=== PATIENT | male | born 1940 | race Caucasian/White ===

== ENCOUNTER → 2023-11-30 10:12 | Outpatient (REF) | payer OTHER, SELFPAY | LOC: RAD 10:12 | PROVIDERS: ATTENDING PHYSICIAN Surgery Vascular Surgery; FAMILY PHYSICIAN Family Medicine | DX: I71.40 Abdominal aortic aneurysm, without rupture, unspecified (principal) | CPT/HCPCS: 76770 ==

== ENCOUNTER 2024-01-25 23:34 | Inpatient (IN) | payer OTHER, SELFPAY ==
[2024-01-25 17:46] VITALS: BP 194/99
[2024-01-25 18:08] LABS: % Basophils 0.2 % (0-2); % Eosinophils 0.3 % (0-6); % Immature Granulocytes 0.3 % (0-0.5); % Lymphocytes 17.7 % (20.5-51.1); % Monocytes 1.8 % (1.7-9.3); % Neutrophils 79.7 % (42.2-75.2); Absolute Lymphocytes 1.8 10^3/uL (1.2-3.4); Absolute Monocytes 0.2 10^3/uL (0.1-0.6); Absolute Neutrophils 7.9 10^3/uL (1.4-6.5); Hematocrit 38.5 % (39.0-52.0); Hemoglobin 12.6 g/dL (13.0-18.0); Mean Corp Hgb Conc. 32.7 g/dL (33.0-37.0); Mean Corpuscular Hgb 28.9 pg (27.0-31.0); Mean Corpuscular Volume 88.3 fL (80.0-94.0); Mean Platelet Volume 9.8 fL (7.4-10.4); Nucleated Red Blood Cells % 0 % (-); Platelet Count 186 10^3/uL (130-400); Red Blood Cell Count 4.36 10^6/uL (4.70-6.10); Red Cell Dist. Width 12.2 % (11.5-14.5); White Blood Cell Count 9.9 10^3/uL (4.8-10.8)
[2024-01-25 18:27] LABS: Albumin 4.3 g/dl (3.5-5.0); Blood Urea Nitrogen 17 mg/dl (9-20); Chloride 95 mmol/L (98-107); Glucose 131 mg/dl (70-99); Total Bilirubin 1.1 mg/dl (0.2-1.3); Total Protein 6.7 g/dl (6.3-8.2); eGFR > 60.00
[2024-01-25 18:36] LABS: ALT (SGPT) 21 U/L (0-50); AST (SGOT) 30 U/L (17-59); Alkaline Phosphatase 57 U/L (38-126); Calcium 9.4 mg/dl (8.4-10.2); Carbon Dioxide 30 mmol/L (22-30); Lipase 50 U/L (23-300); Potassium 4.9 mmol/L (3.5-5.1); Sodium 131 mmol/L (135-145)
[2024-01-25 19:31] VITALS: BMI 17.8
[2024-01-25] MEDS: ZOFRAN 4 MG IV (20:03)
[2024-01-25] MEDS: MORPHINE SULFATE 2 MG IV ×2 (20:05→20:24)
[2024-01-25] MEDS: NSS 1000 IV (20:08)
--- NOTE | 2024-01-25 20:12 | ED.GENMED ---
History of Present Illness
General
Chief Complaint: Abdominal Pain
Source: patient
Exam Limitations: none
Time Seen by Provider: 01/25/24 19:28
History of Present Illness
History of Present Illness:
This is a 83 year old male that comes in with cp abd pain. States that he feels like he is impacted. States that he had a little BM yesterday but none since. State that he is not even passing gas. States that he did take MOM around 3:30-4pm but this
has not helped. States that he feels nauseated and has abd pain. Denies any fever, chills, chest pain, SOB, vomiting, diarrhea, headache, dizziness, urinary burning.
Past History
Past History
ED Past Medical History: Arrthythmia (Atrial fibrillation), Cancer (Skin), COPD (Wears Home Oxygen at 3 liters), GERD, HTN, Hypercholesterolemia and Other (AAA that they are watching, diverticulitis, chronic back pain, Bowel obstruction,
Bronchiolitis obliterans Organizing Pneumonia, Urinary retention, Macular degeneration); Negative NIDDM
ED Past Surgical History: Bowel resection (Colon resection)
Social History
Tobacco: Former smoker
Alcohol: None
Personal:
Living: with family
Employment: Retired
Review of Systems
Review of Systems
All Other Systems: ROS reviewed and negative except as documented in HPI and ROS
Constitutional: Reports no symptoms; Denies fever or chills
EENT: Reports no symptoms
Respiratory: Reports no symptoms; Denies cough or trouble breathing
Cardiac: Reports no symptoms; Denies chest pain
ABD/GI: Reports abdominal pain and nausea; Denies vomiting or diarrhea
: Reports no symptoms; Denies dysuria, frequency or urgency
Musculoskeletal: Reports no symptoms
Skin: Reports no symptoms
Neurological: Reports no symptoms; Denies dizzy or headache
Psychiatric: Reports no symptoms
Phy Exam
General Physical Exam
General Presentation: no apparent distress
General age: appears stated age
General Skin: warm and dry
General Habitus: elderly
General Mental: alert
General Hydration: dry mucous membranes
ENT Exam
ENT Exam: TM's normal, pharynx normal and neck supple
Eye Exam
Eye Exam: EOMI
Cardiovascular Exam
Cardiovascular Exam: regular rate/rhythm, no edema and normal peripheral pulses
Pulmonary Exam
Pulmonary Exam: no respiratory distress, chest non tender, no rhonchi, no wheezing, no cough and other (Fine crackles at bases)
Gastrointestinal Exam
Gastrointestinal Exam: soft, no organomegaly, no pulsatile mass, tender (Tenderness with palpation left abd. ) and other (Bowel sounds very hypoactive, Slight bulge on left sided, Hernias palpable)
Musculoskeletal Exam
Musculoskeletal Exam: full ROM and no edema
Skin Exam
Skin Exam: normal color, warm/dry, no rash and no petechia
Psychiatric Exam
Psychiatric Exam: normal mood/affect
Course
Orders/Labs/Results
Orders:
Orders
01/25/24 18:03
Complete Blood Count/With Diff Urgent
Comprehensive Metabolic Panel Urgent
Lipase Urgent
01/25/24 19:51
Morphine Sulfate 2 mg .ROUTE .STK-MED ONE
Ondansetron Injectable [Zofran] 4 mg .ROUTE .STK-MED ONE
01/25/24 20:03
Ondansetron Injectable [Zofran] 4 mg IV NOW STA
01/25/24 20:05
Morphine Sulfate 2 mg IV NOW STA
01/25/24 20:07
0.9% Sodium Chloride 1000 ml [Nss] 1,000 ml IV BOLUS
01/25/24 20:11
Lactate Level [Lactic Acid] Urgent
Comment: .
Iohexol [Omnipaque] See Protocol PO NOW STA
01/25/24 20:12
CT Abd/pel W Iv And Oral Contr Urgent
Comment: History of bowel obstruction
Reason For Exam: Left sided abd pain
01/25/24 20:18
Morphine Sulfate 2 mg .ROUTE .STK-MED ONE
01/25/24 20:24
Morphine Sulfate 2 mg IV NOW STA
01/25/24 21:45
HYDROmorphone [Dilaudid] 1 mg .ROUTE .STK-MED ONE
01/25/24 21:47
HYDROmorphone [Dilaudid] 1 mg IV NOW STA
Abnormal Lab Results
01/25/24
18:03
RBC 4.36 L 10^6/uL
(4.70-6.10)
Hgb 12.6 L g/dL
(13.0-18.0)
Hct 38.5 L %
(39.0-52.0)
MCHC 32.7 L g/dL
(33.0-37.0)
Absolute Neuts (auto) 7.9 H 10^3/uL
(1.4-6.5)
Neutrophils % 79.7 H %
(42.2-75.2)
Lymphocytes % 17.7 L %
(20.5-51.1)
Sodium 131 L mmol/L
(135-145)
Chloride 95 L mmol/L
(98-107)
Glucose 131 H mg/dl
(70-99)
01/25/24 18:03
01/25/24 18:03
H/H slightly low. Sodium slightly low. Chloride low. Glucose nonfasting. Lipase normal at 50.
Vital Signs
Initial and Last Documented VS:
Initial Vital Signs
Temp Pulse Resp BP Pulse Ox
97.3 F 75 20 194/99 94
01/25/24 17:46 01/25/24 17:46 01/25/24 17:46 01/25/24 17:46 01/25/24 17:46
Last Documented Vital Signs
Temp Pulse Resp BP Pulse Ox
97.3 F 89 20 180/80 98
01/25/24 17:46 01/25/24 21:27 01/25/24 21:27 01/25/24 21:27 01/25/24 21:27
MDM/Problems Addressed
Differential Diagnosis Includes:
Bowel obstruction. Constipation
MDM/Problems Addressed:
This is a 83 year old male that comes in with c/o abd pain. States that he has not moved his bowels or had any gas today. States that he went very little yesterday.
Will get labs, CT scan, IV fluids and pain medication.
Back into see patient. Explained that he has a small bowel obstruction. This may be due to a hernia. Will admit to hospitalist. Hospitaist notified.
Chronic conditions affecting care: Previous abdomnial surgery
Acute Exacerbation and/or Progression of Chronic Illness: Previous abdomnial surgery
*Radiology
Radiology exam reviewed: radiology read reviewed (CT- High grade small bowel obstruction. May be secondary to an internal hernia, Closed loop not entirely excluded. )
*Pulse Oximetry
Patient hypoxic: no
*EKG
Interpreted by ED Provider?: NA
Rate: EKG- N/A
*Build Engineer Interpretation
Rate: normal
Heart Rate: 77
Rhythm: sinus and PVC's
*Critical Care Note
Total Time (30-74mins, 75-104mins- exclusive of procedures): Not Applicable
ED Attending Note
-
Portions of this chart may have been created with voice recognition software.� Occasional wrong word or��sound alike� substitutions may have occurred due to the inherent limitations of voice recognition software.
Discharge Plan
Departure
Patient Disposition: Admit
Date of Disposition: 01/25/24
Time of Disposition: 23:14
Admit to: Med/Surg
Presentation/result/management discussed w/ accepting MD/DO: Hospitalist
Patient with high blood pressure during this ER visit?: Yes
Condition: Good
Covid-19: Not Applicable
Discharge Problem:
SBO (small bowel obstruction)
Prescriptions:
No Action
tamsulosin 0.4 MG capsule
0.4 mg PO HS
finasteride 5 MG tablet
5 mg PO HS
omeprazole 40 MG capsule,delayed release(DR/EC)
40 mg PO DAILY
PreserVision AREDS-2 1 EACH capsule
1 ea PO BID
Eliquis 5 MG tablet
5 mg PO BID Qty: 0 0RF
Patient Comments:
10/17/22- PATIENT USES [facility]
Eye [place] Advantage 550-250-2.5-0.5 xy-nioa-dg-mg Capsule
1 cap PO DAILY
albuterol sulfate 90 mcg/actuation Hfa Aerosol Inhaler
2 puff INHALATION R QIDPRN PRN (Reason: sob, wheezing)
albuterol sulfate 2.5 mg /3 mL (0.083 %) Solution For Nebulization
2.5 mg INHALATION R Q4HPRN PRN (Reason: sob)
Rx Instructions:
unsure of mcg
Trelegy Ellipta 200-62.5-25 mcg Blister With Device
1 inh INHALATION R DAILY
sennosides [senna] 8.6 mg Tablet
8.6 mg PO [id number] PRN (Reason: if no bm on 2nd day)
polyethylene glycol 3350 [Miralax] 17 gram Powder In Packet
17 g PO DAILY
rosuvastatin 40 mg tablet
40 mg PO QPM
guaifenesin [Mucinex] 600 mg tablet extended release 12hr
600 mg PO Q12H PRN (Reason: cough)
enalapril maleate 10 mg Tablet
10 mg PO DAILY Qty: 30 0RF
acetaminophen 325 mg Tablet
650 mg PO Q4HPRN PRN (Reason: abdominal pain) Qty: 10 0RF
amiodarone [Pacerone] 200 mg Tablet
400 mg PO BID Qty: 20 0RF
cephalexin 500 mg Capsule
500 mg PO QID Qty: 12 0RF
ferrous sulfate [FeroSul] 325 mg (65 mg iron) Tablet
325 mg PO Q48H Qty: 20 0RF
carvedilol 6.25 mg Tablet
6.25 mg PO BID Qty: 60 0RF
amiodarone 200 mg tablet
200 mg PO DAILY Qty: 30 0RF
Rx Instructions:
Start on 02/18
Referrals:
UNKNOWN - PT DOES,NOT KNOW [Unknown Provider] -
Interventions
Interventions:
*Risk Screen - Suicide Last Done: 01/25/24 17:46
*General Assessment Last Done: 01/25/24 17:46
*Neglect/Abuse Screening Last Done: 01/25/24 17:46
ED- Fall Risk Assessment Last Done: 01/25/24 19:36
RT-Ryobpk-Lfyspvmvqo Assessment Last Done: 01/25/24 19:36
Discharge Date and Time
Print Language: MARSHALLESE
[2024-01-25 20:14] VITALS: BP 180/80
[2024-01-25] MEDS: OMNIPAQUE 50 ML PO (20:23)
[2024-01-25 20:31] LABS: Lactic Acid 1.3 mmol/L (0.7-2.0)
[2024-01-25 21:27] VITALS: BP 180/80
[2024-01-25] MEDS: DILAUDID 1 MG IV (21:47)
--- NOTE | 2024-01-25 23:15 | HPS.HSE ---
Family Physician
-
Family Physician: Neal Harmon
Chief Complaint
-
abdominal pain
History of Present Illness
83 year old male with PMH for A-fib, skin cancer, COPD, chronic hypoxic respiratory failure, GERD, hypertension, hyperlipidemia AAA, diverticulitis, small bowel obstruction urinary retention presented with abdominal pain since yesterday . He had a
very small BM yesterday . He has been taking milk of mag, Senokot with no relief in his symptoms .abdomen is tender and distended .denied nausea or vomiting .patient denied headache, dizziness, syncopal episode .patient denies fever, chills, chest
pain, short of breath. patient denies dysuria hematuria.
CT with high-grade small bowel obstruction likely from hernia. Patient received Dilaudid, morphine, normal saline, Zofran ER. Admitted for further management
Medical History
Past Medical History
Past Medical History: Reports Other
Additional Past Medical History:
AAA
COPD
Hypertension
Coronary artery disease
Hyperlipidemia
Pulmonary hypertension
Iron deficiency anemia
Paroxysmal atrial fibs
BPH
GERD
Past Surgical History: Reports Other
Additional Past Surgical History:
Colectomy
Left eye surgery
Bilateral cataract surgery
Social History
Tobacco: Former Smoker
Alcohol: None
Drug: None
Personal:
Living: With Family
Family History
Family History: Not pertinent
Allergies / Home Medications
Allergies reflects when Allergies were last updated in [facility].
Home Medications with original date entered in [facility]
Allergy/Medication List:
Allergies
Allergy/AdvReac Type Severity Reaction Status Date / Time
No Known Allergies Allergy Verified 01/25/24 17:53
Home Medications
finasteride 5 mg tablet 5 mg PO HS prostate 03/15/16
tamsulosin 0.4 mg capsule 0.4 mg PO HS Urinary issue 03/15/16
apixaban 5 mg tablet (Eliquis) 5 mg PO BID Blood clot prevention/tx ##0 12/14/21
omeprazole 40 mg capsule,delayed release 40 mg PO DAILY Gastrointestinal issue 12/14/21
vit C 250 mg-vit E 90 mg-zinc 40 mg-copper 1 eo-[id number]-gsjkgc capsule (PreserVision AREDS-2) 1 ea PO BID Supplement 12/14/21
albuterol sulfate 90 mcg/actuation aerosol inhaler 2 puff inhalation R QIDPRN PRN sob, wheezing 09/12/22
omega3 550 mg-dkh-pqo-D3 250 unit-lutein 2.5 mg-zeaxant 0.5 mg capsule (Eye [place] Advantage) 1 cap PO DAILY vitamin 09/12/22
albuterol sulfate 2.5 mg/3 mL (0.083 %) solution for nebulization 2.5 mg inhalation R Q4HPRN PRN sob 10/17/22
fluticasone fur. 200 mcg-umeclid 62.5 mcg-vilant 25 mcg inhalat.powder (Trelegy Ellipta) 1 inh inhalation R DAILY sob 10/17/22
polyethylene glycol 3350 17 gram oral powder packet (Miralax) 17 g PO DAILY Constipation 10/17/22
rosuvastatin 40 mg tablet 40 mg PO QPM High cholesterol 10/17/22
sennosides 8.6 mg tablet (senna) 8.6 mg PO [id number] PRN if no bm on 2nd day 10/17/22
guaifenesin 600 mg tablet, extended release 12 hr (Mucinex) 600 mg PO Q12H PRN cough 12/11/22
enalapril maleate 10 mg tablet 10 mg PO DAILY #30 tabs 12/17/22
acetaminophen 325 mg tablet 650 mg (2 x 325 mg) PO Q4HPRN PRN abdominal pain #10 tabs 02/13/23
amiodarone 200 mg tablet 200 mg PO DAILY Start on 02/18/23 #30 tabs 02/13/23
amiodarone 200 mg tablet (Pacerone) 400 mg (2 x 200 mg) PO BID last dose on 02/17 #20 tabs 02/13/23
carvedilol 6.25 mg tablet 6.25 mg PO BID #60 tabs 02/13/23
cephalexin 500 mg capsule 500 mg PO QID #12 caps 02/13/23
ferrous sulfate 325 mg (65 mg iron) tablet (FeroSul) 325 mg PO Q48H #20 tabs 02/13/23
Review of Systems
-
Constitutional: Reports No Symptoms
EENT: Reports No Symptoms
Respiratory: Reports No Symptoms
Cardiac: Reports No Symptoms
Abdomen/GI: Reports Abdominal Pain
: Reports No Symptoms
Musculoskeletal: Reports No Symptoms
Skin: Reports No Symptoms
Neurological: Reports No Symptoms
Endocrine: Reports No Symptoms
Hematologic/Lymphatic: Reports No Symptoms
Psych: Reports No Symptoms
Physical Exam
Vital Signs
Vital Signs
Temp Pulse Resp BP Pulse Ox
97.3 F 89 20 180/80 98
01/25/24 17:46 01/25/24 21:27 01/25/24 21:27 01/25/24 21:27 01/25/24 21:27
Physical Exam
General: Well Developed, Well Nourished and No Apparent Distress
HEENT: NormoCephalic, Moist mucous membranes and Atraumatic
Respiratory: Clear
Cardiac: S1/S2 and Regular Rhythm; No Murmur or Rub
GI: Soft, Normal Bowel Sounds, Tender and Distended; No Organomegaly
Rectal: Deferred by Provider
Musculoskeletal: No Clubbing, No Cyanosis and No Edema
Skin: No Rash
Neuro: AO x 3 and Nonfocal/grossly intact
Psych: Calm
Laboratory Results
-
01/25/24 18:03
01/25/24 18:03
Laboratory Results
Lactic Acid 1.3 mmol/L (0.7-2.0) 01/25/24 20:11
Total Bilirubin 1.1 mg/dl (0.2-1.3) 01/25/24 18:03
AST 30 U/L (17-59) 01/25/24 18:03
ALT 21 U/L (0-50) 01/25/24 18:03
Alkaline Phosphatase 57 U/L (38-126) 01/25/24 18:03
Lipase 50 U/L (23-300) 01/25/24 18:03
Data Reviewed
-
CT Scan: Report Reviewed by me
Lab Data: Labs Reviewed by me
Impression/Plan
-
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
-maintain NPO
-surgery consulted
-CT abdomen pelvis with High-grade small bowel obstruction. Transition point appears to be located in the central abdomen where there is some twisting of the abdominal mesentery potentially secondary to an internal hernia. Closed loop obstruction is
difficult to completely exclude.
#acute on chronic hyponatremia likely dehydration
-na 131
-Normal saline continued
-Monitor BMP in a.m.
#chronic hypoxic respiratory insufficiency on 2-3 L at baseline
# History of COPD not in acute exacerbation-
-continue supplemental oxygen to keep sat greater than 89-year-old
-Wean as tolerated
# Primary HTN
-BP soft in ER
-Hold antihypertensive
# Paroxysmal atrial fibs
-Obtain EKG
-hold Eliquis
#Benign prostatic hypertrophy
#AAA
Outpatient monitoring
#DVT prophylaxis
-SCD
# CODE STATUS
-Full code
[2024-01-25 23:21] VITALS: BP 93/73
--- NOTE | 2024-01-25 23:30 | W.PN.UPDATE ---
Update Note
Progress Note Update
This is an addendum to the H&P written by Jenna Palomo on 01/25/2024. 83-year-old male past medical history of recurrent small bowel obstruction, aspiration pneumonia, iatrogenic fluid overload, hypertension, paroxysmal atrial fibrillation/SVT on
Eliquis, blood loss anemia, hyponatremia, COPD, chronic hypoxic respiratory failure on 3L, home oxygen, BPH, abdominal aortic aneurysm, pulmonary nodules, presenting with abdominal pain and nausea.
CT abdomen pelvis shows high-grade small bowel obstruction, transition point in the central abdomen where there is some twisting of the abdominal mesentery potentially secondary to internal hernia. Closed-loop obstruction difficult to completely
exclude.
N.p.o, IV fluids, pain control, hold Eliquis, general surgery consulted.
[2024-01-25 23:45] LABS: Urine Albumin Trace (Neg - Trace); Urine Bilirubin Negative (Negative); Urine Character Slightly Cloudy (Clear); Urine Color Straw; Urine Glucose Negative (Negative); Urine Ketone Trace (Negative); Urine Leukocyte Negative (Negative); Urine Nitrite Negative (Negative); Urine Occult Blood 1+ (Negative); Urine Urobilinogen Negative (Neg - 1+)
--- NOTE | 2024-01-25 23:45 | PHANOTE ---
med rec viktoria(01/25/24)-patient did not know his meds and left his list at home. Told to call to look for list in [facility]. Called at 23:25 and 23:45, no answer. List compiled using [facility] and [facility]. [facility], so not all
prescriptions showed up on [facility]. Patient confirmed Elimike and Dianagy himself.
[2024-01-25 23:53] LABS: Urine Squamous Cell 0-2 /LPF (Few)
[2024-01-25 23:56] LABS: Urine Amorphous Seen; Urine Bacteria Few (Negative); Urine White Cell 0-2 /HPF (0-5)
[2024-01-26] VITALS (7 sets, daily range): BP systolic 109–147; BP diastolic 62–86; BMI 18.3
[2024-01-26] MEDS: TYLENOL 650 MG PO (01:42)
[2024-01-26] MEDS: NSS 1000 IV ×2 (01:42→17:17)
[2024-01-26] MEDS: FLUSH (NSS) 1 FLUSH IV (01:42)
--- NOTE | 2024-01-26 01:56 | PTCARENOTE ---
Pt. admitted from E.D., AAO x 3, vs stable, NSR on monitor, IVF's started per MAR, call trujillo within reach.
[2024-01-26] MEDS: ZOFRAN 4 MG IV (04:25)
[2024-01-26] MEDS: DILAUDID 1 MG IV ×3 (08:02→21:36)
--- NOTE | 2024-01-26 08:53 | CON.CAR ---
Addendum entered and electronically signed by Arturo Gutierrez MD 01/26/24 12:38:
I saw and examined the patient.
The TOBACCO SCRAP SIFTER's note was reviewed and I agree with the note.
Comment:
1. Will provide IV BB while NPO in attempt to minimize amount of AFib.
2. If holding Eliquis for more than 2-3 days then IV heparin is reasonable. Lovenox would not be a reasonable bridge as Lovenox 1/2 life is very similar 1/2 life of his Eliquis.
3. His lack of ACS, HF, active arrhythmia and adequate functional status makes his risk of major cardiac complications from exploratory lap acceptable. Low to intermediate risk and ischemic evaluation is not needed should he needed surgical
intervention.
We will sign off but be available as needed.
Original Note:
Consultation
Consultation Request
Date/Time Consultation Requested: 01/26/24729
Date/Time Consultation Performed: 01/26/24 0850
Requesting Provider: Dr. Evans
Performing Provider: Suzy MEJIA for Dr. Gutierrez
Reason for Consultation: anticoagulation for AFIB in setting of surgery
Medical History
-
Chief Complaint: abdominal pain
History of Present Illness:
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
and is seen to have an SBO. Surgery is consulted and we are asked to comment on bridging with heparin for surgery in this patient on Eliquis. He is in NSR on telemetry. EKG is ordered by me and pending. He is in no distress at the time of my
assessment and denies any CP, SOB, or palpitations.
Past Medical History
Past Medical History: Arrhythmias, CAD, COPD, HTN and Other (as above)
Social History
Tobacco: Former Smoker
Family History
Family History: Reviewed & Not Pertinent
Allergies / Home Medications
Allergy/AdvReac Type Severity Reaction Status Date / Time
No Known Allergies Allergy Verified 01/25/24 17:53
�Medication �Instructions �Recorded �Confirmed �Type
finasteride 5 mg tablet 5 mg PO HS prostate 03/15/16 02/04/23 History
tamsulosin 0.4 mg capsule 0.4 mg PO HS Urinary issue 03/15/16 02/04/23 History
apixaban 5 mg tablet (Eliquis) 5 mg PO BID Blood clot 12/14/21 01/25/24 Rx
prevention/tx ##0
vit C 250 mg-vit E 90 mg-zinc 40 1 ea PO BID Supplement 12/14/21 02/04/23 History
mg-copper 1 ni-bmjjat-vlaean
capsule (PreserVision AREDS-2)
albuterol sulfate 2.5 mg/3 mL 2.5 mg inhalation R Q6HPRN PRN sob 10/17/22 02/04/23 History
(0.083 %) solution for nebulization
fluticasone fur. 200 mcg-umeclid 1 inh inhalation R DAILY sob 10/17/22 01/25/24 History
62.5 mcg-vilant 25 mcg
inhalat.powder (Trelegy Ellipta)
rosuvastatin 40 mg tablet 40 mg PO QPM High cholesterol 10/17/22 02/04/23 History
guaifenesin 600 mg tablet, 600 mg PO Q12H PRN cough 12/11/22 02/04/23 History
extended release 12 hr (Mucinex)
enalapril maleate 5 mg tablet 5 mg PO BID Blood Pressure 01/25/24 History
erythromycin 5 mg/gram (0.5 %) eye 1 applic RIGHT EYE TID Eye 01/25/24 History
ointment Condition
ezetimibe 10 mg tablet 10 mg PO DAILY High Cholesterol 01/25/24 01/25/24 History
carvedilol 6.25 mg tablet 6.25 mg PO BID Blood Pressure 01/26/24 History
Review of Systems
-
History Source: Patient
All other systems: Negative unless noted
Abdomen/GI: Abdominal Pain and Nausea
Physical Exam
Vital Signs
Temp Pulse Resp BP Pulse Ox
98.1 F 77 16 114/63 99
01/26/24 07:36 01/26/24 07:36 01/26/24 07:36 01/26/24 07:36 01/26/24 07:36
Physical Exam
General: Well Developed, Well Nourished and No Apparent Distress
HEENT: Normocephalic and Anicteric
Respiratory: Clear and Other (on O2 by NC)
Cardiac: Regular Rhythm and Murmur (II/ systolic murmur)
Musculoskeletal: No Edema
Skin: Warm and Dry
Neuro: AO x 3
Psych: Calm
Impression / Plan
-
SBO:
-NPO, on IVF, surgery is consulted
-pain is controlled
-Eliquis is held for potential surgery- see below
-he is low to moderate risk for procedure from cardiac perspective. He denies any CP or SOB. He is in SR on telemetry. EKG stable overall.
PAF:
-stable in SR, follow telemetry. Last admit, had AFIB with RVR in setting of SBO.
-on Coreg as OP- can use IV BB (metoprolol 5 mg IV q 6 H) in interim while NPO- this medicine requires intensive monitoring. Transition back to PO when able.
-on Eliquis for OAC- this is held for potential surgery. His [id number] score is 4 for age, HTN, and vascular disease. We do not typically bridge Eliquis for planned procedures. Would plan to resume Eliquis as soon as safe from procedure
standpoint. However, if he will be off Eliquis a prolonged amount of time (48-72 hrs), can use heparin drip.
HTN:
-stable
-also hx orthostatic hypotension
-follow
Non-obstructive CAD:
-stable no CP
AAA
Dyslipidemia
COPD on O2
Data Reviewed
-
EKG: Tracing Personally Visualized and interpreted (SR LAFB- no acute change from previous SR EKG's)
CT Scan: Report Reviewed by me (High-grade small bowel obstruction. Transition point appears to be located in the central abdomen where there is some twisting of the abdominal mesentery potentially secondary to an internal hernia. Closed loop
obstruction is difficult to completely exclude. )
Medical Tests (Nuc Med, Echo etc): Report Reviewed by me (Echo 01/05/23: EF 60-65%. Mild aortic stenosis; peak/mean gradients of 28/14 mmHg, calculated JOSHUA is 1.4 cm2. Trace aortic regurgitation. Mild to moderate tricuspid regurgitation. Estimated
pulmonary artery pressure of 45-50 mmHg.)
Labs: Labs Reviewed by me
[2024-01-26 10:56] LABS: Hemoglobin 12.3 g/dL (13.0-18.0); Mean Corp Hgb Conc. 33.2 g/dL (33.0-37.0); Mean Corpuscular Hgb 29.1 pg (27.0-31.0); Mean Corpuscular Volume 87.7 fL (80.0-94.0); Mean Platelet Volume 9.7 fL (7.4-10.4); Platelet Count 192 10^3/uL (130-400); Red Blood Cell Count 4.22 10^6/uL (4.70-6.10); Red Cell Dist. Width 12.8 % (11.5-14.5); White Blood Cell Count 15.3 10^3/uL (4.8-10.8)
--- NOTE | 2024-01-26 11:18 | CON.GS ---
Consultation
-
Date/Time Consultation Requested: January 26, 2024
Date/Time Consultation Performed: January 26, 2024
Performing Provider: Dr. Cantu
Reason for Consultation: Posssible Bowel Obstruction
Medical History
Past Medical History
Past Medical History: Reviewed & Noncontributory, Arrhythmias and HTN
Past Surgical History: Bowel Resection and Other
Social History
Employment: Retired
Family History
Family History: Reviewed & Noncontributory
Allergies / Home Medications
Allergy/AdvReac Type Severity Reaction Status Date / Time
No Known Allergies Allergy Verified 01/25/24 17:53
�Medication �Instructions �Recorded �Confirmed �Type
finasteride 5 mg tablet 5 mg PO HS prostate 03/15/16 02/04/23 History
tamsulosin 0.4 mg capsule 0.4 mg PO HS Urinary issue 03/15/16 02/04/23 History
apixaban 5 mg tablet (Eliquis) 5 mg PO BID Blood clot 12/14/21 01/25/24 Rx
prevention/tx ##0
vit C 250 mg-vit E 90 mg-zinc 40 1 ea PO BID Supplement 12/14/21 02/04/23 History
mg-copper 1 ac-zetmay-zpacuy
capsule (PreserVision AREDS-2)
albuterol sulfate 2.5 mg/3 mL 2.5 mg inhalation R Q6HPRN PRN sob 10/17/22 02/04/23 History
(0.083 %) solution for nebulization
fluticasone fur. 200 mcg-umeclid 1 inh inhalation R DAILY sob 10/17/22 01/25/24 History
62.5 mcg-vilant 25 mcg
inhalat.powder (Trelegy Ellipta)
rosuvastatin 40 mg tablet 40 mg PO QPM High cholesterol 10/17/22 02/04/23 History
guaifenesin 600 mg tablet, 600 mg PO Q12H PRN cough 12/11/22 02/04/23 History
extended release 12 hr (Mucinex)
enalapril maleate 5 mg tablet 5 mg PO BID Blood Pressure 01/25/24 History
erythromycin 5 mg/gram (0.5 %) eye 1 applic RIGHT EYE TID Eye 01/25/24 History
ointment Condition
ezetimibe 10 mg tablet 10 mg PO DAILY High Cholesterol 01/25/24 01/25/24 History
carvedilol 6.25 mg tablet 6.25 mg PO BID Blood Pressure 01/26/24 History
Review of Systems
-
History Source: Patient
Constitutional: No Symptoms
EENT: No Symptoms
Respiratory: No Symptoms
Cardiac: No Symptoms
Abdomen/GI: Abdominal Pain, Nausea, Vomiting, Constipated and Pain
: No Symptoms
Musculoskeletal: No Symptoms
Skin: No Symptoms
Neurological: Weakness
Endocrine: No Symptoms
Hematologic/Lymphatic: No Symptoms
A 10 point review of systems was completed, and was negative except as per HPI.
Physical Exam
Vital Signs
Temp Pulse Resp BP Pulse Ox
98 F 71 16 109/62 98
01/26/24 11:10 01/26/24 11:10 01/26/24 11:10 01/26/24 11:10 01/26/24 11:10
01/25/24 01/26/24 01/27/24
06:59 06:59 06:59
Actual Weight 61.292 kg
Body Mass Index (BMI) 18.3
Lab Results
01/26/24 10:19
WBC 15.3 10^3/uL (4.8-10.8) H 01/26/24 10:19
Hgb 12.3 g/dL (13.0-18.0) L 01/26/24 10:19
Hct 37.0 % (39.0-52.0) L 01/26/24 10:19
Plt Count 192 10^3/uL (130-400) 01/26/24 10:19
Abs Immat Gran (auto) 0.0 10^3/uL (0-0.05) 01/25/24 18:03
Neutrophils % 79.7 % (42.2-75.2) H 01/25/24 18:03
Physical Exam
General: No Apparent Distress and Comfortable
Cardiac: Regular Rhythm
GI: Soft, Non Tender, Non Distended and Incisions
Rectal: Other
Neuro: Awake, Alert, Oriented and AO x 3
Psych: Calm
--- NOTE | 2024-01-26 11:40 | W.PN.HOSP.TC ---
Addendum entered and electronically signed by Kade Evans MD 01/26/24 13:12:
For while patient is NPO, cardiology started Metoprolol IV�...once patient is taking PO, resume usual beta alyssa. Per cardiology, he is okay for abdominal surgery if needed from cardiac perspective. If patient will be off Eliquis more than 2 to 3
days, then it is okay if we start intervenous heparin in the place of Eliquis.
Original Note:
Today's Communication/Plan
-
Continue NPO
Surgery to evaluate, appreciate surgery
Appreciate cardiology input
Assessment / Plan
Assessment / Plan
Physical Exam
General: Not in acute distress
HEENT: Normocephalic
Respiratory: Clear to Auscultation Bilaterally
Cardiac: S1/S2 and Regular Rhythm
GI: Soft, Normal Bowel Sounds, Tender and Distended
Musculoskeletal: No Cyanosis and No Edema
Skin: Warm. Dry.
Neuro: AAO x 3 and Nonfocal/grossly intact
Psych: Calm

Assessment/Plan
83-year-old male past medical history of recurrent small bowel obstruction, aspiration pneumonia, iatrogenic fluid overload, hypertension, paroxysmal atrial fibrillation/SVT on Eliquis, blood loss anemia, hyponatremia, COPD, chronic hypoxic
respiratory failure on 3L, home oxygen, BPH, abdominal aortic aneurysm, pulmonary nodules, presenting with abdominal pain and nausea.
CT abdomen pelvis showed high-grade small bowel obstruction, transition point in the central abdomen where there is some twisting of the abdominal mesentery potentially secondary to internal hernia. Closed-loop obstruction difficult to completely
exclude.
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
-maintain NPO
-surgery consulted
-may need NG tube if vomiting
-Okay to hold Eliquis for the time being, as per cardiology
-CT abdomen pelvis with High-grade small bowel obstruction. Transition point appears to be located in the central abdomen where there is some twisting of the abdominal mesentery potentially secondary to an internal hernia. Closed loop obstruction is
difficult to completely exclude.
#acute on chronic hyponatremia likely dehydration
#History of Hyponatremia
-na 131
-Normal saline continued
-Monitor BMP
#chronic hypoxic respiratory insufficiency on 2-3 L at baseline
#History of COPD not in acute exacerbation-
-continue supplemental oxygen to keep sat greater than 89-year-old
-Wean as tolerated
# Primary HTN
-BP soft in ER
-Hold antihypertensive
# Paroxysmal atrial fibs
-Obtain EKG
-hold Eliquis
#Benign prostatic hypertrophy
#AAA
Outpatient monitoring
History of aspiration pneumonia
History of iatrogenic fluid overload
History of blood loss anemia
BPH
Pulmonary nodules
#DVT prophylaxis
-SCD
# CODE STATUS
-Full code
Anticipated Discharge: > 48 hours
Subjective/Interval History
-
Date of Service: January 26, 2024
Patient was seen and examined. He reports feeling a bit better than when he came in. No significant abdominal pain.
Objective Data
-
Labs:
Laboratory Results
01/26/24
10:19
WBC 15.3 H
Hgb 12.3 L
Hct 37.0 L
Plt Count 192
Sodium Pending
Potassium Pending
Chloride Pending
Carbon Dioxide Pending
BUN Pending
Creatinine Pending
Glucose Pending
Calcium Pending
Vital Signs:
Vital Signs
Temp Pulse Resp BP Pulse Ox
98 F 71 16 109/62 98
01/26/24 11:10 01/26/24 11:10 01/26/24 11:10 01/26/24 11:10 01/26/24 11:10
I&O
01/25/24 01/26/24 01/27/24
06:59 06:59 06:59
Intake Total 1300 / 1300
Output Total 450 / 450
Balance 850 / 850
[2024-01-26] MEDS: LOPRESSOR 5 MG IV ×2 (12:03→17:17)
[2024-01-26 12:05] LABS: Blood Urea Nitrogen 22 mg/dl (9-20); Calcium 8.6 mg/dl (8.4-10.2); Carbon Dioxide 32 mmol/L (22-30); Chloride 93 mmol/L (98-107); Estimated Creatinine Clearance 52 ml/min; Glucose 109 mg/dl (70-99); Potassium 4.5 mmol/L (3.5-5.1); Sodium 133 mmol/L (135-145); eGFR > 60.00
--- NOTE | 2024-01-26 14:10 | CM ---
Addendum entered by Ashley Tanner RN 01/26/24 14:12:
CM Consult for Advanced Directive received. Blank Advanced Directive forms provided to the patient.
Original Note:
Reviewed the chart notes and spoke with the patient at the bedside. The patient resides with his spouse and son in a one story home with one step to enter. The patient reports home O2 through [employer]. The patient has a [facility] nurse. The patient
has not been to SNF in the past. The patient confirmed his pharmacy of choice is the [facility]. CM continues to be available to patient/family and is monitoring medical plan for needs at discharge.
Plan: Discharge to home when medically stable.
--- NOTE | 2024-01-26 18:36 | CON.GS ---
Consultation
-
Date/Time Consultation Performed: 10:30AM 01/26/2024
Performing Provider: Pepe
Reason for Consultation: SBO
Medical History
-
Chief Complaint: Abdominal pain
History of Present Illness:
Mr. Snyder is an 83-year-old male well-known to our surgical service. He has undergone diagnostic laparoscopy converted to laparotomy with extensive lysis of adhesions on 12/13/2022 for persistent small bowel obstruction. This operative procedure did
identify dense interloop and mesenteric adhesions with volvulus but no internal hernia. No bowel resection required. 2 months later he presented with a another bowel obstruction requiring laparotomy and lysis of band adhesions on 02/06/2023.
Operative findings identified 2 areas of fresh band adhesion with a transition point adhesiolysis released the bowel obstruction.
He has recovered well from the above procedure. He developed the acute onset of abdominal pain yesterday similar to previous episodes of bowel obstruction with nausea and intermittent vomiting. This prompted emergency department evaluation and
admission overnight
This a.m. his pain is improved but not resolved. It is adequately managed with Dilaudid which almost completely gets rid of it. He had 1 episode of emesis this a.m. a couple hours ago and it has not returned. No flatus or bowel movement
Past Medical History
Past Medical History: Other (CAD, P A-fib, mild , PVCs, hypertension, prediabetic, orthostatic hypotension, ascending aorta dilation, infrarenal AAA, history of SBO's, COPD on 2 L oxygen)
Past Surgical History: Other (Laparotomies with lysis of adhesion x 2s, Margo procedure and subsequent reversal in the 1980s.)
Social History
Tobacco: Former Smoker
Alcohol: Occasional
Living: With Family
Employment: Retired
Family History
Family History: Reviewed & Noncontributory
Allergies / Home Medications
Allergy/AdvReac Type Severity Reaction Status Date / Time
No Known Allergies Allergy Verified 01/25/24 17:53
�Medication �Instructions �Recorded �Confirmed �Type
finasteride 5 mg tablet 5 mg PO HS prostate 03/15/16 02/04/23 History
tamsulosin 0.4 mg capsule 0.4 mg PO HS Urinary issue 03/15/16 02/04/23 History
apixaban 5 mg tablet (Eliquis) 5 mg PO BID Blood clot 12/14/21 01/25/24 Rx
prevention/tx ##0
vit C 250 mg-vit E 90 mg-zinc 40 1 ea PO BID Supplement 12/14/21 02/04/23 History
mg-copper 1 [id number]-mpbnil
capsule (PreserVision AREDS-2)
albuterol sulfate 2.5 mg/3 mL 2.5 mg inhalation R Q6HPRN PRN sob 10/17/22 02/04/23 History
(0.083 %) solution for nebulization
fluticasone fur. 200 mcg-umeclid 1 inh inhalation R DAILY sob 10/17/22 01/25/24 History
62.5 mcg-vilant 25 mcg
inhalat.powder (Trelegy Ellipta)
rosuvastatin 40 mg tablet 40 mg PO QPM High cholesterol 10/17/22 02/04/23 History
guaifenesin 600 mg tablet, 600 mg PO Q12H PRN cough 12/11/22 02/04/23 History
extended release 12 hr (Mucinex)
enalapril maleate 5 mg tablet 5 mg PO BID Blood Pressure 01/25/24 History
erythromycin 5 mg/gram (0.5 %) eye 1 applic RIGHT EYE TID Eye 01/25/24 History
ointment Condition
ezetimibe 10 mg tablet 10 mg PO DAILY High Cholesterol 01/25/24 01/25/24 History
carvedilol 6.25 mg tablet 6.25 mg PO BID Blood Pressure 01/26/24 History
Review of Systems
-
History Source: Patient
All other systems: Negative unless noted
A 10 point review of systems was completed, and was negative except as per HPI.
Physical Exam
Vital Signs
Temp Pulse Resp BP Pulse Ox
97.8 F 72 16 147/71 99
01/26/24 15:46 01/26/24 15:46 01/26/24 15:46 01/26/24 15:46 01/26/24 15:46
01/25/24 01/26/24 01/27/24
06:59 06:59 06:59
Actual Weight 61.292 kg
Body Mass Index (BMI) 18.3
Lab Results
01/26/24 10:19
01/26/24 10:19
WBC 15.3 10^3/uL (4.8-10.8) H 01/26/24 10:19
Hgb 12.3 g/dL (13.0-18.0) L 01/26/24 10:19
Hct 37.0 % (39.0-52.0) L 01/26/24 10:19
Plt Count 192 10^3/uL (130-400) 01/26/24 10:19
Abs Immat Gran (auto) 0.0 10^3/uL (0-0.05) 01/25/24 18:03
Neutrophils % 79.7 % (42.2-75.2) H 01/25/24 18:03
Physical Exam
General: Well Developed, Well Nourished, No Apparent Distress and Other (Elderly male, resting comfortably in hospital bed)
HEENT: Normocephalic, Anicteric and Moist Mucous Membranes
Respiratory: Non Labored Respirations
Cardiac: Regular Rhythm
GI: Soft, Tender (Mild tenderness on palpation but no rebound rigidity or guarding. No localizing tenderness) and Distended (Tympanitic)
Skin: Warm
Neuro: AO x 3
Psych: Calm
Data Reviewed
-
CT Scan: Image Personally Visualized and interpreted, Report Reviewed by me, Discussed with Patient and Discussed with Family
Labs: Labs Reviewed by me and Discussed with Patient
Assessment / Plan
-
Assessment: 83-year-old male presenting with recurrent small bowel obstruction.
Last laparotomy for lysis of adhesions approximately 1 year ago. He had been doing well since. Reviewing CT imaging there does appear to be a swirl of the mesentery and a transition point but there is no significant mesenteric edema, bowel wall
thickening or free fluid. White blood cell count this a.m. is elevated but there is no acidosis and his BUN and creatinine are stable. No signs of peritonitis on examination and he is comfortable throughout current evaluation this a.m. His
and son are at bedside.
Discussions with patient and family members treatment options which would include surgical intervention today versus attempted nonoperative management. Given his level of comfort and clinical stability patient prefers attempted nonoperative
management which is reasonable as long as we closely observe him for any clinical decline. In addition this will give additional time for his Eliquis washout which is currently at about 24 hours. Hold on NG tube placement as he states he is not
nauseated.
Plan: N.p.o., IV fluid hydration and close monitoring with supportive care
Follow-up abdominal x-rays tomorrow a.m.
Hold therapeutic anticoagulation as may require surgical intervention
Reassess tomorrow a.m. for possible surgery if no clinical or radiographic improvement and persistent high-grade obstruction suspected.
[2024-01-27] VITALS (7 sets, daily range): BP systolic 102–141; BP diastolic 62–75
[2024-01-27] MEDS: LOPRESSOR 5 MG IV ×5 (00:24→23:08)
[2024-01-27] MEDS: TYLENOL 650 MG PO (00:29)
--- NOTE | 2024-01-27 05:30 | PTCARENOTE ---
Pt. noted he could not void and felt pressure in his abdomen, notified JACKIE Rooney, ordered bladder scan and straight cath, scanned 850 ml, straight cathed for 900 ml clear yellow urine.
[2024-01-27 06:13] LABS: Hematocrit 37.3 % (39.0-52.0); Hemoglobin 11.9 g/dL (13.0-18.0); Mean Corp Hgb Conc. 31.9 g/dL (33.0-37.0); Mean Corpuscular Hgb 28.4 pg (27.0-31.0); Platelet Count 178 10^3/uL (130-400); Red Blood Cell Count 4.19 10^6/uL (4.70-6.10); White Blood Cell Count 10.6 10^3/uL (4.8-10.8)
[2024-01-27 06:33] LABS: Blood Urea Nitrogen 25 mg/dl (9-20); Calcium 8.7 mg/dl (8.4-10.2); Carbon Dioxide 31 mmol/L (22-30); Chloride 96 mmol/L (98-107); Estimated Creatinine Clearance 52 ml/min; Glucose 112 mg/dl (70-99); Potassium 4.8 mmol/L (3.5-5.1); Sodium 135 mmol/L (135-145); eGFR > 60.00
[2024-01-27] MEDS: DILAUDID 1 MG IV ×2 (08:39→15:50)
[2024-01-27] MEDS: SPIRIVA RESPIMAT 2.5 MCG 2 PUFF INH (11:00)
[2024-01-27] MEDS: SYMBICORT 160/4.5 MCG INHALER 2 PUFF INH ×2 (11:00→20:48)
--- NOTE | 2024-01-27 11:37 | W.PN.GS2 ---
Addendum entered and electronically signed by Daniel Cantu MD 01/27/24 11:58:
Patient seen and examined with nurse practitioner.
He has noticed improvement in presenting symptoms but still not resolved.
Belching at times, no flatus. No nausea. No vomiting. Abdominal discomfort but no pain.
Pain this a.m. was related to urinary retention and relieved after straight catheterization.
AFVSS
No acute distress, conversing comfortably during our evaluation, resting in his hospital bed
ABD: Mildly distended but not tense. Tympany on percussion. No percussion tenderness. Slight tenderness on palpation left lower quadrant and right lower quadrant but no rebound, no rigidity, no guarding
Abdominal x-ray today reviewed. There is likely a persistent but mildly improved gastric distention. Some scattered air in the colon and residual stool. Previous oral contrast not well-visualized. No progressive or worsening of small bowel
dilation.
Assessment/plan: 83-year-old male with recurrent small bowel obstruction; who has undergone 2 previous laparotomies within the last year and a half for small bowel obstructions.
Advised patient that there is likely a persistent at least partial residual obstruction but he has been able to tolerate management without NG tube without return of pain or nausea/vomiting.
Given his extensive past surgical history, medical history of COPD with supplemental oxygen requirement he would certainly be of higher risk for surgical intervention.
We discussed the options of either surgical intervention or further radiographic imaging in 24 hours to assess for degree of persistence of obstruction with a contrast imaging study.
No clinical signs of immediate bowel compromise or threat to necessitate surgery today patient's preference is to continue with nonoperative management and follow-up radiographic imaging reassess tomorrow. He understands that there is still
reasonable chance he may need surgery. Any of his questions were fully addressed.
Continue to hold therapeutic anticoagulation.
Small bowel follow-through study will be scheduled for tomorrow
Original Note:
Today's Communication / Plan
-
SBFT in AM
Assessment / Plan
-
Assessment: 83-year-old male presenting with recurrent small bowel obstruction.
Last laparotomy for lysis of adhesions approximately 1 year ago. He had been doing well since. Reviewing CT imaging there does appear to be a swirl of the mesentery and a transition point but there is no significant mesenteric edema, bowel wall
thickening or free fluid.
F/U XR this am with mild distention of the stomach and small bowel. Fecal residue throughout the colon.
AFVSS
No further leukocytosis
Clinically slightly improved as nausea as resolved. Await passage of flatus.
--Continue NPO/IVF
--Ok for PO Flomax given urinary retention, would continue cardiac meds IV
--Plan small bowel follow through study in the am
--PRN analgesics/antiemetics
--Medical management as per primary service
Will continue to follow nonoperatively for now with bowel rest/supportive measures
Subjective Data
-
Date of Service: January 27, 2024
Patient seen and examined at bedside with Dr. Cantu. Notes he is slightly better but not by much. Nausea has resolved but still not passing flatus. Some belching. Discomfort present but better than presentation. Urinary retention early today
requiring straight cath for relief
Objective Data
-
Intake and Output
01/26/24 01/27/24 01/28/24
06:59 06:59 06:59
Intake Total 1300 / 1300 1340 / 1340
Output Total 450 / 450 1255 / 1255
Balance 850 / 850 85 / 85
Intake:
IV fluids (Total) 1300 / 1300 1340 / 1340
nss 1000 / 1000
Output:
Urine, Voided 450 / 450 355 / 355
Straight cath output 900 / 900
Vital Signs
Temp Pulse Resp BP Pulse Ox
98.1 F 77 16 125/72 96
01/27/24 11:11 01/27/24 11:11 01/27/24 11:11 01/27/24 11:11 01/27/24 11:11
Lab Results
01/27/24 05:39
01/27/24 05:39
Calcium 8.7 mg/dl (8.4-10.2) 01/27/24 05:39
Total Bilirubin 1.1 mg/dl (0.2-1.3) 01/25/24 18:03
AST 30 U/L (17-59) 01/25/24 18:03
ALT 21 U/L (0-50) 01/25/24 18:03
Alkaline Phosphatase 57 U/L (38-126) 01/25/24 18:03
Total Protein 6.7 g/dl (6.3-8.2) 01/25/24 18:03
Albumin 4.3 g/dl (3.5-5.0) 01/25/24 18:03
Physical Exam
-
NAD
ABD soft, distended, mild generalized tenderness
[2024-01-27] MEDS: NSS 1000 IV (12:21)
--- NOTE | 2024-01-27 14:08 | W.PN.HOSP.TC ---
Addendum entered and electronically signed by Kade Evans MD 01/27/24 17:55:
Per patient's nurse, patient had a 4 minute episode of sustaining vtach, 140s-160s, earlier this afternoon, which resolved. Notified cardiology who said they can see patient tomorrow if needed. BMP and Magnesium ordered and noted to be okay.
Continue monitoring on telemetry.
Original Note:
Today's Communication/Plan
-
Still obstructed, small bowel follow through tomorrow
Assessment / Plan
Assessment / Plan
Physical Exam
General: Not in acute distress
HEENT: Normocephalic
Respiratory: Clear to Auscultation Bilaterally
Cardiac: S1/S2 and Regular Rhythm
GI: Soft, Normal Bowel Sounds, Tender and Distended
Musculoskeletal: No Cyanosis and No Edema
Skin: Warm. Dry.
Neuro: AAO x 3 and Nonfocal/grossly intact
Psych: Calm

Assessment/Plan
83-year-old male past medical history of recurrent small bowel obstruction, aspiration pneumonia, iatrogenic fluid overload, hypertension, paroxysmal atrial fibrillation/SVT on Eliquis, blood loss anemia, hyponatremia, COPD, chronic hypoxic
respiratory failure on 3L, home oxygen, BPH, abdominal aortic aneurysm, pulmonary nodules, presenting with abdominal pain and nausea.
CT abdomen pelvis showed high-grade small bowel obstruction, transition point in the central abdomen where there is some twisting of the abdominal mesentery potentially secondary to internal hernia. Closed-loop obstruction difficult to completely
exclude.
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
-Maintain NPO
-Continue IV fluids
-surgery consulted
-may need NG tube if vomiting
-Okay to hold Eliquis for the time being, as per cardiology, but if 1 or 2 more days have passed, consider starting Heparin Drip to take the place of Eliquis while patient is in the hospital -- see cardio note from January 28, 2024 (and more recent
cardiology notes if present)
-Small bowel follow-through study will be scheduled for tomorrow
#acute on chronic hyponatremia likely dehydration
#History of Hyponatremia
-na 131
-Normal saline continued
-Monitor BMP
#chronic hypoxic respiratory insufficiency on 2-3 L at baseline
#History of COPD not in acute exacerbation-
-continue supplemental oxygen to keep sat greater than 89-year-old
-Wean as tolerated
# Primary HTN
-BP soft in ER
-Hold antihypertensive
# Paroxysmal atrial fibs
-hold Eliquis for now
-Scheduled metoprolol IV ordered by cardiology while patient is NPO
#Benign prostatic hypertrophy
-Okay for PO Flomax given urinary retention
#AAA
Outpatient monitoring
History of aspiration pneumonia
History of iatrogenic fluid overload
History of blood loss anemia
BPH
Pulmonary nodules
#DVT prophylaxis
-SCD
# CODE STATUS
-Full code
Anticipated Discharge: > 48 hours
Subjective/Interval History
-
Date of Service: January 27, 2024
Patient was seen and examined. He reported his symptoms have improved, he has not passed any gas or stools.
Objective Data
-
Labs:
Laboratory Results
01/27/24
05:39
WBC 10.6
Hgb 11.9 L
Hct 37.3 L
Plt Count 178
Sodium 135
Potassium 4.8
Chloride 96 L
Carbon Dioxide 31 H
BUN 25 H
Creatinine 0.9
Glucose 112 H
Calcium 8.7
Vital Signs:
Vital Signs
Temp Pulse Resp BP Pulse Ox
98.1 F 77 16 125/72 96
01/27/24 11:11 01/27/24 11:11 01/27/24 11:11 01/27/24 12:11 01/27/24 11:11
I&O
01/26/24 01/27/24 01/28/24
06:59 06:59 06:59
Intake Total 1300 / 1300 1340 / 1340
Output Total 450 / 450 1255 / 1255
Balance 850 / 850 85 / 85
[2024-01-27] MEDS: ERYTHROMYCIN 0.5% OPHTHALMIC OINTMENT 1 APPLIC RIGHT EYE ×2 (15:40→21:01)
[2024-01-27 16:30] LABS: Blood Urea Nitrogen 25 mg/dl (9-20); Calcium 8.6 mg/dl (8.4-10.2); Carbon Dioxide 28 mmol/L (22-30); Chloride 99 mmol/L (98-107); Estimated Creatinine Clearance 59 ml/min; Glucose 108 mg/dl (70-99); Magnesium 2.3 mg/dl (1.6-2.3); Potassium 4.9 mmol/L (3.5-5.1); Sodium 135 mmol/L (135-145); eGFR > 60.00
[2024-01-27] MEDS: FLOMAX 0.4 MG PO (17:08)
[2024-01-28 03:30] VITALS: BP 151/81
[2024-01-28] MEDS: NSS 1000 IV (05:34)
[2024-01-28] MEDS: LOPRESSOR 5 MG IV ×3 (05:35→21:18)
[2024-01-28] MEDS: DILAUDID 1 MG IV ×2 (05:40→10:58)
[2024-01-28 06:00] VITALS: BMI 18.5
[2024-01-28 07:19] LABS: Hematocrit 34.5 % (39.0-52.0); Hemoglobin 11.1 g/dL (13.0-18.0); Mean Corp Hgb Conc. 32.2 g/dL (33.0-37.0); Mean Corpuscular Hgb 28.6 pg (27.0-31.0); Mean Corpuscular Volume 88.9 fL (80.0-94.0); Mean Platelet Volume 9.7 fL (7.4-10.4); Platelet Count 164 10^3/uL (130-400); Red Blood Cell Count 3.88 10^6/uL (4.70-6.10)
[2024-01-28 07:28] VITALS: BP 126/67
--- NOTE | 2024-01-28 07:36 | W.PN.HOSP.TC ---
Today's Communication/Plan
-
cont IVF supplementation
NGT decompression as per Surgery
Davis acute urinary retention
scheduled IV BB as per Cardio
pain control
antiemetic
Assessment / Plan
Assessment / Plan
Physical Exam
General: Not in acute distress
HEENT: Normocephalic
Respiratory: Clear to Auscultation Bilaterally stable respiratory status on 4L
Cardiac: S1/S2 and Regular Rhythm
GI: Soft, Normal Bowel Sounds, Tender and Distended
Musculoskeletal: No Cyanosis and No Edema
Skin: Warm. Dry.
Neuro: AAO x 3
Psych: Calm

Assessment/Plan
83-year-old male past medical history of recurrent small bowel obstruction, aspiration pneumonia, iatrogenic fluid overload, hypertension, paroxysmal atrial fibrillation/SVT on Eliquis, blood loss anemia, hyponatremia, COPD, chronic hypoxic
respiratory failure on 3L, home oxygen, BPH, abdominal aortic aneurysm, pulmonary nodules, presenting with abdominal pain and nausea.
CT abdomen pelvis showed high-grade small bowel obstruction, transition point in the central abdomen where there is some twisting of the abdominal mesentery potentially secondary to internal hernia. Closed-loop obstruction difficult to completely
exclude.
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
-Maintain NPO
-Continue IV fluids
-surgery consult appreciated
-SBFT 01/27 appreciated complete SBO, NGT decompression started 01/27 as per surgery
#acute on chronic hyponatremia likely dehydration
#History of Hyponatremia
-Resolved on IVF while NPO
#chronic hypoxic respiratory insufficiency on 2-3 L at baseline
#History of COPD not in acute exacerbation-
-continue supplemental oxygen to keep sat greater than 89-year-old
-Wean as tolerated
# Primary HTN
-BP low normotensive while NPO
-cont hold home enalapril Coreg
# Paroxysmal atrial fibs
-hold Eliquis for now, consider hep gtt if hold is prolonged
-Scheduled metoprolol IV ordered by cardiology while patient is NPO
#reported Vtach 01/27/24
cardio eval appreciated AT at 170 bpm 01/26, 16 sec AT 01/27, recc cont IV BB, resume home Coreg when cleared for oral intake, since signed off
#Benign prostatic hypertrophy
#Acute retention
Davis started 01/27
Hold Flomax/Finasteride/oral medications for now given complete SBO noted on recent imaging
#AAA
Outpatient monitoring
History of aspiration pneumonia
History of iatrogenic fluid overload
History of blood loss anemia
BPH
Pulmonary nodules
#DVT prophylaxis
-SCD
# CODE STATUS
-Full code
I spent a total of 55 minutes with the patient or on the floor. More than 50% of this time involved counseling and coordination of care.
Anticipated Discharge: > 48 hours
Subjective/Interval History
-
Date of Service: January 28, 2024
Seen and examined at bedside in no acute distress resting comfortably in bed. Reports intermittent nausea vomiting. Denies abd pain at rest. Noted poor urine output likely retention.
Objective Data
-
Labs:
Laboratory Results
01/28/24
06:39
WBC 10.0
Hgb 11.1 L
Hct 34.5 L
Plt Count 164
Sodium Pending
Potassium Pending
Chloride Pending
Carbon Dioxide Pending
BUN Pending
Creatinine Pending
Glucose Pending
Calcium Pending
Vital Signs:
Vital Signs
Temp Pulse Resp BP Pulse Ox
98.5 F 70 19 126/67 90
01/28/24 07:28 01/28/24 07:28 01/28/24 07:28 01/28/24 07:28 01/28/24 07:28
I&O
01/27/24 01/28/24 01/29/24
06:59 06:59 06:59
Intake Total 1340 / 1340
Output Total 1255 / 1255 500 / 500
Balance 85 / 85 -500 / -500
[2024-01-28 07:40] LABS: Blood Urea Nitrogen 26 mg/dl (9-20); Calcium 8.4 mg/dl (8.4-10.2); Carbon Dioxide 31 mmol/L (22-30); Chloride 99 mmol/L (98-107); Estimated Creatinine Clearance 52 ml/min; Glucose 107 mg/dl (70-99); Magnesium 2.3 mg/dl (1.6-2.3); Potassium 4.7 mmol/L (3.5-5.1); Sodium 136 mmol/L (135-145); eGFR > 60.00
[2024-01-28] MEDS: ERYTHROMYCIN 0.5% OPHTHALMIC OINTMENT 1 APPLIC RIGHT EYE ×2 (07:54→15:32)
--- NOTE | 2024-01-28 09:19 | W.PN.GS2 ---
Today's Communication / Plan
-
SBFT study
Assessment / Plan
-
Assessment: 83-year-old male presenting with recurrent small bowel obstruction.
Last laparotomy for lysis of adhesions approximately 1 year ago. He had been doing well since. Reviewing CT imaging there does appear to be a swirl of the mesentery and a transition point but there is no significant mesenteric edema, bowel wall
thickening or free fluid.
F/U XR on 01/26 with mild distention of the stomach and small bowel. Fecal residue throughout the colon.
AFVSS
No further leukocytosis
Clinically slightly improved with some passage of flatus, abdomen remains distended
--Continue NPO/IVF
--Ok for PO Flomax given urinary retention yesterday, would continue cardiac meds IV
--Plan small bowel follow through study today
--PRN analgesics/antiemetics
--Medical management as per primary service
Further surgical recommendations pending imaging today. Please continue to hold oral anticoagulation
Subjective Data
-
Date of Service: January 28, 2024
Patient seen and examined at bedside with Dr Whitehead. Notes he has passed a little flatus. Some belching with hiccups. Denies n/v. Pain stable without worsening.
Objective Data
-
Intake and Output
01/27/24 01/28/24 01/29/24
06:59 06:59 06:59
Intake Total 1340 / 1340
Output Total 1255 / 1255 500 / 500
Balance 85 / 85 -500 / -500
Intake:
IV fluids (Total) 1340 / 1340
Output:
Urine, Voided 355 / 355 500 / 500
Straight cath output 900 / 900
Other:
How many times incontinent 1
MODERATE amount urine
How many times incontinent 1
SATURATED amount urine
Vital Signs
Temp Pulse Resp BP Pulse Ox
98.5 F 70 19 126/67 90
01/28/24 07:28 01/28/24 07:28 01/28/24 07:28 01/28/24 07:28 01/28/24 07:28
Lab Results
01/28/24 06:39
01/28/24 06:39
Calcium 8.4 mg/dl (8.4-10.2) 01/28/24 06:39
Magnesium 2.3 mg/dl (1.6-2.3) 01/28/24 06:39
Total Bilirubin 1.1 mg/dl (0.2-1.3) 01/25/24 18:03
AST 30 U/L (17-59) 01/25/24 18:03
ALT 21 U/L (0-50) 01/25/24 18:03
Alkaline Phosphatase 57 U/L (38-126) 01/25/24 18:03
Total Protein 6.7 g/dl (6.3-8.2) 01/25/24 18:03
Albumin 4.3 g/dl (3.5-5.0) 01/25/24 18:03
Physical Exam
-
NAD
ABD soft, distended, mild to moderate generalized tenderness
--- NOTE | 2024-01-28 11:24 | W.PN.UPDATE ---
Update Note
Progress Note Update
-
He had 3 min of AT at 170 bpm on 01/27/2024
He had 16 sec of the AT today.
Continue IV bb while NPO.
Resume usual meds when not NPO: Coreg and Eliquis
Please call with questions.
25 min spent on this pt care including reviewing chart, telemetry, speaking with nursing staff.
--- NOTE | 2024-01-28 14:55 | CM ---
Chart reviewed and supportive employment case manager will follow with patient progress and assist with discharge planning.
Plan; Home when stable.
[2024-01-28] MEDS: SPIRIVA RESPIMAT 2.5 MCG INH (15:17)
[2024-01-28] MEDS: SYMBICORT 160/4.5 MCG INHALER INH (15:17)
[2024-01-28 15:37] VITALS: BP 122/77
--- NOTE | 2024-01-28 16:53 | PTCARENOTE ---
Dr. Gutierrez made aware of pt's run of SVT after returning to his room from [facility]. Pt received his Lopressor 5mg IV as ordered.
[2024-01-28] MEDS: FLOMAX PO (17:14)
[2024-01-28] MEDS: ZOFRAN 4 MG IV (17:34)
[2024-01-28] MEDS: SYMBICORT 160/4.5 MCG INHALER 2 PUFF INH (19:53)
[2024-01-28 20:04] VITALS: BP 107/65
[2024-01-28] MEDS: ERYTHROMYCIN 0.5% OPHTHALMIC OINTMENT RIGHT EYE (21:18)
[2024-01-28 21:21] VITALS: BP 112/69
[2024-01-28 23:24] LABS: Blood Urea Nitrogen 45 mg/dl (9-20); Calcium 9.1 mg/dl (8.4-10.2); Carbon Dioxide 36 mmol/L (22-30); Chloride 97 mmol/L (98-107); Estimated Creatinine Clearance 34 ml/min; Glucose 129 mg/dl (70-99); Potassium 4.7 mmol/L (3.5-5.1); Sodium 138 mmol/L (135-145); eGFR 49.25
[2024-01-28 23:32] VITALS: BP 110/72
[2024-01-28 23:33] LABS: NT-proBNP 3110 pg/ml
[2024-01-29] VITALS (18 sets, daily range): BP systolic 84–146; BP diastolic 58–85; BMI 18.5
[2024-01-29] MEDS: LOPRESSOR 5 MG IV ×4 (04:50→22:08)
[2024-01-29] MEDS: NSS 1000 IV ×2 (05:15→13:39)
[2024-01-29] MEDS: SPIRIVA RESPIMAT 2.5 MCG 2 PUFF INH (07:23)
[2024-01-29] MEDS: SYMBICORT 160/4.5 MCG INHALER 2 PUFF INH ×2 (07:23→19:40)
--- NOTE | 2024-01-29 07:35 | W.PN.HOSP.TC ---
Today's Communication/Plan
-
NPO NGT TPN as per surgery
cardizem gtt heparin gtt, IV lopressor prn
Transfer to IVU closer monitoring titration cardizem gtt as tolerated
wean O2 supplementation as tolerated
Assessment / Plan
Assessment / Plan
Physical Exam
General: Not in acute distress
HEENT: Normocephalic
Respiratory: Clear to Auscultation Bilaterally stable respiratory status on 4L
Cardiac: S1/S2 and Regular Rhythm
GI: Soft, Normal Bowel Sounds, Tender and Distended
Musculoskeletal: No Cyanosis and No Edema
Skin: Warm. Dry.
Neuro: AAO x 3
Psych: Calm

Assessment/Plan
83-year-old male past medical history of recurrent small bowel obstruction, aspiration pneumonia, iatrogenic fluid overload, hypertension, paroxysmal atrial fibrillation/SVT on Eliquis, blood loss anemia, hyponatremia, COPD, chronic hypoxic
respiratory failure on 3L, home oxygen, BPH, abdominal aortic aneurysm, pulmonary nodules, presenting with abdominal pain and nausea.
CT abdomen pelvis showed high-grade small bowel obstruction, transition point in the central abdomen where there is some twisting of the abdominal mesentery potentially secondary to internal hernia. Closed-loop obstruction difficult to completely
exclude.
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
-Maintain NPO
-Continue IV fluids
-SBFT 01/27 appreciated complete SBO, NGT decompression started 01/27 as per surgery
-surgery eval appreciated PICC TPN started tentative plan for surgical intervention 01/31
#acute on chronic hyponatremia likely dehydration
#History of Hyponatremia
-Resolved on IVF while NPO
#chronic hypoxic respiratory insufficiency on 2-3 L at baseline
#History of COPD not in acute exacerbation-
-continue supplemental oxygen to keep sat >=92%
-Wean as tolerated
# Primary HTN
-monitor and titrate antihypertensive regimen as necessary
# Paroxysmal atrial fibs
#Developed Afib RVR 01/28
-Eliquis on hold for potential surgical intervention, hep gtt started 01/28
-Scheduled metoprolol IV switched to cardizem gtt as per Cardio
-transferred to IVU 01/28
#reported Vtach 01/27/24
cardio eval appreciated AT at 170 bpm 01/26, 16 sec AT 01/27, recc cont IV BB, resume home Coreg when cleared for oral intake
#Benign prostatic hypertrophy
#Acute retention
Davis started 01/27
Hold Flomax/Finasteride/oral medications for now given complete SBO noted on recent imaging
#AAA
Outpatient monitoring
History of aspiration pneumonia
History of iatrogenic fluid overload
History of blood loss anemia
BPH
Pulmonary nodules
#DVT prophylaxis
-SCD
# CODE STATUS
-Full code
Discussed with patient at bedside and patient's family ( Estrella and son Bryson) over phone
I spent a total of 55 minutes with the patient or on the floor. More than 50% of this time involved counseling and coordination of care.
Anticipated Discharge: > 48 hours
Subjective/Interval History
-
Date of Service: January 29, 2024
no acute distress resting comfortably in bed. reports improvement in symptoms since NGT placement decompression. Day's event notable for afib rvr started on cardizem gtt hep gtt and transfer to IVU for closer monitoring titration of cardizem.
Objective Data
-
Labs:
Laboratory Results
01/28/24 01/29/24
23:00 06:00
WBC Pending
Hgb Pending
Hct Pending
Plt Count Pending
Sodium 138 Pending
Potassium 4.7 Pending
Chloride 97 L Pending
Carbon Dioxide 36 H Pending
BUN 45 H Pending
Creatinine 1.4 H Pending
Glucose 129 H Pending
Calcium 9.1 Pending
Vital Signs:
Vital Signs
Temp Pulse Resp BP Pulse Ox
97.7 F 59 20 140/81 91
01/29/24 03:35 01/29/24 07:28 01/29/24 07:28 01/29/24 04:50 01/29/24 07:28
I&O
01/28/24 01/29/24 01/30/24
06:59 06:59 06:59
Intake Total 2750 / 2750
Output Total 500 / 500 2675 / 2675
Balance -500 / -500 75 / 75
[2024-01-29 08:00] LABS: Hematocrit 37.6 % (39.0-52.0); Hemoglobin 12.3 g/dL (13.0-18.0); Mean Corp Hgb Conc. 32.7 g/dL (33.0-37.0); Mean Corpuscular Hgb 29.6 pg (27.0-31.0); Mean Corpuscular Volume 90.4 fL (80.0-94.0); Platelet Count 180 10^3/uL (130-400); Red Blood Cell Count 4.16 10^6/uL (4.70-6.10); Red Cell Dist. Width 12.9 % (11.5-14.5); White Blood Cell Count 10.3 10^3/uL (4.8-10.8)
[2024-01-29 08:28] LABS: Blood Urea Nitrogen 56 mg/dl (9-20); Chloride 96 mmol/L (98-107); Estimated Creatinine Clearance 31 ml/min; Glucose 165 mg/dl (70-99); Magnesium 2.9 mg/dl (1.6-2.3); Phosphorus 4.6 mg/dl (2.5-4.5); Potassium 4.9 mmol/L (3.5-5.1); Sodium 143 mmol/L (135-145); eGFR 45.34
[2024-01-29 08:38] LABS: Carbon Dioxide 36 mmol/L (22-30)
[2024-01-29] MEDS: ERYTHROMYCIN 0.5% OPHTHALMIC OINTMENT 1 APPLIC RIGHT EYE (09:02)
--- NOTE | 2024-01-29 11:19 | W.PN.GS2 ---
Today's Communication / Plan
-
--Continue NPO/IVF/NGT decompression
--PICC/TPN
--Continue to hold anticoagulation
--Surgical intervention on 01/31 if nor improvement
Assessment / Plan
-
Assessment: 83-year-old male presenting with recurrent small bowel obstruction.
Last laparotomy for lysis of adhesions approximately 1 year ago. He had been doing well since. Reviewing CT imaging there does appear to be a swirl of the mesentery and a transition point but there is no significant mesenteric edema, bowel wall
thickening or free fluid.
F/U XR on 01/26 with mild distention of the stomach and small bowel. Fecal residue throughout the colon.
UGI on 01/27 with persistently dilated loops of SB, no passage of contrast into colon, clinically worsening of symptoms requiring NGT placement
AFVSS
No further leukocytosis
Clinically slightly improved with some passage of flatus, abdomen remains distended
Lengthy discussion had with the patient as well as his family over the phone. Likely that he will need a repeat operation for this particular episode of obstruction. Some clinical improvement with NGT decompression. Given his increased risk for
operative complications (advanced age, malnourished state, multiple operations) with the potential for medical improvement with NGT decompression as well as operative improvements with decompressed bowel, recommending trial of NGT decompression over
the next 48 hours. Plan to start TPN in the interim. If no improvement by Sunday (01/31) we will plan on operative intervention at that time. Alternative course would be to proceed with operative intervention today. Degree of small bowel dilation
may complicate his surgery. Patient agrees and is willing to wait and continue to try medical management.
--Continue NPO/IVF/NGT decompression
--PICC/TPN
--PRN analgesics/antiemetics
--Continue to hold anticoagulation
--Medical management as per primary service
Subjective Data
-
Date of Service: January 29, 2024
Abdominal pain and nausea improved following NGT placement. Reports passing minimal flatus. No BM. No fevers. Denies any prior episodes of abdominal pain or discomfort over the past year. Symptoms began last Sunday. No clear dietary
indiscretion.
Objective Data
-
Intake and Output
01/28/24 01/29/24 01/30/24
06:59 06:59 06:59
Intake Total 2750 / 2750
Output Total 500 / 500 2675 / 2675
Balance -500 / -500 75 / 75
Intake:
IV fluids (Total) 900 / 900
Amount instilled into GI Tube ( 1849
Total)
[place] Sump 1849
Output:
Emesis 75 / 75
Gastrointestinal tube output ( 1899 / 1899
Total)
[place] Sump 1899 / 1899
Urine, Davis 500 / 500
Urine, Voided 500 / 500 200 / 200
Other:
How many times incontinent 1
MODERATE amount urine
How many times incontinent 1
SATURATED amount urine
Vital Signs
Temp Pulse Resp BP Pulse Ox
98.3 F 83 20 146/83 91
01/29/24 07:35 01/29/24 07:35 01/29/24 07:35 01/29/24 07:35 01/29/24 08:20
Lab Results
01/29/24 07:38
01/29/24 07:38
Calcium 9.0 mg/dl (8.4-10.2) 01/29/24 07:38
Phosphorus 4.6 mg/dl (2.5-4.5) H 01/29/24 07:38
Magnesium 2.9 mg/dl (1.6-2.3) H 01/29/24 07:38
Total Bilirubin 1.1 mg/dl (0.2-1.3) 01/25/24 18:03
AST 30 U/L (17-59) 01/25/24 18:03
ALT 21 U/L (0-50) 01/25/24 18:03
Alkaline Phosphatase 57 U/L (38-126) 01/25/24 18:03
Total Protein 6.7 g/dl (6.3-8.2) 01/25/24 18:03
Albumin 4.3 g/dl (3.5-5.0) 01/25/24 18:03
Physical Exam
-
Gen: NAD, deconditioned
HEENT: dark bilious output
Abd: soft, mild tenderness, moderate distension, tympanitic, non-peritoneal, prior incision well healed
--- NOTE | 2024-01-29 12:22 | PTCARENOTE ---
Addendum entered by Vannesa March RN 01/29/24 13:51:
Teresa notified that pt is in Afib with RVR after EKG done. Cardizem 5mg IV gtt started.
Original Note:
Pt with more frequent runs of Atrial tachycardia or SVT. Pt able to bear down to break runs. Dr. Rojas made aware. Teresa Parr FISHER LINE up to see pt. New meds ordered.
--- NOTE | 2024-01-29 12:25 | W.PN.UPDATE ---
Addendum entered and electronically signed by Deepak Saucedo MD 01/29/24 14:43:
Agree with below.
Addendum entered and electronically signed by JACKIE Senior 01/29/24 13:21:
He is currently in atrial fibrillation with rapid ventricular response. Stop intravenous Lopressor and start diltiazem drip at 5 mg/hour.
Original Note:
Update Note
Progress Note Update
Called to see patient for elevated heart rates. He is having runs of atrial tachycardia. He is currently asymptomatic despite rates being up to 200 bpm.
Mr. Snyder was not fully examined as he is currently getting a sterile procedure (PICC line). Increase Lopressor from every 6 hours to every 4 hours.
[2024-01-29] MEDS: CARDIZEM 125 IV (13:39)
--- NOTE | 2024-01-29 14:34 | W.PN.CD ---
Addendum entered and electronically signed by Deepak Saucedo MD 01/29/24 19:34:
Patient evaluated in collaboration with [employer]; agree with below.
-Patient with recurrent paroxysmal A-fib with RVR.
-Start Cardizem drip as below.
-Start heparin drip as below.
-laboratory monitor; will follow.
Original Note:
Today's Communication / Plan
-
Start diltiazem drip
Start heparin drip
Impression / Plan
-
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
oxygen and prior small bowel obstructions presented with abdominal pain and found to have SBO.
SBO
-Decompression with NG tube
-Surgery following
-NPO, on IVF
-If no improvement by 01/31 operative intervention is planned
Atrial tachycardia
Paroxysmal atrial fibrillation
-Now with RVR, this occurred last admission also in the setting of SBO
-His carvedilol is on hold and metoprolol 5 mg IV every 6 hours was being utilized however he now has RVR, start diltiazem drip
-[id number] score is 4 for age, HTN, and vascular disease, his apixaban is on hold
-Surgery cleared for heparin drip
HTN, with chronic orthostatic hypotension, stable
Non-obstructive CAD, stable without chest pain
AAA
Dyslipidemia
COPD on O2
Subjective:
Intermittent palpitations. Denies chest pain, shortness of breath, and dizziness.
Physical Exam
Vital Signs/Labs
Vital Signs
Temp Pulse Resp BP Pulse Ox
97.9 F 200 18 144/77 90
01/29/24 11:27 01/29/24 12:48 01/29/24 11:27 01/29/24 11:27 01/29/24 11:27
01/28/24 01/29/24 01/30/24
06:59 06:59 06:59
Actual Weight 61.717 kg
01/29/24 07:38
01/29/24 11:16
Magnesium Cancelled 01/29/24 11:16
Triglycerides Cancelled 01/29/24 11:16
01/28/24
23:00
Etm-P-Atycdjjcbrf Pept 3110
Physical Exam
Constitutional: No acute distress and Comfortable
EENT: Anicteric, Moist mucous membranes and Other (NGT)
Cardiovascular: Rhythm/rate is irregular and S1S2 is normal
Respiratory: Respiratory effort normal and Rhonchi Absent
GI: Soft, Distention absent, Flat, Non tender and Normal bowel sounds
Neuro/Psych: AO x 3
Other: Skin (warm and dry)
Data Reviewed
-
Date of Service: January 29, 2024
[2024-01-29] MEDS: NSS 250 IV (14:56)
[2024-01-29 15:36] LABS: APTT 42.9 Sec (23.4-35.0)
[2024-01-29] MEDS: HEPARIN 25000 UNITS/250 ML IV (15:36)
[2024-01-29] MEDS: ERYTHROMYCIN 0.5% OPHTHALMIC OINTMENT RIGHT EYE ×2 (15:40→21:37)
--- NOTE | 2024-01-29 15:40 | CM ---
Chart reviewed sample case porter will follow for discharge planning needs.
Plan; To follow with patient progress for discharge planning needs
--- NOTE | 2024-01-29 15:57 | PTCARENOTE ---
Report given to Evelia in IVU. Pt to be transferred to room 2241.
--- NOTE | 2024-01-29 15:59 | CHAP ---
Mr. Snyder received Sacrament of the Sick from his priests from [facility] as requested
--- NOTE | 2024-01-29 17:04 | PTCARENOTE ---
Received patient that was transferred from 4W to 2240. Pivoted from the stretcher to the bed. Patient on 5L NC midflow with pulse ox of 91%. Remains in AF with rates 120-140's with activity, BP 117/73. NGT placement confirmed and flushed, placed to
low intermittent wall suction, small amount of brown drainage. Patient does have bowel sounds but not passing flatus. Davis draining denis urine, SCD's bilaterally. IV heparin infusing at 750 units/hr with cardizem at 5mg/hr and IVF at 60ml/hr via R
DL PICC. Patient to start TPN at 2100. Call trujillo in reach.
--- NOTE | 2024-01-29 18:08 | PTCARENOTE ---
Remains in AF, rate in the 140's at rest. TT to Dr. Cuenca re: TATYANA flores to see if he would like drip titrated, prn metoprolol not due until 1900. Patient appears comfortable, visiting with his daughter.
--- NOTE | 2024-01-29 19:25 | PTCARENOTE ---
Pt. seen at beginning of shift. Pt. AOx3, no complaints of pain. RN verified correct rate of fluids, cardizem and heparin gtts. Continuing to monitor the pt.
[2024-01-29] MEDS: Parenteral Nutrition, Central 1860 IV (21:01)
[2024-01-29 21:33] LABS: APTT 105.5 Sec (23.4-35.0)
[2024-01-30] VITALS (31 sets, daily range): BP systolic 107–191; BP diastolic 74–122; BMI 17.6
[2024-01-30 00:21] LABS: Glucose - Point of Care 246 mg/dl (70-99)
[2024-01-30] MEDS: NSS 1000 IV (04:44)
[2024-01-30] MEDS: LOPRESSOR 5 MG IV (04:44)
[2024-01-30 04:57] LABS: Hematocrit 33.5 % (39.0-52.0); Hemoglobin 10.8 g/dL (13.0-18.0); Mean Corp Hgb Conc. 32.2 g/dL (33.0-37.0); Mean Corpuscular Hgb 29.5 pg (27.0-31.0); Mean Corpuscular Volume 91.5 fL (80.0-94.0); Mean Platelet Volume 10.1 fL (7.4-10.4); Platelet Count 183 10^3/uL (130-400); Red Blood Cell Count 3.66 10^6/uL (4.70-6.10); White Blood Cell Count 8.4 10^3/uL (4.8-10.8)
[2024-01-30 05:03] LABS: APTT 48.2 Sec (23.4-35.0)
[2024-01-30 05:08] LABS: Blood Urea Nitrogen 49 mg/dl (9-20); Calcium 8.2 mg/dl (8.4-10.2); Chloride 101 mmol/L (98-107); Estimated Creatinine Clearance 43 ml/min; Glucose 199 mg/dl (70-99); Magnesium 2.7 mg/dl (1.6-2.3); Phosphorus 2.1 mg/dl (2.5-4.5); Potassium 3.7 mmol/L (3.5-5.1); Sodium 144 mmol/L (135-145); eGFR > 60.00
[2024-01-30 05:27] LABS: Carbon Dioxide 37 mmol/L (22-30)
[2024-01-30] MEDS: SYMBICORT 160/4.5 MCG INHALER 2 PUFF INH ×2 (07:16→18:06)
[2024-01-30] MEDS: SPIRIVA RESPIMAT 2.5 MCG 2 PUFF INH (07:16)
--- NOTE | 2024-01-30 07:18 | W.PN.HOSP.TC ---
Today's Communication/Plan
-
NPO NGT TPN as per surgery
amio gtt as per cardio
cont hep gtt
blood pressure control, prn hydralazine
wean O2 supplementation as tolerated
Assessment / Plan
Assessment / Plan
Physical Exam
General: Not in acute distress
HEENT: Normocephalic
Respiratory: Clear to Auscultation Bilaterally stable respiratory status on 5L
Cardiac: S1/S2 and Regular Rhythm
GI: Soft, Normal Bowel Sounds, Tender and Distended
Musculoskeletal: No Cyanosis and No Edema
Skin: Warm. Dry.
Neuro: AAO x 3
Psych: Calm

Assessment/Plan
83-year-old male past medical history of recurrent small bowel obstruction, aspiration pneumonia, iatrogenic fluid overload, hypertension, paroxysmal atrial fibrillation/SVT on Eliquis, blood loss anemia, hyponatremia, COPD, chronic hypoxic
respiratory failure on 3L, home oxygen, BPH, abdominal aortic aneurysm, pulmonary nodules, presenting with abdominal pain and nausea.
CT abdomen pelvis showed high-grade small bowel obstruction, transition point in the central abdomen where there is some twisting of the abdominal mesentery potentially secondary to internal hernia. Closed-loop obstruction difficult to completely
exclude.
# Recurrent high grade small bowel obstruction likely from hernia
-Maintain NPO
-Continue IV fluids
-SBFT 01/27 appreciated complete SBO, NGT decompression started 01/27 as per surgery
-surgery eval appreciated PICC TPN started tentative plan for surgical intervention 01/31
#acute on chronic hyponatremia likely dehydration
#History of Hyponatremia
-Resolved on IVF while NPO
#chronic hypoxic respiratory insufficiency on 2-3 L at baseline
#History of COPD not in acute exacerbation-
-continue supplemental oxygen to keep sat >=92%
-Wean as tolerated
# Primary HTN
-monitor and titrate antihypertensive regimen as necessary
-Hydralazine prn
#Paroxysmal atrial fib
#Developed Afib RVR 01/28
-transferred to IVU 01/28
-Eliquis on hold for potential surgical intervention, hep gtt started 01/28
-Scheduled metoprolol IV switched to cardizem gtt as per Cardio later switched to Amio gtt 01/29
#reported Vtach 01/27/24
cardio eval appreciated AT at 170 bpm 01/26, 16 sec AT 01/27, recc cont IV BB, resume home Coreg when cleared for oral intake
#Benign prostatic hypertrophy
#Acute retention
Davis started 01/27
Hold Flomax/Finasteride/oral medications for now given complete SBO noted on recent imaging
MARNIE likely d/t retention and possibly prerenal d/t poor oral intake
-resolved with Davis and start TPN
#AAA
Outpatient monitoring
History of aspiration pneumonia
History of iatrogenic fluid overload
History of blood loss anemia
BPH
Pulmonary nodules
#DVT prophylaxis
-SCD
# CODE STATUS
-Full code
I spent a total of 55 minutes with the patient or on the floor. More than 50% of this time involved counseling and coordination of care.
Anticipated Discharge: > 48 hours
Subjective/Interval History
-
Date of Service: January 30, 2024
No acute distress resting comfortably in bed. Reports overall feeling well. Passing very little gas. Pain controlled at this time. Denies sob on oxygen supplementation 5L.
Objective Data
-
Labs:
Laboratory Results
01/29/24 01/30/24 01/30/24
21:06 04:37 11:17
WBC 8.4
Hgb 10.8 L
Hct 33.5 L
Plt Count 183
APTT 105.5 H 48.2 H Pending
Sodium 144
Potassium 3.7
Chloride 101
Carbon Dioxide 37 H
BUN 49 H
Creatinine 1.1
Glucose 199 H
Calcium 8.2 L
Vital Signs:
Vital Signs
Temp Pulse Resp BP Pulse Ox
97.3 F 155 20 107/79 92
01/29/24 19:23 01/30/24 04:45 01/29/24 19:40 01/30/24 04:44 01/29/24 21:43
I&O
01/29/24 01/30/24 01/31/24
06:59 06:59 06:59
Intake Total 2750 / 2750 2056
Output Total 2675 / 2675 1500 / 1500
Balance 75 / 75 557 / 557
[2024-01-30 07:53] LABS: Glucose - Point of Care 231 mg/dl (70-99)
--- NOTE | 2024-01-30 09:00 | PN.CDI ---
CDI
- -
CDI:
Physician Documentation Request
Admit Date: 01/25/24 23:34
Dear Doctor Tanner,
Patient admitted with small bowel obstruction.
Please review the following and provide your response in the progress notes.
Clinical Indicators:
Height: 6' 0'
Weight: 129 lb 6 oz
BMI: 17.6
Please provide an associated diagnosis related to the abnormal BMI, such as:
Underweight
Cachectic
Anorexia
BMI is not significant
Other
BMI < or = to 19
Underweight
Weight Loss
Cachectic
Anorexia
Use of terms such as suspected, likely, concern for, or probable (associated with a specific diagnosis that is being evaluated, monitored, or treated as if it exists) are acceptable and can be coded in the inpatient setting, when documented at the
time of discharge.
Thank you,
Manuela ZAMORA,RN,CCDS
CDI Specialist
Available via tiger text
Please use your independent medical judgment in providing your response.
--- NOTE | 2024-01-30 09:07 | PN.CDI ---
CDI
- -
CDI:
Physician Documentation Request
Admit Date: 01/25/24 23:34
Dear Doctor Tanner,
Patient admitted with small bowel obstruction.
01/28 PN,' past medical history of ....chronic hypoxic respiratory failure on 3L, home oxygen.....chronic hypoxic respiratory insufficiency on 2-3 L at baseline.'
Please clarify in your note the diagnosis associated with baseline home oxygen use:
Chronic hypoxic respiratory failure
Hypoxia only
Other
Use of terms such as suspected, likely, concern for, or probable (associated with a specific diagnosis that is being evaluated, monitored, or treated as if it exists) are acceptable and can be coded in the inpatient setting, when documented at the
time of discharge.
Thank you,
Manuela ZAMORA,RN,CCDS
CDI Specialist
Available via tiger text
Please use your independent medical judgment in providing your response.
[2024-01-30] MEDS: ERYTHROMYCIN 0.5% OPHTHALMIC OINTMENT RIGHT EYE ×3 (09:37→22:43)
--- NOTE | 2024-01-30 09:41 | W.PN.CD ---
Today's Communication / Plan
-
Stop IV dilt drip, IV prn metoprolol
Start IV Amio
Continue IV heparin, follow platelets
Impression / Plan
-
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
oxygen and prior small bowel obstructions presented with abdominal pain and found to have SBO.
SBO, still with NG tube, now on TPN, may be headed to surgery in few days
Paroxysmal atrial fibrillation
-Developed yesterday. Rate still fast on 5 of IV dilt but higher dilt led to lower BP
-Will STOP IV dilt, IV prn metoprolol and will start IV Amio (has PICC already)
-On IV heparin (as outpt on Eliquis)
Atrial tachycardia, paroxysmal, see earlier this admit
HTN, with chronic orthostatic hypotension, stable
Non-obstructive CAD, stable without chest pain
AAA
Dyslipidemia
COPD on O2
Subjective:
Intermittent palpitations. Denies chest pain, shortness of breath, and dizziness.
Physical Exam
Vital Signs/Labs
Vital Signs
Temp Pulse Resp BP Pulse Ox
98 F 121 20 133/75 93
01/30/24 07:47 01/30/24 08:00 01/30/24 07:47 01/30/24 07:49 01/30/24 07:49
01/29/24 01/30/24 01/31/24
06:59 06:59 06:59
Actual Weight 58.7 kg
01/30/24 04:37
01/30/24 04:37
APTT 48.2 Sec (23.4-35.0) H 01/30/24 04:37
Magnesium 2.7 mg/dl (1.6-2.3) H 01/30/24 04:37
Triglycerides Cancelled 01/29/24 11:16
01/28/24
23:00
Oss-O-Hdmrwzduwqp Pept 3110
Physical Exam
Constitutional: No acute distress
EENT: Anicteric
Cardiovascular: Rhythm/rate is irregular
Respiratory: Respiratory effort normal and Lungs clear to auscul.
GI: Soft and Distention absent
Data Reviewed
-
Date of Service: January 30, 2024
--- NOTE | 2024-01-30 10:15 | PTCARENOTE ---
Received patient this AM resting in bed. Assisted to stand at the bedside for daily weight. Remains in AF with rate in the 120's at rest. Seen by cardiology, cardiazem stopped and will start amiodarone bolus in 2 hours as ordered followed by yawo
drip. Remains NPO with NGT to low intermittent wall suction. Call trujillo within reach.
[2024-01-30] MEDS: CALCIUM GLUCONATE 100 IV (10:57)
[2024-01-30 11:45] LABS: APTT 42.4 Sec (23.4-35.0)
[2024-01-30] MEDS: POTASSIUM PHOSPHATE 259.0909 MEQ IV (12:39)
[2024-01-30] MEDS: CORDARONE 103 MG IV (12:50)
--- NOTE | 2024-01-30 12:59 | W.PN.GS2 ---
Today's Communication / Plan
-
--Continue NPO/IVF/NGT decompression
--PICC/TPN
Assessment / Plan
-
Assessment: 83-year-old male presenting with recurrent small bowel obstruction.
Last laparotomy for lysis of adhesions approximately 1 year ago. He had been doing well since. Reviewing CT imaging there does appear to be a swirl of the mesentery and a transition point but there is no significant mesenteric edema, bowel wall
thickening or free fluid.
F/U XR on 01/26 with mild distention of the stomach and small bowel. Fecal residue throughout the colon.
UGI on 01/27 with persistently dilated loops of SB, no passage of contrast into colon, clinically worsening of symptoms requiring NGT placement
Afib with RVR, Cardiology on board, currently on Hep gtt
No further leukocytosis
Clinically slightly improved with some passage of flatus, abdomen remains distended
Lengthy discussion had with the patient as well as his family. Likely that he will need a repeat operation for this particular episode of obstruction. Some clinical improvement with NGT decompression. Given his increased risk for operative
complications (advanced age, malnourished state, multiple operations) with the potential for medical improvement with NGT decompression as well as operative improvements with decompressed bowel, recommending trial of NGT decompression. Plan to
start TPN in the interim. If no improvement by Sunday (01/31) we will plan on operative intervention at that time. Patient agrees and is willing to wait and continue to try medical management.
--Continue NPO/IVF/NGT decompression
--PICC/TPN
--PRN analgesics/antiemetics
--Hep gtt will need to be held for Sunday if heading to OR
--Afib per Cardiology
--Medical management as per primary service
Subjective Data
-
Date of Service: January 30, 2024
No major complaints. Denies any worsening abdominal pain. Passing minimal flatus. No BM. No fevers.
Objective Data
-
Intake and Output
01/29/24 01/30/24 01/31/24
06:59 06:59 06:59
Intake Total 2750 / 2750 2056
Output Total 2675 / 2675 1500 / 1500
Balance 75 / 75 557 / 557
Intake:
IV fluids (Total) 900 / 900 1215 / 1215
Cardizem 85 / 85
Heparin 110 / 110
Nss 1,000 ml @ 60 mls/hr IV . 300 / 300
[id number] Rx#:[id number]
nss 720 / 720
TPN/PPN 702 / 702
Amount instilled into GI Tube ( 1850 / 1850 140 / 140
Total)
[place] Sump 1850 / 1850 140 / 140
Output:
Emesis 75 / 75
Gastrointestinal tube output ( 1900 / 1900 900 / 900
Total)
[place] Sump 1900 / 1900 900 / 900
Urine, Davis 500 / 500 150 / 150
Urine, Voided 200 / 200 450 / 450
Vital Signs
Temp Pulse Resp BP Pulse Ox
97.7 F 135 20 141/91 94
01/30/24 10:55 01/30/24 11:30 01/30/24 10:55 01/30/24 10:56 01/30/24 10:55
Lab Results
01/30/24 04:37
01/30/24 04:37
Calcium 8.2 mg/dl (8.4-10.2) L 01/30/24 04:37
Phosphorus 2.1 mg/dl (2.5-4.5) L 01/30/24 04:37
Magnesium 2.7 mg/dl (1.6-2.3) H 01/30/24 04:37
Total Bilirubin Cancelled 01/29/24 11:16
AST Cancelled 01/29/24 11:16
ALT Cancelled 01/29/24 11:16
Alkaline Phosphatase Cancelled 01/29/24 11:16
Total Protein Cancelled 01/29/24 11:16
Albumin Cancelled 01/29/24 11:16
Physical Exam
-
Gen: NAD
HEENT: NGT with dark bilious output
Abd: soft, NT, moderate distension, non-peritoneal, prior incisions well healed
[2024-01-30] MEDS: CORDARONE 518 MG IV (13:29)
[2024-01-30 13:40] LABS: Glucose - Point of Care 256 mg/dl (70-99)
--- NOTE | 2024-01-30 15:02 | PTCARENOTE ---
Placed two peripheral sites LFA for ordered Ca gluconate and K+ phosphate which are incompatible with heparin. Patient received IV amio bolus as ordered and IV amio infusing at 1mg/min via R DL PICC. Monitoring BP which has been running high.
Patient did convert to SR with PVC's. Hospitalist and cardiology made aware. Last BP 191/88, hydralazine ordered prn by Dr. Cuenca.
[2024-01-30] MEDS: APRESOLINE 5 MG IV ×2 (15:29→22:44)
[2024-01-30 18:03] LABS: Glucose - Point of Care 245 mg/dl (70-99)
[2024-01-30] MEDS: HEPARIN 25000 UNITS/250 ML IV (18:21)
[2024-01-30] MEDS: ERYTHROMYCIN 0.5% OPHTHALMIC OINTMENT 1 APPLIC RIGHT EYE (18:27)
[2024-01-30 18:37] LABS: APTT 95.2 Sec (23.4-35.0)
[2024-01-30] MEDS: Parenteral Nutrition, Central 1860 IV (21:23)
[2024-01-30 22:56] LABS: Glucose - Point of Care 219 mg/dl (70-99)
[2024-01-31] VITALS (16 sets, daily range): BP systolic 144–190; BP diastolic 78–137; PULSE 85–91; O2SAT 94
--- NOTE | 2024-01-31 00:49 | PTCARENOTE ---
Pt rec'd at change of shift with family at bedside. Lungs coarse and diminished throughout. Mid flow continued at 5 lit with sat's 96%. Pt using Yankauer to suction out thick yellow secretions from his throat. NGT irrigated twice q 4hrs, minimal
output noted in ngt container. intermittent suction continues. hyper active bs noted throughout. pt denies abd discomfort or nausea. Sinus with freq pvc's noted on telemetry. IV Amio gtt decreased as per protocol to 0.5 mg. Iv Tpn also infusing via
AMBER picc. Heparin therapeutic at 1150 units/hr. Hydralazine given at HS for elevated b/p 180/90.
[2024-01-31 02:23] LABS: APTT 89.2 Sec (23.4-35.0)
[2024-01-31 02:48] LABS: Blood Urea Nitrogen 38 mg/dl (9-20); Calcium 8.9 mg/dl (8.4-10.2); Carbon Dioxide 34 mmol/L (22-30); Chloride 104 mmol/L (98-107); Estimated Creatinine Clearance 56 ml/min; Glucose 188 mg/dl (70-99); Magnesium 2.3 mg/dl (1.6-2.3); Phosphorus 2.9 mg/dl (2.5-4.5); Potassium 3.7 mmol/L (3.5-5.1); Sodium 142 mmol/L (135-145); eGFR > 60.00
--- NOTE | 2024-01-31 03:53 | PTCARENOTE ---
Scant output noted from NGT. Flushed x 2. Positive ngt placement . abd soft good bowel sounds x 4. Pt denies nausea. Pt remains sinus with pvc's
--- NOTE | 2024-01-31 06:50 | W.PN.HOSP.TC ---
Today's Communication/Plan
-
NPO NGT TPN as per surgery
amio gtt as per cardio
blood pressure control, prn hydralazine
wean O2 supplementation as tolerated
hep gtt eventual hold for surgical intervention tomorrow, timing as per surgery
Assessment / Plan
Assessment / Plan
Physical Exam
General: Not in acute distress
HEENT: Normocephalic
Respiratory: Clear to Auscultation Bilaterally stable respiratory status on 5L
Cardiac: S1/S2 and Regular Rhythm
GI: Soft, Normal Bowel Sounds, Tender and Distended
Musculoskeletal: No Cyanosis and No Edema
Skin: Warm. Dry.
Neuro: AAO x 3
Psych: Calm

Assessment/Plan
83-year-old male past medical history of recurrent small bowel obstruction, aspiration pneumonia, iatrogenic fluid overload, hypertension, paroxysmal atrial fibrillation/SVT on Eliquis, blood loss anemia, hyponatremia, COPD, chronic hypoxic
respiratory failure on 3L, home oxygen, BPH, abdominal aortic aneurysm, pulmonary nodules, presenting with abdominal pain and nausea.
CT abdomen pelvis showed high-grade small bowel obstruction, transition point in the central abdomen where there is some twisting of the abdominal mesentery potentially secondary to internal hernia. Closed-loop obstruction difficult to completely
exclude.
# Recurrent high grade small bowel obstruction likely from hernia
-Maintain NPO
-Continue IV fluids
-SBFT 01/27 appreciated complete SBO, NGT decompression started 01/27 as per surgery
-surgery eval appreciated PICC TPN started tentative plan for surgical intervention 01/31
#Hyperglycemia 2/2 TPN
-low dose sliding scale Q6H
-check A1c in AM
#acute on chronic hyponatremia likely dehydration
#History of Hyponatremia
-Resolved on IVF while NPO
#chronic hypoxic respiratory insufficiency on 2-3 L at baseline
#History of COPD not in acute exacerbation-
#Acute on chronic resp failure at one point 8L since weaned down to 5L
#Atelectasis
incentive spirometry use encouraged
-continue supplemental oxygen to keep sat >=92%
-Wean as tolerated
# Primary HTN
-monitor and titrate antihypertensive regimen as necessary
-Hydralazine prn
#Paroxysmal atrial fib
#Developed Afib RVR 01/28
-transferred to IVU 01/28
-Eliquis on hold for potential surgical intervention, hep gtt started 01/28 to be held for surgical intervention Fri 01/31
-Scheduled metoprolol IV switched to cardizem gtt as per Cardio later switched to Amio gtt 01/29
#reported Vtach 01/27/24
cardio eval appreciated AT at 170 bpm 01/26, 16 sec AT 01/27, recc cont IV BB, resume home Coreg when cleared for oral intake
#Benign prostatic hypertrophy
#Acute retention
Davis started 01/27
Hold Flomax/Finasteride/oral medications for now given complete SBO noted on recent imaging
MARNIE likely d/t retention and possibly prerenal d/t poor oral intake
-resolved with Davis and start TPN
#AAA
Outpatient monitoring
History of aspiration pneumonia
History of iatrogenic fluid overload
History of blood loss anemia
BPH
Pulmonary nodules
#DVT prophylaxis
-SCD
# CODE STATUS
-Full code
I spent a total of 55 minutes with the patient or on the floor. More than 50% of this time involved counseling and coordination of care.
Anticipated Discharge: > 48 hours
Subjective/Interval History
-
Date of Service: January 31, 2024
Seen and examined at bedside in no acute distress resting comfortably in bed. no significant flatus noted.
Objective Data
-
Labs:
Laboratory Results
01/31/24
01:59
APTT 89.2 H
Sodium 142
Potassium 3.7
Chloride 104
Carbon Dioxide 34 H
BUN 38 H
Creatinine 0.8
Glucose 188 H
Calcium 8.9
Vital Signs:
Vital Signs
Temp Pulse Resp BP Pulse Ox
98.2 F 77 16 166/95 95
01/31/24 02:00 01/31/24 04:45 01/31/24 02:00 01/31/24 02:00 01/30/24 22:30
I&O
01/29/24 01/30/24 01/31/24
06:59 06:59 06:59
Intake Total 2750 / 2750 2057 / 2057 3385 / 3385
Output Total 2675 / 2675 1500 / 1500 1375 / 1375
Balance 75 / 75 557 / 557 2009
[2024-01-31 07:05] LABS: Glucose - Point of Care 218 mg/dl (70-99)
[2024-01-31] MEDS: SPIRIVA RESPIMAT 2.5 MCG 2 PUFF INH (07:21)
[2024-01-31] MEDS: SYMBICORT 160/4.5 MCG INHALER 2 PUFF INH ×2 (07:21→20:12)
[2024-01-31] MEDS: ERYTHROMYCIN 0.5% OPHTHALMIC OINTMENT 1 APPLIC RIGHT EYE ×2 (09:12→17:03)
--- NOTE | 2024-01-31 09:20 | W.PN.CD ---
Today's Communication / Plan
-
Check follow-up hemoglobin this morning.
-Now in sinus rhythm continue with IV amiodarone while patient n.p.o.
-Blood pressures have increased will continue to monitor.
-
Impression / Plan
-
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
oxygen and prior small bowel obstructions presented with abdominal pain and found to have SBO.
SBO, still with NG tube, now on TPN, . Unclear if surgery will be required
-Still with output from an G-tube it is dark and patient is on heparin. Check hemoglobin.
.
Paroxysmal atrial fibrillation
-01/29/2024. Initially on Cardizem 5 mg daily but inadequate rate control and patient developed low blood pressure on higher dosing. Cardizem discontinued and patient placed on IV amiodarone.
-Continue IV amiodarone while n.p.o.
-On IV heparin (as outpt on Eliquis)
Atrial tachycardia, paroxysmal, see earlier this admit
HTN, with chronic orthostatic hypotension, stable
Non-obstructive CAD, stable without chest pain
AAA
Dyslipidemia
COPD on O2
Subjective:
Intermittent palpitations. Denies chest pain, shortness of breath, and dizziness.
Physical Exam
Vital Signs/Labs
Vital Signs
Temp Pulse Resp BP Pulse Ox
98.3 F 73 18 183/84 93
01/31/24 07:02 01/31/24 07:45 01/31/24 07:24 01/31/24 07:01 01/31/24 07:24
01/30/24 01/31/24 02/01/24
06:59 06:59 06:59
Actual Weight 58.7 kg
01/30/24 04:37
01/31/24 01:59
APTT 89.2 Sec (23.4-35.0) H 01/31/24 01:59
Magnesium 2.3 mg/dl (1.6-2.3) 01/31/24 01:59
Triglycerides Cancelled 01/29/24 11:16
01/28/24
23:00
Lgr-E-Ahztrimcczi Pept 3110
Physical Exam
Constitutional: No acute distress
Cardiovascular: Rhythm & rate is regular
GI: Soft
Neuro/Psych: Alert
Other: Other (NG tube with dark material)
Data Reviewed
-
Date of Service: January 31, 2024
Medical Decision Making: Reviewed Test Results and Review of Case with other Provider (Reviewed treatment with nursing)
Medical Tests (PFT, Pathology etc): Report Reviewed by me
Labs: Labs Reviewed by me
Old Records: Requested
--- NOTE | 2024-01-31 11:01 | W.PN.GS2 ---
Today's Communication / Plan
-
`
Assessment / Plan
-
Assessment: 83-year-old male presenting with recurrent small bowel obstruction.
Last laparotomy for lysis of adhesions approximately 1 year ago. He had been doing well since. Reviewing CT imaging there does appear to be a swirl of the mesentery and a transition point but there is no significant mesenteric edema, bowel wall
thickening or free fluid.
F/U XR on 01/26 with mild distention of the stomach and small bowel. Fecal residue throughout the colon.
UGI on 01/27 with persistently dilated loops of SB, no passage of contrast into colon, clinically worsening of symptoms requiring NGT placement
Afib with RVR, Cardiology on board, currently on Hep gtt
--Follow up AXray to eval bowel gas pattern and prior oral contrast - although clinically suspect continued SBO that will require surgery tomorrow
--Continue NPO/IVF/NGT decompression
--PICC/TPN
--PRN analgesics/antiemetics
--Hep gtt will need to be held for Sunday
--Afib per Cardiology
--Medical management as per primary service
Subjective Data
-
Date of Service: January 31, 2024
pt seen and examined
in good spirits but frustrated with situation
very little occasional flatus
no BMs
NGT bothersome but tolerating
Objective Data
-
Intake and Output
01/30/24 01/31/24 02/01/24
06:59 06:59 06:59
Intake Total 2056 3385 / 3385
Output Total 1500 / 1500 1375 / 1375
Balance 557 / 557 2009
Intake:
IV fluids (Total) 1215 / 1215 883 / 883
Cardizem 85 / 85 20 / 20
Heparin 110 / 110 258 / 258
Nss 1,000 ml @ 60 mls/hr IV . 300 / 300
[id number] Rx#:[id number]
amio 365 / 365
nss 720 / 720 240 / 240
IV piggybacks 460 / 460
TPN/PPN 702 / 702 1871 / 187
Amount instilled into GI Tube ( 140 / 140 170 / 170
Total)
[place] Sump 140 / 140 170 / 170
Output:
Gastrointestinal tube output ( 900 / 900 250 / 250
Total)
[place] Sump 900 / 900 250 / 250
Urine, Davis 150 / 150 1125 / 1125
Urine, Voided 450 / 450
Vital Signs
Temp Pulse Resp BP Pulse Ox
98.3 F 73 18 183/84 93
01/31/24 07:02 01/31/24 07:45 01/31/24 07:24 01/31/24 07:01 01/31/24 07:24
Lab Results
01/31/24 01:59
Calcium 8.9 mg/dl (8.4-10.2) 01/31/24 01:59
Phosphorus 2.9 mg/dl (2.5-4.5) 01/31/24 01:59
Magnesium 2.3 mg/dl (1.6-2.3) 01/31/24 01:59
Total Bilirubin Cancelled 01/29/24 11:16
AST Cancelled 01/29/24 11:16
ALT Cancelled 01/29/24 11:16
Alkaline Phosphatase Cancelled 01/29/24 11:16
Total Protein Cancelled 01/29/24 11:16
Albumin Cancelled 01/29/24 11:16
Physical Exam
-
NAD AAOx3
ABD: softly distended and tympanitic
nontender
NGT with dark gastric contents
[2024-01-31 11:04] LABS: % Basophils 0.4 % (0-2); % Eosinophils 0.2 % (0-6); % Immature Granulocytes 0.7 % (0-0.5); % Lymphocytes 15.6 % (20.5-51.1); % Monocytes 6.8 % (1.7-9.3); % Neutrophils 76.3 % (42.2-75.2); Absolute Immature Granulocytes 0.1 10^3/uL (0-0.05); Absolute Lymphocytes 1.5 10^3/uL (1.2-3.4); Absolute Monocytes 0.7 10^3/uL (0.1-0.6); Absolute Neutrophils 7.5 10^3/uL (1.4-6.5); Hematocrit 33.5 % (39.0-52.0); Hemoglobin 10.9 g/dL (13.0-18.0); Mean Corp Hgb Conc. 32.5 g/dL (33.0-37.0); Mean Corpuscular Hgb 30.3 pg (27.0-31.0); Mean Corpuscular Volume 93.1 fL (80.0-94.0); Mean Platelet Volume 10.4 fL (7.4-10.4); Nucleated Red Blood Cells % 0 % (-); Platelet Count 194 10^3/uL (130-400); Red Cell Dist. Width 13.5 % (11.5-14.5); White Blood Cell Count 9.9 10^3/uL (4.8-10.8)
[2024-01-31] MEDS: NSS (PRESERVATIVE FREE) 10 ML IV (11:39)
[2024-01-31] MEDS: PROTONIX IV 40 MG IV (11:39)
[2024-01-31] MEDS: APRESOLINE 5 MG IV ×2 (11:40→17:08)
[2024-01-31 13:11] LABS: Glucose - Point of Care 220 mg/dl (70-99)
--- NOTE | 2024-01-31 13:14 | CM ---
Chart reviewed. Patient is independent of ADLS, lives with his and son in a 1 STH, 1 NEYMAR, Home O2 with [employer], 0 DME. Patient is a [employer] member and does receive follow up phone calls. Patient is waiting for surgery scheduled 01/31. Patient
has used [facility] and would like to use them upon discharge. Referral sent. Plan is for the patient to return home with [facility]. CM to follow
[2024-01-31] MEDS: HEPARIN 25000 UNITS/250 ML IV (14:26)
[2024-01-31] MEDS: NOVOLOG FLEXPEN-LOW RESISTANCE 2 UNITS SC ×2 (14:26→23:17)
--- NOTE | 2024-01-31 15:02 | PN.CDI ---
CDI
- -
CDI:
Physician Documentation Request
Admit Date: 01/25/24 23:34
Dear Doctor Tanner,
Please review the following and provide your response in the progress notes.
Clinical Indicators:
Pt admitted with small bowel obstruction.
The diagnosis of atelectasis was included in the signed chest xray report on 01/27 and 01/28
01/28 CXR: There is parenchymal opacity within both lower lungs, slightly greater on the left compared to the right. Main differential considerations of pneumonia and/or atelectasis.
01/27 Incentive spirometry ordered q 1hr while awake
Please indicate in your progress notes if you are in agreement that the above diagnosis is valid for this patient:
Atelectasis is a valid diagnosis (Please include it in your progress notes)
Atelectasis is not a valid diagnosis for this patient
Other
Use of terms such as suspected, likely, concern for, or probable are acceptable for a diagnosis that is being evaluated, monitored or treated as if it exists and can be coded in the inpatient setting, when documented at the time of discharge.
Thank you,
Nancy Javed RN, BSN
CDI Specialist
Available via [employer]
Please use your independent medical judgment in providing your response.
[2024-01-31 17:30] LABS: Glucose - Point of Care 151 mg/dl (70-99)
[2024-01-31] MEDS: NOVOLOG FLEXPEN-LOW RESISTANCE 1 UNITS SC (18:41)
--- NOTE | 2024-01-31 19:31 | PTCARENOTE ---
Pt OOB in a chair today. Pt c/o mild abdomenal discomfort, NGT with brown drainage, 375mls today. Pt had abdomen xray. Telemtry shows sinus rhythm with occasional PVC's, pt given iv hydralazine twice for SBP's >170. Amiodarone infusion continues via
PICC line per at 0.5mg. Plan to hold heparin infusion at 04:00 for bowel surgery on 02/01/24 per .
[2024-01-31] MEDS: Parenteral Nutrition, Central 1860 IV (20:36)
[2024-01-31] MEDS: ERYTHROMYCIN 0.5% OPHTHALMIC OINTMENT RIGHT EYE (20:53)
[2024-01-31 23:18] LABS: Glucose - Point of Care 203 mg/dl (70-99)
--- NOTE | 2024-01-31 23:38 | PTCARENOTE ---
Pt. rec'd at beginning of shift AAOx3, VSS, NSR with PVC's on the monitor. Right nare [place] sump draining brown fluid, placement positive, easily flushed with 30 ml tap H20. Abd. round and distended with positive bowel sounds, pt. denies any pain
or nausea. Davis draining yellow urine. TPN, amiodarone and heparin all infusing as ordered. Pt. for surgery 01/31; will d/c heparin at 0400 as ordered. Pt. currently sleeping.
[2024-02-01] VITALS (23 sets, daily range): BP systolic 87–155; BP diastolic 51–93; BMI 18.1; BMI 19.5
[2024-02-01 05:05] LABS: Hematocrit 33.5 % (39.0-52.0); Hemoglobin 10.8 g/dL (13.0-18.0); Mean Corp Hgb Conc. 32.2 g/dL (33.0-37.0); Mean Corpuscular Hgb 29.1 pg (27.0-31.0); Mean Corpuscular Volume 90.3 fL (80.0-94.0); Platelet Count 197 10^3/uL (130-400); Red Blood Cell Count 3.71 10^6/uL (4.70-6.10); Red Cell Dist. Width 13.4 % (11.5-14.5); White Blood Cell Count 10.6 10^3/uL (4.8-10.8)
[2024-02-01 05:15] LABS: Glucose - Point of Care 177 mg/dl (70-99)
[2024-02-01 05:32] LABS: Blood Urea Nitrogen 33 mg/dl (9-20); Carbon Dioxide 32 mmol/L (22-30); Chloride 102 mmol/L (98-107); Estimated Creatinine Clearance 66 ml/min; Glucose 186 mg/dl (70-99); Magnesium 1.9 mg/dl (1.6-2.3); Phosphorus 3.7 mg/dl (2.5-4.5); Potassium 4.2 mmol/L (3.5-5.1); Sodium 138 mmol/L (135-145); eGFR > 60.00
[2024-02-01] MEDS: NOVOLOG FLEXPEN-LOW RESISTANCE 1 UNITS SC (05:35)
--- NOTE | 2024-02-01 05:44 | PTCARENOTE ---
Pt. washed and then CHG wiped for surgery today; all linens changed.
[2024-02-01 06:52] LABS: Glucose - Point of Care 179 mg/dl (70-99)
--- NOTE | 2024-02-01 07:32 | W.PN.HOSP.TC ---
Today's Communication/Plan
-
surgical intervention SBO today
cont amio gtt, hold anticoagulation as per surgery
cont TPN as per surgery
wean O2 as tolerated
BP control
Assessment / Plan
Assessment / Plan
Physical Exam
General: Not in acute distress
HEENT: Normocephalic
Respiratory: Clear to Auscultation Bilaterally stable respiratory status on 5L
Cardiac: S1/S2 and Regular Rhythm
GI: Soft, Normal Bowel Sounds, Tender and Distended
Musculoskeletal: No Cyanosis and No Edema
Skin: Warm. Dry.
Neuro: AAO x 3
Psych: Calm

Assessment/Plan
83-year-old male past medical history of recurrent small bowel obstruction, aspiration pneumonia, iatrogenic fluid overload, hypertension, paroxysmal atrial fibrillation/SVT on Eliquis, blood loss anemia, hyponatremia, COPD, chronic hypoxic
respiratory failure on 3L, home oxygen, BPH, abdominal aortic aneurysm, pulmonary nodules, presenting with abdominal pain and nausea.
CT abdomen pelvis showed high-grade small bowel obstruction, transition point in the central abdomen where there is some twisting of the abdominal mesentery potentially secondary to internal hernia. Closed-loop obstruction difficult to completely
exclude.
# Recurrent high grade small bowel obstruction likely from hernia
-Maintain NPO
-Continue IV fluids
-SBFT 01/27 appreciated complete SBO, NGT decompression started 01/27 as per surgery
-surgery eval appreciated PICC TPN started, planned for surgical intervention 01/31
#Hyperglycemia 2/2 TPN
-low dose sliding scale Q6H
-A1c appreciated prediabetes
#acute on chronic hyponatremia likely dehydration
#History of Hyponatremia
-Resolved on IVF while NPO
#chronic hypoxic respiratory insufficiency [correction to prior documentation] pt reports baseline oxygen supplementation 4L currently on 5L
#History of COPD not in acute exacerbation-
#Acute on chronic resp failure at one point 8L since weaned down to 5L
#Atelectasis
incentive spirometry
-continue supplemental oxygen to keep sat >=92%
-Wean as tolerated
# Primary HTN
-monitor and titrate antihypertensive regimen as necessary
-Hydralazine prn
#Paroxysmal atrial fib
#Developed Afib RVR 01/28
-transferred to IVU 01/28
-Eliquis on hold for potential surgical intervention, hep gtt started 01/28 to be held for surgical intervention Fri 01/31
-Scheduled metoprolol IV switched to cardizem gtt as per Cardio later switched to Amio gtt 01/29
#reported Vtach 01/27/24
cardio eval appreciated AT at 170 bpm 01/26, 16 sec AT 01/27, recc cont IV BB, resume home Coreg when cleared for oral intake
#Benign prostatic hypertrophy
#Acute retention
Davis started 01/27
Hold Flomax/Finasteride/oral medications for now given complete SBO noted on recent imaging
MARNIE likely d/t retention and possibly prerenal d/t poor oral intake
-resolved with Davis and start TPN
#AAA
Outpatient monitoring
History of aspiration pneumonia
History of iatrogenic fluid overload
History of blood loss anemia
BPH
Pulmonary nodules
#DVT prophylaxis
-SCD
# CODE STATUS
-Full code
I spent a total of 55 minutes with the patient or on the floor. More than 50% of this time involved counseling and coordination of care.
Anticipated Discharge: > 48 hours
Subjective/Interval History
-
Date of Service: February 01, 2024
No acute distress. Appears comfortable at this time awaiting surgical intervention SBO.
Objective Data
-
Labs:
Laboratory Results
02/01/24 02/01/24
04:42 05:00
WBC 10.6
Hgb 10.8 L
Hct 33.5 L
Plt Count 197
APTT Cancelled
Sodium 138
Potassium 4.2
Chloride 102
Carbon Dioxide 32 H
BUN 33 H
Creatinine 0.7
Glucose 186 H
Calcium 9.0
Vital Signs:
Vital Signs
Temp Pulse Resp BP Pulse Ox
98 F 83 18 128/84 95
02/01/24 03:26 02/01/24 05:00 02/01/24 03:26 02/01/24 02:52 02/01/24 03:26
I&O
01/31/24 02/01/24 02/02/24
06:59 06:59 06:59
Intake Total 3385 / 3385 2615.4 / 2615.4
Output Total 1375 / 1375 1775 / 1775
Balance 2009 840.4 / 840.4
[2024-02-01] MEDS: SPIRIVA RESPIMAT 2.5 MCG 2 PUFF INH (08:34)
[2024-02-01] MEDS: SYMBICORT 160/4.5 MCG INHALER 2 PUFF INH ×2 (08:34→20:12)
[2024-02-01] MEDS: PROTONIX IV 40 MG IV (09:17)
[2024-02-01] MEDS: NSS (PRESERVATIVE FREE) 10 ML IV (09:17)
[2024-02-01] MEDS: ERYTHROMYCIN 0.5% OPHTHALMIC OINTMENT 1 APPLIC RIGHT EYE ×3 (09:18→21:50)
--- NOTE | 2024-02-01 10:54 | W.PN.GS2 ---
Addendum entered and electronically signed by Bryson Byrnes MD 02/01/24 12:08:
Patient seen and examined.
Stable, no worsening pain or nausea, minimal flatus, no BMs.
Gen: NAD
Abd: soft, minimal tenderness, distended, non-peritoneal, prior incisions well healed
Patient is a 83 yo M p/w recurrent SBO
Last laparotomy for lysis of adhesions approximately 1 year ago. He had been doing well since. Reviewing CT imaging there does appear to be a swirl of the mesentery and a transition point but there is no significant mesenteric edema, bowel wall
thickening or free fluid.
F/U XR on 01/26 with mild distention of the stomach and small bowel. Fecal residue throughout the colon.
UGI on 01/27 with persistently dilated loops of SB, no passage of contrast into colon, clinically worsening of symptoms requiring NGT placement
f/u XR on 01/30 with persistent obstruction
Afib with RVR, Cardiology on board, currently Hep gtt held for OR
--Persistent SBO: plan OR today
--Continue NPO/IVF/NGT decompression
--Abx: Zosyn
--PICC/TPN
--PRN analgesics/antiemetics
--Hep gtt held for OR
--Afib management as per Cardiology
--Medical management as per primary service
Original Note:
Today's Communication / Plan
-
OR today
Assessment / Plan
-
Assessment: 83-year-old male presenting with recurrent small bowel obstruction.
Last laparotomy for lysis of adhesions approximately 1 year ago. He had been doing well since. Reviewing CT imaging there does appear to be a swirl of the mesentery and a transition point but there is no significant mesenteric edema, bowel wall
thickening or free fluid.
F/U XR on 01/26 with mild distention of the stomach and small bowel. Fecal residue throughout the colon.
UGI on 01/27 with persistently dilated loops of SB, no passage of contrast into colon, clinically worsening of symptoms requiring NGT placement
f/u XR on 01/30 with persistent obstrction
Afib with RVR, Cardiology on board, currently Hep gtt held for OR
--Persistent SBO: plan OR today
--Continue NPO/IVF/NGT decompression
--PICC/TPN
--PRN analgesics/antiemetics
--Hep gtt held for OR
--Afib management as per Cardiology
--Medical management as per primary service
Subjective Data
-
Date of Service: February 01, 2024
Patient seen and examined at bedside. Denies n/v. No improvement in abdominal distention. No passage of flatus
Objective Data
-
Intake and Output
01/31/24 02/01/24 02/02/24
06:59 06:59 06:59
Intake Total 3385 / 3385 2615.4 / 2615.4
Output Total 1375 / 1375 1775 / 1775
Balance 2009 840.4 / 840.4
Intake:
IV fluids (Total) 883 / 883 653.4 / 653.4
Cardizem 20 / 20
Heparin 258 / 258 253 / 253
amio 365 / 365 400.4 / 400.4
nss 240 / 240
IV piggybacks 460 / 460
TPN/PPN 1871 / 1872 1871
Amount instilled into GI Tube ( 170 / 170 90 / 90
Total)
[place] Sump 170 / 170 90 / 90
Output:
Gastrointestinal tube output ( 250 / 250 725 / 725
Total)
[place] Sump 250 / 250 725 / 725
Urine, Davis 1125 / 1125 1050 / 1050
Vital Signs
Temp Pulse Resp BP Pulse Ox
97.6 F 82 18 146/93 94
02/01/24 07:15 02/01/24 08:39 02/01/24 08:39 02/01/24 06:47 02/01/24 09:33
Lab Results
02/01/24 04:42
02/01/24 04:42
Calcium 9.0 mg/dl (8.4-10.2) 02/01/24 04:42
Phosphorus 3.7 mg/dl (2.5-4.5) 02/01/24 04:42
Magnesium 1.9 mg/dl (1.6-2.3) 02/01/24 04:42
Total Bilirubin Cancelled 01/29/24 11:16
AST Cancelled 01/29/24 11:16
ALT Cancelled 01/29/24 11:16
Alkaline Phosphatase Cancelled 01/29/24 11:16
Total Protein Cancelled 01/29/24 11:16
Albumin Cancelled 01/29/24 11:16
Physical Exam
-
NAD AAOx3
Right eye:red rimmed edema
ABD: softly distended and tympanitic
nontender
NGT with dark gastric contents
[2024-02-01 11:15] LABS: Glucose - Point of Care 209 mg/dl (70-99)
--- NOTE | 2024-02-01 12:03 | W.SUR.PREOP ---
Pre-Operative Surgical Note
-
I have examined this patient prior to the performance of the scheduled procedure.
The patient's condition is unchanged from the time of the current History and
Physical and the patient is able to undergo the scheduled procedure.
--- NOTE | 2024-02-01 12:50 | W.PN.CD ---
Today's Communication / Plan
-
-
Continue IV Amio
Anticipate PO amio for 2 months and then stop and transition to just a bb
Resume Eliquis when OK with surgery
Impression / Plan
-
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
oxygen and prior small bowel obstructions presented with abdominal pain and found to have SBO.
SBO
- For surgery today
Paroxysmal atrial fibrillation
-01/29/2024. Initially on Cardizem 5 mg daily but inadequate rate control and patient developed low blood pressure on higher dosing. Cardizem discontinued and patient placed on IV amiodarone.
-Cardiverted to sinus. Still on IV amio. Continue IV amiodarone while n.p.o.
-On IV heparin (as outpt on Eliquis).
- OK to not use IV heparin immediately after surgery, perhaps resume 24-48 hrs after surgery but only when ok with surgery
Atrial tachycardia, paroxysmal, see earlier this admit
HTN, with chronic orthostatic hypotension, stable
Non-obstructive CAD, stable without chest pain
AAA
Dyslipidemia
COPD on O2
Subjective:
Intermittent palpitations. Denies chest pain, shortness of breath, and dizziness.
Physical Exam
Vital Signs/Labs
Vital Signs
Temp Pulse Resp BP Pulse Ox
97.5 F 82 16 146/93 94
02/01/24 12:12 02/01/24 08:39 02/01/24 12:12 02/01/24 06:47 02/01/24 12:12
01/31/24 02/01/24 02/02/24
06:59 06:59 06:59
Actual Weight 58.7 kg 60.6 kg
07/12/24 04:42
02/01/24 04:42
APTT Cancelled 02/01/24 05:00
Magnesium 1.9 mg/dl (1.6-2.3) 02/01/24 04:42
Triglycerides Cancelled 01/29/24 11:16
01/28/24
23:00
Ebh-W-Wxsvpghiuye Pept 3110
Physical Exam
Constitutional: No acute distress
Cardiovascular: Rhythm & rate is regular and Pedal edema is absent
Respiratory: Respiratory effort normal and Lungs clear to auscul.
GI: Soft
Neuro/Psych: Alert
Data Reviewed
-
Date of Service: February 01, 2024
--- NOTE | 2024-02-01 13:01 | PTCARENOTE ---
No changes from previous note by night RN. Pt taken to OR @12:20.
[2024-02-01 13:04] LABS: Glucose - Point of Care 184 mg/dl (70-99)
--- NOTE | 2024-02-01 14:06 | CM ---
Chart reviewed. Patient is waiting for surgery. Patient is independent of ADLS, lives with his son and in a 1 STH, 1 NEYMAR, 0 DME. Patient is current with [employer] and receives follow up phone calls, Home O2 with [employer]. Plan is for the
patient to return home with [facility]. CM to follow
--- NOTE | 2024-02-01 15:00 | W.IMMPOSTOP ---
Addendum entered and electronically signed by Bryson Byrnes MD 02/01/24 15:55:
[facility]# [id number]
Addendum entered and electronically signed by Bryson Byrnes MD 02/01/24 15:23:
-- OK to resume Hep gtt tomorrow if Hb stable
-- Abx for 24 hours post-op
-- Continue NGT until bowel function
Original Note:
Surgical Immed Post Op Note
-
Primary Surgeon: Fitz
Assisting Surgeon: SAMUEL Saleh
Pre-op Diagnosis: SBO
Post-op Diagnosis: SBO
Procedure Performed: Exploratory laparotomy, small bowel resection with primary anastomosis, extensive MURIEL
Anesthesia Type: General
Specimen / Cultures:
1. Portion of small bowel
Estimated Blood Loss: 7 cc
Complications: None
Operative Findings:
1. Single band adhesion causing high grade obstruction, concern for stricturing of bowel, small bowel resection with primary anastomosis
2. Extensive MURIEL with dense intra-loop adhesions, completely lysed from TI to LT
3. Seprafilm intra-abdominal
[2024-02-01] MEDS: NOVOLOG FLEXPEN-LOW RESISTANCE SC (16:40)
--- NOTE | 2024-02-01 17:21 | SUR.PHASEI ---
Patient transferred to IMU, transferred into IMU bed. Dr Trevino informed of low BP. No response to TT. bedside report to Katherin, Patient awake and restful. Elan mix RN BSN.
--- NOTE | 2024-02-01 17:30 | PTCARENOTE ---
Patient arrived from PACU s/p ex-lap. Midline abdominal incision aquacel CDI. RUE DL PICC patent, TPN and Amio gtt running as ordered.
Assessment completed, documented in shift assessment.
[2024-02-01] MEDS: DILAUDID 1 MG IV ×2 (17:58→22:24)
[2024-02-01] MEDS: ZOSYN 50 IV ×2 (17:58→23:13)
[2024-02-01 18:48] LABS: Glucose - Point of Care 259 mg/dl (70-99)
[2024-02-01] MEDS: NOVOLOG FLEXPEN-LOW RESISTANCE 3 UNITS SC (19:03)
[2024-02-01] MEDS: CORDARONE 518 MG IV (20:26)
[2024-02-01] MEDS: Parenteral Nutrition, Central 1860 IV (20:32)
[2024-02-01] MEDS: NOVOLOG FLEXPEN-LOW RESISTANCE 4 UNITS SC (23:13)
[2024-02-01 23:26] LABS: Glucose - Point of Care 320 mg/dl (70-99)
[2024-02-02] VITALS (12 sets, daily range): BP systolic 94–142; BP diastolic 56–76; BMI 18.8
[2024-02-02] MEDS: ZOSYN 50 IV ×2 (05:14→12:06)
[2024-02-02] MEDS: DILAUDID 1 MG IV (05:14)
[2024-02-02] MEDS: NOVOLOG FLEXPEN-LOW RESISTANCE 2 UNITS SC (05:14)
[2024-02-02 05:20] LABS: Glucose - Point of Care 233 mg/dl (70-99)
[2024-02-02 05:26] LABS: Hematocrit 33.5 % (39.0-52.0); Hemoglobin 10.7 g/dL (13.0-18.0); Mean Corp Hgb Conc. 31.9 g/dL (33.0-37.0); Mean Corpuscular Volume 90.8 fL (80.0-94.0); Mean Platelet Volume 10.1 fL (7.4-10.4); Platelet Count 150 10^3/uL (130-400); Red Blood Cell Count 3.69 10^6/uL (4.70-6.10); White Blood Cell Count 17.8 10^3/uL (4.8-10.8)
--- NOTE | 2024-02-02 05:40 | PTCARENOTE ---
Assessment done and charted. AAOx3 pleasant and gen weakness. C/o abd pain 03/01, See MAR for pain management. NSR w/ PVC. Lung sound are diminished and coarse at the upper lobes, SaO2 96% 5L MF. Abd round and tender to palpation. Abd Dressing dry
and intact, minimal shadowing. pt appeared comfortable throughout the night and call trujillo within reach.
--- NOTE | 2024-02-02 07:11 | W.PN.HOSP.TC ---
Today's Communication/Plan
-
cont amio gtt, resume hep gtt
cont TPN as per surgery
wean O2 as tolerated
BP control
glycemic control
Assessment / Plan
Assessment / Plan
Physical Exam
General: Not in acute distress
HEENT: Normocephalic
Respiratory: Clear to Auscultation Bilaterally stable respiratory status on 5L
Cardiac: S1/S2 and Regular Rhythm
GI: Soft, Normal Bowel Sounds, mild tenderness, distended
Musculoskeletal: No Cyanosis and No Edema
Skin: Warm. Dry.
Neuro: AAO x 3
Psych: Calm

Assessment/Plan
83-year-old male past medical history of recurrent small bowel obstruction, aspiration pneumonia, iatrogenic fluid overload, hypertension, paroxysmal atrial fibrillation/SVT on Eliquis, blood loss anemia, hyponatremia, COPD, chronic hypoxic
respiratory failure on 3L, home oxygen, BPH, abdominal aortic aneurysm, pulmonary nodules, presenting with abdominal pain and nausea.
CT abdomen pelvis showed high-grade small bowel obstruction, transition point in the central abdomen where there is some twisting of the abdominal mesentery potentially secondary to internal hernia. Closed-loop obstruction difficult to completely
exclude.
# Recurrent high grade small bowel obstruction likely from hernia
-Maintain NPO
-Continue IV fluids
-SBFT 01/27 appreciated complete SBO, NGT decompression started 01/27 as per surgery
-surgery eval appreciated PICC TPN started
-01/31 ex lap with SBR and extensive MURIEL, transferred from IVU to IMU post-op care
#Hyperglycemia 2/2 TPN
-low dose sliding scale Q6H increased to medium dose sliding scale
-5U Lantus HS started
-A1c appreciated prediabetes 6.0
-monitor and titrate insulin regimen as necessary.
#mild hyponatremia not significant
#chronic hypoxic respiratory insufficiency [correction to prior documentation] pt reports baseline oxygen supplementation 4L currently on 5L
#History of COPD not in acute exacerbation-
#Acute on chronic resp failure at one point 8L since weaned down to 5L
#Atelectasis
incentive spirometry
-continue supplemental oxygen to keep sat >=92%
-Wean as tolerated
# Primary HTN
-monitor and titrate antihypertensive regimen as necessary
-Hydralazine prn
#Paroxysmal atrial fib
#Developed Afib RVR 01/28
-transferred to IVU 01/28
-Eliquis on hold for potential surgical intervention, hep gtt started 01/28 held for surgical intervention Fri 01/31, hep gtt resumed Sat 02/01
-Scheduled metoprolol IV switched to cardizem gtt as per Cardio later switched to Amio gtt 01/29
#reported Vtach 01/27/24
cardio eval appreciated AT at 170 bpm 01/26, 16 sec AT 01/27
#Benign prostatic hypertrophy
#Acute retention
Davis started 01/27
eventual restart Flomax/Finasteride when cleared and tolerating oral diet
MARNIE likely d/t retention and possibly prerenal d/t poor oral intake
-resolved with Davis and start TPN
#AAA
Outpatient monitoring
History of aspiration pneumonia
History of iatrogenic fluid overload
History of blood loss anemia
BPH
Pulmonary nodules
#DVT prophylaxis
-SCD
# CODE STATUS
-Full code
I spent a total of 55 minutes with the patient or on the floor. More than 50% of this time involved counseling and coordination of care.
Anticipated Discharge: > 48 hours
Subjective/Interval History
-
Date of Service: February 02, 2024
Seen and examined at bedside in no acute distress sitting up comfortably in chair. Overall reports feeling well following procedure. Denies new acute issues.
Objective Data
-
Labs:
Laboratory Results
02/02/24
05:12
WBC 17.8 H
Hgb 10.7 L
Hct 33.5 L
Plt Count 150 D
Vital Signs:
Vital Signs
Temp Pulse Resp BP Pulse Ox
97.7 F 64 12 106/67 98
02/02/24 03:42 02/02/24 05:00 02/02/24 05:00 02/02/24 04:00 02/02/24 05:00
I&O
02/01/24 02/02/24 02/03/24
06:59 06:59 06:59
Intake Total 2615.4 / 2615.4 1602.7 / 1602.7
Output Total 1775 / 1775 810 / 810
Balance 840.4 / 840.4 792.7 / 792.7
[2024-02-02] MEDS: SPIRIVA RESPIMAT 2.5 MCG 2 PUFF INH (07:46)
[2024-02-02] MEDS: SYMBICORT 160/4.5 MCG INHALER 2 PUFF INH ×2 (07:46→18:26)
[2024-02-02] MEDS: NSS (PRESERVATIVE FREE) 10 ML IV (09:29)
[2024-02-02] MEDS: ERYTHROMYCIN 0.5% OPHTHALMIC OINTMENT 1 APPLIC RIGHT EYE ×2 (09:29→17:43)
[2024-02-02] MEDS: PROTONIX IV 40 MG IV (09:30)
[2024-02-02] MEDS: DILAUDID 0.5 MG IV (09:30)
[2024-02-02] MEDS: LANTUS 0.05 UNITS SC (09:37)
--- NOTE | 2024-02-02 10:57 | W.PN.GS2 ---
Addendum entered and electronically signed by Oswaldo Rodriguez MD 02/02/24 14:51:
I saw and examined the patient.
The Administrative Hearing Officer's note was reviewed and I agree with the note.
Comment: No specific complaints. Denies n/v with NGT to suction. No bowel function yet. Pain is controlled. He is OOBTC. Will cont NGT/NPO/TPN for now. OK to resume A/C without bolus.
Original Note:
Today's Communication / Plan
-
NGT/NPO/TPN
Assessment / Plan
-
Assessment: 83-year-old male presenting with recurrent small bowel obstruction which did not resolve with medical management alone now POD #1 ex lap with SBR and extensive MURIEL
AFVSS
Following expected course post operatively, await return of bowel function
H/H stable post op. Reactive leukocytosis present
Bmp pending
Hyperglycemia with TPN (A1c of 6.0)
--Continue NPO/IVF/NGT decompression
--PICC/TPN
--Discussed glycemic control with hospitalist and pharmacist. Diabetic consult to follow blood sugars with us.
--PRN analgesics/antiemetics
--Ok to resume heparin gtt with no bolus
--Afib management as per Cardiology
--OOB/Ambulate. Will reconsult PT/OT to follow post operatively
--Medical management as per primary service
Subjective Data
-
Date of Service: February 02, 2024
Patient seen and examined at bedside with Dr. Rodriguez. Denies n/v. No passage of flatus as of yet. In good spirits. OOB to chair. Pain present but managable.
Objective Data
-
Intake and Output
02/01/24 02/02/24 02/03/24
06:59 06:59 06:59
Intake Total 2615.4 / 2615.4 1602.7 / 1602.7 90 / 90
Output Total 1775 / 1775 810 / 810 125 / 125
Balance 840.4 / 840.4 792.7 / 792.7 -35 / -35
Intake:
Oral fluids 2 / 2
IV fluids (Total) 653.4 / 653.4 364.7 / 364.7
Heparin 253 / 253
NORM 150 / 150
TPN 78 / 78
amio 400.4 / 400.4 16.7 / 16.7
IV piggybacks 300 / 300
TPN/PPN 1872 / 1872 936 / 936
Amount instilled into GI Tube ( 90 /
Total)
Coffey Sump 90 / 90 90 / 90
Output:
Gastrointestinal tube output ( 725 / 725 70 / 70 125 / 125
Total)
Coffey Sump 725 / 725 70 / 70 125 / 125
Urine, Davis 1050 / 1050 740 / 740
Vital Signs
Temp Pulse Resp BP Pulse Ox
97.7 F 66 19 126/68 97
02/02/24 07:25 02/02/24 09:00 02/02/24 09:00 02/02/24 08:00 02/02/24 09:00
Lab Results
02/02/24 05:12
Calcium 9.0 mg/dl (8.4-10.2) 02/01/24 04:42
Phosphorus 3.7 mg/dl (2.5-4.5) 02/01/24 04:42
Magnesium 1.9 mg/dl (1.6-2.3) 02/01/24 04:42
Total Bilirubin Cancelled 01/29/24 11:16
AST Cancelled 01/29/24 11:16
ALT Cancelled 01/29/24 11:16
Alkaline Phosphatase Cancelled 01/29/24 11:16
Total Protein Cancelled 01/29/24 11:16
Albumin Cancelled 01/29/24 11:16
Physical Exam
-
NAD AAOx3
Right eye:red rimmed edema
ABD: softly distended (mild), generalized tenderness
Midline incision with intact dressing
NGT with bilious outputs
Davis with denis urine
--- NOTE | 2024-02-02 11:57 | W.PN.CD ---
Today's Communication / Plan
-
-Status-post ex lap/lysis of adhesions/small bowel resection yesterday.
-Remains on NGT to suction.
-Continue IV amiodarone gtt while NPO.
-Resume IV heparin when safe from a surgical standpoint (patient is on Eliquis as an outpatient which he should be transitioned back to prior to discharge).
Impression / Plan
-
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
oxygen and prior small bowel obstructions presented with abdominal pain and found to have SBO.
SBO:
-Status-post ex lap/lysis of adhesions/small bowel resection yesterday.
-Remains on NGT to suction.
Paroxysmal atrial fibrillation
-01/29/2024. Initially on Cardizem 5 mg daily but inadequate rate control and patient developed low blood pressure on higher dosing. Cardizem discontinued and patient placed on IV amiodarone.
-Cardiverted to sinus. Still on IV amio.
-Continue IV amiodarone gtt while NPO.
-Resume IV heparin when safe from a surgical standpoint (patient is on Eliquis as an outpatient which he should be transitioned back to prior to discharge).
Atrial tachycardia, paroxysmal -on amiodarone.
HTN, with chronic orthostatic hypotension, stable
Non-obstructive CAD, stable without chest pain
AAA
Dyslipidemia
COPD on O2
Subjective:
No major events overnight.
Physical Exam
Vital Signs/Labs
Vital Signs
Temp Pulse Resp BP Pulse Ox
97.6 F 66 19 126/68 97
02/02/24 11:38 02/02/24 09:00 02/02/24 09:00 02/02/24 08:00 02/02/24 09:00
02/01/24 02/02/24 02/03/24
06:59 06:59 06:59
Actual Weight 60.6 kg 62.9 kg
02/02/24 05:12
APTT Cancelled 02/01/24 05:00
Magnesium 1.9 mg/dl (1.6-2.3) 02/01/24 04:42
Triglycerides Cancelled 01/29/24 11:16
01/28/24
23:00
Ico-[id number]-Vhohbleuxgv Pept 3110
Physical Exam
Constitutional: No acute distress and Comfortable
EENT: Anicteric
Cardiovascular: Rhythm & rate is regular, Pedal edema is absent, Systolic murmur absent and S1S2 is normal
Respiratory: Respiratory effort normal and Lungs clear to auscul.
GI: Soft
Neuro/Psych: AO x 3
Other: Skin (Warm, dry, intact)
Data Reviewed
-
Date of Service: February 02, 2024
EKG: Tracing Personally Visualized and interpreted (Telemetry: Sinus rhythm)
Medical Tests (PFT, Pathology etc): Discussed with Patient
Labs: Labs Reviewed by me
[2024-02-02] MEDS: NOVOLOG FLEXPEN-MODERATE RESISTANCE 1 UNITS SC ×2 (12:12→23:45)
[2024-02-02 12:18] LABS: Glucose - Point of Care 186 mg/dl (70-99)
[2024-02-02] MEDS: OFIRMEV 100 IV ×2 (15:48→21:50)
[2024-02-02] MEDS: FLUSH (NSS) 1 FLUSH IV (15:49)
[2024-02-02 16:02] LABS: APTT 31.8 Sec (23.4-35.0)
[2024-02-02 16:17] LABS: Blood Urea Nitrogen 35 mg/dl (9-20); Calcium 8.5 mg/dl (8.4-10.2); Carbon Dioxide 31 mmol/L (22-30); Chloride 100 mmol/L (98-107); Estimated Creatinine Clearance 60 ml/min; Glucose 141 mg/dl (70-99); Magnesium 1.9 mg/dl (1.6-2.3); Potassium 4.7 mmol/L (3.5-5.1); Sodium 134 mmol/L (135-145); eGFR > 60.00
[2024-02-02 17:38] LABS: Glucose - Point of Care 147 mg/dl (70-99)
[2024-02-02] MEDS: HEPARIN 25000 UNITS/250 ML IV (17:46)
[2024-02-02] MEDS: CORDARONE 518 MG IV (18:01)
[2024-02-02] MEDS: NOVOLOG FLEXPEN-MODERATE RESISTANCE SC (18:04)
--- NOTE | 2024-02-02 18:42 | PTCARENOTE ---
Patient heparin drip restarted today without bolus at 750 units. Starting PTT 31.8. Next PTT at 2345. Patient remains NPO except for mouth swabs. Tolerating right nare [place] sump. Medicated with pain medication as ordered. Patient out of bed
to chair for most of the day. Assistance x1 back to bed.
[2024-02-02] MEDS: Parenteral Nutrition, Central 1860 IV (20:25)
[2024-02-02] MEDS: ERYTHROMYCIN 0.5% OPHTHALMIC OINTMENT RIGHT EYE (20:34)
[2024-02-02 23:54] LABS: Glucose - Point of Care 174 mg/dl (70-99)
[2024-02-03] VITALS (15 sets, daily range): BP systolic 112–177; BP diastolic 64–99; PULSE 82; O2SAT 94; BMI 19.1
[2024-02-03 00:14] LABS: APTT 44.4 Sec (23.4-35.0)
--- NOTE | 2024-02-03 04:37 | PTCARENOTE ---
Assessment done and charted. No major issues with pt. NSR in the monitor. VSS. Pt is on 4L NC. coarse lungs and productive cough, SaO2 96%. Pt pass gas but no BP. pt appeared comfortable in bed.
[2024-02-03] MEDS: NOVOLOG FLEXPEN-MODERATE RESISTANCE 1 UNITS SC ×3 (05:41→23:24)
[2024-02-03 05:49] LABS: Glucose - Point of Care 175 mg/dl (70-99)
[2024-02-03 06:03] LABS: Hematocrit 29.7 % (39.0-52.0); Hemoglobin 9.8 g/dL (13.0-18.0); Mean Corpuscular Hgb 29.5 pg (27.0-31.0); Mean Corpuscular Volume 89.5 fL (80.0-94.0); Mean Platelet Volume 10.6 fL (7.4-10.4); Platelet Count 168 10^3/uL (130-400); Red Blood Cell Count 3.32 10^6/uL (4.70-6.10); Red Cell Dist. Width 12.9 % (11.5-14.5); White Blood Cell Count 16.7 10^3/uL (4.8-10.8)
[2024-02-03 06:25] LABS: Blood Urea Nitrogen 34 mg/dl (9-20); Calcium 8.2 mg/dl (8.4-10.2); Carbon Dioxide 29 mmol/L (22-30); Chloride 101 mmol/L (98-107); Estimated Creatinine Clearance 61 ml/min; Glucose 152 mg/dl (70-99); Magnesium 1.8 mg/dl (1.6-2.3); Phosphorus 3.3 mg/dl (2.5-4.5); Potassium 4.4 mmol/L (3.5-5.1); Sodium 132 mmol/L (135-145); eGFR > 60.00
[2024-02-03 06:59] LABS: APTT 51.8 Sec (23.4-35.0)
--- NOTE | 2024-02-03 07:00 | W.PN.HOSP.TC ---
Today's Communication/Plan
-
cont amio hep gtt
cont TPN wound care NGT NPO as per surgery
wean O2 as tolerated
BP control
glycemic control
Assessment / Plan
Assessment / Plan
Physical Exam
General: Not in acute distress
HEENT: Normocephalic
Respiratory: Clear to Auscultation Bilaterally stable respiratory status on 4L
Cardiac: S1/S2 and Regular Rhythm
GI: Soft, Normal Bowel Sounds, mild tenderness, non distended
Musculoskeletal: No Cyanosis and No Edema
Skin: Warm. Dry.
Neuro: AAO x 3
Psych: Calm

Assessment/Plan
83-year-old male past medical history of recurrent small bowel obstruction, aspiration pneumonia, iatrogenic fluid overload, hypertension, paroxysmal atrial fibrillation/SVT on Eliquis, blood loss anemia, hyponatremia, COPD, chronic hypoxic
respiratory failure on 4L, home oxygen, BPH, abdominal aortic aneurysm, pulmonary nodules, presenting with abdominal pain and nausea.
CT abdomen pelvis showed high-grade small bowel obstruction, transition point in the central abdomen where there is some twisting of the abdominal mesentery potentially secondary to internal hernia. Closed-loop obstruction difficult to completely
exclude.
# Recurrent high grade small bowel obstruction likely from hernia
-Maintain NPO
-Continue TPN as per surgery
-SBFT 01/27 appreciated complete SBO, NGT decompression started 01/27 as per surgery
-surgery eval appreciated PICC TPN started
-01/31 ex lap with SBR and extensive MURIEL, transferred from IVU to IMU post-op care
#Hyperglycemia 2/2 TPN
-low dose sliding scale Q6H increased to medium dose sliding scale
-5U Lantus HS started
-A1c appreciated prediabetes 6.0
-monitor and titrate insulin regimen as necessary.
#mild hyponatremia not significant
#chronic hypoxic respiratory insufficiency [correction to prior documentation] pt reports baseline oxygen supplementation 4L, currently baseline
#History of COPD not in acute exacerbation-
#Acute on chronic resp failure at one point 8L since weaned down to 5L
#Atelectasis
incentive spirometry
-continue supplemental oxygen to keep sat >=92%
-Wean as tolerated
# Primary HTN
-monitor and titrate antihypertensive regimen as necessary
-Hydralazine prn
#Paroxysmal atrial fib
#Developed Afib RVR 01/28
-transferred to IVU 01/28
-Eliquis on hold for potential surgical intervention, hep gtt started 01/28 held for surgical intervention Fri 01/31, hep gtt resumed Sat 02/01
-Scheduled metoprolol IV switched to cardizem gtt as per Cardio later switched to Amio gtt 01/29
#reported Vtach 01/27/24
cardio eval appreciated AT at 170 bpm 01/26, 16 sec AT 01/27
#Benign prostatic hypertrophy
#Acute retention
Davis started 01/27
eventual restart Flomax/Finasteride when cleared and tolerating oral diet
MARNIE likely d/t retention and possibly prerenal d/t poor oral intake
-resolved with Davis and start TPN
#AAA
Outpatient monitoring
History of aspiration pneumonia
History of iatrogenic fluid overload
History of blood loss anemia
BPH
Pulmonary nodules
#DVT prophylaxis
-SCD
# CODE STATUS
-Full code
I spent a total of 55 minutes with the patient or on the floor. More than 50% of this time involved counseling and coordination of care.
Anticipated Discharge: > 48 hours
Subjective/Interval History
-
Date of Service: February 03, 2024
Reports feeling well. Passing some gas. Denies new acute issues. Pain controlled
Objective Data
-
Labs:
Laboratory Results
02/02/24 02/03/24 02/03/24
23:44 05:40 06:41
WBC 16.7 H
Hgb 9.8 L
Hct 29.7 L
Plt Count 168
APTT 44.4 H Pending
Sodium 132 L
Potassium 4.4
Chloride 101
Carbon Dioxide 29
BUN 34 H
Creatinine 0.8
Glucose 152 H
Calcium 8.2 L
Vital Signs:
Vital Signs
Temp Pulse Resp BP Pulse Ox
97.7 F 66 22 148/78 95
02/03/24 03:20 02/03/24 05:00 02/03/24 05:00 02/03/24 04:00 02/03/24 05:00
I&O
02/02/24 02/03/24 02/04/24
06:59 06:59 06:59
Intake Total 1602.7 / 1602.7 2794 / 2794
Output Total 810 / 810 1100 / 1100
Balance 792.7 / 792.7 1694 / 1694
[2024-02-03] MEDS: SPIRIVA RESPIMAT 2.5 MCG 2 PUFF INH (07:46)
[2024-02-03] MEDS: SYMBICORT 160/4.5 MCG INHALER 2 PUFF INH ×2 (07:46→20:08)
[2024-02-03] MEDS: LANTUS 0.05 UNITS SC (08:05)
[2024-02-03] MEDS: PROTONIX IV 40 MG IV (08:05)
[2024-02-03] MEDS: NSS (PRESERVATIVE FREE) 10 ML IV (08:05)
[2024-02-03] MEDS: ERYTHROMYCIN 0.5% OPHTHALMIC OINTMENT RIGHT EYE ×2 (08:06→15:59)
--- NOTE | 2024-02-03 09:40 | W.PN.CD ---
Today's Communication / Plan
-
-Continue IV amiodarone gtt; remains NPO with NGT to suction.
-IV heparin resumed (patient is on Eliquis as an outpatient which he should be transitioned back to prior to discharge).
Impression / Plan
-
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
oxygen and prior small bowel obstructions presented with abdominal pain and found to have SBO.
SBO:
-Status-post ex lap/lysis of adhesions/small bowel resection 02/01/2024.
-Remains on NGT to suction.
Paroxysmal atrial fibrillation
-01/29/2024. Initially on Cardizem 5 mg daily but inadequate rate control and patient developed low blood pressure on higher dosing. Cardizem discontinued and patient placed on IV amiodarone.
-Cardiverted to sinus. Still on IV amio.
-Continue IV amiodarone gtt; remains NPO with NGT to suction.
-IV heparin resumed (patient is on Eliquis as an outpatient which he should be transitioned back to prior to discharge).
Atrial tachycardia, paroxysmal -on amiodarone.
HTN, with chronic orthostatic hypotension, stable
Non-obstructive CAD, stable without chest pain
AAA
Dyslipidemia
COPD on O2
Subjective:
No major events overnight; remains in sinus rhythm.
Physical Exam
Vital Signs/Labs
Vital Signs
Temp Pulse Resp BP Pulse Ox
97.7 F 77 18 148/78 96
02/03/24 03:20 02/03/24 07:51 02/03/24 07:51 02/03/24 04:00 02/03/24 07:51
02/02/24 02/03/24 02/04/24
06:59 06:59 06:59
Actual Weight 62.9 kg 63.9 kg
02/03/24 05:40
APTT 51.8 Sec (23.4-35.0) H 02/03/24 06:41
Magnesium 1.8 mg/dl (1.6-2.3) 02/03/24 05:40
Triglycerides Cancelled 01/29/24 11:16
01/28/24
23:00
Jvy-R-Udoiyixajmb Pept 3110
Physical Exam
Constitutional: No acute distress and Comfortable
EENT: Anicteric
Cardiovascular: Rhythm & rate is regular, Pedal edema is absent, Diastolic murmur absent and S1S2 is normal
Respiratory: Respiratory effort normal and Lungs clear to auscul.
GI: Soft
Neuro/Psych: AO x 3
Other: Skin (Warm, dry, intact)
Data Reviewed
-
Date of Service: February 03, 2024
EKG: Tracing Personally Visualized and interpreted (Telemetry: Sinus rhythm)
Medical Tests (PFT, Pathology etc): Discussed with Patient
Labs: Labs Reviewed by me
[2024-02-03] MEDS: OFIRMEV 100 IV ×3 (11:20→23:19)
[2024-02-03 12:23] LABS: Glucose - Point of Care 150 mg/dl (70-99)
--- NOTE | 2024-02-03 12:24 | W.PN.GS2 ---
Addendum entered and electronically signed by Oswaldo Rodriguez MD 02/03/24 12:52:
I saw and examined the patient.
The Marble Installation Helper's note was reviewed and I agree with the note.
Comment: Improving. Pain controlled. Passing flatus. Exam approp, aquacel cdi. Plan for NGT clamp trial today.
Original Note:
Today's Communication / Plan
-
Clamping trial of NGT
Assessment / Plan
-
Assessment: 83-year-old male presenting with recurrent small bowel obstruction which did not resolve with medical management alone now POD #2 ex lap with SBR and extensive MURIEL
AFVSS
Following expected course post operatively
acute on chronic anemia. H/H stable relatively post op with dift down today: suspect equilibration post op. No active bleeding noted. Reactive leukocytosis present, completed 24h of abx post op
On heparin gtt with no bolus, hold PO ac at this time
Davis in place for SHARMA/urinary retention, will plan voiding trial once back on his flomax
Passing some flatus now
--Continue NPO/IVF
--Clamp trial of NGT today, will remove and provide sips of clears if does well
--PICC/TPN (renewed)
--PRN analgesics/antiemetics
--Trend labs
--Afib management as per Cardiology
--OOB/Ambulate. PT/OT to follow post operatively
--Medical management as per primary service
Subjective Data
-
Date of Service: February 03, 2024
Patient seen and examined at bedside. Reports he is passing some minimal flatus. Denies n/v. Denies bloating. Pain is manageable on current regimen.
Objective Data
-
Intake and Output
02/02/24 02/03/24 02/04/24
06:59 06:59 06:59
Intake Total 1602.7 / 1602.7 2794 / 2794
Output Total 810 / 810 1100 / 1100 425 / 425
Balance 792.7 / 792.7 1694 / 1694 -425 / -425
Intake:
Oral fluids 2 / 2
IV fluids (Total) 364.7 / 364.7
NORM 150 / 150
TPN 78 / 78
amio 16.7 / 16.7
IV piggybacks 300 / 300 642 / 642
TPN/PPN 936 / 936 1971 / 1971
Amount instilled into GI Tube ( 180 / 180
Total)
[place] Sump 180 / 180
Output:
Gastrointestinal tube output ( 70 / 70 225 / 225
Total)
[place] Sump 70 / 70 225 / 225
Urine, Davis 740 / 740 875 / 875 425 / 425
Vital Signs
Temp Pulse Resp BP Pulse Ox
97.5 F 68 22 148/99 98
02/03/24 07:30 02/03/24 11:00 02/03/24 11:00 02/03/24 10:17 02/03/24 08:00
Lab Results
02/03/24 05:40
Calcium 8.2 mg/dl (8.4-10.2) L 02/03/24 05:40
Phosphorus 3.3 mg/dl (2.5-4.5) 02/03/24 05:40
Magnesium 1.8 mg/dl (1.6-2.3) 02/03/24 05:40
Total Bilirubin Cancelled 01/29/24 11:16
AST Cancelled 01/29/24 11:16
ALT Cancelled 01/29/24 11:16
Alkaline Phosphatase Cancelled 01/29/24 11:16
Total Protein Cancelled 01/29/24 11:16
Albumin Cancelled 01/29/24 11:16
Physical Exam
-
NAD AAOx3
Right eye:red rimmed edema
ABD: softly nd, mild generalized tenderness
Midline incision with intact aquacel dressing
NGT with low volume gastric outputs
Davis with denis urine
[2024-02-03 13:46] LABS: Hematocrit 29.1 % (39.0-52.0); Hemoglobin 9.8 g/dL (13.0-18.0)
[2024-02-03 14:02] LABS: APTT 55.9 Sec (23.4-35.0)
--- NOTE | 2024-02-03 16:05 | PTCARENOTE ---
Addendum entered by Leny Huang RN 02/03/24 16:13:
Confirmed with Ayse Camarena that NGT may be pulled and patient can have sips of any clears (just sips).
Original Note:
Assumed care of patient at beginning of this shift from previous RN with amiodarone, TPN and heparin infusing; NGT to LIWS. Patient states he has been passing gas, small amounts each time but frequently. NGT clamped as per order; no residual.
Patient denies nausea, bloating or increased pain; only tenderness when palpated. Order entered to pull NGT; tiger text sent to Ayse Camarena to confirm that patient may have sips of water after. Await reply. Remains NSR with occasionally PVCs on
monitor. OOB to chair for most of the day. See worklist for full assessment, vital signs and heparin titration; see MAR for med administration.
[2024-02-03] MEDS: HEPARIN 25000 UNITS/250 ML IV (17:00)
--- NOTE | 2024-02-03 18:13 | PTCARENOTE ---
Patient due for lovenox at 18:00. stated patient had just fallen asleep when this RN went in to administer; she requests it be given later. [place] text sent to Dr Melissa; ok to re-time. Order sent to pharmacy.
[2024-02-03] MEDS: NOVOLOG FLEXPEN-MODERATE RESISTANCE SC (18:20)
[2024-02-03 18:30] LABS: Glucose - Point of Care 149 mg/dl (70-99)
[2024-02-03 20:41] LABS: APTT 66.2 Sec (23.4-35.0)
[2024-02-03] MEDS: Parenteral Nutrition, Central 1860 IV (20:42)
[2024-02-03] MEDS: ERYTHROMYCIN 0.5% OPHTHALMIC OINTMENT 1 APPLIC RIGHT EYE (20:42)
[2024-02-03] MEDS: CORDARONE 518 MG IV (23:13)
[2024-02-03 23:35] LABS: Glucose - Point of Care 174 mg/dl (70-99)
[2024-02-04] VITALS (14 sets, daily range): BP systolic 114–156; BP diastolic 60–89; PULSE 70–79; O2SAT 95; BMI 19.1
--- NOTE | 2024-02-04 00:04 | PTCARENOTE ---
Caring for patient overnight. aaox3, pleasant. Slight pain in abdomen, ofirmev given. Hep gtt running, amio gtt running, TPN running. RPICC in place. Abdominal dressing CDI. Positive bowel sounds. SCDs. Remains on 4LNC, rhonchus, prod. cough. OOB
chair. Davis. No other issues at this time. Will monitor.
[2024-02-04 05:24] LABS: Hematocrit 26.1 % (39.0-52.0); Hemoglobin 8.7 g/dL (13.0-18.0); Mean Corp Hgb Conc. 33.3 g/dL (33.0-37.0); Mean Corpuscular Hgb 28.8 pg (27.0-31.0); Mean Corpuscular Volume 86.4 fL (80.0-94.0); Mean Platelet Volume 10.4 fL (7.4-10.4); Platelet Count 210 10^3/uL (130-400); Red Blood Cell Count 3.02 10^6/uL (4.70-6.10); Red Cell Dist. Width 13.2 % (11.5-14.5); White Blood Cell Count 14.5 10^3/uL (4.8-10.8)
[2024-02-04 05:37] LABS: APTT 109.2 Sec (23.4-35.0)
[2024-02-04 05:50] LABS: ALT (SGPT) 28 U/L (0-50); AST (SGOT) 30 U/L (17-59); Alkaline Phosphatase 49 U/L (38-126); Blood Urea Nitrogen 28 mg/dl (9-20); Calcium 8.2 mg/dl (8.4-10.2); Carbon Dioxide 29 mmol/L (22-30); Chloride 99 mmol/L (98-107); Estimated Creatinine Clearance 70 ml/min; Glucose 152 mg/dl (70-99); Magnesium 1.9 mg/dl (1.6-2.3); Phosphorus 3.7 mg/dl (2.5-4.5); Potassium 4.4 mmol/L (3.5-5.1); Sodium 131 mmol/L (135-145); Total Bilirubin 0.7 mg/dl (0.2-1.3); Total Protein 4.3 g/dl (6.3-8.2); Triglycerides 78 mg/dl (10-149); eGFR > 60.00
[2024-02-04 05:59] LABS: Glucose - Point of Care 167 mg/dl (70-99)
[2024-02-04] MEDS: NOVOLOG FLEXPEN-MODERATE RESISTANCE 1 UNITS SC ×2 (06:09→18:19)
[2024-02-04] MEDS: SYMBICORT 160/4.5 MCG INHALER 2 PUFF INH ×2 (07:23→19:48)
[2024-02-04] MEDS: SPIRIVA RESPIMAT 2.5 MCG 2 PUFF INH (07:23)
--- NOTE | 2024-02-04 08:35 | PN.DE.MGMTRT ---
Insulin Management
- -
02/04/2024: Diabetes Management Consult
83-year-old male admitted on 01/24 with abdominal pain and nausea. Diabetes Consult requested on 02/03 for TPN induced Hyperglycemia.
PMH: HTN, PAF/SVT on Eliquis, Asp PNA, AAA, pulmonary nodules, recurrent SBO, BPH, blood loss anemia, hyponatremia, Iatrogenic fluid overload, COPD, Chronic hypoxic respiratory failure on 4L home oxygen, and pre-Diabetes with an A1C of 6.0%. was
started on Lantus 5 units in AM and low corrective for persistent Hyperglycemia.
Pt awake, alert, sitting up in bed, pleasant and offers no complaints, able to discuss diabetes mgt.
States he is not diabetic, informed pt that he is prediabetic and discussed current A1C.
He continues to say that he would like to go home without insulin and that at 83 he is not too worried about diabetes because he has been unwell for quite sometime. POD #3 ex lap with SBR and extensive MURIEL.
He remains NPO w/sips of ice and on TPN. 02/02 glucose range 149 to 175 with fasting 152 this AM
Will increase Lantus to 8 units, 1st dose NOW and daily thereafter.
Cont moderate corrective insulin Q6hrs. Will closely monitor and adjust further if necessary
Diabetes History
- -
Type of Diabetes: 2
Pre-Admission Diabetes Regimen
02/04/24
05:08
Creatinine 0.7
Lab Results
Hemoglobin A1c 6.0 % (4.0-5.6) H 02/01/24 04:42
Insulin Pump Settings
IP Diabetes Regimen
02/03/24 02/03/24 02/03/24
12:11 18:19 23:23
Glucose
POC Glucose 150 H 149 H 174 H
02/04/24 02/04/24
05:08 05:46
Glucose 152 H
POC Glucose 167 H
Patient Education
--- NOTE | 2024-02-04 09:02 | W.PN.HOSP.TC ---
Addendum entered and electronically signed by Kade Evans MD 02/04/24 13:18:
I just spoke over the phone with on-call testing manager Dr. Seema Medina, and after obtaining patient's permission, shared images via [employer] with her of the patient's eye: Dr. Seema Medina recommended lubrication with
Artificial Tears as well as Erythromycin ointment, and follow-up with testing manager outpatient.
Original Note:
Today's Communication/Plan
-
Due to Hgb drop, Heparin Drip/anticoagulation hold as per surgery
Continue Amiodarone Drip
Patient and his will contact their testing manager's office regarding his eye symptoms, his will also bring eye drops from home
Assessment / Plan
Assessment / Plan
Physical Exam
General: Not in acute distress
HEENT: Normocephalic
Respiratory: Clear to Auscultation Bilaterally stable respiratory status on 4L
Cardiac: S1/S2 and Regular Rhythm
GI: Soft, Normal Bowel Sounds, mild tenderness, non distended
Musculoskeletal: No Cyanosis and No Edema
Skin: Warm. Dry.
Neuro: AAO x 3
Psych: Calm

Assessment/Plan
83-year-old male past medical history of recurrent small bowel obstruction, aspiration pneumonia, iatrogenic fluid overload, hypertension, paroxysmal atrial fibrillation/SVT on Eliquis, blood loss anemia, hyponatremia, COPD, chronic hypoxic
respiratory failure on 4L, home oxygen, BPH, abdominal aortic aneurysm, pulmonary nodules, presenting with abdominal pain and nausea.
CT abdomen pelvis showed high-grade small bowel obstruction, transition point in the central abdomen where there is some twisting of the abdominal mesentery potentially secondary to internal hernia. Closed-loop obstruction difficult to completely
exclude.
# Recurrent high grade small bowel obstruction likely from hernia
-Maintain NPO with sips of clears until bowel function significantly returns
-Continue TPN as per surgery
-SBFT 01/27 appreciated complete SBO, NGT decompression started 01/27 as per surgery
-surgery eval appreciated PICC TPN started
-01/31 ex lap with SBR and extensive MURIEL, transferred from IVU to IMU post-op care
#Hyperglycemia 2/2 TPN
-low dose sliding scale Q6H increased to medium dose sliding scale
-5U Lantus HS was increased to 8 units Lantus
-A1c appreciated prediabetes 6.0
-monitor and titrate insulin regimen as necessary.
#mild hyponatremia
-Monitor BMP
#chronic hypoxic respiratory insufficiency [correction to prior documentation] pt reports baseline oxygen supplementation 4L, currently baseline
#History of COPD not in acute exacerbation-
#Acute on chronic resp failure at one point 8L since weaned down to 5L
#Atelectasis
incentive spirometry
-continue supplemental oxygen to keep sat >=92%
-Wean as tolerated
# Primary HTN
-monitor and titrate antihypertensive regimen as necessary
-Hydralazine prn
#Paroxysmal atrial fib
#Developed Afib RVR 01/28
-transferred to IVU 01/28
-Eliquis on hold for potential surgical intervention, hep gtt started 01/28 held for surgical intervention Fri 01/31, hep gtt resumed Sat 02/01, hep gtt held again on 02/03 per surgery given drop in Hgb
-Scheduled metoprolol IV switched to cardizem gtt as per Cardio later switched to Amio gtt 01/29
-Continue IV Amiodarone Drip
#reported Vtach 01/27/24
cardio eval appreciated AT at 170 bpm 01/26, 16 sec AT 01/27
#Benign prostatic hypertrophy
#Acute retention
Davis started 01/27
eventual restart Finasteride when cleared and tolerating oral diet
Okay to continue Flomax as per surgery
MARNIE likely d/t retention and possibly prerenal d/t poor oral intake
-resolved with Davis and start TPN
#AAA
Outpatient monitoring
#History of Mohs Surgery (as per patient) involving right eye tear ducts
-Right eye lower eyelid with edema and fluid
-Patient stated on 02/04/24 he and his will contact his testing manager about his eye
-Ophthalmology also consulted here, recommendations appreciated
History of aspiration pneumonia
History of iatrogenic fluid overload
History of blood loss anemia
BPH
Pulmonary nodules
#DVT prophylaxis
-SCD
# CODE STATUS
-Full code
Anticipated Discharge: > 48 hours
Subjective/Interval History
-
Date of Service: February 04, 2024
Patient was seen and examined. He reports a flare of his right eye symptoms (which he has had intermittently since his Mohs Surgery on the right side in August 2023). He denied any actual eye pain or loss of vision.
Objective Data
-
Labs:
Laboratory Results
02/04/24 02/04/24 02/04/24
05:08 11:30 12:00
WBC 14.5 H
Hgb 8.7 L Pending
Hct 26.1 L Pending
Plt Count 210 D
APTT 109.2 H Cancelled
Sodium 131 L
Potassium 4.4
Chloride 99
Carbon Dioxide 29
BUN 28 H
Creatinine 0.7
Glucose 152 H
Calcium 8.2 L
Total Bilirubin 0.7
AST 30
ALT 28
Alkaline Phosphatase 49
Vital Signs:
Vital Signs
Temp Pulse Resp BP Pulse Ox
98.1 F 69 15 145/67 97
02/04/24 07:42 02/04/24 08:00 02/04/24 08:00 02/04/24 08:00 02/03/24 23:45
I&O
02/03/24 02/04/24 02/05/24
06:59 06:59 06:59
Intake Total 2794 / 2794
Output Total 1100 / 1100 1725 / 1725
Balance 1694 / 1694 -1725 / -1725
--- NOTE | 2024-02-04 09:33 | W.PN.CD ---
Today's Communication / Plan
-
-Continue IV amiodarone gtt; NG tube removed, but not tolerating PO intake yet.
-Slight decline in hemoglobin from 9.8 to 8.7; Surgery wants to hold heparin gtt today and recheck H/H; patient is on Eliquis as an outpatient.
Impression / Plan
-
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
oxygen and prior small bowel obstructions presented with abdominal pain and found to have SBO.
SBO:
-Status-post ex lap/lysis of adhesions/small bowel resection 02/01/2024.
-Remains on NGT to suction.
Paroxysmal atrial fibrillation
-01/29/2024. Initially on Cardizem 5 mg daily but inadequate rate control and patient developed low blood pressure on higher dosing. Cardizem discontinued and patient placed on IV amiodarone.
-Converted to sinus.
-Continue IV amiodarone gtt; NG tube removed, but not tolerating PO intake yet.
-Slight decline in hemoglobin from 9.8 to 8.7; Surgery wants to hold heparin gtt today and recheck H/H; patient is on Eliquis as an outpatient.
Atrial tachycardia, paroxysmal -on amiodarone.
HTN, with chronic orthostatic hypotension, stable
Non-obstructive CAD, stable without chest pain
AAA
Dyslipidemia
COPD on O2
Subjective:
No major cardiac events overnight; remains in sinus rhythm.
Physical Exam
Vital Signs/Labs
Vital Signs
Temp Pulse Resp BP Pulse Ox
98.1 F 69 15 145/67 97
02/04/24 07:42 02/04/24 08:00 02/04/24 08:00 02/04/24 08:00 02/03/24 23:45
02/03/24 02/04/24 02/05/24
06:59 06:59 06:59
Actual Weight 63.9 kg 63.9 kg
02/04/24 05:08
APTT Cancelled 02/04/24 11:30
Magnesium 1.9 mg/dl (1.6-2.3) 02/04/24 05:08
Triglycerides 78 mg/dl (10-149) 02/04/24 05:08
01/28/24
23:00
Srw-[id number] Pept 3110
Physical Exam
Constitutional: No acute distress and Comfortable
EENT: Anicteric
Cardiovascular: Rhythm & rate is regular, Pedal edema is absent, Systolic murmur present (07/28) and S1S2 is normal
Respiratory: Respiratory effort normal and Lungs clear to auscul.
GI: Soft
Neuro/Psych: AO x 3
Other: Skin (Warm, dry, intact)
Data Reviewed
-
Date of Service: February 04, 2024
EKG: Tracing Personally Visualized and interpreted (Telemetry: Sinus rhythm)
Medical Tests (PFT, Pathology etc): Discussed with Physician (General Surgery), Discussed with Nurse and Discussed with Patient
Labs: Labs Reviewed by me
[2024-02-04] MEDS: LANTUS SC (09:35)
[2024-02-04] MEDS: PROTONIX IV 40 MG IV (09:37)
[2024-02-04] MEDS: ERYTHROMYCIN 0.5% OPHTHALMIC OINTMENT 1 APPLIC RIGHT EYE ×2 (09:37→22:41)
[2024-02-04] MEDS: NSS (PRESERVATIVE FREE) 10 ML IV (09:37)
--- NOTE | 2024-02-04 09:41 | W.PN.GS2 ---
Addendum entered and electronically signed by Asad Whitehead MD 02/04/24 13:06:
I saw and examined the patient independently.
The Plating Tank Operator Apprentice's note was reviewed and I agree with the note, assessment and plan except where noted below.
Comment: This is an 83-year-old male with a history of COPD, A-fib, recurrent small bowel obstructions requiring operative intervention who presented last week with a recurrent small bowel obstruction now postoperative day 3 from exploratory
laparotomy, SBR and extensive lysis of adhesions. Overall doing well, expected postoperative course.
Hemoglobin drifted down slightly today, will pause heparin drip until repeat hemoglobin if stable okay to resume.
Still distended on exam, keep n.p.o. with sips and chips.
Will hold off on p.o. meds until better return of bowel function.
Pain control
Out of bed and ambulate, incentive spirometry.
TPN reordered.
Flomax ordered, has a history of urinary retention will keep Davis in for now.
Original Note:
Today's Communication / Plan
-
NPO with sips of clears
TPN
Assessment / Plan
-
Assessment: 83-year-old male with h/o Afib and COPD on home O2 presenting with recurrent small bowel obstruction which did not resolve with medical management alone now POD #3 ex lap with SBR and extensive MURIEL
AFVSS
Following expected course post operatively
acute on chronic anemia, h/h drifting down since initiation of heparin gtt. No bloody stools/hematemesis.
Reactive leukocytosis present but trending down, completed 24h of abx post op
Davis in place for SHARMA/urinary retention, will plan voiding trial once back on his flomax
Passing some flatus now. No nausea since removal of NGT but still with distention
--Continue NPO/IVF
--NPO with sips of clears until more robust return of bowel function
--PICC/TPN (renewed)
--PRN analgesics/antiemetics
--Trend labs
--Continue IV cardiac meds until better bowel function
--Urinary retention while off flomax: will resume PO flomax and plan voiding trial on Sunday
--Afib management as per Cardiology
--OOB/Ambulate. PT/OT to follow post operatively
--Medical management as per primary service
Subjective Data
-
Date of Service: February 04, 2024
Patient seen and examined at bedside with Dr. Whitehead. Denies n/v. Passing some flatus. Pain present but improving.
Objective Data
-
Intake and Output
02/03/24 02/04/24 02/05/24
06:59 06:59 06:59
Intake Total 2794 / 2794
Output Total 1100 / 1100 1725 / 1725
Balance 1694 / 1694 -1725 / -1725
Intake:
IV piggybacks 642 / 642
TPN/PPN 1971 / 1971
Amount instilled into GI Tube ( 180 / 180
Total)
[place] Sump 180 / 180
Output:
Gastrointestinal tube output ( 225 / 225
Total)
[place] Sump 225 / 225
Urine, Davis 875 / 875 1725 / 1725
Vital Signs
Temp Pulse Resp BP Pulse Ox
98.1 F 69 15 145/67 97
02/04/24 07:42 02/04/24 08:00 02/04/24 08:00 02/04/24 08:00 02/03/24 23:45
Lab Results
02/04/24 05:08
Calcium 8.2 mg/dl (8.4-10.2) L 02/04/24 05:08
Phosphorus 3.7 mg/dl (2.5-4.5) 02/04/24 05:08
Magnesium 1.9 mg/dl (1.6-2.3) 02/04/24 05:08
Total Bilirubin 0.7 mg/dl (0.2-1.3) 02/04/24 05:08
AST 30 U/L (17-59) 02/04/24 05:08
ALT 28 U/L (0-50) 02/04/24 05:08
Alkaline Phosphatase 49 U/L (38-126) 02/04/24 05:08
Total Protein 4.3 g/dl (6.3-8.2) L 02/04/24 05:08
Albumin 2.0 g/dl (3.5-5.0) L 02/04/24 05:08
Physical Exam
-
NAD AAOx3
Right eye:red rimmed edema
ABD: softly distended, mild generalized tenderness
Midline incision with intact aquacel dressing
Davis with denis urine
[2024-02-04] MEDS: OFIRMEV 100 IV (09:57)
[2024-02-04] MEDS: LANTUS 0.08 UNITS SC (09:57)
[2024-02-04 12:13] LABS: Glucose - Point of Care 211 mg/dl (70-99)
[2024-02-04] MEDS: NOVOLOG FLEXPEN-MODERATE RESISTANCE 3 UNITS SC (12:45)
[2024-02-04 13:26] LABS: Hematocrit 27.5 % (39.0-52.0); Hemoglobin 9.1 g/dL (13.0-18.0)
[2024-02-04] MEDS: HEPARIN 25000 UNITS/250 ML IV (14:50)
[2024-02-04] MEDS: ERYTHROMYCIN 0.5% OPHTHALMIC OINTMENT RIGHT EYE (16:43)
[2024-02-04] MEDS: REFRESH EYE DROPS (PF) 1 DROPS OPHTH ×2 (17:17→20:30)
[2024-02-04] MEDS: FLOMAX 0.4 MG PO (17:17)
[2024-02-04 18:01] LABS: Glucose - Point of Care 163 mg/dl (70-99)
[2024-02-04 21:16] LABS: APTT 85.1 Sec (23.4-35.0)
[2024-02-04] MEDS: Parenteral Nutrition, Central 1160 IV (21:32)
[2024-02-05] VITALS (14 sets, daily range): BP systolic 114–145; BP diastolic 57–83; PULSE 70; O2SAT 93; BMI 19.1
[2024-02-05] MEDS: NOVOLOG FLEXPEN-MODERATE RESISTANCE 1 UNITS SC ×4 (00:10→16:36)
[2024-02-05 00:16] LABS: Glucose - Point of Care 173 mg/dl (70-99)
[2024-02-05 06:06] LABS: Glucose - Point of Care 178 mg/dl (70-99)
[2024-02-05 06:11] LABS: % Basophils 0.3 % (0-2); % Eosinophils 3.4 % (0-6); % Immature Granulocytes 2.9 % (0-0.5); % Lymphocytes 12.5 % (20.5-51.1); % Monocytes 5.2 % (1.7-9.3); % Neutrophils 75.7 % (42.2-75.2); Absolute Eosinophils 0.5 10^3/uL (0-0.7); Absolute Immature Granulocytes 0.4 10^3/uL (0-0.05); Absolute Lymphocytes 1.7 10^3/uL (1.2-3.4); Absolute Monocytes 0.7 10^3/uL (0.1-0.6); Absolute Neutrophils 10.1 10^3/uL (1.4-6.5); Hematocrit 25.5 % (39.0-52.0); Hemoglobin 8.4 g/dL (13.0-18.0); Mean Corp Hgb Conc. 32.9 g/dL (33.0-37.0); Mean Corpuscular Hgb 29.4 pg (27.0-31.0); Mean Corpuscular Volume 89.2 fL (80.0-94.0); Mean Platelet Volume 10.6 fL (7.4-10.4); Nucleated Red Blood Cells % 0 % (-); Platelet Count 233 10^3/uL (130-400); Red Blood Cell Count 2.86 10^6/uL (4.70-6.10); Red Cell Dist. Width 13.2 % (11.5-14.5); White Blood Cell Count 13.4 10^3/uL (4.8-10.8)
[2024-02-05 06:15] LABS: APTT 105.5 Sec (23.4-35.0)
[2024-02-05] MEDS: SPIRIVA RESPIMAT 2.5 MCG 2 PUFF INH (07:35)
[2024-02-05] MEDS: SYMBICORT 160/4.5 MCG INHALER 2 PUFF INH ×2 (07:35→20:09)
[2024-02-05] MEDS: ERYTHROMYCIN 0.5% OPHTHALMIC OINTMENT 1 APPLIC RIGHT EYE ×3 (07:43→22:27)
[2024-02-05] MEDS: HEPARIN 25000 UNITS/250 ML IV (07:58)
[2024-02-05] MEDS: CORDARONE 518 MG IV (07:59)
[2024-02-05] MEDS: PROTONIX IV 40 MG IV (08:00)
[2024-02-05] MEDS: NSS (PRESERVATIVE FREE) 10 ML IV (08:01)
[2024-02-05] MEDS: REFRESH EYE DROPS (PF) 1 DROPS OPHTH ×4 (08:01→22:27)
[2024-02-05] MEDS: LANTUS 0.08 UNITS SC (08:11)
--- NOTE | 2024-02-05 08:35 | PN.DE.MGMTRT ---
Insulin Management
- -
02/05/2024: Diabetes Management Consult Follow up
Patient admitted on 01/24 with abdominal pain and nausea, found to have bowel obstruction. Diabetes Consult requested on 02/03 for TPN induced Hyperglycemia.
PMH: HTN, PAF/SVT on Eliquis, Asp PNA, AAA, pulmonary nodules, recurrent SBO, BPH, blood loss anemia, hyponatremia, Iatrogenic fluid overload, COPD, Chronic hypoxic respiratory failure on 4L home oxygen, and pre-Diabetes with an A1C of 6.0%. was
started on Lantus 5 units in AM and low corrective for persistent hyperglycemia.
Pt awake, alert, sitting out of bed in chair, pleasant and offers no complaints, able to discuss blood sugar control.
Discussed with patient that he is not diabetic, A1C does indicate pre diabetes..
POD #4 ex lap with SBR and extensive MURIEL.
Diet advanced this AM to clear liquids. Continues to receive TPN. 02/03 glucose range 163 to 211 with fasting 178 this AM
Lantus dose increased from 5 to 8 units yesterday. Continue moderate corrective insulin Q6hrs. Nurse to let me know pre lunch glucose, if elevated will start AC novolog in addition to corrective.
Will follow for further needed adjustments.
Diabetes History
- -
Pre-Admission Diabetes Regimen
Lab Results
Hemoglobin A1c 6.0 % (4.0-5.6) H 02/01/24 04:42
Insulin Pump Settings
IP Diabetes Regimen
02/04/24 02/04/24 02/05/24
12:02 17:49 00:05
POC Glucose 211 H 163 H 173 H
02/05/24
05:54
POC Glucose 178 H
Patient Education
--- NOTE | 2024-02-05 09:41 | W.PN.CD ---
Today's Communication / Plan
-
-Continue IV amiodarone gtt; now starting to swallow a small amount of liquids--will transition to PO amiodarone when tolerating full diet.
-Slight fluctuation/decline in hemoglobin from 9.8-->8.7-->9.1-->8.4.
-Continue to hold heparin drip for now; monitor hemoglobin.
Impression / Plan
-
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
oxygen and prior small bowel obstructions presented with abdominal pain and found to have SBO.
SBO:
-Status-post ex lap/lysis of adhesions/small bowel resection 02/01/2024.
-Remains on NGT to suction.
Paroxysmal atrial fibrillation
-01/29/2024. Initially on Cardizem 5 mg daily but inadequate rate control and patient developed low blood pressure on higher dosing. Cardizem discontinued and patient placed on IV amiodarone.
-Patient remains in sinus rhythm.
-Continue IV amiodarone gtt; now starting to swallow a small amount of liquids--will transition to PO amiodarone when tolerating full diet.
-Slight fluctuation/decline in hemoglobin from 9.8-->8.7-->9.1-->8.4.
-Continue to hold heparin drip for now; monitor hemoglobin.
Atrial tachycardia, paroxysmal -continue amiodarone.
HTN, with chronic orthostatic hypotension, stable
Non-obstructive CAD, stable without chest pain
AAA
Dyslipidemia
COPD on O2
Subjective:
No major events overnight; no cardiac complaints today. Remains in sinus rhythm on telemetry.
Physical Exam
Vital Signs/Labs
Vital Signs
Temp Pulse Resp BP Pulse Ox
98.3 F 68 14 119/64 96
02/05/24 07:02 02/05/24 07:39 02/05/24 07:39 02/05/24 06:00 02/05/24 07:39
02/04/24 02/05/24 02/06/24
06:59 06:59 06:59
Actual Weight 63.9 kg 63.8 kg
02/05/24 05:47
APTT 105.5 Sec (23.4-35.0) H 02/05/24 05:47
Magnesium 1.9 mg/dl (1.6-2.3) 02/04/24 05:08
Triglycerides 78 mg/dl (10-149) 02/04/24 05:08
01/28/24
23:00
Ncg-T-[id number] Pept 3110
Physical Exam
Constitutional: No acute distress and Comfortable
EENT: Anicteric
Cardiovascular: Rhythm & rate is regular, Pedal edema is absent, Systolic murmur present (2/6) and S1S2 is normal
Respiratory: Respiratory effort normal and Lungs clear to auscul.
GI: Soft
Neuro/Psych: AO x 3
Other: Skin (Warm, dry, intact)
Data Reviewed
-
Date of Service: February 05, 2024
EKG: Tracing Personally Visualized and interpreted (Telemetry: Sinus rhythm)
Medical Tests (PFT, Pathology etc): Discussed with Patient
Labs: Labs Reviewed by me
--- NOTE | 2024-02-05 10:52 | W.PN.GS2 ---
Today's Communication / Plan
-
-- Clears
-- TPN renewed
-- IV cardiac meds including hep
-- Trend Hb
Assessment / Plan
-
Assessment: 83-year-old male with h/o Afib and COPD on home O2 presenting with recurrent small bowel obstruction which did not resolve with medical management alone now POD #4 ex lap with SBR and extensive MURIEL
AFVSS
Following expected course post operatively
Acute on chronic anemia, h/h drifting down since initiation of heparin gtt. No bloody stools/hematemesis.
Reactive leukocytosis present but trending down, completed 24h of abx post op
Davis in place for SHARMA/urinary retention, will plan voiding trial once back on his Flomax
Passing flatus and BMs, trial of clears, go slow given continued distension
--Trial of clears, go slow
--PICC/TPN (renewed)
--Pain control: Tylenol and IV Dilaudid PRN, holding Toradol given age
--Trend labs and Hb
--Continue IV cardiac meds until better bowel function
--Urinary retention while off Flomax: will resume PO Flomax and plan voiding trial on Sunday
--Afib management as per Cardiology, continue Hep gtt until more robust bowel function and certain Hb stable
--OOB/Ambulate. PT/OT to follow post operatively
--Medical management as per primary service
Subjective Data
-
Date of Service: February 05, 2024
No major complaints. No nausea or vomiting. No worsening abdominal pain or distention. Reports passing flatus and 2 bowel movements. No reports of bloody bowel movements. No dizziness or lightheadedness. Beginning with ambulation, though feels
weak
Objective Data
-
Intake and Output
02/04/24 02/05/24 02/06/24
06:59 06:59 06:59
Intake Total 947 / 947
Output Total 1725 / 1725 2600 / 2600
Balance -1725 / -1725 -1653 / -1653
Intake:
IV fluids (Total) 167 / 167
TPN/PPN 780 / 780
Output:
Urine, Davis 1725 / 1725 2250 / 2250
Urine, Voided 350 / 350
Other:
Number of unmeasured liquid
stools
Rectum 2
Vital Signs
Temp Pulse Resp BP Pulse Ox
98.3 F 70 24 114/65 96
02/05/24 07:02 02/05/24 10:00 02/05/24 10:00 02/05/24 10:00 02/05/24 08:27
Lab Results
02/05/24 05:47
Calcium Cancelled 02/05/24 09:15
Phosphorus 3.7 mg/dl (2.5-4.5) 02/04/24 05:08
Magnesium Cancelled 02/05/24 09:15
Total Bilirubin 0.7 mg/dl (0.2-1.3) 02/04/24 05:08
AST 30 U/L (17-59) 02/04/24 05:08
ALT 28 U/L (0-50) 02/04/24 05:08
Alkaline Phosphatase 49 U/L (38-126) 02/04/24 05:08
Total Protein 4.3 g/dl (6.3-8.2) L 02/04/24 05:08
Albumin 2.0 g/dl (3.5-5.0) L 02/04/24 05:08
Physical Exam
-
Gen: NAD
Abd: soft, NT, distended, tympanitic, non-peritoneal, midline dressing c/d/i
--- NOTE | 2024-02-05 11:18 | PTCARENOTE ---
Assumed care of patient at beginning of this shift from previous RN with heparin infusing at 14.5ml/hr and PTT 105.5, TPN and amiodarone infusing via RUE PICC. Reviewed note from Dr Dietz (cardiology) which stated to continue to hold heparin
infusion. [place] text sent notifying him that patient has remained on heparin infusion and provided the PTT result. Verified with him that hepain is to remain infusing as ordered. Diet upgraded by surgery to clear liquid diet; accu checks and sliding
scale coverage changed to AC & HS. Bernie Coffman in to see patient and made aware. Patient worked with PT/OT and currently OOB in chair. See worklist for full assessment and vital signs; see MAR for med administration.
[2024-02-05 11:26] LABS: Blood Urea Nitrogen 27 mg/dl (9-20); Calcium 8.4 mg/dl (8.4-10.2); Carbon Dioxide 29 mmol/L (22-30); Chloride 100 mmol/L (98-107); Estimated Creatinine Clearance 61 ml/min; Glucose 191 mg/dl (70-99); Potassium 4.6 mmol/L (3.5-5.1); Sodium 130 mmol/L (135-145); eGFR > 60.00
--- NOTE | 2024-02-05 11:36 | W.PN.HOSP.TC ---
Today's Communication/Plan
-
IV Amiodarone
Diet Advanced
Continue Heparin Drip
Assessment / Plan
Assessment / Plan
Physical Exam
General: Not in acute distress
HEENT: Normocephalic
Respiratory: Clear to Auscultation Bilaterally stable respiratory status on 4L
Cardiac: S1/S2 and Regular Rhythm
GI: Soft, Normal Bowel Sounds, mild tenderness, non distended
Musculoskeletal: No Cyanosis and No Edema
Skin: Warm. Dry.
Neuro: AAO x 3
Psych: Calm

Assessment/Plan
83-year-old male past medical history of recurrent small bowel obstruction, aspiration pneumonia, iatrogenic fluid overload, hypertension, paroxysmal atrial fibrillation/SVT on Eliquis, blood loss anemia, hyponatremia, COPD, chronic hypoxic
respiratory failure on 4L, home oxygen, BPH, abdominal aortic aneurysm, pulmonary nodules, presenting with abdominal pain and nausea.
CT abdomen pelvis showed high-grade small bowel obstruction, transition point in the central abdomen where there is some twisting of the abdominal mesentery potentially secondary to internal hernia. Closed-loop obstruction difficult to completely
exclude.
# Recurrent high grade small bowel obstruction likely from hernia
-Diet advanced from NPO with sips of clears to clear liquid diet
-Continue TPN as per surgery
-SBFT 01/27 appreciated complete SBO, NGT decompression started 01/27 as per surgery
-surgery eval appreciated PICC TPN started
-01/31 ex lap with SBR and extensive MURIEL, transferred from IVU to IMU post-op care
#Hyperglycemia 2/2 TPN
-low dose sliding scale Q6H increased to moderate dose sliding scale
-5U Lantus HS was increased to 8 units Lantus
-A1c appreciated prediabetes 6.0
-monitor and titrate insulin regimen as necessary
-Diabetes HERITAGE CONSULTANT consulted, evaluation and recommendations appreciated
#mild hyponatremia
-Monitor BMP
#chronic hypoxic respiratory insufficiency [correction to prior documentation] pt reports baseline oxygen supplementation 4L, currently baseline
#History of COPD not in acute exacerbation-
#Acute on chronic resp failure at one point 8L since weaned down to 5L
#Atelectasis
incentive spirometry
-continue supplemental oxygen to keep sat >=92%
-Wean as tolerated
# Primary HTN
-monitor and titrate antihypertensive regimen as necessary
-Hydralazine prn
#Paroxysmal atrial fib
#Developed Afib RVR 01/28
-transferred to IVU 01/28
-Eliquis on hold for potential surgical intervention, hep gtt started 01/28 held for surgical intervention Fri 01/31, hep gtt resumed Sat 02/01, hep gtt held again on 02/03 per surgery given drop in Hgb, but then resumed again
-Scheduled metoprolol IV switched to cardizem gtt as per Cardio later switched to Amio gtt 01/29
-Continue IV Amiodarone Drip
#reported Vtach 01/27/24
cardio eval appreciated AT at 170 bpm 01/26, 16 sec AT 01/27
#Benign prostatic hypertrophy
#Acute retention
Davis started 01/27
eventual restart Finasteride when cleared and tolerating oral diet
Okay to continue Flomax as per surgery
MARNIE likely d/t retention and possibly prerenal d/t poor oral intake
-resolved with Davis and start TPN
#AAA
Outpatient monitoring
#History of Mohs Surgery (as per patient) involving right eye tear ducts
-Right eye lower eyelid with edema and fluid
-Patient stated on 02/04/24 he and his will contact his egg separator about his eye
-Ophthalmology also consulted here, recommendations appreciated: after speaking on February 04, 2024 with on-call egg separator Dr. Seema Medina, and after obtaining patient's permission, shared images via [employer] Text with Dr. Seema Lloyd
Carol of the patient's eye: Dr. Seema Medina recommended lubrication with Artificial Tears as well as Erythromycin ointment (and to avoid patient's home steroid eye drops), and follow-up with egg separator outpatient.
History of aspiration pneumonia
History of iatrogenic fluid overload
History of blood loss anemia
BPH
Pulmonary nodules
#DVT prophylaxis
-SCD
# CODE STATUS
-Full code
Anticipated Discharge: > 48 hours
Subjective/Interval History
-
Date of Service: February 05, 2024
Patient was seen and examined. He denied any new symptoms or complaints.
Objective Data
-
Labs:
Laboratory Results
02/05/24 02/05/24 02/05/24
05:47 09:15 10:55
WBC 13.4 H
Hgb 8.4 L
Hct 25.5 L
Plt Count 233
APTT 105.5 H
Sodium Cancelled 130 L
Potassium Cancelled 4.6
Chloride Cancelled 100
Carbon Dioxide Cancelled 29
BUN Cancelled 27 H
Creatinine Cancelled 0.8
Glucose Cancelled 191 H
Calcium Cancelled 8.4
Vital Signs:
Vital Signs
Temp Pulse Resp BP Pulse Ox
98.3 F 70 24 114/65 96
02/05/24 07:02 02/05/24 10:00 02/05/24 10:00 02/05/24 10:00 02/05/24 08:27
I&O
02/04/24 02/05/24 02/06/24
06:59 06:59 06:59
Intake Total 947 / 947
Output Total 1725 / 1725 2600 / 2600
Balance -1725 / -1725 -1653 / -1653
[2024-02-05 13:04] LABS: Glucose - Point of Care 193 mg/dl (70-99)
[2024-02-05] MEDS: TYLENOL 650 MG PO ×2 (15:11→22:04)
[2024-02-05 16:33] LABS: Glucose - Point of Care 178 mg/dl (70-99)
[2024-02-05] MEDS: FLOMAX 0.4 MG PO (17:35)
[2024-02-05] MEDS: Parenteral Nutrition, Central 1160 IV (21:09)
[2024-02-05 21:37] LABS: Glucose - Point of Care 189 mg/dl (70-99)
--- NOTE | 2024-02-05 23:45 | PTCARENOTE ---
Pt ambulated with assist x1 from chair to bed with rolling walker. C/o abd pain throughout, but more on the L side. Medication provided per SEP. +, but hypoactive BS. C/o feeling bloated. Abd firm, distended, tender. Upon reassessment of pain, pt
sleeping. Denies urge to have BM at this time. This RN will continue to monitor throughout shift. Call trujillo within reach
[2024-02-06] VITALS (13 sets, daily range): BP systolic 108–149; BP diastolic 55–92; PULSE 73; BMI 19.1
[2024-02-06] MEDS: HEPARIN 25000 UNITS/250 ML IV ×2 (02:57→19:31)
--- NOTE | 2024-02-06 03:10 | DOWNTIME ---
There was a [employer] Client Bull Chain Operator Downtime on 02/06/2024 from 0100 to 02/06/2024 at 0255. Downtime documentation of patient's care, including medication administrations, has been reconciled in the electronic record per guidelines. Refer to the
patient's paper chart under the miscellaneous tab to see printed paper medication records and downtime forms.
[2024-02-06 06:09] LABS: APTT 127.8 Sec (23.4-35.0)
[2024-02-06] MEDS: SPIRIVA RESPIMAT 2.5 MCG 2 PUFF INH (07:15)
[2024-02-06] MEDS: SYMBICORT 160/4.5 MCG INHALER 2 PUFF INH ×2 (07:15→19:55)
[2024-02-06 07:54] LABS: Glucose - Point of Care 160 mg/dl (70-99)
--- NOTE | 2024-02-06 08:20 | PN.DE.MGMTRT ---
Insulin Management
- -
02/06/2024: Diabetes Management Consult Follow up
Patient admitted on 01/24 with abdominal pain and nausea, found to have bowel obstruction. Diabetes Consult requested on 02/03 for TPN induced Hyperglycemia.
PMH: HTN, PAF/SVT on Eliquis, Asp PNA, AAA, pulmonary nodules, recurrent SBO, BPH, blood loss anemia, hyponatremia, Iatrogenic fluid overload, COPD, Chronic hypoxic respiratory failure on 4L home oxygen, and pre-Diabetes with an A1C of 6.0%. was
started on Lantus 5 units in AM and low corrective for persistent hyperglycemia.
Pt awake, alert, sitting out of bed in chair, pleasant and offers no complaints, able to discuss blood sugar control.
Discussed with patient A1C indicates pre diabetes..
POD #5 ex lap with SBR and extensive MURIEL.
Diet advanced this AM to clear liquids. Continues to receive TPN. 02/04 glucose range 178 to 193 with fasting 168 this AM
Lantus dose increased from 5 to 8 units 02/03 with moderate corrective insulin Q6hrs.
Glucose range 02/04 178 to 193. Will increase AM lantus to 10 units. Will continue moderate corrective insulin AC
Will follow for further needed adjustments.
Diabetes History
- -
Pre-Admission Diabetes Regimen
02/05/24 02/05/24
: 10:55
Creatinine Cancelled 0.8
Lab Results
Hemoglobin A1c 6.0 % (4.0-5.6) H 02/01/24 04:42
Insulin Pump Settings
IP Diabetes Regimen
02/05/24 02/05/24 02/05/24
09:15 10:55 12:53
Glucose Cancelled 191 H
POC Glucose 193 H
02/05/24 02/05/24 02/06/24
16:21 21:23 07:42
Glucose
POC Glucose 178 H 189 H 160 H
Meal type: Dinner
Meal type: Lunch
Meal type: Breakfast
Amount consumed: 100%
Amount consumed: 90%
Amount consumed: 100%
Patient Education
[2024-02-06] MEDS: NOVOLOG FLEXPEN-MODERATE RESISTANCE 1 UNITS SC ×2 (08:48→11:37)
[2024-02-06] MEDS: PROTONIX IV 40 MG IV (08:49)
[2024-02-06] MEDS: NSS (PRESERVATIVE FREE) 10 ML IV (08:49)
[2024-02-06] MEDS: REFRESH EYE DROPS (PF) 1 DROPS OPHTH ×4 (08:49→20:46)
[2024-02-06] MEDS: LANTUS 0.1 UNITS SC (08:49)
[2024-02-06] MEDS: ERYTHROMYCIN 0.5% OPHTHALMIC OINTMENT 1 APPLIC RIGHT EYE (08:50)
[2024-02-06] MEDS: LANTUS SC (08:59)
[2024-02-06 11:34] LABS: Glucose - Point of Care 199 mg/dl (70-99)
--- NOTE | 2024-02-06 11:35 | W.PN.GS2 ---
Today's Communication / Plan
-
CLD
TPN
void trial
PO meds
Hep gtt
Assessment / Plan
-
Assessment: 83-year-old male with h/o Afib and COPD on home O2 presenting with recurrent small bowel obstruction which did not resolve with medical management alone now POD #5 ex lap with SBR and extensive MURIEL
AFVSS
Following expected course post operatively
Acute on chronic anemia, h/h drifting down since initiation of heparin gtt. No bloody stools/hematemesis. Labs today pending
Reactive leukocytosis present but trending down, completed 24h of abx post op
Davis in place for SHARMA/urinary retention, will plan voiding trial once back on his Flomax for a few days
Passing flatus and BMs, trial of clears, go slow given continued distension
--Cont clears for now in light of distention
--PICC/TPN (renewed)
--Pain control: Tylenol and IV Dilaudid PRN, holding Toradol given age
--Trend labs and Hb
--Continue cardiac meds - OK to convert to PO
--Urinary retention while off Flomax: now back on boards, void trial today
--Afib management as per Cardiology, continue Hep gtt until more robust bowel function and certain Hb stable
--OOB/Ambulate. PT/OT to follow post operatively
--Medical management as per primary service
Subjective Data
-
Date of Service: February 06, 2024
AFVSS, denies n/v, passing flatus, shyla cld, denies abd pain
Objective Data
-
Intake and Output
02/05/24 02/06/24 02/07/24
06:59 06:59 06:59
Intake Total 947 / 947 1430.4 / 1430.4
Output Total 2600 / 2600 2220 / 2220
Balance -1653 / -1653 -789.6 / -789.6
Intake:
Oral fluids 480 / 480
IV fluids (Total) 167 / 167
IV piggybacks 374.4 / 374.4
TPN/PPN 780 / 780 576 / 576
Output:
Urine, Davis 2250 / 2250 1500 / 1500
Urine, Voided 350 / 350 720 / 720
Other:
Number of unmeasured liquid
stools
Rectum 2
Vital Signs
Temp Pulse Resp BP Pulse Ox
97.7 F 80 14 124/57 94
02/06/24 07:25 02/06/24 07:18 02/06/24 07:18 02/06/24 06:00 02/05/24 22:35
Calcium 8.4 mg/dl (8.4-10.2) 02/05/24 10:55
Phosphorus 3.7 mg/dl (2.5-4.5) 02/04/24 05:08
Magnesium 2.0 mg/dl (1.6-2.3) 02/05/24 10:55
Total Bilirubin 0.7 mg/dl (0.2-1.3) 02/04/24 05:08
AST 30 U/L (17-59) 02/04/24 05:08
ALT 28 U/L (0-50) 02/04/24 05:08
Alkaline Phosphatase 49 U/L (38-126) 02/04/24 05:08
Total Protein 4.3 g/dl (6.3-8.2) L 02/04/24 05:08
Albumin 2.0 g/dl (3.5-5.0) L 02/04/24 05:08
Physical Exam
-
Gen: NAD
Abd: soft, distended, nt, dressing cdi
--- NOTE | 2024-02-06 11:51 | PTCARENOTE ---
Assumed care of patient at beginning of this shift from previous RN with heparin, amiodarone and TPN infusing. Patient tolerating clear liquid diet. Verified with Dr Rodriguez that patient may take po meds. [place] text sent to Dr Evans and Dr Garcia;
Dr Garcia stated he will review amiodarone and heparin if able to change to po when he sees patient. See worklist for full assessment and vital signs; see MAR for med administration.
[2024-02-06] MEDS: CORDARONE 518 MG IV (11:58)
[2024-02-06] MEDS: TYLENOL 650 MG PO (13:00)
[2024-02-06 13:15] LABS: APTT 56.6 Sec (23.4-35.0)
[2024-02-06 13:23] LABS: ALT (SGPT) 86 U/L (0-50); AST (SGOT) 48 U/L (17-59); Albumin 2.3 g/dl (3.5-5.0); Alkaline Phosphatase 69 U/L (38-126); Blood Urea Nitrogen 24 mg/dl (9-20); Calcium 8.4 mg/dl (8.4-10.2); Carbon Dioxide 28 mmol/L (22-30); Chloride 99 mmol/L (98-107); Estimated Creatinine Clearance 61 ml/min; Glucose 171 mg/dl (70-99); Phosphorus 3.6 mg/dl (2.5-4.5); Potassium 4.9 mmol/L (3.5-5.1); Sodium 131 mmol/L (135-145); Total Bilirubin 0.7 mg/dl (0.2-1.3); Total Protein 4.8 g/dl (6.3-8.2); eGFR > 60.00
[2024-02-06 13:31] LABS: Hemoglobin 8.6 g/dL (13.0-18.0); Mean Corp Hgb Conc. 33.1 g/dL (33.0-37.0); Mean Corpuscular Hgb 28.9 pg (27.0-31.0); Mean Corpuscular Volume 87.2 fL (80.0-94.0); Mean Platelet Volume 10.4 fL (7.4-10.4); Platelet Count 318 10^3/uL (130-400); Red Blood Cell Count 2.98 10^6/uL (4.70-6.10); Red Cell Dist. Width 13.4 % (11.5-14.5); White Blood Cell Count 16.7 10^3/uL (4.8-10.8)
--- NOTE | 2024-02-06 14:23 | CM ---
Patient with Dx recurrent small bowel obstruction who is s/p Ex lap with SBR and MURIEL. Clear liquids. Receiving TPN, IV Amiodarone, Heparin gtt. Voioding trial. PT & OT recommend skilled rehab.
Message from Dr Rodriguez; plan is TPN to be discontinued once patient is taking enough PO. He remains pretty distended still.
Met with patient and spoke with Estrella on speaker phone in patient's room; patient would like to go home with VN at d/c. He feels his mobility will continue to improve with PT/OT while here. says patient had [facility] previously -
patient/ agree to having them provide service again.
Plan home with [facility] when medically ready
--- NOTE | 2024-02-06 16:13 | W.PN.CD ---
Today's Communication / Plan
-
Continue IV amiodarone and heparin.
Monitor tele and Hgb.
Impression / Plan
-
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
oxygen and prior small bowel obstructions presented with abdominal pain and found to have SBO.
SBO:
-Status-post ex lap/lysis of adhesions/small bowel resection 02/01/2024.
-Remains on NGT to suction.
Paroxysmal atrial fibrillation
-01/29/2024. Initially on Cardizem 5 mg daily but inadequate rate control and patient developed low blood pressure on higher dosing. Cardizem discontinued and patient placed on IV amiodarone.
-Patient now back in sinus rhythm.
-Continue IV amiodarone gtt
-Slight fluctuation/decline in hemoglobin from 9.8-->8.7-->9.1-->8.4-->8.6.
-Continue heparin drip; monitor hemoglobin. Assess to transition to eliquis tomorrow
Atrial tachycardia, paroxysmal -continue amiodarone.
HTN, with chronic orthostatic hypotension, stable
Non-obstructive CAD, stable without chest pain
AAA
Dyslipidemia
COPD on O2
Subjective:
No CP or palps.
Physical Exam
Vital Signs/Labs
Vital Signs
Temp Pulse Resp BP Pulse Ox
98.1 F 78 23 131/62 96
02/06/24 15:30 02/06/24 14:00 02/06/24 14:00 02/06/24 12:00 02/06/24 14:27
02/05/24 02/06/24 02/07/24
06:59 06:59 06:59
Actual Weight 63.8 kg 63.8 kg
02/06/24 12:46
02/06/24 12:46
APTT 56.6 Sec (23.4-35.0) H 02/06/24 12:46
Magnesium 2.0 mg/dl (1.6-2.3) 02/06/24 12:46
Triglycerides 78 mg/dl (10-149) 02/04/24 05:08
01/28/24
23:00
Ezw-I-Szvulqtrtiu Pept 3110
Physical Exam
Constitutional: No acute distress
EENT: Moist mucous membranes
Cardiovascular: Rhythm & rate is regular, Pedal edema is absent, JVD pressure is normal and Systolic murmur absent
Respiratory: Respiratory effort normal and Lungs clear to auscul.
GI: Distention present
Neuro/Psych: AO x 3
Data Reviewed
-
Date of Service: February 06, 2024
EKG: Other (Tele: NSR 70s)
Labs: Labs Reviewed by me
[2024-02-06 17:14] LABS: Glucose - Point of Care 148 mg/dl (70-99)
[2024-02-06] MEDS: NOVOLOG FLEXPEN-MODERATE RESISTANCE SC (17:24)
[2024-02-06] MEDS: FLOMAX 0.4 MG PO (17:51)
--- NOTE | 2024-02-06 18:06 | W.PN.HOSP.TC ---
Today's Communication/Plan
-
Continue IV Amiodarone and IV Heparin Drip
Appreciate Surgery and Cardiology
Assessment / Plan
Assessment / Plan
Physical Exam
General: Not in acute distress
HEENT: Normocephalic
Respiratory: Clear to Auscultation Bilaterally stable respiratory status on 4L
Cardiac: S1/S2 and Regular Rhythm
GI: Soft, Normal Bowel Sounds, mild tenderness, non distended
Musculoskeletal: No Cyanosis and No Edema
Skin: Warm. Dry.
Neuro: AAO x 3
Psych: Calm

Assessment/Plan
83-year-old male past medical history of recurrent small bowel obstruction, aspiration pneumonia, iatrogenic fluid overload, hypertension, paroxysmal atrial fibrillation/SVT on Eliquis, blood loss anemia, hyponatremia, COPD, chronic hypoxic
respiratory failure on 4L, home oxygen, BPH, abdominal aortic aneurysm, pulmonary nodules, presenting with abdominal pain and nausea.
CT abdomen pelvis showed high-grade small bowel obstruction, transition point in the central abdomen where there is some twisting of the abdominal mesentery potentially secondary to internal hernia. Closed-loop obstruction difficult to completely
exclude.
# Recurrent high grade small bowel obstruction likely from hernia
-Diet advanced from NPO with sips of clears to clear liquid diet
-Continue TPN as per surgery
-SBFT 01/27 appreciated complete SBO, NGT decompression started 01/27 as per surgery
-surgery eval appreciated PICC TPN started
-01/31 ex lap with SBR and extensive MURIEL, transferred from IVU to IMU post-op care
#Hyperglycemia 2/2 TPN
-low dose sliding scale Q6H increased to moderate dose sliding scale
-5U Lantus HS was increased to 8 units Lantus
-A1c appreciated prediabetes 6.0
-monitor and titrate insulin regimen as necessary
-Diabetes CORE LAYER MACHINE OPERATOR consulted, evaluation and recommendations appreciated
#mild hyponatremia
-Monitor BMP
#chronic hypoxic respiratory insufficiency [correction to prior documentation] pt reports baseline oxygen supplementation 4L, currently baseline
#History of COPD not in acute exacerbation-
#Acute on chronic resp failure at one point 8L since weaned down to 5L
#Atelectasis
incentive spirometry
-continue supplemental oxygen to keep sat >=92%
-Wean as tolerated
# Primary HTN
-monitor and titrate antihypertensive regimen as necessary
-Hydralazine prn
#Paroxysmal atrial fib
#Developed Afib RVR 01/28
-transferred to IVU 01/28
-Eliquis on hold for potential surgical intervention, hep gtt started 01/28 held for surgical intervention Fri 01/31, hep gtt resumed Sat 02/01, hep gtt held again on 02/03 per surgery given drop in Hgb, but then resumed again
-Scheduled metoprolol IV switched to cardizem gtt as per Cardio later switched to Amio gtt 01/29
-Continue IV Amiodarone Drip
#reported Vtach 01/27/24
cardio eval appreciated AT at 170 bpm 01/26, 16 sec AT 01/27
#Benign prostatic hypertrophy
#Acute retention
Davis started 01/27
eventual restart Finasteride when cleared and tolerating oral diet
Okay to continue Flomax as per surgery
MARNIE likely d/t retention and possibly prerenal d/t poor oral intake
-resolved with Davis and start TPN
#AAA
Outpatient monitoring
#History of Mohs Surgery (as per patient) involving right eye tear ducts
-Right eye lower eyelid with edema and fluid
-Patient stated on 02/04/24 he and his will contact his mail handler sorter about his eye
-Ophthalmology also consulted here, recommendations appreciated: after speaking on February 04, 2024 with on-call mail handler sorter Dr. Seema Medina, and after obtaining patient's permission, shared images via [employer] with Dr. Seema Lloyd
Carol of the patient's eye: Dr. Seema Medina recommended lubrication with Artificial Tears as well as Erythromycin ointment (and to avoid patient's home steroid eye drops), and follow-up with mail handler sorter outpatient.
History of aspiration pneumonia
History of iatrogenic fluid overload
History of blood loss anemia
BPH
Pulmonary nodules
#DVT prophylaxis
-SCD
# CODE STATUS
-Full code
Anticipated Discharge: > 48 hours
Subjective/Interval History
-
Date of Service: February 06, 2024
Patient was seen and examined. He denied any new symptoms or complaints.
Objective Data
-
Labs:
Laboratory Results
02/06/24 02/06/24 02/06/24
05:30 12:46 20:00
WBC 16.7 H
Hgb 8.6 L
Hct 26.0 L
Plt Count 318 D
APTT 127.8 H 56.6 H Pending
Sodium 131 L
Potassium 4.9
Chloride 99
Carbon Dioxide 28
BUN 24 H
Creatinine 0.8
Glucose 171 H
Calcium 8.4
Total Bilirubin 0.7
AST 48
ALT 86 H
Alkaline Phosphatase 69
Vital Signs:
Vital Signs
Temp Pulse Resp BP Pulse Ox
98.1 F 73 15 144/66 96
02/06/24 15:30 02/06/24 16:12 02/06/24 16:12 02/06/24 16:12 02/06/24 14:27
I&O
02/05/24 02/06/24 02/07/24
06:59 06:59 06:59
Intake Total 947 / 947 1430.4 / 1430.4
Output Total 2600 / 2600 2220 / 2220 1150 / 1150
Balance -1653 / -1653 -789.6 / -789.6 -1150 / -1150
[2024-02-06 20:00] LABS: APTT 100.5 Sec (23.4-35.0)
[2024-02-06] MEDS: Parenteral Nutrition, Central 1160 IV (20:42)
[2024-02-06] MEDS: ERYTHROMYCIN 0.5% OPHTHALMIC OINTMENT 1 APPLIC OPHTH (20:46)
--- NOTE | 2024-02-06 21:14 | PTCARENOTE ---
Addendum entered by Stephanie Taylor RN 02/06/24 21:16:
midline abdominal incision c/d/i with small markings on dressing. abd tender.
Original Note:
pt received from previous rn aox3, oob to chair, assist times one back to bed. on 4LNC 97%. pt using suction as needed, oral care provided. pt with intermittent productive cough. nsr on monitor. heparin and amio gtts continue. new tpn infusing as
per order. right double lumen picc flushes with good blood return. pt due to void at 2300- educated about voiding, medications, pllan of care- pt verbalized understanding. all safety precautions in place, call trujillo within reach.
[2024-02-06 21:40] LABS: Glucose - Point of Care 149 mg/dl (70-99)
[2024-02-07] VITALS (11 sets, daily range): BP systolic 91–132; BP diastolic 56–84; BMI 19.5
[2024-02-07] MEDS: TYLENOL 650 MG PO (00:16)
[2024-02-07 03:27] LABS: % Basophils 0.2 % (0-2); % Eosinophils 1.4 % (0-6); % Immature Granulocytes 2.2 % (0-0.5); % Monocytes 6.6 % (1.7-9.3); % Neutrophils 78.6 % (42.2-75.2); Absolute Basophils 0.1 10^3/uL (0-0.2); Absolute Eosinophils 0.3 10^3/uL (0-0.7); Absolute Immature Granulocytes 0.4 10^3/uL (0-0.05); Absolute Lymphocytes 2.2 10^3/uL (1.2-3.4); Absolute Monocytes 1.3 10^3/uL (0.1-0.6); Absolute Neutrophils 15.8 10^3/uL (1.4-6.5); Hematocrit 26.2 % (39.0-52.0); Hemoglobin 8.5 g/dL (13.0-18.0); Mean Corp Hgb Conc. 32.4 g/dL (33.0-37.0); Mean Corpuscular Hgb 29.1 pg (27.0-31.0); Mean Corpuscular Volume 89.7 fL (80.0-94.0); Mean Platelet Volume 10.6 fL (7.4-10.4); Nucleated Red Blood Cells % 0 % (-); Platelet Count 329 10^3/uL (130-400); Red Blood Cell Count 2.92 10^6/uL (4.70-6.10); Red Cell Dist. Width 13.3 % (11.5-14.5); White Blood Cell Count 20.1 10^3/uL (4.8-10.8)
[2024-02-07 03:43] LABS: APTT 103.4 Sec (23.4-35.0)
[2024-02-07 03:50] LABS: ALT (SGPT) 66 U/L (0-50); AST (SGOT) 35 U/L (17-59); Albumin 2.3 g/dl (3.5-5.0); Alkaline Phosphatase 68 U/L (38-126); Blood Urea Nitrogen 29 mg/dl (9-20); Calcium 8.5 mg/dl (8.4-10.2); Carbon Dioxide 25 mmol/L (22-30); Chloride 98 mmol/L (98-107); Estimated Creatinine Clearance 55 ml/min; Glucose 135 mg/dl (70-99); Potassium 5.1 mmol/L (3.5-5.1); Sodium 130 mmol/L (135-145); Total Bilirubin 0.7 mg/dl (0.2-1.3); Total Protein 4.9 g/dl (6.3-8.2); eGFR > 60.00
--- NOTE | 2024-02-07 07:20 | W.PN.GS2 ---
Today's Communication / Plan
-
--Clears
--PICC/TPN (renewed)
--CXR and UA, may need repeat CT
Assessment / Plan
-
Assessment: 83-year-old male with h/o Afib and COPD on home O2 presenting with recurrent small bowel obstruction which did not resolve with medical management alone now POD#6 ex lap with SBR and extensive MURIEL
AFVSS
Following expected course post operatively
Acute on chronic anemia, h/h stable. No bloody stools/hematemesis.
Leukocytosis rising, unsure clinical significance, possible ileus resolving, less likely bowel injury given improved symptoms and bowel function, will check UA and CXR
Davis in place for SHARMA/urinary retention, will plan voiding trial once back on his Flomax for a few days
Passing flatus and BMs, continue clears
Plan for CT A/p with PO and IV contrast tomorrow if continued WBC and other work-up negative.
--Clears
--PICC/TPN (renewed)
--CXR and UA, may need repeat CT
--Pain control: Tylenol and IV Dilaudid PRN, holding Toradol given age
--Trend labs and Hb
--Continue cardiac meds - OK to convert to PO
--Urinary retention while off Flomax: now back on boards, void trial today
--Afib management as per Cardiology, continue Hep gtt until more robust bowel function (another 24 hours)
--OOB/Ambulate. PT/OT to follow post operatively
--Medical management as per primary service
Subjective Data
-
Date of Service: February 07, 2024
No major complaints. Reports improved abdominal pain and distention. No nausea or vomiting. Reports multiple loose nonbloody bowel movements starting this morning and passage of flatus.
Objective Data
-
Intake and Output
02/06/24 02/07/24 02/08/24
06:59 06:59 06:59
Intake Total 1430.4 / 1430.4 776.4 / 776.4
Output Total 2220 / 2220 1450 / 1450
Balance -789.6 / -789.6 -673.6 / -673.6
Intake:
Oral fluids 480 / 480
IV fluids (Total) 776.4 / 776.4
IV piggybacks 374.4 / 374.4
TPN/PPN 576 / 576
Output:
Urine, Davis 1500 / 1500 1150 / 1150
Urine, Voided 720 / 720 300 / 300
Other:
Number of approximated SMALL 1
amounts of urine
Vital Signs
Temp Pulse Resp BP Pulse Ox
98.2 F 68 19 120/58 95
02/06/24 23:30 02/07/24 06:00 02/07/24 06:00 02/07/24 04:00 02/07/24 06:04
Lab Results
02/07/24 03:00
02/07/24 03:00
Calcium 8.5 mg/dl (8.4-10.2) 02/07/24 03:00
Phosphorus 3.6 mg/dl (2.5-4.5) 02/06/24 12:46
Magnesium 2.0 mg/dl (1.6-2.3) 02/07/24 03:00
Total Bilirubin 0.7 mg/dl (0.2-1.3) 02/07/24 03:00
AST 35 U/L (17-59) 02/07/24 03:00
ALT 66 U/L (0-50) H 02/07/24 03:00
Alkaline Phosphatase 68 U/L (38-126) 02/07/24 03:00
Total Protein 4.9 g/dl (6.3-8.2) L 02/07/24 03:00
Albumin 2.3 g/dl (3.5-5.0) L 02/07/24 03:00
Physical Exam
-
Gen: NAD
Abd: soft, mild tenderness, distended (mild improvement), non-peritoneal, incision c/d/i - no erythema, ecchymosis or drainage
[2024-02-07] MEDS: SPIRIVA RESPIMAT 2.5 MCG 2 PUFF INH (07:27)
[2024-02-07] MEDS: SYMBICORT 160/4.5 MCG INHALER 2 PUFF INH ×2 (07:27→20:56)
--- NOTE | 2024-02-07 07:35 | PN.DE.MGMTRT ---
Insulin Management
- -
02/07/2024: Diabetes Management Consult Follow up
Patient admitted on 01/24 with abdominal pain and nausea, found to have bowel obstruction. Diabetes Consult requested on 02/03 for TPN induced Hyperglycemia.
PMH: HTN, PAF/SVT on Eliquis, Asp PNA, AAA, pulmonary nodules, recurrent SBO, BPH, blood loss anemia, hyponatremia, Iatrogenic fluid overload, COPD, Chronic hypoxic respiratory failure on 4L home oxygen, and pre-Diabetes with an A1C of 6.0%. was
started on Lantus 5 units in AM and low corrective for persistent hyperglycemia.
Pt awake, alert, sitting out of bed in chair, pleasant and offers no complaints, able to discuss blood sugar control.
Discussed with patient A1C indicates pre diabetes..
POD #6 ex lap with SBR and extensive MURIEL.
Diet remains clear liquids. Continues to receive TPN. 02/05 glucose range 148 to 199 with fasting 135 this AM
Lantus dose increased from 8 to 10 units 02/05 with moderate corrective insulin Q6hrs.
Will make no change to current regimen lantus 10 units in AM with moderate corrective insulin AC.
Will follow for further needed adjustments.
I spoke with patient nurse regarding insulin dosing today.
Diabetes History
- -
Pre-Admission Diabetes Regimen
02/06/24 02/07/24
12:46 03:00
Creatinine 0.8 0.9
Lab Results
Hemoglobin A1c 6.0 % (4.0-5.6) H 02/01/24 04:42
Insulin Pump Settings
IP Diabetes Regimen
02/06/24 02/06/24 02/06/24
07:42 11:22 12:46
Glucose 171 H
POC Glucose 160 H 199 H
02/06/24 02/06/24 02/07/24
17:02 21:29 03:00
Glucose 135 H
POC Glucose 148 H 149 H
Meal type: Dinner
Amount consumed: 85%
Patient Education
[2024-02-07 08:30] LABS: Glucose - Point of Care 177 mg/dl (70-99)
[2024-02-07] MEDS: REFRESH EYE DROPS (PF) 1 DROPS OPHTH ×4 (09:26→20:56)
[2024-02-07] MEDS: NSS (PRESERVATIVE FREE) 10 ML IV (09:26)
[2024-02-07] MEDS: PROTONIX IV 40 MG IV (09:26)
[2024-02-07] MEDS: LANTUS 0.1 UNITS SC (09:27)
[2024-02-07] MEDS: NOVOLOG FLEXPEN-MODERATE RESISTANCE 1 UNITS SC ×2 (09:27→13:18)
[2024-02-07] MEDS: ERYTHROMYCIN 0.5% OPHTHALMIC OINTMENT 1 APPLIC OPHTH ×3 (09:35→20:56)
--- NOTE | 2024-02-07 09:50 | W.PN.CD ---
Today's Communication / Plan
-
transition IV amiodarone to PO 200mg bid
continue heparin drip; monitor hemoglobin. Assess to transition to eliquis tomorrow
Impression / Plan
-
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
oxygen and prior small bowel obstructions presented with abdominal pain and found to have SBO.
SBO:
-Status-post ex lap/lysis of adhesions/small bowel resection 02/01/2024.
-diet now clears
Paroxysmal atrial fibrillation
-01/29/2024. Initially on Cardizem 5 mg daily but inadequate rate control and patient developed low blood pressure on higher dosing. Cardizem discontinued and patient placed on IV amiodarone.
-Patient now back in sinus rhythm.
-transition IV amiodarone to PO 200mg bid, with plan to d/c on 200mg daily, and continue for approx 2 months outpatinet
-Slight fluctuation/decline in hemoglobin from 9.8-->now stable ~8.5
-Continue heparin drip; monitor hemoglobin. Assess to transition to eliquis tomorrow
Atrial tachycardia, paroxysmal -continue amiodarone.
HTN, with chronic orthostatic hypotension, stable
Non-obstructive CAD, stable without chest pain
AAA
Dyslipidemia
COPD on O2
Subjective:
Denies CP or palps.
Physical Exam
Vital Signs/Labs
Vital Signs
Temp Pulse Resp BP Pulse Ox
97.8 F 72 14 120/58 95
02/07/24 07:28 02/07/24 07:31 02/07/24 07:31 02/07/24 04:00 02/07/24 07:31
07/02/07/24 02/08/24
06:59 06:59 06:59
Actual Weight 63.8 kg 65.2 kg
02/07/24 03:00
02/07/24 03:00
APTT 103.4 Sec (23.4-35.0) H 02/07/24 03:00
Magnesium 2.0 mg/dl (1.6-2.3) 02/07/24 03:00
Triglycerides 78 mg/dl (10-149) 02/04/24 05:08
01/28/24
23:00
Tbr-H-Jyvvtxgjzyt Pept 3110
Physical Exam
Constitutional: No acute distress
EENT: Moist mucous membranes
Cardiovascular: Rhythm & rate is regular, Pedal edema is absent, JVD pressure is normal and Systolic murmur absent
Respiratory: Respiratory effort normal and Lungs clear to auscul.
GI: Distention present
Neuro/Psych: AO x 3
Data Reviewed
-
Date of Service: February 07, 2024
EKG: Other (Tele: SR 70s)
Labs: Labs Reviewed by me
[2024-02-07] MEDS: PACERONE 200 MG PO ×2 (10:06→20:56)
[2024-02-07 12:34] LABS: Urine Albumin Negative (Neg - Trace); Urine Bilirubin Negative (Negative); Urine Character Clear (Clear); Urine Color Yellow; Urine Glucose Negative (Negative); Urine Ketone Negative (Negative); Urine Leukocyte Negative (Negative); Urine Nitrite Negative (Negative); Urine Occult Blood 3+ (Negative); Urine Urobilinogen Negative (Neg - 1+)
[2024-02-07 13:05] LABS: Glucose - Point of Care 194 mg/dl (70-99)
--- NOTE | 2024-02-07 13:12 | W.PN.HOSP.TC ---
Today's Communication/Plan
-
IV Amiodarone switched to PO
Continue Heparin Drip
CXR and UA as per surgery
Assessment / Plan
Assessment / Plan
Physical Exam
General: Not in acute distress
HEENT: Normocephalic
Respiratory: Clear to Auscultation Bilaterally stable respiratory status on 4L
Cardiac: S1/S2 and Regular Rhythm
GI: Soft, Normal Bowel Sounds, mild tenderness, non distended
Musculoskeletal: No Cyanosis and No Edema
Skin: Warm. Dry.
Neuro: AAO x 3
Psych: Calm

Assessment/Plan
83-year-old male past medical history of recurrent small bowel obstruction, aspiration pneumonia, iatrogenic fluid overload, hypertension, paroxysmal atrial fibrillation/SVT on Eliquis, blood loss anemia, hyponatremia, COPD, chronic hypoxic
respiratory failure on 4L, home oxygen, BPH, abdominal aortic aneurysm, pulmonary nodules, presenting with abdominal pain and nausea.
CT abdomen pelvis showed high-grade small bowel obstruction, transition point in the central abdomen where there is some twisting of the abdominal mesentery potentially secondary to internal hernia. Closed-loop obstruction difficult to completely
exclude.
# Recurrent high grade small bowel obstruction likely from hernia
-Diet advanced from NPO with sips of clears to clear liquid diet
-Continue TPN as per surgery
-SBFT 01/27 appreciated complete SBO, NGT decompression started 01/27 as per surgery
-surgery eval appreciated PICC TPN started
-01/31 ex lap with SBR and extensive MURIEL, transferred from IVU to IMU post-op care
-Check CXR and UA as per surgery
#Hyperglycemia 2/2 TPN
-low dose sliding scale Q6H increased to moderate dose sliding scale
-5U Lantus HS was increased to 8 units to 10 units Lantus
-A1c appreciated prediabetes 6.0
-monitor and titrate insulin regimen as necessary
-Diabetes SERVICES MGR consulted, evaluation and recommendations appreciated
#mild hyponatremia
-Monitor BMP
#chronic hypoxic respiratory insufficiency [correction to prior documentation] pt reports baseline oxygen supplementation 4L, currently baseline
#History of COPD not in acute exacerbation-
#Acute on chronic resp failure at one point 8L since weaned down to 5L
#Atelectasis
incentive spirometry
-continue supplemental oxygen to keep sat >=92%
-Wean as tolerated
# Primary HTN
-monitor and titrate antihypertensive regimen as necessary
-Hydralazine prn
#Paroxysmal atrial fib
#Developed Afib RVR 01/28
-transferred to IVU 01/28
-Eliquis on hold for potential surgical intervention, hep gtt started 01/28 held for surgical intervention Fri 01/31, hep gtt resumed Sat 02/01, hep gtt held again on 02/03 per surgery given drop in Hgb, but then resumed again
-Scheduled metoprolol IV switched to cardizem gtt as per Cardio later switched to Amio gtt 01/29
-Status post IV Amiodarone Drip, now switched to PO Amiodarone
#reported Vtach 01/27/24
cardio eval appreciated AT at 170 bpm 01/26, 16 sec AT 01/27
#Benign prostatic hypertrophy
#Acute retention
Davis started 01/27
eventual restart Finasteride when cleared and tolerating oral diet
Okay to continue Flomax as per surgery
MARNIE likely d/t retention and possibly prerenal d/t poor oral intake
-resolved with Davis and start TPN
#AAA
Outpatient monitoring
#History of Mohs Surgery (as per patient) involving right eye tear ducts
-Right eye lower eyelid with edema and fluid
-Patient stated on 02/04/24 he and his will contact his patrol driver about his eye
-Ophthalmology also consulted here, recommendations appreciated: after speaking on February 04, 2024 with on-call patrol driver Dr. Seema Medina, and after obtaining patient's permission, shared images via [employer] with Dr. Seema Lloyd
Carol of the patient's eye: Dr. Seema Medina recommended lubrication with Artificial Tears as well as Erythromycin ointment (and to avoid patient's home steroid eye drops), and follow-up with patrol driver outpatient.
History of aspiration pneumonia
History of iatrogenic fluid overload
History of blood loss anemia
BPH
Pulmonary nodules
#DVT prophylaxis
-SCD
# CODE STATUS
-Full code
Anticipated Discharge: > 48 hours
Subjective/Interval History
-
Date of Service: February 07, 2024
Patient was seen and examined. He denied any significant abdominal pain or any other symptoms or complaints.
Objective Data
-
Labs:
Laboratory Results
02/07/24
03:00
WBC 20.1 H
Hgb 8.5 L
Hct 26.2 L
Plt Count 329
APTT 103.4 H
Sodium 130 L
Potassium 5.1
Chloride 98
Carbon Dioxide 25
BUN 29 H
Creatinine 0.9
Glucose 135 H
Calcium 8.5
Total Bilirubin 0.7
AST 35
ALT 66 H
Alkaline Phosphatase 68
Vital Signs:
Vital Signs
Temp Pulse Resp BP Pulse Ox
97.8 F 78 22 125/63 93
02/07/24 07:28 02/07/24 10:06 02/07/24 10:00 02/07/24 10:06 02/07/24 08:49
I&O
02/06/24 02/07/24 02/08/24
06:59 06:59 06:59
Intake Total 1430.4 / 1430.4 776.4 / 776.4
Output Total 2220 / 2220 1450 / 1450
Balance -789.6 / -789.6 -673.6 / -673.6
[2024-02-07] MEDS: HEPARIN 25000 UNITS/250 ML IV (13:16)
[2024-02-07 13:32] LABS: Urine Red Blood Cell 40-50 /HPF (0-2)
[2024-02-07 13:33] LABS: Urine Bacteria Few (Negative)
--- NOTE | 2024-02-07 17:41 | CM ---
Patient with Dx recurrent small bowel obstruction who is s/p Ex lap with SBR and MURIEL. O2 4L. Clear liquids. PICC. Receiving TPN, Heparin gtt. PT & OT recommend SNF vs Home PT.
Patient accepted by [facility] in [facility].
As per prior CM notes, patient has home O2 in place.
Plan home with [facility] when medically ready.
[2024-02-07] MEDS: FLOMAX 0.4 MG PO (17:58)
[2024-02-07 18:25] LABS: Glucose - Point of Care 136 mg/dl (70-99)
[2024-02-07] MEDS: NOVOLOG FLEXPEN-MODERATE RESISTANCE SC (18:27)
[2024-02-07] MEDS: Parenteral Nutrition, Central 1170 IV (20:49)
[2024-02-07 21:53] LABS: Glucose - Point of Care 181 mg/dl (70-99)
[2024-02-08] VITALS (16 sets, daily range): BP systolic 114–138; BP diastolic 55–79; PULSE 83; O2SAT 92; BMI 19.5
[2024-02-08 06:37] LABS: APTT 99.2 Sec (23.4-35.0)
[2024-02-08 07:25] LABS: Hematocrit 21.8 % (39.0-52.0); Hemoglobin 7.2 g/dL (13.0-18.0); Mean Corpuscular Volume 87.9 fL (80.0-94.0); Mean Platelet Volume 10.9 fL (7.4-10.4); Platelet Count 337 10^3/uL (130-400); Red Blood Cell Count 2.48 10^6/uL (4.70-6.10); Red Cell Dist. Width 13.9 % (11.5-14.5); White Blood Cell Count 14.4 10^3/uL (4.8-10.8)
--- NOTE | 2024-02-08 07:36 | PN.DE.MGMTRT ---
Insulin Management
- -
02/08/2024: Diabetes Management Consult F/U
Patient admitted on 01/24 with abdominal pain and nausea, found to have bowel obstruction. Diabetes Consult requested on 02/03 for TPN induced Hyperglycemia.
PMH: HTN, PAF/SVT on Eliquis, Asp PNA, AAA, pulmonary nodules, recurrent SBO, BPH, blood loss anemia, hyponatremia, Iatrogenic fluid overload, COPD, Chronic hypoxic respiratory failure on 4L home oxygen, and pre-Diabetes with an A1C of 6.0%. was
started on Lantus 5 units in AM and low corrective for persistent hyperglycemia.
Pt awake, alert, resting up in bed, pleasant and offers no complaints, able to discuss blood sugar control. Family at bedside.
POD #7 ex lap with SBR and extensive MURIEL. Discussed with patient A1C indicates pre diabetes.
Remains on clear liquid diet with TPN. 02/06 glucose range 136 to 194 with fasting 172 this AM
Will make no change to current regimen Lantus 10 units in AM with moderate corrective insulin AC.
Will follow for further needed adjustments.
Diabetes History
- -
Type of Diabetes: 2
Pre-Admission Diabetes Regimen
Lab Results
Hemoglobin A1c 6.0 % (4.0-5.6) H 02/01/24 04:42
Insulin Pump Settings
IP Diabetes Regimen
02/07/24 02/07/24 02/07/24
08:14 12:52 18:13
POC Glucose 177 H 194 H 136 H
02/07/24
21:41
POC Glucose 181 H
Meal type: Breakfast
Amount consumed: 100%
Patient Education
[2024-02-08 07:47] LABS: Glucose - Point of Care 172 mg/dl (70-99)
[2024-02-08] MEDS: SPIRIVA RESPIMAT 2.5 MCG 2 PUFF INH (08:07)
[2024-02-08] MEDS: SYMBICORT 160/4.5 MCG INHALER 2 PUFF INH ×2 (08:07→19:37)
[2024-02-08] MEDS: PROTONIX IV 40 MG IV (08:11)
[2024-02-08] MEDS: NSS (PRESERVATIVE FREE) 10 ML IV (08:12)
[2024-02-08] MEDS: PACERONE 200 MG PO ×2 (08:12→19:41)
[2024-02-08] MEDS: REFRESH EYE DROPS (PF) 1 DROPS OPHTH ×4 (08:12→21:14)
[2024-02-08] MEDS: LANTUS 0.1 UNITS SC (08:12)
[2024-02-08] MEDS: ERYTHROMYCIN 0.5% OPHTHALMIC OINTMENT 1 APPLIC OPHTH ×3 (08:13→21:14)
[2024-02-08] MEDS: NOVOLOG FLEXPEN-MODERATE RESISTANCE 1 UNITS SC ×2 (08:14→12:55)
--- NOTE | 2024-02-08 08:30 | PTCARENOTE ---
Addendum entered by Jonathon Solo RN 02/08/24 18:55:
1550 unit/hr, 15.5 mL/hr
Original Note:
Patient received from slot shift supervisor. Patient resting comfortably in bed. No events noted overnight. No complaints of pain at this time. AAO, VSS. Currently on 4L N/C, usually stays between 2-4L. TPN infusing through right PICC line. Heparin gtt
at 15.5 units/hr through IV, AM PTT was therapeutic. Surgical site intact. Will attempt to get OOB to chair today. Call trujillo in reach.
[2024-02-08] MEDS: MUCINEX 600 MG PO ×2 (10:01→19:43)
--- NOTE | 2024-02-08 10:30 | W.PN.GS2 ---
Addendum entered and electronically signed by Bryson Byrnes MD 02/08/24 13:48:
Patient seen and examined.
No major complaints. Denies N/V. Passing flatus. No BM today. Pain is minimal.
Gen: NAD
Abd: soft, mild tenderness, distended, non-peritoneal, incision c/d/i - no erythema, ecchymosis or drainage
Assessment: 83-year-old male with h/o Afib and COPD on 4L home O2 presenting with recurrent small bowel obstruction which did not resolve with medical management alone now POD#7 ex lap with SBR and extensive MURIEL
AFVSS
Following expected course post operatively
Acute on chronic anemia, h/h stable. No bloody stools/hematemesis.
Leukocytosis trending back down. CXR/UA without evidence of infection.
Voiding s/p removal of sharma
Passing flatus, last BM was yesterday
--Full liquid diet as tolerated
--PICC/TPN (renewed)
--May need repeat CT if WBC rises again
--Pain control: Tylenol and Tramadol
--Trend labs
--Cardiology managing PO cardiac meds, OK for oral anticoagulation from surgical standpoint
--OOB/Ambulate. PT/OT to follow post operatively
--Medical management as per primary service
Original Note:
Today's Communication / Plan
-
Full liquids
OOB/ambulate
Assessment / Plan
-
Assessment: 83-year-old male with h/o Afib and COPD on 4L home O2 presenting with recurrent small bowel obstruction which did not resolve with medical management alone now POD#7 ex lap with SBR and extensive MURIEL
AFVSS
Following expected course post operatively
Acute on chronic anemia, h/h stable. No bloody stools/hematemesis.
Leukocytosis trending back down. CXR/UA without evidence of infection.
Voiding s/p removal of sharma
Passing flatus, last BM was yesterday
--Full liquid diet as tolerated
--PICC/TPN (renewed)
--May need repeat CT if WBC rises again
--Pain control: Tylenol and Tramadol
--Trend labs
--Cardiology managing PO cardiac meds
--OOB/Ambulate. PT/OT to follow post operatively
--Medical management as per primary service
Subjective Data
-
Date of Service: February 08, 2024
Patient seen and examined at bedside. Denies n/v. Passing flatus. No BM today. Pain is minimal.
Objective Data
-
Intake and Output
02/07/24 02/08/24 02/09/24
06:59 06:59 06:59
Intake Total 776.4 / 776.4
Output Total 1450 / 1450 500 / 500 400 / 400
Balance -673.6 / -673.6 -500 / -500 -400 / -400
Intake:
IV fluids (Total) 776.4 / 776.4
Output:
Urine, Sharma 1150 / 1150
Urine, Voided 300 / 300 500 / 500 400 / 400
Other:
Number of approximated SMALL 1
amounts of urine
Vital Signs
Temp Pulse Resp BP Pulse Ox
97.9 F 75 18 125/74 92
02/08/24 07:27 02/08/24 08:12 02/08/24 08:09 02/08/24 08:12 02/08/24 08:09
Lab Results
02/08/24 05:19
02/07/24 03:00
Calcium 8.5 mg/dl (8.4-10.2) 02/07/24 03:00
Phosphorus 3.6 mg/dl (2.5-4.5) 02/06/24 12:46
Magnesium 2.0 mg/dl (1.6-2.3) 02/07/24 03:00
Total Bilirubin 0.7 mg/dl (0.2-1.3) 02/07/24 03:00
AST 35 U/L (17-59) 02/07/24 03:00
ALT 66 U/L (0-50) H 02/07/24 03:00
Alkaline Phosphatase 68 U/L (38-126) 02/07/24 03:00
Total Protein 4.9 g/dl (6.3-8.2) L 02/07/24 03:00
Albumin 2.3 g/dl (3.5-5.0) L 02/07/24 03:00
Physical Exam
-
Gen: NAD
Abd: soft, mild tenderness, distended, non-peritoneal, incision c/d/i - no erythema, ecchymosis or drainage
--- NOTE | 2024-02-08 10:43 | W.PN.CD ---
Today's Communication / Plan
-
continue heparin drip while monitoring Hgb
Impression / Plan
-
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
oxygen and prior small bowel obstructions presented with abdominal pain and found to have SBO.
SBO:
-Status-post ex lap/lysis of adhesions/small bowel resection 02/01/2024.
-diet now clears
Paroxysmal atrial fibrillation
-01/29/2024. Initially on Cardizem 5 mg daily but inadequate rate control and patient developed low blood pressure on higher dosing. Cardizem discontinued and patient placed on IV amiodarone.
-Patient now back in sinus rhythm.
-transitioned IV amiodarone to PO 200mg bid on 02/06, with plan to d/c on 200mg daily, and continue for approx 2 months outpatient
-Continue heparin drip; monitor hemoglobin.
Atrial tachycardia, paroxysmal -continue amiodarone.
HTN, with chronic orthostatic hypotension, stable
Non-obstructive CAD, stable without chest pain
AAA
Dyslipidemia
COPD on O2
Subjective:
Denies CP or palps.
Physical Exam
Vital Signs/Labs
Vital Signs
Temp Pulse Resp BP Pulse Ox
97.9 F 75 18 125/74 92
02/08/24 07:27 02/08/24 08:12 02/08/24 08:09 02/08/24 08:12 02/08/24 08:09
02/07/24 02/08/24 02/09/24
06:59 06:59 06:59
Actual Weight 65.2 kg 65.3 kg
02/08/24 05:19
02/07/24 03:00
APTT 99.2 Sec (23.4-35.0) H 02/08/24 05:19
Magnesium 2.0 mg/dl (1.6-2.3) 02/07/24 03:00
Triglycerides 78 mg/dl (10-149) 02/04/24 05:08
01/28/24
23:00
[id number] Pept 3110
Physical Exam
Constitutional: No acute distress and Comfortable
EENT: Moist mucous membranes
Cardiovascular: Rhythm & rate is regular, Pedal edema is absent, JVD pressure is normal and Systolic murmur absent
Respiratory: Respiratory effort normal and Lungs clear to auscul.
GI: Soft, Distention absent and Flat
Neuro/Psych: AO x 3
Data Reviewed
-
Date of Service: February 08, 2024
EKG: Other (Tele: NSR 80s)
Labs: Labs Reviewed by me
[2024-02-08 12:44] LABS: Glucose - Point of Care 164 mg/dl (70-99)
--- NOTE | 2024-02-08 13:07 | W.PN.HOSP.TC ---
Today's Communication/Plan
-
Full Liquids Diet
Monitor WBC count and Hgb
Continue Heparin Drip
Continue Amiodarone
Assessment / Plan
Assessment / Plan
Physical Exam
General: Not in acute distress
HEENT: Normocephalic
Respiratory: Clear to Auscultation Bilaterally stable respiratory status on 4L
Cardiac: S1/S2 and Regular Rhythm
GI: Soft, Normal Bowel Sounds, mild tenderness, non distended
Musculoskeletal: No Cyanosis and No Edema
Skin: Warm. Dry.
Neuro: AAO x 3
Psych: Calm

Assessment/Plan
83-year-old male past medical history of recurrent small bowel obstruction, aspiration pneumonia, iatrogenic fluid overload, hypertension, paroxysmal atrial fibrillation/SVT on Eliquis, blood loss anemia, hyponatremia, COPD, chronic hypoxic
respiratory failure on 4L, home oxygen, BPH, abdominal aortic aneurysm, pulmonary nodules, presenting with abdominal pain and nausea.
CT abdomen pelvis showed high-grade small bowel obstruction, transition point in the central abdomen where there is some twisting of the abdominal mesentery potentially secondary to internal hernia. Closed-loop obstruction difficult to completely
exclude.
#Recurrent high grade small bowel obstruction likely from hernia
#Leukocytosis -- Worsened but then Improved
-Diet advanced from NPO with sips of clears to Clear Liquids Diet but now to Full Liquids Diet
-Continue TPN as per surgery
-SBFT 01/27 appreciated complete SBO, NGT decompression started 01/27 as per surgery
-surgery eval appreciated PICC TPN started
-01/31 ex lap with SBR and extensive MURIEL, transferred from IVU to IMU post-op care
-If WBC count rises again, may need to recheck CT as per surgery
#New Small Bilateral Pleural Effusions on CXR from 02/07/24
-Continue to monitor
-Will consider pulmonary consultation
#Hematuria
-RBCs noted on UA from 02/07/24
-Will need urology follow-up
-Monitor Hgb
#Hyperglycemia 2/2 TPN
-low dose sliding scale Q6H increased to moderate dose sliding scale
-5U Lantus HS was increased to 8 units to 10 units Lantus
-A1c appreciated prediabetes 6.0
-monitor and titrate insulin regimen as necessary
-Diabetes CLINICAL DIRECTOR consulted, evaluation and recommendations appreciated
#mild hyponatremia
-Monitor BMP
#chronic hypoxic respiratory insufficiency [correction to prior documentation] pt reports baseline oxygen supplementation 4L, currently baseline
#History of COPD not in acute exacerbation-
#Acute on chronic resp failure at one point 8L since weaned down to 5L
#Atelectasis
incentive spirometry
-continue supplemental oxygen to keep sat >=92%
-Wean as tolerated
# Primary HTN
-monitor and titrate antihypertensive regimen as necessary
-Hydralazine prn
#Paroxysmal atrial fib
#Developed Afib RVR 01/28
-transferred to IVU 01/28
-Eliquis on hold for potential surgical intervention, hep gtt started 01/28 held for surgical intervention Fri 01/31, hep gtt resumed Sat 02/01, hep gtt held again on 02/03 per surgery given drop in Hgb, but then resumed again
-Scheduled metoprolol IV switched to cardizem gtt as per Cardio later switched to Amio gtt 01/29
-Status post IV Amiodarone Drip, now switched to PO 200mg bid on 02/07/24, with plan to discharge on 200mg daily, and continue for approx 2 months outpatient
#reported Vtach 01/27/24
cardio eval appreciated AT at 170 bpm 01/26, 16 sec AT 01/27
#Benign prostatic hypertrophy
#Acute retention
Davis started 07/08
eventual restart Finasteride when cleared and tolerating oral diet
Okay to continue Flomax as per surgery
MARNIE likely d/t retention and possibly prerenal d/t poor oral intake
-resolved with Davis and start TPN
#AAA
Outpatient monitoring
#History of Mohs Surgery (as per patient) involving right eye tear ducts
-Right eye lower eyelid with edema and fluid
-Patient stated on 02/04/24 he and his will contact his life enrichment director about his eye
-Ophthalmology also consulted here, recommendations appreciated: after speaking on February 04, 2024 with on-call life enrichment director Dr. Seema Medina, and after obtaining patient's permission, shared images via [employer] with Dr. Seema Lloyd
Carol of the patient's eye: Dr. Seema Medina recommended lubrication with Artificial Tears as well as Erythromycin ointment (and to avoid patient's home steroid eye drops), and follow-up with life enrichment director outpatient.
History of aspiration pneumonia
History of iatrogenic fluid overload
History of blood loss anemia
BPH
Pulmonary nodules
#DVT prophylaxis
-SCD
# CODE STATUS
-Full code
Anticipated Discharge: > 48 hours
Subjective/Interval History
-
Date of Service: February 08, 2024
Patient was seen and examined. He reported no new symptoms or complaints and stated he was doing okay.
Objective Data
-
Labs:
Laboratory Results
02/08/24
05:19
WBC 14.4 H
Hgb 7.2 L
Hct 21.8 L
Plt Count 337
APTT 99.2 H
Vital Signs:
Vital Signs
Temp Pulse Resp BP Pulse Ox
97.9 F 75 18 125/74 95
02/08/24 07:27 02/08/24 08:12 02/08/24 08:09 02/08/24 08:12 02/08/24 11:32
I&O
02/07/24 02/08/24 02/09/24
06:59 06:59 06:59
Intake Total 776.4 / 776.4
Output Total 1450 / 1450 500 / 500 400 / 400
Balance -673.6 / -673.6 -500 / -500 -400 / -400
[2024-02-08 17:25] LABS: Glucose - Point of Care 148 mg/dl (70-99)
[2024-02-08] MEDS: NOVOLOG FLEXPEN-MODERATE RESISTANCE SC (17:26)
[2024-02-08] MEDS: FLOMAX 0.4 MG PO (17:53)
--- NOTE | 2024-02-08 19:45 | PTCARENOTE ---
Pt received from previous nurse. Pt AAO, making needs known, agreeable to care. Resting in chair, respirations even and unlabored. Pt on 4L NC 02. Pt NSR on monitor. TPN, running 49ml/hr . Heparin at 1550 u/hr& 15.5 ml/hr. Call light in reach,
denies further needs at this time.
[2024-02-08] MEDS: Parenteral Nutrition, Central 1170 IV (21:16)
[2024-02-08 21:29] LABS: Glucose - Point of Care 188 mg/dl (70-99)
[2024-02-08] MEDS: HEPARIN 25000 UNITS/250 ML IV (21:44)
[2024-02-09] VITALS (12 sets, daily range): BP systolic 105–148; BP diastolic 57–74; BMI 19.9
[2024-02-09 05:23] LABS: Hemoglobin 7.1 g/dL (13.0-18.0); Mean Corp Hgb Conc. 32.3 g/dL (33.0-37.0); Mean Corpuscular Hgb 29.3 pg (27.0-31.0); Mean Corpuscular Volume 90.9 fL (80.0-94.0); Mean Platelet Volume 10.4 fL (7.4-10.4); Platelet Count 381 10^3/uL (130-400); Red Blood Cell Count 2.42 10^6/uL (4.70-6.10); Red Cell Dist. Width 13.9 % (11.5-14.5); White Blood Cell Count 13.6 10^3/uL (4.8-10.8)
[2024-02-09 05:37] LABS: APTT 117.3 Sec (23.4-35.0)
[2024-02-09 05:56] LABS: Blood Urea Nitrogen 30 mg/dl (9-20); Calcium 8.4 mg/dl (8.4-10.2); Carbon Dioxide 28 mmol/L (22-30); Chloride 99 mmol/L (98-107); Estimated Creatinine Clearance 63 ml/min; Glucose 139 mg/dl (70-99); Potassium 5.3 mmol/L (3.5-5.1); Sodium 131 mmol/L (135-145); eGFR > 60.00
[2024-02-09] MEDS: SYMBICORT 160/4.5 MCG INHALER 2 PUFF INH ×2 (07:34→20:12)
[2024-02-09] MEDS: SPIRIVA RESPIMAT 2.5 MCG 2 PUFF INH (07:34)
[2024-02-09 07:39] LABS: Glucose - Point of Care 139 mg/dl (70-99)
[2024-02-09] MEDS: NOVOLOG FLEXPEN-MODERATE RESISTANCE SC (08:27)
[2024-02-09] MEDS: NSS (PRESERVATIVE FREE) 10 ML IV (09:08)
[2024-02-09] MEDS: REFRESH EYE DROPS (PF) 1 DROPS OPHTH ×4 (09:08→21:34)
[2024-02-09] MEDS: LANTUS 0.1 UNITS SC (09:08)
[2024-02-09] MEDS: PACERONE 200 MG PO ×2 (09:08→19:36)
[2024-02-09] MEDS: MUCINEX 600 MG PO ×2 (09:08→19:36)
[2024-02-09] MEDS: PROTONIX IV 40 MG IV (09:09)
[2024-02-09] MEDS: ERYTHROMYCIN 0.5% OPHTHALMIC OINTMENT 1 APPLIC OPHTH ×3 (09:11→21:34)
--- NOTE | 2024-02-09 10:39 | W.PN.GS2 ---
Today's Communication / Plan
-
Continue FLD
Assessment / Plan
-
Assessment: 83-year-old male with h/o Afib and COPD on 4L home O2 presenting with recurrent small bowel obstruction which did not resolve with medical management alone now POD#8 ex lap with SBR and extensive MURIEL
AFVSS
Following expected course post operatively
Acute on chronic anemia, h/h stable. No bloody stools/hematemesis.
Leukocytosis trending back down. CXR/UA without evidence of infection. Hold on repeat CT unless WBC rises again
+flatus/small stools but still with distention
--Full liquid diet with supplemnts as tolerated
--Will finish current bag of TPN then discontinue
--Pain control: Tylenol and Tramadol
--Trend labs
--Cardiology managing PO cardiac meds/continued on heparin gtt until GI recovery
--OOB/Ambulate. PT/OT following post operatively
--Medical management as per primary service
Subjective Data
-
Date of Service: February 09, 2024
Patient seen and examined at bedside with Dr. Wang. SHAHBAZ to chair. Notes he passed 3 small BM's that were loose. Still passing some flatus but not a lot. Denies n/v. Tolerating liquids.
Objective Data
-
Intake and Output
02/08/24 02/09/24 02/10/24
06:59 06:59 06:59
Intake Total 1848 / 1848 660 / 660
Output Total 500 / 500 1550 / 1550
Balance -500 / -500 298 / 298 660 / 660
Intake:
Oral fluids 1080 / 1080 660 / 660
IV piggybacks 180 / 180
TPN/PPN 588 / 588
Output:
Urine, Voided 500 / 500 1550 / 1550
Other:
Number of unmeasured liquid
stools
Rectum 1
Vital Signs
Temp Pulse Resp BP Pulse Ox
98.4 F 78 20 120/57 95
02/09/24 08:00 02/09/24 07:41 02/09/24 07:41 02/09/24 04:00 02/09/24 07:41
Lab Results
02/09/24 04:49
02/09/24 04:49
Calcium 8.4 mg/dl (8.4-10.2) 02/09/24 04:49
Phosphorus 3.6 mg/dl (2.5-4.5) 02/06/24 12:46
Magnesium 2.0 mg/dl (1.6-2.3) 02/07/24 03:00
Total Bilirubin 0.7 mg/dl (0.2-1.3) 02/07/24 03:00
AST 35 U/L (17-59) 02/07/24 03:00
ALT 66 U/L (0-50) H 02/07/24 03:00
Alkaline Phosphatase 68 U/L (38-126) 02/07/24 03:00
Total Protein 4.9 g/dl (6.3-8.2) L 02/07/24 03:00
Albumin 2.3 g/dl (3.5-5.0) L 02/07/24 03:00
Physical Exam
-
Gen: NAD
Abd: soft, mild tenderness, distended, non-peritoneal, incision c/d/i - no erythema, ecchymosis or drainage
--- NOTE | 2024-02-09 11:04 | W.PN.HOSP.TC ---
Today's Communication/Plan
-
Continue Heparin Drip (instead of Eliquis) given Hgb level
Continue current bag of TPN
Watch potassium
Assessment / Plan
Assessment / Plan
Physical Exam
General: Not in acute distress
HEENT: Normocephalic
Respiratory: Clear to Auscultation Bilaterally stable respiratory status on 4L
Cardiac: S1/S2 and Regular Rhythm
GI: Soft, Normal Bowel Sounds, mild tenderness, non distended
Musculoskeletal: No Cyanosis and No Edema
Skin: Warm. Dry.
Neuro: AAO x 3
Psych: Calm

Assessment/Plan
83-year-old male past medical history of recurrent small bowel obstruction, aspiration pneumonia, iatrogenic fluid overload, hypertension, paroxysmal atrial fibrillation/SVT on Eliquis, blood loss anemia, hyponatremia, COPD, chronic hypoxic
respiratory failure on 4L, home oxygen, BPH, abdominal aortic aneurysm, pulmonary nodules, presenting with abdominal pain and nausea.
CT abdomen pelvis showed high-grade small bowel obstruction, transition point in the central abdomen where there is some twisting of the abdominal mesentery potentially secondary to internal hernia. Closed-loop obstruction difficult to completely
exclude.
#Recurrent high grade small bowel obstruction likely from hernia
#Leukocytosis -- Worsened but then Improved
-Diet advanced from NPO with sips of clears to Clear Liquids Diet but now to Full Liquids Diet
-Continue TPN as per surgery
-SBFT 01/27 appreciated complete SBO, NGT decompression started 01/27 as per surgery
-surgery eval appreciated PICC TPN started
-01/31 ex lap with SBR and extensive MURIEL, transferred from IVU to IMU post-op care
-If WBC count rises again, may need to recheck CT as per surgery
#New Small Bilateral Pleural Effusions on CXR from 02/07/24
-Continue to monitor
-Will consider pulmonary consultation
#Hematuria
-RBCs noted on UA from 02/07/24
-Will need urology follow-up
-Monitor Hgb
#Hyperglycemia 2/2 TPN
-low dose sliding scale Q6H increased to moderate dose sliding scale
-5U Lantus HS was increased to 8 units to 10 units Lantus
-A1c appreciated prediabetes 6.0
-monitor and titrate insulin regimen as necessary
-Diabetes HEALTHCARE OR MEDICAL consulted, evaluation and recommendations appreciated
#mild hyponatremia
-Monitor BMP
#chronic hypoxic respiratory insufficiency [correction to prior documentation] pt reports baseline oxygen supplementation 4L, currently baseline
#History of COPD not in acute exacerbation-
#Acute on chronic resp failure at one point 8L since weaned down to 5L
#Atelectasis
incentive spirometry
-continue supplemental oxygen to keep sat >=92%
-Wean as tolerated
# Primary HTN
-monitor and titrate antihypertensive regimen as necessary
-Hydralazine prn
#Paroxysmal atrial fib
#Developed Afib RVR 01/28
-transferred to IVU 01/28
-Eliquis on hold for potential surgical intervention, hep gtt started 01/28 held for surgical intervention Fri 01/31, hep gtt resumed Sat 02/01, hep gtt held again on 02/03 per surgery given drop in Hgb, but then resumed again
-Scheduled metoprolol IV switched to cardizem gtt as per Cardio later switched to Amio gtt 01/29
-Status post IV Amiodarone Drip, now switched to PO 200mg bid on 02/07/24, with plan to discharge on 200mg daily, and continue for approx 2 months outpatient
#reported Vtach 01/27/24
cardio eval appreciated AT at 170 bpm 01/26, 16 sec AT 01/27
#Benign prostatic hypertrophy
#Acute retention
Davis started 01/27
eventual restart Finasteride when cleared and tolerating oral diet
Okay to continue Flomax as per surgery
MARNIE likely d/t retention and possibly prerenal d/t poor oral intake
-resolved with Davis and start TPN
#AAA
Outpatient monitoring
#History of Mohs Surgery (as per patient) involving right eye tear ducts
-Right eye lower eyelid with edema and fluid
-Patient stated on 02/04/24 he and his will contact his ground crew lines person about his eye
-Ophthalmology also consulted here, recommendations appreciated: after speaking on February 04, 2024 with on-call ground crew lines person Dr. Seema Medina, and after obtaining patient's permission, shared images via [place] Text with Dr. Seema Lloyd
Carol of the patient's eye: Dr. Seema Medina recommended lubrication with Artificial Tears as well as Erythromycin ointment (and to avoid patient's home steroid eye drops), and follow-up with ground crew lines person outpatient.
History of aspiration pneumonia
History of iatrogenic fluid overload
History of blood loss anemia
BPH
Pulmonary nodules
#DVT prophylaxis
-SCD
# CODE STATUS
-Full code
Anticipated Discharge: > 48 hours
Subjective/Interval History
-
Date of Service: February 09, 2024
Patient was seen and examined. He denied any new pain or any other new symptoms or complaints.
Objective Data
-
Labs:
Laboratory Results
02/09/24 02/09/24
04:49 12:00
WBC 13.6 H
Hgb 7.1 L
Hct 22.0 L
Plt Count 381
APTT 117.3 H Pending
Sodium 131 L
Potassium 5.3 H
Chloride 99
Carbon Dioxide 28
BUN 30 H
Creatinine 0.8
Glucose 139 H
Calcium 8.4
Vital Signs:
Vital Signs
Temp Pulse Resp BP Pulse Ox
98.4 F 78 20 120/57 95
02/09/24 08:00 02/09/24 07:41 02/09/24 07:41 02/09/24 04:00 02/09/24 07:41
I&O
02/08/24 02/09/24 02/10/24
06:59 06:59 06:59
Intake Total 1848 / 1848 660 / 660
Output Total 500 / 500 1550 / 1550
Balance -500 / -500 298 / 298 660 / 660
--- NOTE | 2024-02-09 12:03 | W.PN.CD ---
Today's Communication / Plan
-
continue heaprin drip
trend Hgb and tele
Impression / Plan
-
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
oxygen and prior small bowel obstructions presented with abdominal pain and found to have SBO.
SBO:
-Status-post ex lap/lysis of adhesions/small bowel resection 02/01/2024.
-diet now clears
Paroxysmal atrial fibrillation
-01/29/2024. Initially on Cardizem 5 mg daily but inadequate rate control and patient developed low blood pressure on higher dosing. Cardizem discontinued and patient placed on IV amiodarone.
-Patient now back in sinus rhythm.
-transitioned IV amiodarone to PO 200mg bid on 02/06, with plan to d/c on 200mg daily, and continue for approx 2 months outpatient
-Continue heparin drip; monitor hemoglobin.
Atrial tachycardia, paroxysmal -continue amiodarone.
HTN, with chronic orthostatic hypotension, stable
Non-obstructive CAD, stable without chest pain
AAA
Dyslipidemia
COPD on O2
Subjective:
He denies CP or palps.
Physical Exam
Vital Signs/Labs
Vital Signs
Temp Pulse Resp BP Pulse Ox
98.1 F 78 20 120/57 95
02/09/24 11:15 02/09/24 07:41 02/09/24 07:41 02/09/24 04:00 02/09/24 07:41
02/08/24 02/09/24 02/10/24
06:59 06:59 06:59
Actual Weight 65.3 kg 66.4 kg
02/09/24 04:49
APTT 117.3 Sec (23.4-35.0) H 02/09/24 04:49
Magnesium 2.0 mg/dl (1.6-2.3) 02/07/24 03:00
Triglycerides 78 mg/dl (10-149) 02/04/24 05:08
01/28/24
23:00
Xif-G-Zhsnbflhlya Pept 3110
Physical Exam
Constitutional: No acute distress and Comfortable
EENT: Anicteric and Moist mucous membranes
Cardiovascular: Rhythm & rate is regular, Pedal edema is absent, JVD pressure is normal and Systolic murmur present
Respiratory: Respiratory effort normal and Lungs clear to auscul.
GI: Distention present
Neuro/Psych: AO x 3
Data Reviewed
-
Date of Service: February 09, 2024
Echo: Other (Tele: SR 70s-80s)
Labs: Labs Reviewed by me
[2024-02-09 12:22] LABS: Glucose - Point of Care 173 mg/dl (70-99)
[2024-02-09 12:51] LABS: APTT 99.2 Sec (23.4-35.0)
[2024-02-09] MEDS: MIRALAX 17 GRAMS PO (13:29)
[2024-02-09] MEDS: NOVOLOG FLEXPEN-MODERATE RESISTANCE 1 UNITS SC ×2 (13:29→17:57)
[2024-02-09] MEDS: HEPARIN 25000 UNITS/250 ML IV (15:48)
[2024-02-09] MEDS: FLOMAX 0.4 MG PO (17:57)
[2024-02-09 18:06] LABS: Glucose - Point of Care 183 mg/dl (70-99)
--- NOTE | 2024-02-09 18:12 | SUR.OPER ---
Pt received in bed @ 0700. AAOx3. Hard of hearing. Decreased vision in right eye; ordered eye drops and ointment administered. SaO2 95% on 4L NC. Pt states he has had a productive cough but not observed. Sinus rhythm on monitoring specialist. HR 60s -
70s. Trace pitting LE edema. (+) pedal pulses. Pt tolerating full liquid diet. Denying pain, nausea. Bowel sounds (+). Assisted to BSC for moderate sized loose brown stool before being assisted to chair. Pt with 3 total bowel movements this shift.
Heparin gtt infusing @ 1450 units/hr and TPN infusing @ 49 ml/hr through right TL PICC.
[2024-02-09 20:02] LABS: APTT 86.7 Sec (23.4-35.0)
[2024-02-09 20:20] LABS: Blood Urea Nitrogen 30 mg/dl (9-20); Calcium 8.8 mg/dl (8.4-10.2); Carbon Dioxide 29 mmol/L (22-30); Chloride 97 mmol/L (98-107); Estimated Creatinine Clearance 56 ml/min; Glucose 166 mg/dl (70-99); Potassium 5.3 mmol/L (3.5-5.1); Sodium 130 mmol/L (135-145); eGFR > 60.00
[2024-02-09 21:41] LABS: Glucose - Point of Care 161 mg/dl (70-99)
--- NOTE | 2024-02-09 22:57 | PTCARENOTE ---
Received pt sitting up in chair, AAOx3, [place]. R eye pink/red but no pain or itching reported- erythromycin applied per SEP. NSR on tele, HR 70s-80s. BP stable. Trace LE edema. Afebrile. On 4L NC. Spo2 95%. Lungs CTA but dim at bases. Occ productive
cough. Tolerating full liquid diet. Abdomen round, tender. + bowel sounds x4. No N/V. No BM this shift so far. TPN bag finished infusing- no more ordered. Heparin gtt at 1450 units/hr infusing L FA INT, PTT checked- therapeutic. Recheck in AM. R
PICC patent and capped. Pt. assisted back to bed, call trujillo in reach
[2024-02-10] VITALS (24 sets, daily range): BP systolic 108–154; BP diastolic 54–82; PULSE 74; O2SAT 96; BMI 19.7
[2024-02-10 05:45] LABS: APTT 94.5 Sec (23.4-35.0)
[2024-02-10 05:47] LABS: Blood Urea Nitrogen 27 mg/dl (9-20); Calcium 8.2 mg/dl (8.4-10.2); Carbon Dioxide 31 mmol/L (22-30); Chloride 99 mmol/L (98-107); Estimated Creatinine Clearance 56 ml/min; Glucose 91 mg/dl (70-99); Magnesium 1.9 mg/dl (1.6-2.3); Phosphorus 4.3 mg/dl (2.5-4.5); Potassium 4.8 mmol/L (3.5-5.1); Sodium 131 mmol/L (135-145); eGFR > 60.00
[2024-02-10 05:56] LABS: Hematocrit 20.2 % (39.0-52.0); Hemoglobin 6.8 g/dL (13.0-18.0); Mean Corp Hgb Conc. 33.7 g/dL (33.0-37.0); Mean Corpuscular Hgb 30.2 pg (27.0-31.0); Mean Corpuscular Volume 89.8 fL (80.0-94.0); Mean Platelet Volume 9.6 fL (7.4-10.4); Platelet Count 363 10^3/uL (130-400); Red Blood Cell Count 2.25 10^6/uL (4.70-6.10); Red Cell Dist. Width 14.2 % (11.5-14.5); White Blood Cell Count 10.1 10^3/uL (4.8-10.8)
--- NOTE | 2024-02-10 06:19 | W.PN.UPDATE ---
Update Note
Progress Note Update
Hgb 6.8 this AM. Rx 1U prbc.
--- NOTE | 2024-02-10 07:03 | PTCARENOTE ---
Pt hgb 6.8 this AM. 1 unit PRBCs ordered. Discussed w margaret PUGH.
[2024-02-10] MEDS: SYMBICORT 160/4.5 MCG INHALER 2 PUFF INH ×2 (07:36→20:13)
[2024-02-10] MEDS: SPIRIVA RESPIMAT 2.5 MCG 2 PUFF INH (07:36)
[2024-02-10] MEDS: MIRALAX 17 GRAMS PO (07:55)
[2024-02-10] MEDS: MUCINEX 600 MG PO ×2 (07:55→19:32)
[2024-02-10] MEDS: NSS (PRESERVATIVE FREE) 10 ML IV (07:55)
[2024-02-10] MEDS: PACERONE 200 MG PO ×2 (07:55→19:32)
[2024-02-10] MEDS: PROTONIX IV 40 MG IV (07:55)
[2024-02-10] MEDS: ERYTHROMYCIN 0.5% OPHTHALMIC OINTMENT 1 APPLIC OPHTH ×3 (07:59→21:03)
[2024-02-10] MEDS: REFRESH EYE DROPS (PF) 1 DROPS OPHTH ×4 (08:00→21:03)
--- NOTE | 2024-02-10 08:03 | W.PN.GS2 ---
Today's Communication / Plan
-
Advance to LRD
Transfuse 2 units
Assessment / Plan
-
Assessment: 83-year-old male with h/o Afib and COPD on 4L home O2 presenting with recurrent small bowel obstruction which did not resolve with medical management alone now POD#9 ex lap with SBR and extensive MURIEL
AFVSS
Following expected course post operatively
Acute on chronic anemia, h/h stable but has drifted down to 6.8 with increasing fatigue. No bloody stools/hematemesis.
Leukocytosis resolved
Mild hyperkalemia now resolved
+flatus/stools, distention much improved
TPN completed on 02/08
--Advance to LRD
--Pain control: Tylenol and Tramadol
--Trend labs
--Transfuse 2 units today
--Cardiology managing PO cardiac meds/continued on heparin gtt until GI recovery
--OOB/Ambulate. PT/OT following post operatively
--Medical management as per primary service
Subjective Data
-
Date of Service: February 10, 2024
Patient seen and examined at bedside. Passing a lot of flatus now and having loose BM's. Feels much less bloated. Tolerating diet without n/v. Feels very tired with any activity.
Objective Data
-
Intake and Output
02/09/24 02/10/24 02/11/24
06:59 06:59 06:59
Intake Total 1848 / 1848 900 / 900 0 / 0
Output Total 1550 / 1550 400 / 400
Balance 298 / 298 500 / 500 0 / 0
Intake:
Oral fluids 1080 / 1080 900 / 900
IV piggybacks 180 / 180
TPN/PPN 588 / 588
Blood Product Amount Infused ( 0 / 0
mL)
Packed Rbc Leukoreduced Unit 0 / 0
[id number]
Output:
Urine, Voided 1550 / 1550 400 / 400
Other:
Number of unmeasured liquid
stools
Rectum 1
Vital Signs
Temp Pulse Resp BP Pulse Ox
98.3 F 73 18 115/54 95
02/10/24 07:43 02/10/24 07:43 02/10/24 07:43 02/10/24 07:43 02/10/24 07:43
Lab Results
02/10/24 05:13
Calcium 8.2 mg/dl (8.4-10.2) L 02/10/24 05:13
Phosphorus 4.3 mg/dl (2.5-4.5) 02/10/24 05:13
Magnesium 1.9 mg/dl (1.6-2.3) 02/10/24 05:13
Total Bilirubin 0.7 mg/dl (0.2-1.3) 02/07/24 03:00
AST 35 U/L (17-59) 02/07/24 03:00
ALT 66 U/L (0-50) H 02/07/24 03:00
Alkaline Phosphatase 68 U/L (38-126) 02/07/24 03:00
Total Protein 4.9 g/dl (6.3-8.2) L 02/07/24 03:00
Albumin 2.3 g/dl (3.5-5.0) L 02/07/24 03:00
Physical Exam
-
Gen: NAD
Abd: soft, NT, mildly distended (imporved), non-peritoneal, incision c/d/i - no erythema, ecchymosis or drainage
[2024-02-10] MEDS: NOVOLOG FLEXPEN-MODERATE RESISTANCE SC ×3 (08:06→17:08)
[2024-02-10 08:17] LABS: Glucose - Point of Care 105 mg/dl (70-99)
[2024-02-10] MEDS: HEPARIN 25000 UNITS/250 ML IV (09:37)
[2024-02-10 12:04] LABS: Glucose - Point of Care 122 mg/dl (70-99)
--- NOTE | 2024-02-10 12:30 | W.PN.HOSP.TC ---
Addendum entered and electronically signed by Kade Evans MD 02/10/24 12:48:
Spoke with GI and urology, no need for GI and urology consultations at this time, patient's bleed is likely post-surgical and the fact that he is on Heparin Drip.
Original Note:
Today's Communication/Plan
-
Blood transfusions were ordered earlier due to anemia with Hgb less than 7
Recheck CBC this evening to ensure appropriate rise in Hgb
Assessment / Plan
Assessment / Plan
Physical Exam
General: Not in acute distress
HEENT: Normocephalic
Respiratory: Clear to Auscultation Bilaterally stable respiratory status on 4L
Cardiac: S1/S2 and Regular Rhythm
GI: Soft, Normal Bowel Sounds, mild tenderness, non distended
Musculoskeletal: No Cyanosis and No Edema
Skin: Warm. Dry.
Neuro: AAO x 3
Psych: Calm

Assessment/Plan
83-year-old male past medical history of recurrent small bowel obstruction, aspiration pneumonia, iatrogenic fluid overload, hypertension, paroxysmal atrial fibrillation/SVT on Eliquis, blood loss anemia, hyponatremia, COPD, chronic hypoxic
respiratory failure on 4L, home oxygen, BPH, abdominal aortic aneurysm, pulmonary nodules, presenting with abdominal pain and nausea.
CT abdomen pelvis showed high-grade small bowel obstruction, transition point in the central abdomen where there is some twisting of the abdominal mesentery potentially secondary to internal hernia. Closed-loop obstruction difficult to completely
exclude.
#Recurrent high grade small bowel obstruction likely from hernia
#Leukocytosis -- Worsened but NOW RESOLVED
-Diet advanced from NPO with sips of clears to Clear Liquids Diet then to FLD, and NOW ON LOW RESIDUE DIET
-Continue TPN as per surgery
-SBFT 01/27 appreciated complete SBO, NGT decompression started 01/27 as per surgery
-surgery eval appreciated PICC TPN started
-01/31 ex lap with SBR and extensive MURIEL, transferred from IVU to IMU post-op care
-If WBC count rises again, may need to recheck CT as per surgery
#New Small Bilateral Pleural Effusions on CXR from 02/07/24
-Continue to monitor
-Consider pulmonary consultation
#Hematuria
-RBCs noted on UA from 02/07/24
-Will need urology follow-up
-Monitor Hgb
#Normocytic Anemia
-Hgb dropped to 6.8 on 02/10/24 morning -- 2 units of PRBCs were ordered
-Anemia could be due to blood loss given patient is post-op and is on Heparin Drip
-Ordered stool occult blood test
-Consulted GI (for any possible GI bleed) and urology (due to hematuria on urinalysis -- see above)
#Hyperglycemia 2/2 TPN
-low dose sliding scale Q6H increased to moderate dose sliding scale
-5U Lantus HS was increased to 8 units to 10 units Lantus
-A1c appreciated prediabetes 6.0
-monitor and titrate insulin regimen as necessary
-Diabetes ORTHOPEDIC ASSISTANT consulted, evaluation and recommendations appreciated
#mild hyponatremia
-Monitor BMP
#chronic hypoxic respiratory insufficiency [correction to prior documentation] pt reports baseline oxygen supplementation 4L, currently baseline
#History of COPD not in acute exacerbation-
#Acute on chronic resp failure at one point 8L since weaned down to 5L
#Atelectasis
incentive spirometry
-continue supplemental oxygen to keep sat >=92%
-Wean as tolerated
# Primary HTN
-monitor and titrate antihypertensive regimen as necessary
-Hydralazine prn
#Paroxysmal atrial fib
#Developed Afib RVR 01/28
-transferred to IVU 01/28
-Eliquis on hold for potential surgical intervention, hep gtt started 01/28 held for surgical intervention Fri 01/31, hep gtt resumed Sat 02/01, hep gtt held again on 02/03 per surgery given drop in Hgb, but then resumed again
-Scheduled metoprolol IV switched to cardizem gtt as per Cardio later switched to Amio gtt 01/29
-Status post IV Amiodarone Drip, now switched to PO 200mg bid on 02/07/24, with plan to discharge on 200mg daily, and continue for approx 2 months outpatient
#reported Vtach 01/27/24
cardio eval appreciated AT at 170 bpm 01/26, 16 sec AT 01/27
#Benign prostatic hypertrophy
#Acute retention
Davis started 01/27
eventual restart Finasteride when cleared and tolerating oral diet
Okay to continue Flomax as per surgery
MARNIE likely d/t retention and possibly prerenal d/t poor oral intake
-resolved with Davis and start TPN
#AAA
Outpatient monitoring
#History of Mohs Surgery (as per patient) involving right eye tear ducts
-Right eye lower eyelid with edema and fluid
-Patient stated on 02/04/24 he and his will contact his nuclear supervising operator about his eye
-Ophthalmology also consulted here, recommendations appreciated: after speaking on February 04, 2024 with on-call nuclear supervising operator Dr. Seema Medina, and after obtaining patient's permission, shared images via [place] Text with Dr. Seema Lloyd
Carol of the patient's eye: Dr. Seema Medina recommended lubrication with Artificial Tears as well as Erythromycin ointment (and to avoid patient's home steroid eye drops), and follow-up with nuclear supervising operator outpatient.
History of aspiration pneumonia
History of iatrogenic fluid overload
History of blood loss anemia
BPH
Pulmonary nodules
#DVT prophylaxis
-Heparin Drip
# CODE STATUS
-Full code
Anticipated Discharge: > 48 hours
Subjective/Interval History
-
Date of Service: February 10, 2024
Patient was seen and examined. He denied any dizziness, chest pain, shortness of breath, newly worsening abdominal pain or any other symptoms or complaints.
Objective Data
-
Labs:
Laboratory Results
02/10/24 02/10/24 02/10/24
02:00 05:13 14:00
WBC 10.1
Hgb Cancelled 6.8 L* Pending
Hct Cancelled 20.2 L* Pending
Plt Count 363
APTT 94.5 H
Sodium 131 L
Potassium 4.8
Chloride 99
Carbon Dioxide 31 H
BUN 27 H
Creatinine 0.9
Glucose 91
Calcium 8.2 L
Vital Signs:
Vital Signs
Temp Pulse Resp BP Pulse Ox
98.1 F 73 18 127/82 94
02/10/24 11:36 02/10/24 11:36 02/10/24 11:36 02/10/24 11:36 02/10/24 11:36
I&O
02/09/24 02/10/24 02/11/24
06:59 06:59 06:59
Intake Total 1848 / 1848 900 / 900 550 / 550
Output Total 1550 / 1550 400 / 400
Balance 298 / 298 500 / 500 550 / 550
--- NOTE | 2024-02-10 13:50 | W.PN.CD ---
Today's Communication / Plan
-
heparin drip: if Hgb trends down again after pRBC, will need to stop AC.
trend Hgb
Impression / Plan
-
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
oxygen and prior small bowel obstructions presented with abdominal pain and found to have SBO.
SBO:
-Status-post ex lap/lysis of adhesions/small bowel resection 02/01/2024.
-diet now clears
Anemia: acute on chronic post op
-no obvious bleeding
-pRBC tranfusion today
Paroxysmal atrial fibrillation
-01/29/2024. Initially on Cardizem 5 mg daily but inadequate rate control and patient developed low blood pressure on higher dosing. Cardizem discontinued and patient placed on IV amiodarone.
-Patient now back in sinus rhythm.
-transitioned IV amiodarone to PO 200mg bid on 02/06, with plan to d/c on 200mg daily, and continue for approx 2 months outpatient
-Continue heparin drip; monitor hemoglobin. If Hgb trends down again, will need to stop AC.
Atrial tachycardia, paroxysmal -continue amiodarone.
HTN, with chronic orthostatic hypotension, stable
Non-obstructive CAD, stable without chest pain
AAA
Dyslipidemia
COPD on O2
Subjective:
Denies CP or palps.
Physical Exam
Vital Signs/Labs
Vital Signs
Temp Pulse Resp BP Pulse Ox
98.1 F 73 18 127/82 94
02/10/24 11:36 02/10/24 11:36 02/10/24 11:36 02/10/24 11:36 02/10/24 11:36
0702/10/24 02/11/24
06:59 06:59 06:59
Actual Weight 66.4 kg 65.9 kg
02/10/24 05:13
APTT 94.5 Sec (23.4-35.0) H 02/10/24 05:13
Magnesium 1.9 mg/dl (1.6-2.3) 02/10/24 05:13
Triglycerides 78 mg/dl (10-149) 02/04/24 05:08
01/28/24
23:00
Wwq-X-Wykcmajrbjz Pept 3110
Physical Exam
Constitutional: No acute distress and Comfortable
EENT: Moist mucous membranes
Cardiovascular: Rhythm & rate is regular, Pedal edema is absent, JVD pressure is normal and Systolic murmur absent
Respiratory: Respiratory effort normal, Lungs clear to auscul. and Wheeze Absent
GI: Distention present
Neuro/Psych: AO x 3
Data Reviewed
-
Date of Service: February 10, 2024
EKG: Other (Tele: SR 70s)
Labs: Labs Reviewed by me
[2024-02-10 16:35] LABS: Glucose - Point of Care 114 mg/dl (70-99)
[2024-02-10] MEDS: FLOMAX 0.4 MG PO (17:08)
--- NOTE | 2024-02-10 17:13 | PTCARENOTE ---
Pt received in bed @ 0700. AAOx3. Hard of hearing. Right eye decreased vision; scheduled drops and ointment instilled. SaO2 95% on 4L NC. Diminished breath sounds. Sinus rhythm on monitor and storage bin tender. Trace pitting LE edema. (+) pedal pulse. Advanced
to low residue diet and tolerating without complaint. Voiding denis urine into urinal. Heparin gtt infusing @ 1450 units/hr. Hgb 6.8 in morning labs. 2 units of PRBC's infused without observed reaction. Repeat Hgb to be drawn 4 hours after
transfusion completion. Pt sitting OOB in chair.
[2024-02-10 18:53] LABS: Hematocrit 28.8 % (39.0-52.0); Hemoglobin 9.8 g/dL (13.0-18.0)
[2024-02-10 21:34] LABS: Glucose - Point of Care 122 mg/dl (70-99)
--- NOTE | 2024-02-10 22:36 | PTCARENOTE ---
Received pt sitting up in chair, AAOx3, [place]. R eye pink/red but no pain or itching reported- erythromycin applied per SEP. NSR on tele, HR 70s-80s. BP stable. Afebrile. On 4L NC. Spo2 95%. Lungs CTA but dim at bases. Tolerating low residue diet.
Abdomen round, mildly tender. + bowel sounds x4. No N/V. No BM this shift so far. Voiding in urinal. Heparin gtt at 1450 units/hr infusing L FA INT. R PICC patent and capped. Pt. assisted back to bed to sleep, call trujillo in reach
[2024-02-11] VITALS (13 sets, daily range): BP systolic 101–156; BP diastolic 59–84; BMI 19.3
[2024-02-11 05:27] LABS: % Basophils 0.3 % (0-2); % Eosinophils 1.5 % (0-6); % Lymphocytes 16.1 % (20.5-51.1); % Monocytes 8.1 % (1.7-9.3); Absolute Eosinophils 0.1 10^3/uL (0-0.7); Absolute Immature Granulocytes 0.1 10^3/uL (0-0.05); Absolute Lymphocytes 1.4 10^3/uL (1.2-3.4); Absolute Monocytes 0.7 10^3/uL (0.1-0.6); Absolute Neutrophils 6.4 10^3/uL (1.4-6.5); Hematocrit 26.8 % (39.0-52.0); Hemoglobin 9.2 g/dL (13.0-18.0); Mean Corp Hgb Conc. 34.3 g/dL (33.0-37.0); Mean Corpuscular Hgb 29.7 pg (27.0-31.0); Mean Corpuscular Volume 86.5 fL (80.0-94.0); Mean Platelet Volume 9.2 fL (7.4-10.4); Nucleated Red Blood Cells % 0 % (-); Platelet Count 350 10^3/uL (130-400); Red Cell Dist. Width 14.3 % (11.5-14.5); White Blood Cell Count 8.7 10^3/uL (4.8-10.8)
[2024-02-11 05:34] LABS: APTT 125.3 Sec (23.4-35.0)
[2024-02-11] MEDS: HEPARIN 25000 UNITS/250 ML IV ×2 (05:39→21:45)
[2024-02-11 05:48] LABS: Blood Urea Nitrogen 23 mg/dl (9-20); Calcium 8.3 mg/dl (8.4-10.2); Carbon Dioxide 31 mmol/L (22-30); Chloride 101 mmol/L (98-107); Estimated Creatinine Clearance 49 ml/min; Glucose 91 mg/dl (70-99); Magnesium 1.9 mg/dl (1.6-2.3); Potassium 4.2 mmol/L (3.5-5.1); Sodium 132 mmol/L (135-145); eGFR > 60.00
--- NOTE | 2024-02-11 07:35 | W.PN.HOSP.TC ---
Today's Communication/Plan
-
Low residue diet
cont hep gtt
monitor H&H
start oral iron supplementation
Glycemic control
discharge planning Home w/ home services
Assessment / Plan
Assessment / Plan
Physical Exam
General: Not in acute distress
HEENT: Normocephalic
Respiratory: Clear to Auscultation Bilaterally stable respiratory status on 4L
Cardiac: S1/S2 and Regular Rhythm
GI: Soft, Normal Bowel Sounds, mild tenderness, non distended
Musculoskeletal: No Cyanosis and No Edema
Skin: Warm. Dry.
Neuro: AAO x 3
Psych: Calm

Assessment/Plan
83-year-old male past medical history of recurrent small bowel obstruction, aspiration pneumonia, iatrogenic fluid overload, hypertension, paroxysmal atrial fibrillation/SVT on Eliquis, blood loss anemia, hyponatremia, COPD, chronic hypoxic
respiratory failure on 4L, home oxygen, BPH, abdominal aortic aneurysm, pulmonary nodules, presenting with abdominal pain and nausea.
CT abdomen pelvis showed high-grade small bowel obstruction, transition point in the central abdomen where there is some twisting of the abdominal mesentery potentially secondary to internal hernia. Closed-loop obstruction difficult to completely
exclude.
#Recurrent high grade small bowel obstruction likely from hernia
#Leukocytosis -- resolved
-SBFT 01/27 appreciated complete SBO, NGT decompression started 01/27 as per surgery
-surgery eval appreciated PICC TPN started
-01/31 ex lap with SBR and extensive MURIEL, transferred from IVU to IMU post-op care
-Diet gradually advanced to Low residue tolerating
-TPN completed 02/08
#New Small Bilateral Pleural Effusions on CXR from 02/07/24
-Continue to monitor
-stable respiratory status baseline 4L
-outpt follow up CXR in 1 month recommended.
#Hematuria
-RBCs noted on UA from 02/07/24
-follow up repeat
#Normocytic Anemia
-Hgb dropped to 6.8 on 02/10/24 morning, responded well to 2PRBC transfusion post-transfusion Hgb 9.8
-Possible combination acute blood loss anemia of chronic disease (iron level borderline normal low w/ associate low TIBC ferritin level pending)
-started iron supplement
-B12 Folate wnl
#Hyperglycemia 2/2 TPN
-A1c appreciated prediabetes 6.0
-Diabetes GAME OPERATOR consulted, evaluation and recommendations appreciated
-treated with insulin, insulin requirement since improved following completion TPN, requiring few/minimal correction
#mild hyponatremia
-Monitor BMP
#chronic hypoxic respiratory insufficiency [correction to prior documentation] pt reports baseline oxygen supplementation 4L, currently baseline
#History of COPD not in acute exacerbation-
#Acute on chronic resp failure at one point 8L since weaned down to 5L
#Atelectasis
incentive spirometry
-continue supplemental oxygen to keep sat >=92%
-Wean as tolerated
# Primary HTN
-monitor and titrate antihypertensive regimen as necessary
-Hydralazine prn
#Paroxysmal atrial fib
#Developed Afib RVR 01/28
-transferred to IVU 01/28
-Eliquis held for surgical intervention, hep gtt started, held d/t hgb drop later resumed
-Scheduled metoprolol IV switched to cardizem gtt as per Cardio, later switched to Amio gtt 01/29
-Status post IV Amiodarone Drip, now switched to PO 200mg bid on 02/07/24, with plan to discharge on 200mg daily, and continue for approx 2 months outpatient
#reported Vtach 01/27/24
cardio eval appreciated AT at 170 bpm 01/26, 16 sec AT 01/27
#Benign prostatic hypertrophy
#Acute retention
Davis started 01/27
Flomax Finasteride restarted with improvement in oral intake, tolerating diet
MARNIE likely d/t retention and possibly prerenal d/t poor oral intake
-resolved with Davis and start TPN
#AAA
Outpatient monitoring
#History of Mohs Surgery (as per patient) involving right eye tear ducts
-Right eye lower eyelid with edema and fluid
-Dr Evans discussed with on-call quality assurance analyst Dr. Seema Medina February 04, 2024 and per discussion started lubrication with Artificial Tears as well as Erythromycin ointment. Avoidance patient's home steroid eye drops and follow-up
with quality assurance analyst outpatient were recommended
History of aspiration pneumonia
History of iatrogenic fluid overload
History of blood loss anemia
BPH
Pulmonary nodules
#DVT prophylaxis
-Heparin Drip
# CODE STATUS
-Full code
Discussed with patient at bedside and patient's Estrella over phone
I spent a total of 50 minutes with the patient or on the floor. More than 50% of this time involved counseling and coordination of care.
Anticipated Discharge: Within 24 hours
Subjective/Interval History
-
Date of Service: February 11, 2024
Seen and examined at bedside in no acute distress sitting up comfortably in chair. Reports flatus, denies pain nausea lightheadedness. Overall reports feeling well tolerating low residue diet.
Objective Data
-
Labs:
Laboratory Results
02/11/24 02/11/24
05:07 11:45
WBC 8.7
Hgb 9.2 L
Hct 26.8 L
Plt Count 350
APTT 125.3 H Pending
Sodium 132 L
Potassium 4.2
Chloride 101
Carbon Dioxide 31 H
BUN 23 H
Creatinine 1.0
Glucose 91
Calcium 8.3 L
Vital Signs:
Vital Signs
Temp Pulse Resp BP Pulse Ox
98.2 F 67 19 136/65 95
02/11/24 07:23 02/11/24 06:00 02/11/24 06:00 02/11/24 06:00 02/11/24 00:00
I&O
02/10/24 02/11/24 02/12/24
06:59 06:59 06:59
Intake Total 900 / 900 2049
Output Total 400 / 400 650 / 650
Balance 500 / 500 1400 / 1400
[2024-02-11 07:47] LABS: Glucose - Point of Care 93 mg/dl (70-99)
[2024-02-11] MEDS: SPIRIVA RESPIMAT 2.5 MCG 2 PUFF INH (07:47)
[2024-02-11] MEDS: SYMBICORT 160/4.5 MCG INHALER 2 PUFF INH ×2 (07:47→19:22)
[2024-02-11] MEDS: NOVOLOG FLEXPEN-MODERATE RESISTANCE SC ×2 (08:04→18:13)
--- NOTE | 2024-02-11 08:10 | W.PN.CD ---
Today's Communication / Plan
-
s/p pRBC on 02/09
continue heparin drip; monitor hemoglobin. If Hgb trends down again, will need to stop AC.
-if Hgb stable, will resume eliquis 5mg bid tomorrow
Impression / Plan
-
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
oxygen and prior small bowel obstructions presented with abdominal pain and found to have SBO.
SBO:
-Status-post ex lap/lysis of adhesions/small bowel resection 02/01/2024.
-diet now clears
Anemia: acute on chronic post op
-no obvious bleeding
-pRBC tranfusion 02/09
Paroxysmal atrial fibrillation
-01/29/2024. Initially on Cardizem 5 mg daily but inadequate rate control and patient developed low blood pressure on higher dosing. Cardizem discontinued and patient placed on IV amiodarone.
-Patient now back in sinus rhythm.
-transitioned IV amiodarone to PO 200mg bid on 02/06, with plan to d/c on 200mg daily, and continue for approx 2 months outpatient
-s/p pRBC on 02/09
-Continue heparin drip; monitor hemoglobin. If Hgb trends down again, will need to stop AC.
-if Hgb stable, will start eliquis 5mg bid tomorrow
Atrial tachycardia, paroxysmal -continue amiodarone.
HTN, with chronic orthostatic hypotension, stable
Non-obstructive CAD, stable without chest pain
AAA
Dyslipidemia
COPD on O2
Subjective:
He denies CP or palps.
Physical Exam
Vital Signs/Labs
Vital Signs
Temp Pulse Resp BP Pulse Ox
98.2 F 70 14 136/65 95
02/11/24 07:23 02/11/24 07:52 02/11/24 07:52 02/11/24 06:00 02/11/24 00:00
02/10/24 02/11/24 02/12/24
06:59 06:59 06:59
Actual Weight 65.9 kg 64.4 kg
02/11/24 05:07
02/11/24 05:07
APTT 125.3 Sec (23.4-35.0) H 02/11/24 05:07
Magnesium 1.9 mg/dl (1.6-2.3) 02/11/24 05:07
Triglycerides 78 mg/dl (10-149) 02/04/24 05:08
01/28/24
23:00
[id number]-M-Eiqsdtyvwun Pept 3110
Physical Exam
Constitutional: No acute distress and Comfortable
EENT: Moist mucous membranes
Cardiovascular: Rhythm & rate is regular, Pedal edema is absent, JVD pressure is normal and Systolic murmur present
Respiratory: Respiratory effort normal and Lungs clear to auscul.
GI: Soft
Neuro/Psych: AO x 3
Data Reviewed
-
Date of Service: February 11, 2024
EKG: Other (Tele: SR 70s, brief SVT)
Labs: Labs Reviewed by me
--- NOTE | 2024-02-11 08:29 | PN.DE.MGMTRT ---
Insulin Management
- -
02/11/2024: Diabetes Management F/U
Patient admitted on 01/24 with abdominal pain and nausea, found to have bowel obstruction. Diabetes Consult requested on 02/03 for TPN induced Hyperglycemia.
PMH: HTN, PAF/SVT on Eliquis, Asp PNA, AAA, pulmonary nodules, recurrent SBO, BPH, blood loss anemia, hyponatremia, Iatrogenic fluid overload, COPD, Chronic hypoxic respiratory failure on 4L home oxygen, and pre-Diabetes with an A1C of 6.0%. was
started on Lantus 5 units in AM and low corrective for persistent hyperglycemia.
Pt awake, alert, resting up in bed, pleasant and offers no complaints, able to discuss blood sugar control.
POD #10 ex lap with SBR and extensive MURIEL. Discussed with patient A1C indicates pre diabetes.
Off TPN 02/08 and Lantus discontinued, now on moderate corrective only. Diet advance to low residue, pt tolerating well.
Glucose stable, range of 93 to 122 with fasting 91 this AM
Will make no change to current regimen, Cont moderate corrective insulin AC.
Will follow for further needed adjustments.
Diabetes History
- -
Type of Diabetes: 2
Pre-Admission Diabetes Regimen
02/11/24
05:07
Creatinine 1.0
Lab Results
Hemoglobin A1c 6.0 % (4.0-5.6) H 02/01/24 04:42
Insulin Pump Settings
IP Diabetes Regimen
02/10/24 02/10/24 02/10/24
11:52 16:21 21:22
Glucose
POC Glucose 122 H 114 H 122 H
02/11/24 02/11/24
05:07 07:36
Glucose 91
POC Glucose 93
Meal type: Dinner
Meal type: Lunch
Amount consumed: 100%
Amount consumed: 100%
Patient Education
--- NOTE | 2024-02-11 08:39 | W.PN.GS2 ---
Today's Communication / Plan
-
LRD
Assessment / Plan
-
Assessment: 83-year-old male with h/o Afib and COPD on 4L home O2 presenting with recurrent small bowel obstruction which did not resolve with medical management alone now POD#10 ex lap with SBR and extensive MURIEL
AFVSS
Following expected course post operatively
Acute on chronic anemia, h/h stable but slight downtrend s/p 2 units of pRBC's 02/09
TPN completed on 02/08
+flatus/stools, distention much improved
--Continue LRD
--Pain control: Tylenol and Tramadol
--Cardiology following, continue heparin gtt until reassured h/h stable then to resume po eliquis
--OOB/Ambulate. PT/OT following post operatively.
--Medical management as per primary service
Tentatively ready for d/c tomorrow if h/h remains stable
Subjective Data
-
Date of Service: February 11, 2024
Patient seen and examined at bedside. Eating pancakes. Denies pain. Notes he has been passing a lot of flatus with BM's as well. Denies n/v. Discouraged that he is still in the hospital.
Objective Data
-
Intake and Output
02/10/24 02/11/24 02/12/24
06:59 06:59 06:59
Intake Total 900 / 900 2049
Output Total 400 / 400 650 / 650
Balance 500 / 500 1400 / 1400
Intake:
Oral fluids 900 / 900 1020 / 1020
IV fluids (Total) 30 / 30
Blood products 500 / 500
Blood Product Amount Infused ( 500 / 500
mL)
Packed Rbc Leukoreduced Unit 250 / 250
[id number]
Packed Rbc Leukoreduced Unit 250 / 250
[id number]
Output:
Urine, Voided 400 / 400 650 / 650
Other:
Number of approximated SMALL 1
amounts of urine
Number of approximated MODERATE 1
amounts of urine
Number of unmeasured liquid
stools
Rectum 1
Vital Signs
Temp Pulse Resp BP Pulse Ox
98.2 F 70 14 136/65 95
02/11/24 07:23 02/11/24 07:52 02/11/24 07:52 02/11/24 06:00 02/11/24 00:00
Lab Results
02/11/24 05:07
02/11/24 05:07
Calcium 8.3 mg/dl (8.4-10.2) L 02/11/24 05:07
Phosphorus 4.3 mg/dl (2.5-4.5) 02/10/24 05:13
Magnesium 1.9 mg/dl (1.6-2.3) 02/11/24 05:07
Total Bilirubin 0.7 mg/dl (0.2-1.3) 02/07/24 03:00
AST 35 U/L (17-59) 02/07/24 03:00
ALT 66 U/L (0-50) H 02/07/24 03:00
Alkaline Phosphatase 68 U/L (38-126) 02/07/24 03:00
Total Protein 4.9 g/dl (6.3-8.2) L 02/07/24 03:00
Albumin 2.3 g/dl (3.5-5.0) L 02/07/24 03:00
Physical Exam
-
Gen: NAD
Abd: soft, NT, mildly distended (improved), non-peritoneal, incision c/d/i - no erythema, ecchymosis or drainage
[2024-02-11] MEDS: MUCINEX 600 MG PO ×2 (08:42→19:56)
[2024-02-11] MEDS: PACERONE 200 MG PO ×2 (08:42→19:56)
[2024-02-11] MEDS: ERYTHROMYCIN 0.5% OPHTHALMIC OINTMENT 1 APPLIC OPHTH ×3 (08:43→21:39)
[2024-02-11] MEDS: NSS (PRESERVATIVE FREE) 10 ML IV (08:44)
[2024-02-11] MEDS: REFRESH EYE DROPS (PF) 1 DROPS OPHTH ×4 (08:44→21:39)
[2024-02-11] MEDS: PROTONIX IV 40 MG IV (08:44)
[2024-02-11 10:04] LABS: Iron 49 ug/dl (49-181)
[2024-02-11 10:13] LABS: Percent Saturation 27 % (20-50); Total Iron Binding Capacity 177 ug/dl (261-462)
[2024-02-11 11:38] LABS: Folate 13.3 ng/ml (2.76-20); Vitamin B12 545 pg/ml (239-931)
[2024-02-11 12:23] LABS: Glucose - Point of Care 152 mg/dl (70-99)
[2024-02-11] MEDS: MIRALAX PO (12:35)
[2024-02-11] MEDS: NOVOLOG FLEXPEN-MODERATE RESISTANCE 1 UNITS SC (12:36)
[2024-02-11 13:15] LABS: APTT 61.8 Sec (23.4-35.0)
[2024-02-11] MEDS: FEOSOL 325 MG PO (15:47)
--- NOTE | 2024-02-11 17:00 | CM ---
Patient with Dx recurrent SBO who is s/p Ex lap with SBR and MURIEL, pleural effusions, hematuria, anemia s/p transfusions. O2 4L. Receiving heparin gtt. Low residue diet. PT 02/09 recommends SNF vs Home PT. OT 02/07 recommends HH.
As per prior CM notes, patient has home O2 in place.
Plan home with [facility] when medically ready.
[2024-02-11 17:57] LABS: Glucose - Point of Care 136 mg/dl (70-99)
[2024-02-11] MEDS: FLOMAX 0.4 MG PO (18:21)
[2024-02-11 20:18] LABS: APTT 60.2 Sec (23.4-35.0)
[2024-02-11 21:21] LABS: Urine Albumin Negative (Neg - Trace); Urine Bilirubin Negative (Negative); Urine Character Clear (Clear); Urine Color Yellow; Urine Glucose Negative (Negative); Urine Ketone Negative (Negative); Urine Leukocyte Negative (Negative); Urine Nitrite Negative (Negative); Urine Occult Blood Negative (Negative); Urine Specific Gravity 1.015 (<1.030); Urine Urobilinogen 3+ (Neg - 1+)
[2024-02-11] MEDS: PROSCAR 5 MG PO (21:40)
[2024-02-11 22:36] LABS: Glucose - Point of Care 155 mg/dl (70-99)
--- NOTE | 2024-02-11 22:56 | PTCARENOTE ---
Tele monitor alarming... HR 144. Upon entering pt room, pt was attempting to place the cap of the urinal and unable to do so and getting frustrated. Denies any chest pain or sob. Pt reports feeling 'chest congestion and a flutter in his hands'. ACCOUNTANT CLERK
Marycarmen made aware that pt takes PO Amio. EKG obtained showing SVT, heart rates 140s. Order for IV Amio received. Pt updated. Pt feels discouraged since he stated he was hoping to be discharged tomorrow.
[2024-02-11] MEDS: CORDARONE 518 MG IV (23:01)
[2024-02-12] VITALS (13 sets, daily range): BP systolic 106–154; BP diastolic 55–84; PULSE 71–77; O2SAT 96; BMI 19.4
[2024-02-12 03:54] LABS: % Basophils 0.4 % (0-2); % Eosinophils 0.9 % (0-6); % Immature Granulocytes 1.1 % (0-0.5); % Lymphocytes 16.1 % (20.5-51.1); % Monocytes 7.4 % (1.7-9.3); % Neutrophils 74.1 % (42.2-75.2); Absolute Eosinophils 0.1 10^3/uL (0-0.7); Absolute Immature Granulocytes 0.1 10^3/uL (0-0.05); Absolute Lymphocytes 1.6 10^3/uL (1.2-3.4); Absolute Monocytes 0.7 10^3/uL (0.1-0.6); Absolute Neutrophils 7.1 10^3/uL (1.4-6.5); Hematocrit 26.9 % (39.0-52.0); Hemoglobin 9.1 g/dL (13.0-18.0); Mean Corp Hgb Conc. 33.8 g/dL (33.0-37.0); Mean Corpuscular Hgb 30.7 pg (27.0-31.0); Mean Corpuscular Volume 90.9 fL (80.0-94.0); Mean Platelet Volume 9.7 fL (7.4-10.4); Nucleated Red Blood Cells % 0 % (-); Platelet Count 339 10^3/uL (130-400); Red Blood Cell Count 2.96 10^6/uL (4.70-6.10); Red Cell Dist. Width 14.4 % (11.5-14.5); White Blood Cell Count 9.6 10^3/uL (4.8-10.8)
[2024-02-12 04:17] LABS: Blood Urea Nitrogen 20 mg/dl (9-20); Calcium 7.8 mg/dl (8.4-10.2); Carbon Dioxide 28 mmol/L (22-30); Chloride 102 mmol/L (98-107); Estimated Creatinine Clearance 55 ml/min; Glucose 108 mg/dl (70-99); Potassium 3.9 mmol/L (3.5-5.1); Sodium 133 mmol/L (135-145); eGFR > 60.00
[2024-02-12 05:18] LABS: APTT 195.7 Sec (23.4-35.0)
--- NOTE | 2024-02-12 07:11 | W.PN.HOSP.TC ---
Today's Communication/Plan
-
discharge
Assessment / Plan
Assessment / Plan
Physical Exam
General: Not in acute distress
HEENT: Normocephalic
Respiratory: Clear to Auscultation Bilaterally stable respiratory status on 4L
Cardiac: S1/S2 and Regular Rhythm
GI: Soft, Normal Bowel Sounds, mild tenderness, non distended
Musculoskeletal: No Cyanosis and No Edema
Skin: Warm. Dry.
Neuro: AAO x 3
Psych: Calm

Assessment/Plan
83-year-old male past medical history of recurrent small bowel obstruction, aspiration pneumonia, iatrogenic fluid overload, hypertension, paroxysmal atrial fibrillation/SVT on Eliquis, blood loss anemia, hyponatremia, COPD, chronic hypoxic
respiratory failure on 4L, home oxygen, BPH, abdominal aortic aneurysm, pulmonary nodules, presenting with abdominal pain and nausea.
CT abdomen pelvis showed high-grade small bowel obstruction, transition point in the central abdomen where there is some twisting of the abdominal mesentery potentially secondary to internal hernia. Closed-loop obstruction difficult to completely
exclude.
#Recurrent high grade small bowel obstruction likely from hernia
#Leukocytosis -- resolved
-SBFT 01/27 appreciated complete SBO, NGT decompression started 01/27 as per surgery
-surgery eval appreciated PICC TPN started
-01/31 ex lap with SBR and extensive MURIEL, transferred from IVU to IMU post-op care
-Diet gradually advanced to Low residue tolerating
-TPN completed 02/08
#New Small Bilateral Pleural Effusions on CXR from 02/07/24
-Continue to monitor
-stable respiratory status baseline 4L
-outpt follow up CXR in 1 month recommended.
#Hematuria
-RBCs noted on UA from 02/07/24
-follow up repeat noted resolution 02/10
#Normocytic Anemia
-Hgb dropped to 6.8 on 02/10/24 morning, responded well to 2PRBC transfusion post-transfusion Hgb 9.8
-Possible combination acute blood loss anemia of chronic disease (iron level borderline normal low w/ associate low TIBC ferritin level pending)
-started iron supplement
-B12 Folate wnl
#Hyperglycemia 2/2 TPN
-A1c appreciated prediabetes 6.0
-Diabetes DIRECTOR OF RECREATION THERAPY consulted, evaluation and recommendations appreciated
-treated with insulin, insulin requirement since improved following completion TPN, requiring few/minimal correction
#mild hyponatremia
-Monitor BMP
#chronic hypoxic respiratory insufficiency [correction to prior documentation] pt reports baseline oxygen supplementation 4L, currently baseline
#History of COPD not in acute exacerbation-
#Acute on chronic resp failure at one point 8L since weaned down to 5L
#Atelectasis
incentive spirometry
-continue supplemental oxygen to keep sat >=92%
-Wean as tolerated
# Primary HTN
-monitor and titrate antihypertensive regimen as necessary
-Hydralazine prn
#Paroxysmal atrial fib
#Developed Afib RVR 01/28
-transferred to IVU 01/28
-Eliquis held for surgical intervention, hep gtt started, held d/t hgb drop later resumed
-Scheduled metoprolol IV switched to cardizem gtt as per Cardio, later switched to Amio gtt 01/29
-Status post IV Amiodarone Drip, now switched to PO 200mg bid on 02/07/24
02/10-02/11 Overnight breakthrough atrial tachycardia/flutter resolved with amio IV bolus
Cardio eval appreciated, amio gtt completed, cont Amio BID eventual transition to Daily starting Feb 20, potential stopping Amio in 6-12 wks
#reported Vtach 01/27/24
cardio eval appreciated AT at 170 bpm 01/26, 16 sec AT 01/27
#Benign prostatic hypertrophy
#Acute retention
Davis started 01/27 later discontinued/passed trial of void
Flomax Finasteride restarted with improvement in oral intake, tolerating diet
MARNIE likely d/t retention and possibly prerenal d/t poor oral intake
-resolved with Davis and start TPN (Davis and TPN since completed/discontinued)
#AAA
Outpatient monitoring
#History of Mohs Surgery (as per patient) involving right eye tear ducts
-Right eye lower eyelid with edema and fluid
-Dr Evans discussed with on-call electrolytic etcher Dr. Seema Medina February 04, 2024 and per discussion started lubrication with Artificial Tears as well as Erythromycin ointment. Avoidance patient's home steroid eye drops and follow-up
with electrolytic etcher outpatient were recommended
History of aspiration pneumonia
History of iatrogenic fluid overload
History of blood loss anemia
BPH
Pulmonary nodules
#DVT prophylaxis
-Heparin Drip
# CODE STATUS
-Full code
Medically stable for discharge home with home services and outpatient follow up recommendations.
Discussed with patient at bedside and patient's Estrella over phone
Total Time Preparing Discharge ___60____ minutes including examination of the patient, summary of the hospital stay, instructions for continuing care to all relevant caregivers; and preparation of discharge records, prescriptions, and referral
forms if necessary.
Anticipated Discharge: Today
Subjective/Interval History
-
Date of Service: February 12, 2024
Seen and examined at bedside in no acute distress sitting up comfortably in bed. Overnight events noted for reported SVT (atrial tachycardia/flutter per Cardiology review) resolved with amiodarone IV bolus. Cardio eval appreciated stable for
discharge today on oral amiodarone. Patient reports feeling well. Eager to go home.
Objective Data
-
Labs:
Laboratory Results
02/11/24 02/12/24 02/12/24
19:54 03:08 12:35
WBC 9.6
Hgb 9.1 L
Hct 26.9 L
Plt Count 339
APTT 60.2 H 195.7 H* Pending
Sodium 133 L
Potassium 3.9
Chloride 102
Carbon Dioxide 28
BUN 20
Creatinine 0.9
Glucose 108 H
Calcium 7.8 L
Vital Signs:
Vital Signs
Temp Pulse Resp BP Pulse Ox
98.1 F 64 13 134/69 96
02/12/24 03:15 02/12/24 06:00 02/12/24 06:00 02/12/24 06:00 02/11/24 21:43
I&O
02/11/24 02/12/24 02/13/24
06:59 06:59 06:59
Intake Total 2049 240 / 240
Output Total 650 / 650 2024
Balance 1400 / 1400 -1785 / -1785
[2024-02-12] MEDS: SYMBICORT 160/4.5 MCG INHALER 2 PUFF INH (07:18)
[2024-02-12] MEDS: SPIRIVA RESPIMAT 2.5 MCG 2 PUFF INH (07:18)
[2024-02-12 07:36] LABS: Glucose - Point of Care 134 mg/dl (70-99)
[2024-02-12] MEDS: NOVOLOG FLEXPEN-MODERATE RESISTANCE SC ×3 (07:37→16:43)
--- NOTE | 2024-02-12 08:08 | W.PN.CD ---
Today's Communication / Plan
-
-
Doing well
Stop IV amio at end of bag or sooner
Continue Amio 200 BID through February 19 and then on Feb 20 go to Amio 200 one time a day
Plan on stopping Amio in 6-12 weeks
Resume Eliquis when OK with hospitalist and surgery
F/u with Dr. Garcia (or one of our bible worker) in 6-8 weeks => our office will reach out to him
Cardiology will sign off
Impression / Plan
-
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
oxygen and prior small bowel obstructions presented with abdominal pain and found to have SBO.
SBO:
-Status-post ex lap/lysis of adhesions/small bowel resection 02/01/2024.
-doing well
Anemia: acute on chronic post op
-no obvious bleeding
-pRBC (2 units) transfusion 02/10/2024
Paroxysmal atrial fibrillation and paroxysmal Atrial tachycardia (likely also flutter (likely typical), paroxysmal
-continue amiodarone for 6-8 weeks)
- Had about 2 hour breakthrough yesterday night (AT/Flutter 150 bpm)
- Resume Eliquis when OK with medicine and surgery
HTN, with chronic orthostatic hypotension, stable
Non-obstructive CAD, stable without chest pain
AAA
Dyslipidemia
COPD on O2
Subjective:
He denies CP or palps.
Physical Exam
Vital Signs/Labs
Vital Signs
Temp Pulse Resp BP Pulse Ox
98.4 F 64 17 134/69 94
02/12/24 07:53 02/12/24 07:22 02/12/24 07:22 02/12/24 06:00 02/12/24 07:22
02/11/24 02/12/24 02/13/24
06:59 06:59 06:59
Actual Weight 64.4 kg 64.7 kg
02/12/24 03:08
02/12/24 03:08
APTT 195.7 Sec (23.4-35.0) H* 02/12/24 03:08
Magnesium 1.9 mg/dl (1.6-2.3) 02/11/24 05:07
Triglycerides 78 mg/dl (10-149) 02/04/24 05:08
01/28/24
23:00
Gkt-S-Gzosbuzoiwb Pept 3110
Physical Exam
Constitutional: No acute distress
EENT: Anicteric
Cardiovascular: Rhythm & rate is regular and Pedal edema is absent
Respiratory: Respiratory effort normal and Lungs clear to auscul.
GI: Soft and Distention absent
Neuro/Psych: AO x 3
Data Reviewed
-
Date of Service: February 12, 2024
Medical Decision Making: Reviewed Test Results (tele about 2 hours of AT (likely flutter given rate at 150) yesterday night. Now sinus mid 60s)
Total Time Spent with Patient (in minutes): 55 min spent reviewing records, counseling pt, speaking with nurses, etc
--- NOTE | 2024-02-12 08:47 | PN.DE.MGMTRT ---
Insulin Management
- -
02/12/2024: Diabetes Management Follow up
Patient admitted on 01/24 with abdominal pain and nausea, found to have bowel obstruction. Diabetes Consult requested on 02/03 for TPN induced Hyperglycemia.
PMH: HTN, PAF/SVT on Eliquis, Asp PNA, AAA, pulmonary nodules, recurrent SBO, BPH, blood loss anemia, hyponatremia, Iatrogenic fluid overload, COPD, Chronic hypoxic respiratory failure on 4L home oxygen, and pre-Diabetes with an A1C of 6.0%. was
started on Lantus 5 units in AM and low corrective for persistent hyperglycemia.
Pt awake, alert, out of bed, pleasant and offers no complaints, able to discuss blood sugar control.
POD #11 ex lap with SBR and extensive MURIEL. Discussed with patient A1C indicates pre diabetes.
Off TPN 02/08 and Lantus discontinued, now on moderate corrective only. Diet advance to low residue, pt tolerating well.
Glucose stable, range of 108 to 155 with fasting 108 this AM
Will make no change to current regimen, Cont moderate corrective insulin AC.
Will follow for further needed adjustments.
Diabetes History
- -
Pre-Admission Diabetes Regimen
02/12/24
03:08
Creatinine 0.9
Lab Results
Hemoglobin A1c 6.0 % (4.0-5.6) H 02/01/24 04:42
Insulin Pump Settings
IP Diabetes Regimen
02/11/24 02/11/24 02/11/24
12:12 17:46 22:23
Glucose
POC Glucose 152 H 136 H 155 H
02/12/24 02/12/24
03:08 07:25
Glucose 108 H
POC Glucose 134 H
Meal type: Breakfast
Amount consumed: 100%
Patient Education
--- NOTE | 2024-02-12 09:00 | PTCARENOTE ---
Patient received from night stocker. Patient resting comfortably in bed. Patient back into SVT overnight, placed back Amio gtt. Per Cardiology, keep gtt running until bag finishes or discharged. No complaints of pain at this time. AAO, VSS.
Currently on 4L N/C, usually stays between 2-4L. Heparin gtt at 15.5 mL/hr through IV, probable transition to Eliquis today. Surgical site intact. Will get OOB to chair today. Possible D/C today. Call trujillo in reach.
[2024-02-12] MEDS: REFRESH EYE DROPS (PF) 1 DROPS OPHTH ×3 (09:07→17:08)
[2024-02-12] MEDS: NSS (PRESERVATIVE FREE) 10 ML IV (09:07)
[2024-02-12] MEDS: MUCINEX 600 MG PO (09:07)
[2024-02-12] MEDS: PROTONIX IV 40 MG IV (09:07)
[2024-02-12] MEDS: MIRALAX 17 GRAMS PO (09:07)
[2024-02-12] MEDS: FEOSOL 325 MG PO (09:08)
[2024-02-12] MEDS: PACERONE 200 MG PO ×2 (09:08→18:14)
--- NOTE | 2024-02-12 09:17 | W.PN.GS2 ---
Addendum entered and electronically signed by Bryson Byrnes MD 02/12/24 10:16:
Patient seen.
No reports of worsening abdominal pain, distention, nausea, vomiting. Continues to pass flatus and stools.
Gen: NAD
Abd: soft, NT, mild distension (improved), non-peritoneal, incision c/d/i - no erythema, ecchymosis, or drainage
Patient is an 83-year-old male with h/o Afib and COPD on 4L home O2 presenting with recurrent small bowel obstruction which did not resolve with medical management alone now POD#11 ex lap with SBR and extensive MURIEL
AFVSS
Following expected course post operatively
Acute on chronic anemia, h/h stable but slight downtrend s/p 2 units of pRBC's 7/21, stable
TPN completed on 7
+flatus/stools, distention much improved
--Continue LRD
--Pain control: Tylenol and Tramadol
--Cardiology following, OK for PO Eliquis
--OOB/Ambulate. PT/OT following post operatively.
--Medical management as per primary service
-- OK for DC from surgical standpoint
-- DC instructions updated, no heavy lifting for 4- weeks post-op
-- F/u outpatient in 2-4 weeks
Original Note:
Today's Communication / Plan
-
*Continue close monitoring
Assessment / Plan
-
Assessment: 83-year-old male with h/o Afib and COPD on 4L home O2 presenting with recurrent small bowel obstruction which did not resolve with medical management alone now POD#11 ex lap with SBR and extensive MURIEL
AFVSS
Following expected course post operatively
Acute on chronic anemia, h/h stable but slight downtrend s/p 2 units of pRBC's 7/21
TPN completed on 7
+flatus/stools, distention much improved
--Continue LRD
--Pain control: Tylenol and Tramadol
--Cardiology following, continue heparin gtt until reassured h/h stable then to resume po eliquis
--OOB/Ambulate. PT/OT following post operatively.
--Medical management as per primary service
Tentatively ready for d/c tomorrow if h/h remains stable
Time Spent
Total Time Spent with Patient (in minutes): ~5 min
Subjective Data
-
Date of Service: February 12, 2024
Pt was seen and evaluated this morning at bedside with attending physician .
A-Fib episode O/N Reported
Today No complains / Feeling well
Pain under control
Passing flatus + / BM +
Objective Data
-
Intake and Output
02/11/24 02/12/24 02/13/24
06:59 06:59 06:59
Intake Total 0 / 2049 240 / 240
Output Total 650 / 650 2024 150 / 150
Balance 1400 / 1400 -1785 / -1785 -150 / -150
Intake:
Oral fluids 1020 / 1020 240 / 240
IV fluids (Total) 30 / 30
Blood products 500 / 500
Blood Product Amount Infused ( 500 / 500
mL)
Packed Rbc Leukoreduced Unit 250 / 250
[id number]
Packed Rbc Leukoreduced Unit 250 / 250
[id number]
Output:
Urine, Voided 650 / 650 2024 150 / 150
Other:
Number of approximated SMALL 1 1
amounts of urine
Number of approximated MODERATE 1
amounts of urine
Vital Signs
Temp Pulse Resp BP Pulse Ox
36.9 C 75 17 128/76 94
02/12/24 07:53 02/12/24 09:08 02/12/24 07:22 02/12/24 09:08 02/12/24 07:22
Lab Results
02/12/24 03:08
02/12/24 03:08
Calcium 7.8 mg/dl (8.4-10.2) L 02/12/24 03:08
Phosphorus 4.3 mg/dl (2.5-4.5) 02/10/24 05:13
Magnesium 1.9 mg/dl (1.6-2.3) 02/11/24 05:07
Total Bilirubin 0.7 mg/dl (0.2-1.3) 02/07/24 03:00
AST 35 U/L (17-59) 02/07/24 03:00
ALT 66 U/L (0-50) H 02/07/24 03:00
Alkaline Phosphatase 68 U/L (38-126) 02/07/24 03:00
Total Protein 4.9 g/dl (6.3-8.2) L 02/07/24 03:00
Albumin 2.3 g/dl (3.5-5.0) L 02/07/24 03:00
Physical Exam
-
VITALS: AF VSS
PE:
GEN- AAOx3 / In NAD
ABD- Soft, NonDistended, NO rebound , Rigididity or guarding
No TTP
[2024-02-12] MEDS: ELIQUIS 5 MG PO (09:20)
[2024-02-12] MEDS: ERYTHROMYCIN 0.5% OPHTHALMIC OINTMENT 1 APPLIC OPHTH ×2 (09:21→17:08)
--- NOTE | 2024-02-12 11:15 | CM ---
Addendum entered by Larisa Steward RN 02/12/24 11:21:
Plan home today with [facility].
Original Note:
Met with patient and spoke with Estrella by phone; both agree to discharge home today with [facility] for SN/PT/OT and MATHEMATICAL ENGINEER if available. Offered Caregiver list however says she cannot afford to hire help at home- she thinks she can
assist her with their son helping. IMM completed. & son will transport him home and will bring his portable O2.
Spoke with Asad [facility] JENNIFER; provided clinical update. He does not have a MATHEMATICAL ENGINEER available. He will reach out to the today to discuss his care needs at home.
[2024-02-12 12:00] LABS: Glucose - Point of Care 129 mg/dl (70-99)
[2024-02-12 16:37] LABS: Glucose - Point of Care 149 mg/dl (70-99)
[2024-02-12] MEDS: FLOMAX 0.4 MG PO (17:08)
--- NOTE | 2024-02-12 17:49 | W.DCSUMMARY ---
Discharge Summary
Discharge Data
Date of Admission: 01/25/24
Date of Discharge: 02/12/24
-
Pending Results: No
Discharge Plan
-
Patient Disposition: Home with Home Care
Discharge Diagnosis/Procedures: Small bowel obstruction with exploratory laparotomy for lysis of adhesion with small bowel resection
Normocytic Anemia
Prediabetes
Mild hyponatremia
Chronic hypoxic respiratory insufficiency
COPD
History Hypertension
Paroxysmal atrial fib
Atrial Fibrillation with Rapid Ventricular Rate (resolved)
Atrial Tachycardia/Flutter (resolved)
Benign prostatic hypertrophy
Acute urinary retention (resolved)
Acute Kidney Injury (resolved)
Abdomen Aortic Aneurysm
Pulmonary nodules
Mild Iron Deficiency
Condition: Fair
Diet: Low Fiber
Additional Diets: Daily Ensure Clear Apple recommended (or other Clear flavor) available over the counter
Activity: No strenuous activity
Additional Activity: Do not lift over 15 pounds for the next 4-6 weeks
Driving Restrictions: Not until seen by your Dr
Bathing Restrictions: OK to Shower
Blood Work: Please repeat CBC and BMP with primary care provider in 2-3 days of discharge.
Others Tests: Please repeat CXR in 1 month of discharge with primary care provider to follow up on small pleural effusions noted during your stay here.
Other Services: VN, PT and OT
Wound Care: Ok to shower and wash your incision gently with soap and water. Allow the glue to flake off on its own over the next 2-3 weeks.
Contact your surgeon if you have fever >100.5, worsening abdominal pain or nausea with vomiting
Activity Restrictions/Additional Instructions:
Please follow up with your primary care provider and ophthalmology in 1 week of discharge, Surgery in 2-4 weeks of discharge, and keep your appointment with Cardiology.
Amiodarone has been prescribed for atrial fibrillation/flutter/tachycardia and is recommended to be taken twice a day through February 19 then reduce to daily starting Feb 20. Follow up with Cardiology to determine when Amiodarone can be discontinued
entirely (anticipated to be on Amiodarone for total 6-12 weeks).
Iron supplement has been prescribed for mild iron deficiency with associate anemia
Recommended to continue to hold home Coreg and Enalapril for now due to relatively low pressures. Keep a daily log of your blood pressures at home and follow up with primary care provider and/or cardiology to determine when safe to resume or if
unnecessary to resume.
Please take medications as prescribed/recommended and follow up with primary care provider and/or other healthcare provider involved in your care for refills and/or further adjustment to your medication regimen as necessary.
Instructions: Low Fiber Diet
Referrals:
[facility] [Other]
Neal Harmon MD [Family Provider] - in one week
Chrissy Jean NP [Specified Professional Personl] - 03/26/24 2:40 pm
Bryson Byrnes MD [Active] - in two to four weeks
Prescriptions:
New
erythromycin 5 mg/gram (0.5 %) Ointment
1 applic ophthalmic (eye) TID Qty: 3.5 0RF
polyethylene glycol 3350 [HealthyLax] 17 gram Powder In Packet
17 g PO DAILYPRN PRN (Reason: constipation) Qty: 14 0RF
ferrous sulfate [FeroSul] 325 mg (65 mg iron) Tablet
325 mg PO DAILY 30 Days Qty: 30 0RF
Refresh Classic (PF) 1.4-0.6 % Dropperette
1 drp ophthalmic (eye) QID Qty: 50 0RF
amiodarone 200 mg Tablet
200 mg PO BID Qty: 90 0RF
Rx Instructions:
Twice a day through February 19 then reduce to daily starting Feb 20
Continued
tamsulosin 0.4 MG capsule
0.4 mg PO HS
finasteride 5 MG tablet
5 mg PO HS
PreserVision AREDS-2 1 EACH capsule
1 ea PO BID
Eliquis 5 MG tablet
5 mg PO BID Qty: 0 0RF
albuterol sulfate 2.5 mg /3 mL (0.083 %) Solution For Nebulization
2.5 mg INHALATION R Q6HPRN PRN (Reason: sob)
Trelegy Ellipta 200-62.5-25 mcg Blister With Device
1 inh INHALATION R DAILY
rosuvastatin 40 mg tablet
40 mg PO QPM
ezetimibe 10 mg Tablet
10 mg PO QPM
Held
enalapril maleate 5 mg Tablet
5 mg PO BID
Hold Instructions: Hold due to relatively low pressures. Follow up with primary care provider or cardiology to determine when safe to resume or if unnecessary to resume.
carvedilol 6.25 mg tablet
6.25 mg PO BID
Hold Instructions: Held due to relatively low pressures. Follow up with primary care provider or Cardiology to determine when safe to resume or if unnecessary to resume.
Discharge Orders:
Discharge Patient (As Directed); Ordered 02/12/24
Ordered By: Joellen Hart
Care Plan Goals
Care Plan Goals:
Problem: Readiness for enhanced knowledge related to diagnosis and treatment plan
Goal: Understand your diagnosis and treatment plan needs, including medications if applicable.
Instructions: Know your diagnosis, underlying causes and treatment plan options, including medications if applicable. Consult with your health care team to learn about your diagnosis and treatment plan, including medications if applicable.
Discharge Date and Time
Print Language: IRISH
--- NOTE | 2024-02-12 19:18 | PTCARENOTE ---
Patient discharged to home via and son. Patient taken to discharge area via wheel chair. Discharge instructions discussed with patient and , all questions answered. Patient left with all known belongings.
== END 2024-02-12 18:45 | disposition home or self-care (01) | DRG 329 ==
LOC: IMU 23:34
PROVIDERS: Clinical Nurse Specialist Family Health; Emergency Medicine; Internal Medicine; Internal Medicine Cardiovascular Disease; Nurse Practitioner Acute Care; Nurse Practitioner Family; Nurse Practitioner Gerontology; Registered Nurse; Surgery; ADMITTING PHYSICIAN Hospitalist; ATTENDING PHYSICIAN Internal Medicine; CONSULT PHYSICIAN Internal Medicine Cardiovascular Disease; CONSULT PHYSICIAN Surgery; EMERGENCY PHYSICIAN Emergency Medicine; FAMILY PHYSICIAN Family Medicine
PROC: 0DN80ZZ Release Small Intestine, Open Approach (ICD-10-PCS; 2024-02-01)
PROC: 3E0M05Z Introduction of Adhesion Barrier into Peritoneal Cavity, Open Approach (ICD-10-PCS; 2024-02-01)
PROC: 0DQV0ZZ Repair Mesentery, Open Approach (ICD-10-PCS; 2024-02-01)
PROC: 0DB80ZZ Excision of Small Intestine, Open Approach (ICD-10-PCS; 2024-02-01)
DX: K56.52 Intestinal adhesions [bands] with complete obstruction (principal); J96.21 Acute and chronic respiratory failure with hypoxia; E46 Unspecified protein-calorie malnutrition; K46.0 Unspecified abdominal hernia with obstruction, without gangrene; E87.1 Hypo-osmolality and hyponatremia; I47.19 Other supraventricular tachycardia; N17.9 Acute kidney failure, unspecified; Z68.1 Body mass index [BMI] 19.9 or less, adult; J98.11 Atelectasis; J90 Pleural effusion, not elsewhere classified; K56.609 Unspecified intestinal obstruction, unspecified as to partial versus complete obstruction; I27.20 Pulmonary hypertension, unspecified; I10 Essential (primary) hypertension; I71.43 Infrarenal abdominal aortic aneurysm, without rupture; J44.9 Chronic obstructive pulmonary disease, unspecified; I35.0 Nonrheumatic aortic (valve) stenosis; D50.9 Iron deficiency anemia, unspecified; Z99.81 Dependence on supplemental oxygen; I48.0 Paroxysmal atrial fibrillation; I49.3 Ventricular premature depolarization; I25.10 Atherosclerotic heart disease of native coronary artery without angina pectoris; K21.9 Gastro-esophageal reflux disease without esophagitis; I95.1 Orthostatic hypotension; N40.1 Benign prostatic hyperplasia with lower urinary tract symptoms; R33.8 Other retention of urine; R73.03 Prediabetes; R91.8 Other nonspecific abnormal finding of lung field; Z79.01 Long term (current) use of anticoagulants; Z79.899 Other long term (current) drug therapy; Z90.49 Acquired absence of other specified parts of digestive tract; Z87.891 Personal history of nicotine dependence; Z87.19 Personal history of other diseases of the digestive system
CPT/HCPCS: 88307; 71045; 71046; 74018; 74177; 74250; 80048; 80053; 81003; 81015; 82607; 82728; 82746; 82962; 83036; 83540; 83550; 83605; 83690; 83735; 83880; 84100; 84478; 85014; 85018; 85025; 85027; 85730; 86850; 86900; 86901; 86920; 93005; 94640; 96361; 96374; 96375; 97116; 97162; 97167; 97530; 97535; 99285; C1776; P9016; Q9967

== ENCOUNTER 2024-03-12 20:04 | Inpatient (IN) | payer OTHER, SELFPAY ==
[2024-03-12] VITALS (14 sets, daily range): BP systolic 114–180; BP diastolic 73–97; BMI 18.0; BMI 17.7
[2024-03-12 13:12] LABS: % Basophils 0.4 % (0-2); % Eosinophils 1.1 % (0-6); % Immature Granulocytes 0.5 % (0-0.5); % Lymphocytes 12.7 % (20.5-51.1); % Monocytes 7.5 % (1.7-9.3); % Neutrophils 77.8 % (42.2-75.2); Absolute Eosinophils 0.1 10^3/uL (0-0.7); Absolute Immature Granulocytes 0.1 10^3/uL (0-0.05); Absolute Lymphocytes 1.3 10^3/uL (1.2-3.4); Absolute Monocytes 0.8 10^3/uL (0.1-0.6); Hematocrit 34.4 % (39.0-52.0); Hemoglobin 11.3 g/dL (13.0-18.0); Mean Corp Hgb Conc. 32.8 g/dL (33.0-37.0); Mean Corpuscular Volume 88.2 fL (80.0-94.0); Mean Platelet Volume 9.1 fL (7.4-10.4); Nucleated Red Blood Cells % 0 % (-); Platelet Count 238 10^3/uL (130-400); Red Cell Dist. Width 12.9 % (11.5-14.5); White Blood Cell Count 10.3 10^3/uL (4.8-10.8)
[2024-03-12 13:31] LABS: ALT (SGPT) 54 U/L (0-50); AST (SGOT) 58 U/L (17-59); Albumin 3.7 g/dl (3.5-5.0); Alkaline Phosphatase 76 U/L (38-126); Blood Urea Nitrogen 14 mg/dl (9-20); Calcium 8.9 mg/dl (8.4-10.2); Carbon Dioxide 28 mmol/L (22-30); Chloride 96 mmol/L (98-107); Estimated Creatinine Clearance 51 ml/min; Glucose 126 mg/dl (70-99); Potassium 3.9 mmol/L (3.5-5.1); Sodium 130 mmol/L (135-145); Total Bilirubin 0.5 mg/dl (0.2-1.3); Total Protein 6.4 g/dl (6.3-8.2); eGFR > 60.00
--- NOTE | 2024-03-12 14:06 | ED.GENMED ---
History of Present Illness
General
Chief Complaint: Heart Rate Problem
Time Seen by Provider: 03/12/24 13:59
History of Present Illness
History of Present Illness:
Patient is an 83-year-old male with past medical history of atrial fibrillation, hypertension, hyperlipidemia, history of AAA, COPD on chronic oxygen, diverticulosis/diverticulitis, history of prior bowel obstruction, macular degeneration, and
history of colonic resection, here today for evaluation of palpitations that began this morning. Palpitations started and lasted for approximately 1 hour. The patient did take an amiodarone pill and has since had resolution of symptoms. He did
note mild dizziness associated with the palpitations as well as slight left-sided chest discomfort. He still endorses mild chest discomfort. No fevers. No vomiting. No abdominal discomfort. Patient reports a longstanding history of atrial
fibrillation and has had two episodes this past week. He does currently follow with cardiology.
Past History
Past History
ED Past Medical History: Arrthythmia (Atrial fibrillation), Cancer (Skin), COPD (Wears Home Oxygen at 3 liters), GERD, HTN, Hypercholesterolemia and Other (AAA that they are watching, diverticulitis, chronic back pain, Bowel obstruction,
Bronchiolitis obliterans Organizing Pneumonia, Urinary retention, Macular degeneration); Negative NIDDM
ED Past Surgical History: Bowel resection (Colon resection)
Social History
Tobacco: Former smoker
Alcohol: None
Personal:
Living: with family
Employment: Retired
Review of Systems
Review of Systems
All Other Systems: ROS reviewed and negative except as documented in HPI and ROS
Phy Exam
Physical Exam
Physical Exam:
GENERAL: Alert , in no apparent distress
EYE: pupils equal and reactive
NECK: Supple, no significant adenopathy.
ENT: o/p clr, mmm.
CARDIAC: Regular rate and rhythm .
LUNGS: Clear breath sounds bilaterally, no acute respiratory distress, no wheezes/rales/rhonchi
ABDOMEN: Soft, without focal tenderness, no r/g, no cvat
NEUROLOGICAL: Alert and oriented, no focal neuro deficits
SKIN: Warm and dry, skin intact.
MUSCULOSKELETAL: No edema, well perfused.
PSYCH: Normal and appropriate interaction.
Course
Orders/Labs/Results
Orders:
Orders
03/12/24
ECG [Electrocardiogram (*1)] Urgent
Reason for Study: Chest Pain
03/12/24 12:45
EKG [Electrocardiogram (*1)] Urgent
Reason for Study: Bradycardia / Tachycardia
EKG- Treatment ONCE
03/12/24 13:02
Complete Blood Count/With Diff Urgent
Comprehensive Metabolic Panel Urgent
Magnesium Urgent
Comment: ADD ON
Phosphorus Urgent
Comment: ADD ON
TSH Reflex To Free T4 Urgent
Comment: ADD ON
03/12/24 14:10
Add On- LAB Urgent
Tests Added?: magnesium, phosphorus, TSH w T4, troponin
03/12/24 14:11
CR Chest - 2 Views Urgent
Comment:
Reason For Exam: tachycardia
03/12/24 14:52
Troponin I Urgent
Comment: ADD ON
03/12/24 16:14
Metoprolol Xl [Toprol Xl] 25 mg PO DAILY ONE
Abnormal Lab Results
03/12/24
13:02
RBC 3.90 L 10^6/uL
(4.70-6.10)
Hgb 11.3 L g/dL
(13.0-18.0)
Hct 34.4 L %
(39.0-52.0)
MCHC 32.8 L g/dL
(33.0-37.0)
Abs Immat Gran (auto) 0.1 H 10^3/uL
(0-0.05)
Absolute Neuts (auto) 8.0 H 10^3/uL
(1.4-6.5)
Absolute Monos (auto) 0.8 H 10^3/uL
(0.1-0.6)
Neutrophils % 77.8 H %
(42.2-75.2)
Lymphocytes % 12.7 L %
(20.5-51.1)
Sodium 130 L mmol/L
(135-145)
Chloride 96 L mmol/L
(98-107)
Glucose 126 H mg/dl
(70-99)
ALT 54 H U/L
(0-50)
03/12/24 13:02
03/12/24 13:02
Vital Signs
Initial and Last Documented VS:
Initial Vital Signs
Temp Pulse Resp BP Pulse Ox
97.7 F 88 14 131/96 99
03/12/24 12:48 03/12/24 12:48 03/12/24 12:48 03/12/24 12:48 03/12/24 12:48
Last Documented Vital Signs
Temp Pulse Resp BP Pulse Ox
97.7 F 70 24 148/87 99
03/12/24 12:48 03/12/24 16:43 03/12/24 15:00 03/12/24 16:43 03/12/24 15:00
MDM/Problems Addressed
Differential Diagnosis Includes:
Patient is an 83-year-old male with past medical history of atrial fibrillation, hypertension, hyperlipidemia, history of AAA, COPD on chronic oxygen, diverticulosis/diverticulitis, history of prior bowel obstruction, macular degeneration, and
history of colonic resection, here today for evaluation of palpitations that began this morning.overall, patient appears very well. Vitals grossly within normal limits aside from a mildly elevated blood pressure. Screening labs were obtained which
reveal a mildly decreased hemoglobin to 11.3 which is grossly consistent with the patient's baseline and actually improved. Sodium 130 which is consistent with the patient's baseline. Chloride 96. Glucose 126. ALT 54. Troponin negative. TSH
normal. An EKG was obtained initially in triage which revealed evidence of SVT with a ventricular rate of 173. A repeat EKG was obtained shortly after which noted resolution of the SVT with normal sinus rhythm with a ventricular rate of 85. Chest
x-ray negative. There is findings of COPD. Patient monitored without recurrence of the tachycardia. Case was discussed with cardiology, Dr. Garcia. Upon record review patient's Coreg was found to be held secondary to low blood pressure.
Cardiology recommends stopping this altogether and adding Toprol-XL 25 mg daily. Cardiology patient is stable that could be okay to be discharged with close outpatient follow-up. Given chest pain we will obtain a second troponin 3 hours after the
initial. Will closely monitor and reassess.
ED Attending Note
-
Portions of this chart may have been created with voice recognition software.� Occasional wrong word or��sound alike� substitutions may have occurred due to the inherent limitations of voice recognition software.
Discharge Plan
Departure
Discharge Problem:
SVT (supraventricular tachycardia), Chest pain
Instructions: Palpitations (DC)
Prescriptions:
New
metoprolol succinate [Toprol XL] 25 mg tablet extended release 24 hr
25 mg PO DAILY 14 Days Qty: 14 0RF
No Action
tamsulosin 0.4 MG capsule
0.4 mg PO HS
finasteride 5 MG tablet
5 mg PO HS
PreserVision AREDS-2 1 EACH capsule
1 ea PO BID
Eliquis 5 MG tablet
5 mg PO BID Qty: 0 0RF
albuterol sulfate 2.5 mg /3 mL (0.083 %) Solution For Nebulization
2.5 mg INHALATION R Q6HPRN PRN (Reason: sob)
Trelegy Ellipta 200-62.5-25 mcg Blister With Device
1 inh INHALATION R DAILY
rosuvastatin 40 mg tablet
40 mg PO QPM
enalapril maleate 5 mg Tablet
5 mg PO BID
ezetimibe 10 mg Tablet
10 mg PO QPM
carvedilol 6.25 mg tablet
6.25 mg PO BID
erythromycin 5 mg/gram (0.5 %) Ointment
1 applic ophthalmic (eye) TID Qty: 3.5 0RF
polyethylene glycol 3350 [HealthyLax] 17 gram Powder In Packet
17 g PO DAILYPRN PRN (Reason: constipation) Qty: 14 0RF
ferrous sulfate [FeroSul] 325 mg (65 mg iron) Tablet
325 mg PO DAILY 30 Days Qty: 30 0RF
Refresh Classic (PF) 1.4-0.6 % Dropperette
1 drp ophthalmic (eye) QID Qty: 50 0RF
amiodarone 200 mg Tablet
200 mg PO BID Qty: 90 0RF
Rx Instructions:
Twice a day through February 19 then reduce to daily starting Feb 20
Referrals:
Neal Harmon MD [Family Provider] - Follow up in 5-7 days
Obey Garcia MD [Active] - Follow up in 5-7 days
Activity Restrictions/Additional Instructions:
Your initial evaluation revealed evidence of SVT which is supraventricular tachycardia. This resolved on its own.
We discussed your case with cardiology who recommends initiation of a medication called metoprolol XL. Begin taking this daily.
Completely stop the medication Coreg (carvedilol).
Monitor your blood pressure. Follow-up closely with your doctor and cardiology. Return for any new, worsening, or concerning symptoms.
Interventions
Interventions:
*Risk Screen - Suicide Last Done: 03/12/24 12:51
*General Assessment Last Done: 03/12/24 12:51
*Neglect/Abuse Screening Last Done: 03/12/24 12:51
ED- Fall Risk Assessment Last Done: 03/12/24 12:52
*ED COVID-19 Vaccine History Last Done: 03/12/24 12:43
ED- Cardiac Assessment Last Done: 03/12/24 12:52
ED- Pulmonary Assessment Last Done: 03/12/24 12:52
Discharge Date and Time
Print Language: INDONESIAN
[2024-03-12 15:32] LABS: Magnesium 2.1 mg/dl (1.6-2.3); Phosphorus 2.7 mg/dl (2.5-4.5)
[2024-03-12 15:36] LABS: Troponin I 0.014 ng/ml
[2024-03-12] MEDS: TOPROL XL 25 MG PO (16:43)
[2024-03-12 17:29] LABS: TSH Reflex To Free T4 1.35 uIU/ml (0.47-4.68)
--- NOTE | 2024-03-12 19:09 | HPS.HSE ---
Family Physician
-
Family Physician: Neal Harmon
Chief Complaint
-
syncope
History of Present Illness
Mr. Cornelio Snyder is a 83 yo man with hx paroxysmal afib on Eliquis (started on amiodarone in January), COPD, chronic hypoxic respiratory failure on 4L, recurrent SBO (recent admission 01/24-02/11 for high grade bowel obstruction s/p ex lap with SBR and
extensive MURIEL 01/31, HTN with chronic orthostatic hypotension, non-obstructive CAD presents to the ER today with palpitations.
Patient was resumed on amiodarone last admission in January after he had an episode of afib with RVR. He stated his orthostatic hypotension got very severe with SBP dropping to 70's and was therefore told to stop the amio (last dose was on 02/20). His
orthostasis improved off of amio. Then this morning while sitting in a chair after breakfast he felt the palpitations. His pulse was measured to be in the 150's. He took an amiodarone and an hour later he remained fast, causing his to bring
him to the ER. His systolic blood pressure was in the 70's during this time.
When asked if he had chest pain, patient stated no. Then stated he had a small ache localized to left lower chest. It is tender when I push there.
No fevers/chills. No headache. No nausea/vomiting/diarrhea. He is eating and drinking well. Breathing stable. No LE swelling.
While in the ER patient converted to sinus rhythm.
Medical History
Past Medical History
Past Medical History: Reports Other
Additional Past Medical History:
AAA
COPD
Hypertension
Coronary artery disease
Hyperlipidemia
Pulmonary hypertension
Iron deficiency anemia
Paroxysmal atrial fibs
BPH
GERD
Past Surgical History: Reports Other
Additional Past Surgical History:
Colectomy
Left eye surgery
Bilateral cataract surgery
small bowel resection and MURIEL 02/01/24
Social History
Tobacco: Former Smoker
Alcohol: None
Drug: None
Personal:
Living: With Family
Family History
Family History: Not pertinent
Allergies / Home Medications
Allergies reflects when Allergies were last updated in [facility].
Home Medications with original date entered in [facility]
Allergy/Medication List:
Allergies
Allergy/AdvReac Type Severity Reaction Status Date / Time
No Known Allergies Allergy Verified 01/25/24 17:53
Home Medications
finasteride 5 mg tablet 5 mg PO HS prostate 03/15/16
tamsulosin 0.4 mg capsule 0.4 mg PO HS Urinary issue 03/15/16
apixaban 5 mg tablet (Eliquis) 5 mg PO BID Blood clot prevention/tx ##0 12/14/21
vit C 250 mg-vit E 90 mg-zinc 40 mg-copper 1 gg-xesbsb-ifkabm capsule (PreserVision AREDS-2) 1 ea PO BID Supplement 12/14/21
albuterol sulfate 2.5 mg/3 mL (0.083 %) solution for nebulization 2.5 mg inhalation R Q6HPRN PRN sob 10/17/22
fluticasone fur. 200 mcg-umeclid 62.5 mcg-vilant 25 mcg inhalat.powder (Trelegy Ellipta) 1 inh inhalation R DAILY sob 10/17/22
rosuvastatin 40 mg tablet 40 mg PO QPM High cholesterol 10/17/22
ezetimibe 10 mg tablet 10 mg PO QPM High Cholesterol 01/25/24
ferrous sulfate 325 mg (65 mg iron) tablet (FeroSul) 325 mg PO DAILY 30 days #30 tabs 02/12/24
erythromycin 5 mg/gram (0.5 %) eye ointment 1 applic RIGHT EYE TIDPRN PRN burning in eye 03/12/24
metoprolol succinate 25 mg tablet,extended release 24 hr (Toprol XL) 25 mg PO DAILY 14 days #14 tabs 03/12/24
polyvinyl alcohol-povidone (PF) 1.4 %-0.6 % eye drops in a dropperette (Refresh Classic (PF)) 1 drp BOTH EYES QIDPRN PRN dry eyes 03/12/24
sennosides 8.6 mg tablet 8.6 mg PO HS 03/12/24
Review of Systems
-
History Source: Patient
A 12 point ROS was completed and negative except as noted: Yes
Physical Exam
Vital Signs
Vital Signs
Temp Pulse Resp BP Pulse Ox
97.7 F 60 17 168/93 100
03/12/24 12:48 03/12/24 19:00 03/12/24 19:00 03/12/24 19:00 03/12/24 19:00
Physical Exam
General: No Apparent Distress
Respiratory: Clear; No Wheezes
Cardiac: S1/S2 and Regular Rhythm
GI: Soft, Non Tender and Other (mid-line surgical scar well healed )
Musculoskeletal: No Edema
Skin: Warm and Dry; No Rash
Neuro: AO x 3
Psych: Calm
Laboratory Results
-
03/12/24 13:02
03/12/24 13:02
Laboratory Results
Total Bilirubin 0.5 mg/dl (0.2-1.3) 03/12/24 13:02
AST 58 U/L (17-59) 03/12/24 13:02
ALT 54 U/L (0-50) H 03/12/24 13:02
Alkaline Phosphatase 76 U/L (38-126) 03/12/24 13:02
Troponin I 0.060 ng/ml H* D 03/12/24 17:48
Data Reviewed
-
Diagnostic Radiology: Report Reviewed by me
Lab Data: Labs Reviewed by me
Impression/Plan
-
Mr. Cornelio Snyder is a 83 yo man with hx paroxysmal afib on Eliquis (started on amiodarone in January), COPD, chronic hypoxic respiratory failure on 4L, recurrent SBO (recent admission 01/24-02/11 for high grade bowel obstruction s/p ex lap with SBR and
extensive MURIEL 01/31, HTN with chronic orthostatic hypotension, non-obstructive CAD presents to the ER today with palpitations associated with left-sided chest discomfort.
Triage VS: T 97.7, P 88, RR 14, BP 131/96, SpO2 99%
LABS: WBC 10.3, Hg 11.3, PLT 238, Na 130, K+ 3.9, Cl 96, Cr 0.9, Glucose 126, Mag 2.1, T. Bili 0.5, AST 58, ALT 54, Alk Phos 76, Trop 0.014--> 0.60, TSH 1.35
EKG: SVT @ [address] depressions in inferior and lateral leads. follow up EKG - NSR @ 85, left axis deiation; compared to prior ST no longer depressed in inferior and lateral leads
CXR: IMPRESSION:
No acute cardiopulmonary process. Chronic obstructive pulmonary disease.
MAR: Metop XL 25mg @ 16:40
TTE 01/05/23
CONCLUSIONS
LV ejection fraction is 60-65%. Wall motion was consistent with conduction
abnormality.
Normal right ventricular size and function.
Mild aortic stenosis; peak/mean gradients of 28/14 mmHg, calculated JOSHUA is 1.4
cm2. Trace aortic regurgitation.
Mild to moderate tricuspid regurgitation. Estimated pulmonary artery pressure
of 45-50 mmHg.
Compared to previous echo on 01/25/2022, slightly progressive tricuspid
regurgitation is noted. PASP has increased (previously 32 mmHg).
Indications:
Nonrheumatic aortic (valve) stenosis, Dyspnea, unspecified
Elevated Troponin
likely non-MT Troponin Elevation 2/2 tachycardia in setting of afib with RVR
-patient describes small ache left lower chest that is reproducible
-will continue to trend Troponin and monitor symptoms
-EKG in AM
Paroxysmal Atrial Fibrillation
Palpitations
-monitor on telemetry
-s/p amio today - will hold further dosing as patient was recently taken off of this medication 2/2 orthostatic hypotension
-cardiology consult to help guide further treatment of afib with balancing of blood pressures
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
-continue DAILY SALES AUDIT CLERK Metop 25mg XL QD
Orthostatic Hypotension
-chronic
-Sid Hose ordered
-PT
Hyponatremia
-urine studies
-fluid restrict for now
Macular Degeneration
-patient had an appointment at 1PM tomorrow with Photoengraving Apprentice for injections, will reschedule
DVT PPx Eliquis
FULL CODE
76 minutes spent on patient evaluation, medical decision making, coordination of care
[2024-03-12] MEDS: ELIQUIS 5 MG PO (20:17)
[2024-03-12] MEDS: ZETIA 10 MG PO (21:31)
[2024-03-12] MEDS: CRESTOR 40 MG PO (21:31)
[2024-03-12] MEDS: SENOKOT 8.6 MG PO (21:32)
[2024-03-12] MEDS: PROSCAR 5 MG PO (21:32)
[2024-03-12] MEDS: FLOMAX 0.4 MG PO (21:32)
[2024-03-13] VITALS (7 sets, daily range): BP systolic 75–171; BP diastolic 52–85; PULSE 58–82; O2SAT 99; BMI 17.7
[2024-03-13 02:03] LABS: Osmolality Urine 371 mOsm/kg (300-900)
[2024-03-13 02:05] LABS: Urine Sodium 91 mmol/L (30-90)
--- NOTE | 2024-03-13 07:25 | W.PN.HOSP.TC ---
Today's Communication/Plan
-
rate rhythm control as per cardio
PT eval
monitor orthostatics
Assessment / Plan
Assessment / Plan
Physical Exam
General: No Apparent Distress
Respiratory: Clear; No Wheezes
Cardiac: S1/S2 and Regular Rhythm
GI: Soft, Non Tender and Other (mid-line surgical scar well healed )
Musculoskeletal: No Edema
Skin: Warm and Dry; No Rash
Neuro: AO x 3
Psych: Calm
83M with hx paroxysmal afib on Eliquis (started on amiodarone in January), COPD, chronic hypoxic respiratory failure on 4L, recurrent SBO (recent admission 01/24-02/11 for high grade bowel obstruction s/p ex lap with SBR and extensive MURIEL 01/31, HTN with
chronic orthostatic hypotension, non-obstructive CAD presents to the ER today with palpitations associated with left-sided chest discomfort.
Elevated Troponin
likely non-OR Troponin Elevation 2/2 tachycardia in setting of afib with RVR
-Troponin peaked at 0.060 since trended down
Paroxysmal Atrial Fibrillation
Palpitations
-monitor on telemetry
-cardiology consult appreciated amiodarone restarted
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
-Metop 25mg XL on hold as per cardio
Orthostatic Hypotension
-chronic
-Sid Hose ordered
-PT
Hyponatremia
-urine studies
-fluid restrict for now
Macular Degeneration
-patient had appointment with Ultrasound Technologist for injections, will reschedule
DVT PPx Eliquis
FULL CODE
55 minutes spent on patient evaluation, medical decision making, coordination of care
Anticipated Discharge: 24 - 48 hours
Subjective/Interval History
-
Date of Service: March 13, 2024
Seen and examined at bedside. Chest pain palpitations free. Reports overall feeling well.
Objective Data
-
Labs:
Laboratory Results
03/13/24
06:00
WBC Pending
Hgb Pending
Hct Pending
Plt Count Pending
Sodium Pending
Potassium Pending
Chloride Pending
Carbon Dioxide Pending
BUN Pending
Creatinine Pending
Glucose Pending
Calcium Pending
Vital Signs:
Vital Signs
Temp Pulse Resp BP Pulse Ox
97.7 F 56 16 171/85 99
03/13/24 03:43 03/13/24 03:43 03/13/24 03:43 03/13/24 03:43 03/13/24 03:43
I&O
03/12/24 03/13/24 03/14/24
06:59 06:59 06:59
Intake Total 120 / 120
Output Total 750 / 750
Balance -630 / -630
[2024-03-13] MEDS: SPIRIVA RESPIMAT 2.5 MCG 2 PUFF INH (07:48)
[2024-03-13] MEDS: SYMBICORT 160/4.5 MCG INHALER 2 PUFF INH ×2 (07:48→19:28)
--- NOTE | 2024-03-13 08:11 | CON.CAR ---
Addendum entered and electronically signed by Obey Garcia MD 03/13/24 11:37:
83 yo male with PMH of paroxysmal A fib on eliquis, recent prolonged admission with SBO requiring OR. Now returns with A fib with RVR. We had tried stopping amiodarone as outpatient. Exam with RRR, II/ systolic murmur at RUSB, no edema. Tele: SB
50s.
Will resume amiodarone.
Trend weight: may need to reduce eliquis dose.
Check orthostatic VS. He reports sxs at home. May need to let his BP run high to avoid orthostasis. Home coreg and enalapril currently on hold. Check echo.
Original Note:
Consultation
Consultation Request
Date/Time Consultation Requested: 03/12/242050
Date/Time Consultation Performed: 03/13/24810
Requesting Provider: Petra Helms MD
Performing Provider: Suzy MEJIA for Dr. Garcia
Reason for Consultation: AFIB
Medical History
-
Chief Complaint: palpitations
History of Present Illness:
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
recently here with SBO s/p ex lap/MURIEL/SBR 02/01/24. He was placed on amiodarone post-op, but this was stopped earlier this month. He is here because yesterday AM, he was having breakfast and noted his typical afib symptoms that included pounding
feeling and chest/throat discomfort (ache/soreness). He took an amiodarone, but it did not go away, so he came to the ER. EKG prior to being on monitor showed SVT 173 BPM. EKG about 15 mins later showed SR. He was started on Toprol. Troponin lindsey
to 0.060. He said his symptoms resolved when the heart rate and rhythm came back to normal. He is calm and comfortable at the time of my assessment. He does report that he has had issues with worsened orthostasis since his recent surgery.
Past Medical History
Past Medical History: Arrhythmias, CAD, COPD, HTN and Other (as above)
Social History
Tobacco: Former Smoker
Family History
Family History: Reviewed & Not Pertinent
Allergies / Home Medications
Allergy/AdvReac Type Severity Reaction Status Date / Time
No Known Allergies Allergy Verified 01/25/24 17:53
�Medication �Instructions �Recorded �Confirmed �Type
finasteride 5 mg tablet 5 mg PO HS prostate 03/15/16 01/27/24 History
tamsulosin 0.4 mg capsule 0.4 mg PO HS Urinary issue 03/15/16 03/12/24 History
apixaban 5 mg tablet (Eliquis) 5 mg PO BID Blood clot 12/14/21 03/12/24 Rx
prevention/tx ##0
vit C 250 mg-vit E 90 mg-zinc 40 1 ea PO BID Supplement 12/14/21 03/12/24 History
mg-copper 1 [id number]
capsule (PreserVision AREDS-2)
albuterol sulfate 2.5 mg/3 mL 2.5 mg inhalation R Q6HPRN PRN sob 10/17/22 03/12/24 History
(0.083 %) solution for nebulization
fluticasone fur. 200 mcg-umeclid 1 inh inhalation R DAILY sob 10/17/22 03/12/24 History
62.5 mcg-vilant 25 mcg
inhalat.powder (Trelegy Ellipta)
rosuvastatin 40 mg tablet 40 mg PO QPM High cholesterol 10/17/22 03/12/24 History
ezetimibe 10 mg tablet 10 mg PO QPM High Cholesterol 01/25/24 03/12/24 History
ferrous sulfate 325 mg (65 mg 325 mg PO DAILY 30 days #30 tabs 02/12/24 03/12/24 Rx
iron) tablet (FeroSul)
erythromycin 5 mg/gram (0.5 %) eye 1 applic RIGHT EYE TIDPRN PRN 03/12/24 03/12/24 History
ointment burning in eye
metoprolol succinate 25 mg 25 mg PO DAILY 14 days #14 tabs 03/12/24 Rx
tablet,extended release 24 hr
(Toprol XL)
polyvinyl alcohol-povidone (PF) 1 drp BOTH EYES QIDPRN PRN dry eyes 03/12/24 03/12/24 History
1.4 %-0.6 % eye drops in a
dropperette (Refresh Classic (PF))
sennosides 8.6 mg tablet 8.6 mg PO HS 03/12/24 03/12/24 History
Review of Systems
-
History Source: Patient
All other systems: Negative unless noted
Cardiac: Chest Pain and Palpitations
Physical Exam
Vital Signs
Temp Pulse Resp BP Pulse Ox
97.7 F 67 18 171/85 97
03/13/24 03:43 03/13/24 07:49 03/13/24 07:49 03/13/24 03:43 03/13/24 07:49
Lab Results
Troponin I 0.060 ng/ml H* 03/13/24 01:51
Physical Exam
General: Well Developed, Well Nourished and No Apparent Distress
HEENT: Normocephalic and Anicteric
Respiratory: Clear and Non Labored Respirations
Cardiac: Regular Rhythm and Murmur (II/ systolic murmur)
Musculoskeletal: No Edema
Skin: Warm and Dry
Neuro: AO x 3
Psych: Calm
Impression / Plan
-
Paroxysmal atrial fibrillation and paroxysmal atrial tachycardia (likely also flutter (likely typical), SVT, paroxysmal:
-now back in SR
-metoprolol started
-would resume amiodarone at this time and will need OP monitoring per protocol (LFT's, TSH, PFT's, etc.)- 200 mg PO BID for now
-continue Eliquis for OAC- check daily weights to make sure he is on correct dosing. If consistently less than 60 kg, dose would be 2.5 mg PO BID, but he seems to be mostly above that.
Orthostatic hypotension:
-compression socks
-check echo
-follow orthos
-PT consulted
HTN:
-may have to allow some hypertension due to orthostatic hypotension, as above
Mild :
-would update echo
Abnormal troponin:
-acute, non-ischemic myocardial injury in setting of tachycardia
-trend to peak
-checking echo
Data Reviewed
-
EKG: Tracing Personally Visualized and interpreted (SB 53 BPM, LAD)
Radiology: Report Reviewed by me (CXR: No acute cardiopulmonary process. Chronic obstructive pulmonary disease.)
Medical Tests (Nuc Med, Echo etc): Report Reviewed by me (Echo 01/05/23: EF 60-65%. Mild aortic stenosis; peak/mean gradients of 28/14 mmHg, calculated JOSHUA is 1.4 cm2. Trace aortic regurgitation. Mild to moderate tricuspid regurgitation. Estimated
pulmonary artery pressure of 45-50 mmHg.)
Labs: Labs Reviewed by me
[2024-03-13 08:30] LABS: Hematocrit 35.6 % (39.0-52.0); Hemoglobin 11.6 g/dL (13.0-18.0); Mean Corp Hgb Conc. 32.6 g/dL (33.0-37.0); Mean Corpuscular Hgb 29.3 pg (27.0-31.0); Mean Corpuscular Volume 89.9 fL (80.0-94.0); Mean Platelet Volume 9.2 fL (7.4-10.4); Platelet Count 242 10^3/uL (130-400); Red Blood Cell Count 3.96 10^6/uL (4.70-6.10); Red Cell Dist. Width 12.8 % (11.5-14.5); White Blood Cell Count 7.7 10^3/uL (4.8-10.8)
[2024-03-13 08:47] LABS: Blood Urea Nitrogen 12 mg/dl (9-20); Carbon Dioxide 30 mmol/L (22-30); Chloride 99 mmol/L (98-107); Estimated Creatinine Clearance 56 ml/min; Glucose 100 mg/dl (70-99); Magnesium 2.1 mg/dl (1.6-2.3); Potassium 4.2 mmol/L (3.5-5.1); Sodium 138 mmol/L (135-145); eGFR > 60.00
[2024-03-13 08:48] LABS: Troponin I 0.043 ng/ml
[2024-03-13] MEDS: ELIQUIS 5 MG PO ×2 (08:54→20:03)
[2024-03-13] MEDS: FEOSOL 325 MG PO (08:54)
[2024-03-13] MEDS: PACERONE 200 MG PO ×2 (10:29→20:03)
--- NOTE | 2024-03-13 15:29 | CM ---
Patient seen at bedside w/ & son.
IA completed.
Patient uses home 02 at 4L n/c.
Current with [facility].
Lives at home with in a 1 story home. 1 step to enter.
PLOF: Independent, has walker but did not use.
DME: walker, portable O2, back up O2, concentrator
PCP: Neal Harmon
Pharmacy: [facility]
PLAN: Discharge when stable. Current with [facility].
[2024-03-13] MEDS: CRESTOR 40 MG PO (17:18)
[2024-03-13] MEDS: ZETIA 10 MG PO (17:19)
[2024-03-13] MEDS: SENOKOT 8.6 MG PO (22:22)
[2024-03-13] MEDS: FLOMAX 0.4 MG PO (22:23)
[2024-03-13] MEDS: PROSCAR 5 MG PO (22:23)
[2024-03-14 03:30] VITALS: BP 130/80
[2024-03-14 05:57] VITALS: BMI 17.3
[2024-03-14] MEDS: SYMBICORT 160/4.5 MCG INHALER 2 PUFF INH (07:20)
[2024-03-14] MEDS: SPIRIVA RESPIMAT 2.5 MCG 2 PUFF INH (07:21)
--- NOTE | 2024-03-14 07:39 | W.PN.HOSP.TC ---
Addendum entered and electronically signed by Joellen Hart MD 03/16/24 07:54:
BMI underweight
Original Note:
Today's Communication/Plan
-
discharge
Assessment / Plan
Assessment / Plan
Physical Exam
General: No Apparent Distress
Respiratory: Clear; No Wheezes
Cardiac: S1/S2 and Regular Rhythm
GI: Soft, Non Tender and Other (mid-line surgical scar well healed )
Musculoskeletal: No Edema
Skin: Warm and Dry; No Rash
Neuro: AO x 3
Psych: Calm
83M with hx paroxysmal afib on Eliquis, COPD, chronic hypoxic respiratory failure on 4L, recurrent SBO (recent admission 01/24-02/11 for high grade bowel obstruction s/p ex lap with SBR and extensive MURIEL 01/31, HTN with chronic orthostatic hypotension,
non-obstructive CAD presents to the ER today with palpitations associated with left-sided chest discomfort.
Elevated Troponin
likely non-VA Troponin Elevation 2/2 tachycardia in setting of afib with RVR
-Troponin peaked at 0.060 since trended down
Paroxysmal Atrial Fibrillation
Palpitations
-monitor on telemetry
-cardiology consult appreciated amiodarone resumed, patient since converted back to NSR
-Eliquis reduced to 2.5 BID d/t age and weight
-Metop 25mg XL discontinued as per cardio
-ECHO appreciated EF 55-60% no significant change to prior ECHO
Orthostatic Hypotension
-chronic
-Sid Hose ordered
-PT
Hyponatremia resolved on fluid restriction
Macular Degeneration
DVT PPx Eliquis
FULL CODE
Medically stable for discharge home with home services and outpatient follow up recommendations.
Total Time Preparing Discharge __50 minutes including examination of the patient, summary of the hospital stay, instructions for continuing care to all relevant caregivers; and preparation of discharge records, prescriptions, and referral
forms if necessary.
Anticipated Discharge: Today
Subjective/Interval History
-
Date of Service: March 14, 2024
Seen and examined at bedside in no acute distress resting comfortably in bed. Reports feeling well. Denies new acute issues including chest pain palpitations. Eager to go home.
Objective Data
-
Labs:
Laboratory Results
03/14/24
07:35
WBC Pending
Hgb Pending
Hct Pending
Plt Count Pending
Sodium Pending
Potassium Pending
Chloride Pending
Carbon Dioxide Pending
BUN Pending
Creatinine Pending
Glucose Pending
Calcium Pending
Vital Signs:
Vital Signs
Temp Pulse Resp BP Pulse Ox
97.4 F 63 18 130/80 97
03/14/24 03:30 03/14/24 07:26 03/14/24 07:26 03/14/24 03:30 03/14/24 07:26
I&O
03/13/24 03/14/24 03/15/24
06:59 06:59 06:59
Intake Total 120 / 120 1200 / 1200
Output Total 750 / 750 450 / 450
Balance -630 / -630 750 / 750
[2024-03-14 08:16] LABS: Hematocrit 32.7 % (39.0-52.0); Hemoglobin 10.8 g/dL (13.0-18.0); Mean Corpuscular Hgb 29.5 pg (27.0-31.0); Mean Corpuscular Volume 89.3 fL (80.0-94.0); Platelet Count 229 10^3/uL (130-400); Red Blood Cell Count 3.66 10^6/uL (4.70-6.10); Red Cell Dist. Width 12.8 % (11.5-14.5); White Blood Cell Count 7.2 10^3/uL (4.8-10.8)
--- NOTE | 2024-03-14 08:17 | PN.CDI ---
CDI
- -
CDI:
Physician Documentation Request
Admit Date: 03/12/24 20:04
Dear Doctor Tanner,
Please review the following and provide your response in the progress notes.
Clinical Indicators:
Height: 6'
Weight: 127lbs
BMI: 17.3
Other Clinical Notes: Shirt Trimmer indicates underweight with unintended weight loss
- 03/13 Cardiology 'Trend weight: may need to reduce eliquis dose'
If possible, please provide an associated diagnosis related to the abnormal BMI, such as:
BMI < or = to 19
Underweight
Weight Loss
Cachectic
Anorexia
Other
Use of terms such as suspected, likely, concern for, or probable (associated with a specific diagnosis that is being evaluated, monitored, or treated as if it exists) are acceptable and can be coded in the inpatient setting, when documented at the
time of discharge.
Thank you,
Geoffrey Ga RN
CDI Specialist
Please use your independent medical judgment in providing your response.
[2024-03-14] MEDS: FEOSOL 325 MG PO (08:23)
[2024-03-14] MEDS: PACERONE 200 MG PO (08:23)
[2024-03-14] MEDS: ELIQUIS 5 MG PO (08:24)
[2024-03-14 08:32] VITALS: BP 155/81
[2024-03-14 08:39] VITALS: BP 155/81; BP 156/87; BP 83/49; PULSE 62; PULSE 85; PULSE 99
[2024-03-14 08:50] LABS: Blood Urea Nitrogen 14 mg/dl (9-20); Calcium 8.9 mg/dl (8.4-10.2); Carbon Dioxide 32 mmol/L (22-30); Chloride 98 mmol/L (98-107); Estimated Creatinine Clearance 49 ml/min; Glucose 89 mg/dl (70-99); Phosphorus 3.6 mg/dl (2.5-4.5); Potassium 4.3 mmol/L (3.5-5.1); Sodium 137 mmol/L (135-145); eGFR > 60.00
--- NOTE | 2024-03-14 09:45 | W.PN.CD ---
Today's Communication / Plan
-
resumed amiodarone 200mg bid until office follow up, then 200mg daily
eliquis reduced to 2.5mg bid due to age, weight
Impression / Plan
-
Paroxysmal atrial fibrillation and paroxysmal atrial tachycardia (likely also flutter (likely typical), paroxysmal:
-now back in SR
-resumed amiodarone 200mg bid until office follow up, then 200mg daily
-eliquis reduced to 2.5mg bid due to age, weight
Orthostatic hypotension: likely deconditioned after recent prolonged hospitalization
-compression socks, PO intake, PT
-check echo: stable
HTN:
-will have to allow some hypertension due to orthostatic hypotension, as above: remain off of coreg and enalapril
Mild :
-stable on echo
Abnormal troponin:
-acute, non-ischemic myocardial injury in setting of tachycardia
-echo stable
Physical Exam
Vital Signs/Labs
Vital Signs
Temp Pulse Resp BP Pulse Ox
98 F 62 18 155/81 96
03/14/24 08:32 03/14/24 08:32 03/14/24 08:32 03/14/24 08:32 03/14/24 08:32
03/13/24 03/14/24 03/15/24
06:59 06:59 06:59
Actual Weight 59.012 kg 57.861 kg
03/14/24 07:35
03/14/24 07:35
Magnesium 2.0 mg/dl (1.6-2.3) 03/14/24 07:35
LAB Results
03/12/24 03/12/24 03/13/24
14:52 17:48 01:51
Troponin I 0.014 0.060 H* D 0.060 H*
03/13/24 03/13/24
08:06 14:00
Troponin I 0.043 H* D Cancelled
Physical Exam
Constitutional: No acute distress and Comfortable
EENT: Moist mucous membranes
Cardiovascular: Rhythm & rate is regular, Pedal edema is absent, JVD pressure is normal and Systolic murmur present
Respiratory: Respiratory effort normal and Lungs clear to auscul.
GI: Soft and Distention absent
Neuro/Psych: AO x 3
Data Reviewed
-
Date of Service: March 14, 2024
EKG: Other (Tele: SR 60s)
Labs: Labs Reviewed by me
--- NOTE | 2024-03-14 11:37 | CM ---
Patient seen at bedside.
States he will be discharged today.
He states will burr picker.
Current with [facility].
PLAN: Home with [facility] with [facility].
[2024-03-14 11:39] VITALS: BP 147/75
--- NOTE | 2024-03-14 16:03 | W.DCSUMMARY ---
Discharge Summary
Discharge Data
Date of Admission: 03/12/24
Date of Discharge: 03/14/24
-
Pending Results: No
Discharge Plan
-
Patient Disposition: Home with Home Care
Discharge Diagnosis/Procedures: Paroxysmal atrial fibrillation/flutter
Orthostatic Hypotension
Hyponatremia
Condition: Fair
Diet: Restrict fluids to 64 oz
Activity: As tolerated and With Walker
Driving Restrictions: Not until seen by your Dr
Bathing Restrictions: None
Blood Work: Please repeat CBC and BMP with primary care provider in 1 week of discharge.
Other Services: PT and OT
Activity Restrictions/Additional Instructions:
Please follow up with primary care provider in 1 week of discharge and keep your appointment with Cardiology.
Amiodarone has been restarted for atrial fibrillation/flutter. Please follow up with Cardiology for taper recommendations.
Eliquis dose has been reduced due to age >80 years old and weight < 60 kg.
Please take medications as prescribed/recommended and follow up with primary care provider and/or other healthcare provider involved in your care for refills and/or further adjustment to your medication regimen as necessary.
Referrals:
Neal Harmon MD [Family Provider] - in one week
Chrissy Jean NP [Specified Professional Personl] - 03/26/24 2:40 pm
Prescriptions:
New
amiodarone 200 mg Tablet
200 mg PO BID 14 Days Qty: 28 0RF
Eliquis 2.5 mg Tablet
2.5 mg PO BID 30 Days Qty: 60 0RF
Continued
tamsulosin 0.4 MG capsule
0.4 mg PO HS
finasteride 5 MG tablet
5 mg PO HS
Patient Comments:
03/12/24: Patient not sure if he takes this medication.
PreserVision AREDS-2 1 EACH capsule
1 ea PO BID
Eliquis 5 MG tablet
5 mg PO BID Qty: 0 0RF
albuterol sulfate 2.5 mg /3 mL (0.083 %) Solution For Nebulization
2.5 mg INHALATION R Q6HPRN PRN (Reason: sob)
Trelegy Ellipta 200-62.5-25 mcg Blister With Device
1 inh INHALATION R DAILY
rosuvastatin 40 mg tablet
40 mg PO QPM
ezetimibe 10 mg Tablet
10 mg PO QPM
ferrous sulfate [FeroSul] 325 mg (65 mg iron) Tablet
325 mg PO DAILY 30 Days Qty: 30 0RF
sennosides 8.6 mg Tablet
8.6 mg PO HS
erythromycin 5 mg/gram (0.5 %) ointment
1 applic RIGHT EYE TIDPRN PRN (Reason: burning in eye)
Refresh Classic (PF) 1.4-0.6 % dropperette
1 drp BOTH EYES QIDPRN PRN (Reason: dry eyes)
Discharge Orders:
Discharge Patient (As Directed); Ordered 03/14/24
Ordered By: Joellen Hart
Discharge Date and Time
Print Language: JAPANESE
== END 2024-03-14 16:52 | disposition home health service (06) | DRG 309 ==
LOC: 4 WEST ACU 20:04
PROVIDERS: Emergency Medicine; Physician Assistant; ADMITTING PHYSICIAN Student in an Organized Health Care Education/Training Program; ATTENDING PHYSICIAN Internal Medicine; CONSULT PHYSICIAN Internal Medicine Cardiovascular Disease; EMERGENCY PHYSICIAN Emergency Medicine; FAMILY PHYSICIAN Family Medicine
DX: I48.0 Paroxysmal atrial fibrillation (principal); E87.1 Hypo-osmolality and hyponatremia; Z68.1 Body mass index [BMI] 19.9 or less, adult; J96.11 Chronic respiratory failure with hypoxia; I5A Non-ischemic myocardial injury (non-traumatic); I48.3 Typical atrial flutter; I47.10 Supraventricular tachycardia, unspecified; I95.1 Orthostatic hypotension; J44.9 Chronic obstructive pulmonary disease, unspecified; R63.6 Underweight; Z87.891 Personal history of nicotine dependence; Z79.01 Long term (current) use of anticoagulants
CPT/HCPCS: 71046; 80048; 80053; 83735; 83935; 84100; 84300; 84443; 84484; 85025; 85027; 93005; 93306; 94640; 97163; 99285

== ENCOUNTER 2024-04-11 20:56 | Observation (INO) | payer OTHER, SELFPAY ==
[2024-04-11] VITALS (11 sets, daily range): BP systolic 136–177; BP diastolic 66–95; BMI 22.4; BMI 20.2
--- NOTE | 2024-04-11 15:40 | ED.GENMED ---
History of Present Illness
<Keith Brooks PA-C - Last Filed: 04/14/24 07:16>
General
Chief Complaint: Abdominal Pain
Time Seen by Provider: 04/11/24 15:31
History of Present Illness
History of Present Illness:
83-year-old male with history of COPD on chronic oxygen, atrial fibs on Eliquis, hypertension, hyperlipidemia, and bowel obstruction status post partial colectomy presents the emergency department for evaluation of 1 week of lower abdominal pain.
Reports that he feels well overall but has persistent pain has been gradually worsening. Denies any fevers or chills. No nausea, vomiting, or diarrhea. Numerous prior intra-abdominal surgeries including ex lap x 2. He has been having bowel
movements and passing flatus today
Past History
<Keith Brooks PA-C - Last Filed: 04/14/24 07:16>
Past History
ED Past Medical History: Arrthythmia (Atrial fibrillation), Cancer (Skin), COPD (Wears Home Oxygen at 3 liters), GERD, HTN, Hypercholesterolemia and Other (AAA that they are watching, diverticulitis, chronic back pain, Bowel obstruction,
Bronchiolitis obliterans Organizing Pneumonia, Urinary retention, Macular degeneration); Negative NIDDM
ED Past Surgical History: Bowel resection (Colon resection)
Social History
Tobacco: Former smoker
Alcohol: None
Personal:
Living: with family
Employment: Retired
Review of Systems
<Keith Brooks PA-C - Last Filed: 04/14/24 07:16>
Review of Systems
Allergies reviewed?: Yes
All Other Systems: ROS reviewed and negative except as documented in HPI and ROS
Phy Exam
<Keith Brooks PA-C - Last Filed: 04/14/24 07:16>
Physical Exam
Physical Exam:
GEN: Well appearing, NAD, WDWN
HEENT: Oral mucosa moist, no scleral icterus
Cardiac: Regular rate
Lung: No respiratory distress, no tachypnea
Abdomen: Midline laparotomy scar. Abdomen is overall soft and nondistended with only minimal right lower quadrant and left lower quadrant tenderness.
MSK: No gross deformity or injuries
Skin: Good color, no pallor or jaundice, no rashes
Neuro: AO x3, moves all extremities freely
Psych: Calm, cooperative
Course
<Keith Brooks PA-C - Last Filed: 04/14/24 07:16>
Orders/Labs/Results
Orders:
Orders
04/11/24 Breakfast
Clear Liquid
At Your Request: Full Participation
04/11/24 15:39
CT Abd/Pel (IV only)-DH only Urgent
Comment:
Reason For Exam: lower abd pain
04/11/24 15:53
Complete Blood Count/With Diff Urgent
Comprehensive Metabolic Panel Urgent
Erythrocyte Sed Rate Urgent
Comment: ADD ON
Lipase Urgent
04/11/24 17:49
HYDROmorphone [Dilaudid] 0.25 mg IV NOW STA
04/11/24 19:51
Piperacillin/Tazo 3.375 Gram [Zosyn] 3.375 gram in 50 ml IV NOW
04/11/24 20:42
Admit/Transfer Patient As Directed
Co-Sign Provider:
Level of Care: Observation services
Assign to:: Medical/Surgical
Physician / Group: [facility]
Diagnosis: Partial SBO
PRN Pain Medication Management As Directed
May give lesser potent ordered pain med per pt: Yes
preference::
Protocol:: Medication orders for pain may be administered in a
manner that supports deferring to patient preference
when the pt is:
- Requesting an ordered lesser potent pain medication.
Least to most potent pain medications are defined
as: acetaminophen < NSAID < tramadol < opioids
(morphine, oxycodone, hydromorphone).
- Requesting a lesser dose of the same medication IF
ORDERED.
- Requesting a less intrusive route of administration
if both routes are prescribed by the provider (PO <
IV).
04/11/24 20:45
Code Status As Directed
Resuscitation Status: Full Code
04/11/24 21:35
Acetaminophen [Tylenol] 650 mg PO Q4HPRN PRN
Albuterol Nebs [Ventolin Nebules] 2.5 mg INH R Q4HPRN PRN
Artificial Tears (Pf) [Refresh Eye Drops (Pf)] 1 drops BOTH EYES QIDPRN PRN
Erythromycin (Ilotycin) [Erythromycin 0.5% Ophthalmic Ointment] See Dose Instructions RIGHT EYE TIDPRN PRN
Morphine Sulfate 2 mg IV Q4HPRN PRN
Polyethylene Glycol Powder [Miralax] 17 grams PO DAILYPRN PRN
04/11/24 21:35
Activity As Directed
Activity Level: Ambulate
With Assistance
Bladder Scan As Directed
Follow Bladder Retention/Intermittent Cath Algorithm?: Yes
PRN if no void in __ hours: 6
Frequency: Per Retention Algorithm
If Bladder Scan Result >: 400
then:: Straight cath
I/O [Intake/ Output] As Directed
Frequency: Per unit guidelines
Orthostatic Vital Signs As Directed
Orthostatic VS Frequency: BID
Straight Cath As Directed
Frequency: Per Retention Algorithm
Additional Instructions: straight cath as needed per acute urinary retention algorithm for 24 hrs
Additional Instructions: for bladder scan greater than 400 mL
Vital Signs As Directed
Frequency: Per unit guidelines
Weight As Directed
Frequency: Daily
Oxygen Therapy [O2 Therapy] [RESP] Routine
Titrate/Wean O2 to maintain O2 sat greater than (%): 94
Ot Eval And Treat Routine
PT Consult [Pt Eval And Treat] Routine
Activity Level: Ambulate
With Assistance
04/11/24 22:00
Sennosides [Senokot] 17.2 mg PO HS
Tamsulosin [Flomax] 0.4 mg PO HS
04/12/24 06:16
Basic Metabolic Panel IN AM
Complete Blood Count/No Diff IN AM
04/12/24 08:00
Amiodarone [Pacerone] 200 mg PO DAILY
Apixaban [Eliquis] 2.5 mg PO BID
fmlnkxyjdvv-kqxpgokeu-gmtojaht [Trelegy Ellipta] 1 inh INH R DAILY
Abnormal Lab Results
04/11/24
15:53
RBC 4.08 L 10^6/uL
(4.70-6.10)
Hgb 11.8 L g/dL
(13.0-18.0)
Hct 36.0 L %
(39.0-52.0)
MCHC 32.8 L g/dL
(33.0-37.0)
Absolute Neuts (auto) 6.7 H 10^3/uL
(1.4-6.5)
Absolute Monos (auto) 0.7 H 10^3/uL
(0.1-0.6)
Lymphocytes % 18.2 L %
(20.5-51.1)
Sodium 132 L mmol/L
(135-145)
Chloride 95 L mmol/L
(98-107)
Glucose 101 H mg/dl
(70-99)
Total Protein 6.1 L g/dl
(6.3-8.2)
04/11/24 15:53
04/11/24 15:53
Vital Signs
Initial and Last Documented VS:
Initial Vital Signs
Temp Pulse Resp BP Pulse Ox
98.2 F 68 18 141/68 92
04/11/24 13:49 04/11/24 13:49 04/11/24 13:49 04/11/24 13:49 04/11/24 13:49
Last Documented Vital Signs
Temp Pulse Resp BP Pulse Ox
97.8 F 66 18 158/70 99
04/13/24 12:00 04/13/24 12:00 04/13/24 12:00 04/13/24 12:00 04/13/24 12:00
<Carmina Motta NP - Last Filed: 04/11/24 22:50>
Orders/Labs/Results
Orders:
Orders
04/11/24 Breakfast
Clear Liquid
At Your Request: Full Participation
04/11/24 15:39
CT Abd/Pel (IV only)-[facility] only Urgent
Comment:
Reason For Exam: lower abd pain
04/11/24 15:53
Complete Blood Count/With Diff Urgent
Comprehensive Metabolic Panel Urgent
Erythrocyte Sed Rate Urgent
Comment: ADD ON
Lipase Urgent
04/11/24 17:49
HYDROmorphone [Dilaudid] 0.25 mg IV NOW STA
04/11/24 19:51
Piperacillin/Tazo 3.375 Gram [Zosyn] 3.375 gram in 50 ml IV NOW
04/11/24 20:42
Admit/Transfer Patient As Directed
Co-Sign Provider:
Level of Care: Observation services
Assign to:: Medical/Surgical
Physician / Group: [facility]
Diagnosis: Partial SBO
PRN Pain Medication Management As Directed
May give lesser potent ordered pain med per pt: Yes
preference::
Protocol:: Medication orders for pain may be administered in a
manner that supports deferring to patient preference
when the pt is:
- Requesting an ordered lesser potent pain medication.
Least to most potent pain medications are defined
as: acetaminophen < NSAID < tramadol < opioids
(morphine, oxycodone, hydromorphone).
- Requesting a lesser dose of the same medication IF
ORDERED.
- Requesting a less intrusive route of administration
if both routes are prescribed by the provider (PO <
IV).
04/11/24 20:45
Code Status As Directed
Resuscitation Status: Full Code
04/11/24 21:35
Acetaminophen [Tylenol] 650 mg PO Q4HPRN PRN
Albuterol Nebs [Ventolin Nebules] 2.5 mg INH R Q4HPRN PRN
Artificial Tears (Pf) [Refresh Eye Drops (Pf)] 1 drops BOTH EYES QIDPRN PRN
Erythromycin (Ilotycin) [Erythromycin 0.5% Ophthalmic Ointment] See Dose Instructions RIGHT EYE TIDPRN PRN
Morphine Sulfate 2 mg IV Q4HPRN PRN
Polyethylene Glycol Powder [Miralax] 17 grams PO DAILYPRN PRN
04/11/24 21:35
Activity As Directed
Activity Level: Ambulate
With Assistance
Bladder Scan As Directed
Follow Bladder Retention/Intermittent Cath Algorithm?: Yes
PRN if no void in __ hours: 6
Frequency: Per Retention Algorithm
If Bladder Scan Result >: 400
then:: Straight cath
I/O [Intake/ Output] As Directed
Frequency: Per unit guidelines
Orthostatic Vital Signs As Directed
Orthostatic VS Frequency: BID
Straight Cath As Directed
Frequency: Per Retention Algorithm
Additional Instructions: straight cath as needed per acute urinary retention algorithm for 24 hrs
Additional Instructions: for bladder scan greater than 400 mL
Vital Signs As Directed
Frequency: Per unit guidelines
Weight As Directed
Frequency: Daily
Oxygen Therapy [O2 Therapy] [RESP] Routine
Titrate/Wean O2 to maintain O2 sat greater than (%): 94
Ot Eval And Treat Routine
PT Consult [Pt Eval And Treat] Routine
Activity Level: Ambulate
With Assistance
04/11/24 22:00
Sennosides [Senokot] 17.2 mg PO HS
Tamsulosin [Flomax] 0.4 mg PO HS
04/12/24 06:16
Basic Metabolic Panel IN AM
Complete Blood Count/No Diff IN AM
04/12/24 08:00
Amiodarone [Pacerone] 200 mg PO DAILY
Apixaban [Eliquis] 2.5 mg PO BID
yogbfibdkwj-zxsighfdl-pfcrkxkt [Trelegy Ellipta] 1 inh INH R DAILY
Abnormal Lab Results
04/11/24
15:53
RBC 4.08 L 10^6/uL
(4.70-6.10)
Hgb 11.8 L g/dL
(13.0-18.0)
Hct 36.0 L %
(39.0-52.0)
MCHC 32.8 L g/dL
(33.0-37.0)
Absolute Neuts (auto) 6.7 H 10^3/uL
(1.4-6.5)
Absolute Monos (auto) 0.7 H 10^3/uL
(0.1-0.6)
Lymphocytes % 18.2 L %
(20.5-51.1)
Sodium 132 L mmol/L
(135-145)
Chloride 95 L mmol/L
(98-107)
Glucose 101 H mg/dl
(70-99)
Total Protein 6.1 L g/dl
(6.3-8.2)
04/11/24 15:53
04/11/24 15:53
Vital Signs
Initial and Last Documented VS:
Initial Vital Signs
Temp Pulse Resp BP Pulse Ox
98.2 F 68 18 141/68 92
04/11/24 13:49 04/11/24 13:49 04/11/24 13:49 04/11/24 13:49 04/11/24 13:49
Last Documented Vital Signs
Temp Pulse Resp BP Pulse Ox
97.8 F 66 18 158/70 99
04/13/24 12:00 04/13/24 12:00 04/13/24 12:00 04/13/24 12:00 04/13/24 12:00
<Carmina Motta NP - Last Filed: 04/11/24 22:50>
*Critical Care Note
Total Time (30-74mins, 75-104mins- exclusive of procedures): Not Applicable
ED Attending Note
<Keith Brooks PA-C - Last Filed: 04/14/24 07:16>
-
Portions of this chart may have been created with voice recognition software.� Occasional wrong word or��sound alike� substitutions may have occurred due to the inherent limitations of voice recognition software.
Discharge Plan
Departure
Patient Disposition: Admit
Date of Disposition: 04/11/24
Time of Disposition: 19:52
Presentation/result/management discussed w/ accepting MD/DO: Hospitalist
Patient with high blood pressure during this ER visit?: No
Condition: Fair
Discharge Problem:
Abdominal pain, Enteritis
Interventions
Interventions:
*Risk Screen - Suicide Last Done: 04/11/24 13:49
*General Assessment Last Done: 04/11/24 13:49
*Neglect/Abuse Screening Last Done: 04/11/24 13:49
ED- Fall Risk Assessment Last Done: 04/11/24 16:09
*ED COVID-19 Vaccine History Last Done: 04/11/24 21:48
*Nursing Disposition Last Done: 04/11/24 21:48
DY-Dvymaw-Nhfpxrrskr Assessment Last Done: 04/11/24 16:09
Discharge Date and Time
Discharge Date/Time: 04/11/24 21:48
[2024-04-11 16:06] LABS: % Basophils 0.3 % (0-2); % Eosinophils 0.6 % (0-6); % Immature Granulocytes 0.3 % (0-0.5); % Lymphocytes 18.2 % (20.5-51.1); % Neutrophils 72.6 % (42.2-75.2); Absolute Eosinophils 0.1 10^3/uL (0-0.7); Absolute Lymphocytes 1.7 10^3/uL (1.2-3.4); Absolute Monocytes 0.7 10^3/uL (0.1-0.6); Absolute Neutrophils 6.7 10^3/uL (1.4-6.5); Hemoglobin 11.8 g/dL (13.0-18.0); Mean Corp Hgb Conc. 32.8 g/dL (33.0-37.0); Mean Corpuscular Hgb 28.9 pg (27.0-31.0); Mean Corpuscular Volume 88.2 fL (80.0-94.0); Mean Platelet Volume 9.3 fL (7.4-10.4); Nucleated Red Blood Cells % 0 % (-); Platelet Count 227 10^3/uL (130-400); Red Blood Cell Count 4.08 10^6/uL (4.70-6.10); Red Cell Dist. Width 13.2 % (11.5-14.5); White Blood Cell Count 9.3 10^3/uL (4.8-10.8)
[2024-04-11 16:18] LABS: ALT (SGPT) 23 U/L (0-50); AST (SGOT) 22 U/L (17-59); Albumin 3.7 g/dl (3.5-5.0); Alkaline Phosphatase 72 U/L (38-126); Blood Urea Nitrogen 18 mg/dl (9-20); Calcium 8.8 mg/dl (8.4-10.2); Carbon Dioxide 29 mmol/L (22-30); Chloride 95 mmol/L (98-107); Estimated Creatinine Clearance 53 ml/min; Glucose 101 mg/dl (70-99); Lipase 37 U/L (23-300); Potassium 4.2 mmol/L (3.5-5.1); Sodium 132 mmol/L (135-145); Total Bilirubin 0.6 mg/dl (0.2-1.3); Total Protein 6.1 g/dl (6.3-8.2); eGFR > 60.00
[2024-04-11] MEDS: DILAUDID 0.25 MG IV (17:54)
[2024-04-11] MEDS: ZOSYN 50 IV (20:10)
--- NOTE | 2024-04-11 20:47 | HPS.HSE ---
Family Physician
-
Family Physician: Neal Harmon
Chief Complaint
-
Abd Pain
History of Present Illness
Patient is an 83y M with PMH significant for A-Fib, ASCVD, COPD and recurrent SBO s/p ex lap, SBR and MURIEL in January of this year who presents to ED complaining of lower abdominal pain. Patient was most recently hospitalized here from 03/12 - 03/14
for chest pain, A-Fib and orthostatic hypotension. Medications were adjusted during that stay and patient was discharged to home. Patient states that he developed lower abdominal discomfort about 5 days ago. He states that pain is similar to -
though less severe than - his symptoms of SBO in years past.
Patient notes that he continues to pass flatus and is having small BMs daily. No bloody or black stools. No N/V or anorexia.
Patient denies any fevers / chills. No recent changes in medications. No other current complaints or concerns.
Medical History
Past Medical History
Past Medical History: Reports Other
Additional Past Medical History:
AAA
COPD
Hypertension
Coronary artery disease
Hyperlipidemia
Pulmonary hypertension
Iron deficiency anemia
Paroxysmal atrial fibs
BPH
GERD
Past Surgical History: Reports Other
Additional Past Surgical History:
Colectomy
Left eye surgery
Bilateral cataract surgery
Small bowel resection and MURIEL 02/01/24
Social History
Tobacco: Former Smoker
Alcohol: None
Drug: None
Personal:
Living: With Family
Family History
Family History: Not pertinent
Allergies / Home Medications
Allergies reflects when Allergies were last updated in [employer].
Home Medications with original date entered in [employer]
Allergy/Medication List:
Allergies
Allergy/AdvReac Type Severity Reaction Status Date / Time
No Known Allergies Allergy Verified 04/11/24 13:49
Home Medications
finasteride 5 mg tablet 5 mg PO HS prostate 03/15/16
tamsulosin 0.4 mg capsule 0.4 mg PO HS Urinary issue 03/15/16
vit C 250 mg-vit E 90 mg-zinc 40 mg-copper 1 zb-fwqvdo-byonvg capsule (PreserVision AREDS-2) 1 ea PO BID Supplement 12/14/21
albuterol sulfate 2.5 mg/3 mL (0.083 %) solution for nebulization 2.5 mg inhalation R Q6HPRN PRN sob 10/17/22
fluticasone fur. 200 mcg-umeclid 62.5 mcg-vilant 25 mcg inhalat.powder (Trelegy Ellipta) 1 inh inhalation R DAILY sob 10/17/22
rosuvastatin 40 mg tablet 40 mg PO QPM High cholesterol 10/17/22
ezetimibe 10 mg tablet 10 mg PO QPM High Cholesterol 01/25/24
ferrous sulfate 325 mg (65 mg iron) tablet (FeroSul) 325 mg PO DAILY 30 days #30 tabs 02/12/24
erythromycin 5 mg/gram (0.5 %) eye ointment 1 applic RIGHT EYE TIDPRN PRN burning in eye 03/12/24
polyvinyl alcohol-povidone (PF) 1.4 %-0.6 % eye drops in a dropperette (Refresh Classic (PF)) 1 drp BOTH EYES QIDPRN PRN dry eyes 03/12/24
sennosides 8.6 mg tablet 8.6 mg PO HS 03/12/24
apixaban 2.5 mg tablet (Eliquis) 2.5 mg PO BID 30 days #60 tabs 03/14/24
amiodarone 200 mg tablet 200 mg PO DAILY 04/11/24
Review of Systems
-
History Source: Patient
A 12 point ROS was completed and negative except as noted: Yes
Constitutional: Denies Fever or Chills
Respiratory: Denies Cough or Trouble Breathing
Cardiac: Denies Chest Pain or Palpitations
Abdomen/GI: Reports Abdominal Pain; Denies Nausea, Vomiting, Diarrhea, Constipated, Bloody Stools or Black Stools
: Denies Dysuria, Frequency or Flank Pain
Musculoskeletal: Denies Joint Pain or Edema
Neurological: Denies Dizzy or Headache
Physical Exam
Vital Signs
Vital Signs
Temp Pulse Resp BP Pulse Ox
98.2 F 66 20 158/87 100
04/11/24 13:49 04/11/24 19:31 04/11/24 19:31 04/11/24 19:31 04/11/24 19:31
Physical Exam
General: Other (83y M in no acute distress.)
HEENT: Moist mucous membranes, PERRLA and Other (Watery discharge from R eye.)
Respiratory: Clear; No Wheezes, Rales or Rhonchi
Cardiac: S1/S2, Regular Rhythm and Murmur (II/ AWILDA)
GI: Soft, Non Tender, Non Distended, Normal Bowel Sounds and Other (Midline incision well-appearing. No focal tenderness, rebound, guarding, etc.)
Musculoskeletal: No Clubbing, No Cyanosis and No Edema
Neuro: AO x 3
Laboratory Results
-
04/11/24 15:53
04/11/24 15:53
Laboratory Results
Total Bilirubin 0.6 mg/dl (0.2-1.3) 04/11/24 15:53
AST 22 U/L (17-59) 04/11/24 15:53
ALT 23 U/L (0-50) 04/11/24 15:53
Alkaline Phosphatase 72 U/L (38-126) 04/11/24 15:53
Lipase 37 U/L (23-300) 04/11/24 15:53
Impression/Plan
-
A/P: Patient is an 83y M with PMH significant for A-Fib, ASCVD and recurrent SBO who presents to ED complaining of lower abdominal pain.
Abdominal Pain
Partial SBO
Enteritis
- Observe overnight for further evaluation and treatment.
- CT findings noted - patient is afebrile, non-toxic, without leukocytosis or diarrhea, etc.
- Would observe off of abx pending fever or new / worsening symptoms.
- Check stool studies is any diarrhea.
- Supportive care, pain control, liquid diet as tolerated, etc.
- Consider Surgery re-evaluation if any new / worsening symptoms.
Paroxysmal Atrial Fibrillation
- Stable. Continue current medications including amiodarone and Eliquis.
ASCVD
- Stable / asymptomatic.
COPD without Acute Exacerbation
- Stable. Continue Trelegy. Albuterol PRN.
BPH
- Stable. Continue tamsulosin.
- Bladder scan protocol.
DVT Prophylaxis: On Eliquis
Code Status: Full
[2024-04-11] MEDS: FLOMAX 0.4 MG PO (22:10)
[2024-04-11] MEDS: SENOKOT 17.2 MG PO (22:10)
[2024-04-11] MEDS: ERYTHROMYCIN 0.5% OPHTHALMIC OINTMENT 1 APPLIC RIGHT EYE (22:39)
[2024-04-11 22:51] LABS: Erythrocyte Sed Rate 8 mm/hour (0-20)
[2024-04-12] VITALS (7 sets, daily range): BP systolic 75–165; BP diastolic 44–92; PULSE 60–80; O2SAT 97; BMI 20.2
[2024-04-12 07:06] LABS: Hematocrit 32.3 % (39.0-52.0); Hemoglobin 10.5 g/dL (13.0-18.0); Mean Corp Hgb Conc. 32.5 g/dL (33.0-37.0); Mean Corpuscular Hgb 28.2 pg (27.0-31.0); Mean Corpuscular Volume 86.8 fL (80.0-94.0); Mean Platelet Volume 9.4 fL (7.4-10.4); Platelet Count 206 10^3/uL (130-400); Red Blood Cell Count 3.72 10^6/uL (4.70-6.10); Red Cell Dist. Width 13.4 % (11.5-14.5); White Blood Cell Count 7.3 10^3/uL (4.8-10.8)
[2024-04-12 07:27] LABS: Blood Urea Nitrogen 16 mg/dl (9-20); Calcium 8.9 mg/dl (8.4-10.2); Carbon Dioxide 32 mmol/L (22-30); Chloride 97 mmol/L (98-107); Estimated Creatinine Clearance 43 ml/min; Glucose 86 mg/dl (70-99); Potassium 4.4 mmol/L (3.5-5.1); Sodium 134 mmol/L (135-145); eGFR > 60.00
[2024-04-12] MEDS: SPIRIVA RESPIMAT 2.5 MCG 2 PUFF INH (07:30)
[2024-04-12] MEDS: SYMBICORT 160/4.5 MCG INHALER 2 PUFF INH ×2 (07:30→20:42)
--- NOTE | 2024-04-12 07:49 | W.PN.HOSP.TC ---
Today's Communication/Plan
-
cont CLD
XR abd
GenSx eval
Stool studies
Assessment / Plan
Assessment / Plan
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
obstruction and gastroenteritis.
A/P:
#enteritis
#Early pSBO
#Cosntipation
Laxatives
CLD and advance as tolerated
Stool studies
XR small bowel pass-through
GenSx eval
#Paroxysmal afib
#orthostatic hypotension
#BPH
#CAD, non-obstructive
#Chronic hypoxic respiratory fauilure on 4L home O2 2/2 COPD
cont home meds
#Cholelithiasis
#4.5cm AAA
#Mild chronic hyponatremia
#Mild chronic anemia
outpatient follow up with PCP
DVT ppx on eliquis
Full code
I have spent at least 59min reviewing chart, test results, communication with consultants and direct patient care
Anticipated Discharge: 24 - 48 hours
Subjective/Interval History
-
Date of Service: April 12, 2024
Objective Data
-
Labs:
Laboratory Results
04/12/24
06:16
WBC 7.3
Hgb 10.5 L
Hct 32.3 L
Plt Count 206
Sodium 134 L
Potassium 4.4
Chloride 97 L
Carbon Dioxide 32 H
BUN 16
Creatinine 1.0
Glucose 86
Calcium 8.9
Vital Signs:
Vital Signs
Temp Pulse Resp BP Pulse Ox
97.5 F 61 12 139/77 97
04/11/24 23:15 04/12/24 07:34 04/12/24 07:34 04/11/24 23:15 04/12/24 07:34
I&O
04/11/24 04/12/24 04/13/24
06:59 06:59 06:59
Intake Total 720 / 720
Output Total 200 / 200
Balance 520 / 520
Review of Systems
-
History Source: Patient
All other systems: Reviewed and negative
Abdomen/GI: Reports Abdominal Pain
Physical Exam
-
General: No Apparent Distress
HEENT: Normocephalic and Atraumatic
Respiratory: Clear to Auscultation
Cardiac: Regular Rhythm
GI: Soft and Tender (R side)
Musculoskeletal: No Clubbing, No Cyanosis and No Edema
Skin: Warm
Neuro: Awake, Alert, Oriented and AO x 3
Psych: Calm
[2024-04-12] MEDS: PACERONE 200 MG PO (08:31)
[2024-04-12] MEDS: MIRALAX 17 GRAMS PO (08:36)
--- NOTE | 2024-04-12 09:59 | CON.GS ---
Addendum entered and electronically signed by Asad Whitehead MD 04/12/24 12:39:
I saw and examined the patient independently.
The Flue Lining Dipper's note was reviewed and I agree with the note, assessment and plan except where noted below.
Comment: This is an 83-year-old male well-known to our service with a history of A-fib on Eliquis, COPD, Margo's procedures status post reversal and multiple laparotomies for small bowel obstructions who presents today for bilateral lower
abdominal pain which she has noted for the past several days. He does state however he is passing flatus and has had several small bowel movements since admission. He is on a clear liquid diet and tolerating that well. The patient denies Fever,
Chest Pain, Shortness Of Breath, Nausea, Vomiting, changes in urinary and bowel habits, unintentional weight loss.
Okay for clear liquid diet.
Continue bowel regimen, can add milk of magnesia if patient is not responding to MiraLAX but it appears he has return of bowel function already.
Can hold off on small bowel follow-through for now.
Please continue to hold Eliquis until we are sure no surgery is planned.
General surgery will continue to follow.
Original Note:
Consultation
-
Date/Time Consultation Requested: 04/12/24 7022
Requesting Provider: Bebeto
Reason for Consultation: concern for sbo
Medical History
-
Chief Complaint: Abdominal pain
History of Present Illness:
Mr. Snyder is an 83 yo male well known to our service with a history of afib on Eliquis, COPD on home o2, Margo procedure and subsequent reversal in the , Laparotomies with lysis of adhesion x 3 (12/13/22, 02/06/23, 02/01/24) for small bowel
obstructions due to adhesions who presents this admission with lower abdominal pain for the past 5 days. He notes the discomfort was less severe than prior obstructions but similar in nature. He has been able to pass flatus and has had several small
BM's as well since presentation. He notes significant relief of pain since presentation as well. He denies fevers, chills, nausea, vomiting or hematochezia. On exam, there is mild abdominal distention but no tenderness.
Past Medical History
Past Medical History: Arrhythmias (paf on eliquis), CAD, COPD (on home o2), GERD, HTN and Other (pulmonary htn, bph, iron def anemia, infrarenal AAA)
Past Surgical History: Other ( Margo procedure and subsequent reversal in the , Laparotomies with lysis of adhesion x 3 (12/13/22, 02/06/23, 02/01/24))
Social History
Tobacco: Former Smoker
Alcohol: None
Personal:
Living: With Family
Family History
Family History: Reviewed & Not Pertinent
Allergies / Home Medications
Allergy/AdvReac Type Severity Reaction Status Date / Time
No Known Allergies Allergy Verified 04/11/24 13:49
�Medication �Instructions �Recorded �Confirmed �Type
finasteride 5 mg tablet 5 mg PO HS prostate 03/15/16 04/11/24 History
tamsulosin 0.4 mg capsule 0.4 mg PO HS Urinary issue 03/15/16 04/11/24 History
vit C 250 mg-vit E 90 mg-zinc 40 1 ea PO BID Supplement 12/14/21 04/11/24 History
mg-copper 1 [id number]
capsule (PreserVision AREDS-2)
albuterol sulfate 2.5 mg/3 mL 2.5 mg inhalation R Q6HPRN PRN sob 10/17/22 04/11/24 History
(0.083 %) solution for nebulization
fluticasone fur. 200 mcg-umeclid 1 inh inhalation R DAILY sob 10/17/22 04/11/24 History
62.5 mcg-vilant 25 mcg
inhalat.powder (Trelegy Ellipta)
rosuvastatin 40 mg tablet 40 mg PO QPM High cholesterol 10/17/22 04/11/24 History
ezetimibe 10 mg tablet 10 mg PO QPM High Cholesterol 01/25/24 04/11/24 History
ferrous sulfate 325 mg (65 mg 325 mg PO DAILY 30 days #30 tabs 02/12/24 04/11/24 Rx
iron) tablet (FeroSul)
erythromycin 5 mg/gram (0.5 %) eye 1 applic RIGHT EYE TIDPRN PRN 03/12/24 04/11/24 History
ointment burning in eye
polyvinyl alcohol-povidone (PF) 1 drp BOTH EYES QIDPRN PRN dry eyes 03/12/24 04/11/24 History
1.4 %-0.6 % eye drops in a
dropperette (Refresh Classic (PF))
sennosides 8.6 mg tablet 8.6 mg PO HS 03/12/24 04/11/24 History
apixaban 2.5 mg tablet (Eliquis) 2.5 mg PO BID 30 days #60 tabs 03/14/24 04/11/24 Rx
amiodarone 200 mg tablet 200 mg PO DAILY 04/11/24 04/11/24 History
Review of Systems
-
History Source: Patient
All other systems: Negative unless noted
A 10 point review of systems was completed, and was negative except as per HPI.
Physical Exam
Vital Signs
Temp Pulse Resp BP Pulse Ox
97.5 F 70 12 99/49 97
04/12/24 07:00 04/12/24 09:00 04/12/24 07:34 04/12/24 09:00 04/12/24 07:34
04/11/24 04/12/24 04/13/24
06:59 06:59 06:59
Actual Weight 56.88 kg
Body Mass Index (BMI) 20.2
Lab Results
04/12/24 06:16
04/12/24 06:16
WBC 7.3 10^3/uL (4.8-10.8) 04/12/24 06:16
Hgb 10.5 g/dL (13.0-18.0) L 04/12/24 06:16
Hct 32.3 % (39.0-52.0) L 04/12/24 06:16
Plt Count 206 10^3/uL (130-400) 04/12/24 06:16
Abs Immat Gran (auto) 0.0 10^3/uL (0-0.05) 04/11/24 15:53
Neutrophils % 72.6 % (42.2-75.2) 04/11/24 15:53
Physical Exam
General: No Apparent Distress and Comfortable
HEENT: Moist Mucous Membranes
Respiratory: Non Labored Respirations
GI: Soft, Non Tender and Distended (mild)
Skin: Warm and Dry
Neuro: Awake, Alert and AO x 3
Psych: Calm
Data Reviewed
-
CT Scan: Image Personally Visualized and interpreted, Report Reviewed by me, Discussed with Physician and Discussed with Patient
Labs: Labs Reviewed by me, Discussed with Physician and Discussed with Patient
Old Records: Reviewed
Assessment / Plan
-
Mr. Snyder is an 83 yo male well known to our service with a history of afib on Eliquis (LD 9/20 am), COPD on home o2, Margo procedure and subsequent reversal in the , Laparotomies with lysis of adhesion x 3 (12/13/22, 02/06/23, 02/01/24) for
small bowel obstructions due to adhesions who presents this admission with lower abdominal pain for the past 5 days. He denies n/v. He reports pain has improved since presentation and he is passing flatus and some small stools. He is afebrile with
stable vital signs. No leukocytosis. CT a/p without contrast reviewed with significant stool burden present with some mildly dilated small bowel loops. Suspected pSBO. Thus far improving with medical management.
--Continue on clear liquids
--Miralax BID, hold senna
--Will plan SBFT if does not continue to improve, hold off for now
--Please continue to hold Eliquis in case operative intervention warranted this admission
--No surgical intervention planned at this time, will follow for improvement with medical management
[2024-04-12] MEDS: LOVENOX SC (10:22)
[2024-04-12] MEDS: LOVENOX 60 MG SC ×2 (11:33→22:31)
--- NOTE | 2024-04-12 14:05 | W.PN.UPDATE ---
Update Note
Progress Note Update
formed stool - stool labs cancelled
[2024-04-12] MEDS: FLOMAX 0.4 MG PO (22:33)
[2024-04-12] MEDS: MIRALAX PO (22:33)
[2024-04-12] MEDS: ERYTHROMYCIN 0.5% OPHTHALMIC OINTMENT 1 APPLIC RIGHT EYE (22:34)
[2024-04-13 06:54] LABS: % Basophils 0.4 % (0-2); % Eosinophils 1.3 % (0-6); % Immature Granulocytes 0.3 % (0-0.5); % Lymphocytes 20.5 % (20.5-51.1); % Monocytes 7.9 % (1.7-9.3); % Neutrophils 69.6 % (42.2-75.2); Absolute Eosinophils 0.1 10^3/uL (0-0.7); Absolute Lymphocytes 1.6 10^3/uL (1.2-3.4); Absolute Monocytes 0.6 10^3/uL (0.1-0.6); Absolute Neutrophils 5.4 10^3/uL (1.4-6.5); Hematocrit 31.1 % (39.0-52.0); Hemoglobin 10.3 g/dL (13.0-18.0); Mean Corp Hgb Conc. 33.1 g/dL (33.0-37.0); Mean Corpuscular Hgb 28.2 pg (27.0-31.0); Mean Corpuscular Volume 85.2 fL (80.0-94.0); Mean Platelet Volume 9.2 fL (7.4-10.4); Nucleated Red Blood Cells % 0 % (-); Platelet Count 206 10^3/uL (130-400); Red Blood Cell Count 3.65 10^6/uL (4.70-6.10); Red Cell Dist. Width 13.2 % (11.5-14.5); White Blood Cell Count 7.8 10^3/uL (4.8-10.8)
[2024-04-13 07:00] VITALS: BP 165/76
[2024-04-13 07:22] LABS: ALT (SGPT) 19 U/L (0-50); AST (SGOT) 20 U/L (17-59); Albumin 3.1 g/dl (3.5-5.0); Alkaline Phosphatase 62 U/L (38-126); Blood Urea Nitrogen 10 mg/dl (9-20); Calcium 8.9 mg/dl (8.4-10.2); Carbon Dioxide 34 mmol/L (22-30); Chloride 96 mmol/L (98-107); Estimated Creatinine Clearance 48 ml/min; Glucose 93 mg/dl (70-99); Magnesium 2.1 mg/dl (1.6-2.3); Potassium 5.1 mmol/L (3.5-5.1); Sodium 136 mmol/L (135-145); Total Bilirubin 0.5 mg/dl (0.2-1.3); Total Protein 5.4 g/dl (6.3-8.2); eGFR > 60.00
[2024-04-13] MEDS: SYMBICORT 160/4.5 MCG INHALER 2 PUFF INH (07:55)
[2024-04-13] MEDS: SPIRIVA RESPIMAT 2.5 MCG 2 PUFF INH (07:56)
[2024-04-13] MEDS: LOVENOX 60 MG SC (08:17)
[2024-04-13] MEDS: PACERONE 200 MG PO (08:18)
[2024-04-13] MEDS: MIRALAX 17 GRAMS PO (08:18)
--- NOTE | 2024-04-13 08:18 | CM ---
Addendum entered by Lisha Cr 04/13/24 15:51:
patient signed obs letter.
Original Note:
met with patient at bedside.patient lives with his wif and son in a house with 1 lucian,his bed and bath,he ambultes with a walker,has home o2 at 4 liters [place], from [facility].he has a vn/pt/ot through [facility].he hand stamper never been to [facility] rehab.
OBS letter signed.
PCP:dr briggs and Pharmacy :[facility]
PMH:copd on 4 liters [place] o2,afib on eliquis,htn,hld,partial colectomy,aaa,diverticulitis,urinary retention,former smoker,bph
patient is adm with partial sbo,observe off abx,cont clear liquids,sbft if patient does not improve.Plan:home with [facility] care -referrral sent.
--- NOTE | 2024-04-13 09:49 | W.PN.GS2 ---
Addendum entered and electronically signed by Asad Whitehead MD 04/13/24 10:54:
I saw and examined the patient independently.
The Sandwich And Drink Cart Operator's note was reviewed and I agree with the note, assessment and plan except where noted below.
Comment: 83-year-old male with a history of recurrent small bowel obstructions here with similar.
Will advance to low residue diet for lunch
Continue bowel regiment
Okay to DC if patient is tolerating low residue diet. Okay to resume Eliquis on discharge.
Patient can follow-up with general surgery as needed as an outpatient.
Original Note:
Today's Communication / Plan
-
LRD
Assessment / Plan
-
83 yo male well known to our service with a history of afib on Eliquis, COPD on home o2, Margo procedure and subsequent reversal in the , Laparotomies with lysis of adhesion x 3 (12/13/22, 02/06/23, 02/01/24) for small bowel obstructions due to
adhesions who presents this admission with lower abdominal pain for the past 5 days with imaging with increased stool burden and
AFVSS
Tolerating FLD with +bm's/flatus, some tympany still noted on exam
Will advance to LRD for lunch
Continue Miralax BID
OK to d/c from surgical standpoint once tolerating LRD.
Subjective Data
-
Date of Service: April 13, 2024
Patient seen and examined at bedside with Dr. Whitehead. Denies n/v. Tolerating diet. Passing multiple stools/flatus. Denies pain.
Objective Data
-
Intake and Output
04/12/24 04/13/24 04/14/24
06:59 06:59 06:59
Intake Total 720 / 720 1200 / 1200
Output Total 200 / 200 1350 / 1350
Balance 520 / 520 -150 / -150
Intake:
Oral fluids 720 / 720 1200 / 1200
Output:
Urine, Voided 200 / 200 1350 / 1350
Vital Signs
Temp Pulse Resp BP Pulse Ox
97.6 F 61 16 165/76 97
04/13/24 07:00 04/13/24 07:59 04/13/24 07:59 04/13/24 07:00 04/13/24 07:59
Lab Results
04/13/24 06:17
04/13/24 06:17
Calcium 8.9 mg/dl (8.4-10.2) 04/13/24 06:17
Magnesium 2.1 mg/dl (1.6-2.3) 04/13/24 06:17
Total Bilirubin 0.5 mg/dl (0.2-1.3) 04/13/24 06:17
AST 20 U/L (17-59) 04/13/24 06:17
ALT 19 U/L (0-50) 04/13/24 06:17
Alkaline Phosphatase 62 U/L (38-126) 04/13/24 06:17
Total Protein 5.4 g/dl (6.3-8.2) L 04/13/24 06:17
Albumin 3.1 g/dl (3.5-5.0) L 04/13/24 06:17
Physical Exam
-
GEN- AAOx3 / In NAD
ABD- Soft, NonDistended although some tympany is still present, no rebound, rigidity or guarding
No TTP
--- NOTE | 2024-04-13 10:00 | W.PN.HOSP.TC ---
Today's Communication/Plan
-
Low residual diet and d/c if tolerated
Assessment / Plan
Assessment / Plan
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
obstruction and gastroenteritis. Had multiple bowel movements and started to tolerate diet well. Abd pain subsided. Advised to cont on Laxatives. Medically stable for d/c if tolerating low residual diet, as per agreement with genSx
A/P:
#enteritis
#Early pSBO
#Constipation
Laxatives
CLD and advance as tolerated
Stool studies
XR small bowel pass-through
GenSx eval
#Paroxysmal afib
#orthostatic hypotension
#BPH
#CAD, non-obstructive
#Chronic hypoxic respiratory fauilure on 4L home O2 2/2 COPD
cont home meds
#Cholelithiasis
#4.5cm AAA
#Mild chronic hyponatremia
#Mild chronic anemia
outpatient follow up with PCP
DVT ppx on eliquis
Full code
I have spent at least 39min reviewing chart, test results, communication with consultants and direct patient care
Anticipated Discharge: Within 24 hours
Subjective/Interval History
-
Date of Service: April 13, 2024
Objective Data
-
Labs:
Laboratory Results
04/13/24
06:17
WBC 7.8
Hgb 10.3 L
Hct 31.1 L
Plt Count 206
Sodium 136
Potassium 5.1
Chloride 96 L
Carbon Dioxide 34 H
BUN 10
Creatinine 0.9
Glucose 93
Calcium 8.9
Total Bilirubin 0.5
AST 20
ALT 19
Alkaline Phosphatase 62
Vital Signs:
Vital Signs
Temp Pulse Resp BP Pulse Ox
97.6 F 61 16 165/76 97
04/13/24 07:00 04/13/24 07:59 04/13/24 07:59 04/13/24 07:00 04/13/24 07:59
I&O
04/12/24 04/13/24 04/14/24
06:59 06:59 06:59
Intake Total 720 / 720 1200 / 1200
Output Total 200 / 200 1350 / 1350
Balance 520 / 520 -150 / -150
Review of Systems
-
History Source: Patient
All other systems: Reviewed and negative
Physical Exam
-
General: No Apparent Distress
HEENT: Normocephalic
Respiratory: Clear to Auscultation
Cardiac: Regular Rhythm
GI: Soft, Nontender and Nondistended
Neuro: Awake, Alert, Oriented and AO x 3
Psych: Calm
--- NOTE | 2024-04-13 10:07 | W.DCSUMMARY ---
Discharge Summary
Discharge Data
Date of Admission: 04/11/24
Date of Discharge: 04/13/24
-
Pending Results: No
Hospital Course
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
developing obstruction and gastroenteritis. Had multiple bowel movements and started to tolerate diet well. Abd pain subsided. Advised to cont on Laxatives. Medically stable for d/c if tolerating low residual diet, as per agreement with genSx. AAA
will continue to be followed with VascSx as previosuly established
I have spent at least 36min preparing d/c
A/P:
#enteritis
#Early pSBO
#Constipation
#Paroxysmal afib
#orthostatic hypotension
#BPH
#CAD, non-obstructive
#Chronic hypoxic respiratory fauilure on 4L home O2 2/2 COPD
#Cholelithiasis
#4.5cm AAA
#Mild chronic hyponatremia
#Mild chronic anemia
Discharge Plan
-
Patient Disposition: Home (Routine Discharge)
Discharge Diagnosis/Procedures: pSBO
Diet: Low Residue
Activity: As tolerated
Driving Restrictions: As prior to admission
Activity Restrictions/Additional Instructions:
Avoid constipation
Referrals:
Neal Harmon MD [Family Provider] - in one to two weeks (To establish plan for abdominal aneurism follow up)
Prescriptions:
New
sennosides [Senna Laxative] 8.6 mg Tablet
17.2 mg PO BID Qty: 60 0RF
polyethylene glycol 3350 [HealthyLax] 17 gram Powder In Packet
17 g PO DAILYPRN PRN (Reason: Constipation) Qty: 30 0RF
Continued
tamsulosin 0.4 MG capsule
0.4 mg PO HS
finasteride 5 MG tablet
5 mg PO HS
Patient Comments:
03/12/24: Patient not sure if he takes this medication.
PreserVision AREDS-2 1 EACH capsule
1 ea PO BID
albuterol sulfate 2.5 mg /3 mL (0.083 %) Solution For Nebulization
2.5 mg INHALATION R Q6HPRN PRN (Reason: sob)
Trelegy Ellipta 200-62.5-25 mcg Blister With Device
1 inh INHALATION R DAILY
rosuvastatin 40 mg tablet
40 mg PO QPM
ezetimibe 10 mg Tablet
10 mg PO QPM
ferrous sulfate [FeroSul] 325 mg (65 mg iron) Tablet
325 mg PO DAILY 30 Days Qty: 30 0RF
erythromycin 5 mg/gram (0.5 %) ointment
1 applic RIGHT EYE TIDPRN PRN (Reason: burning in eye)
Refresh Classic (PF) 1.4-0.6 % dropperette
1 drp BOTH EYES QIDPRN PRN (Reason: dry eyes)
Eliquis 2.5 mg Tablet
2.5 mg PO BID 30 Days Qty: 60 0RF
amiodarone 200 mg tablet
200 mg PO DAILY
Discontinued
sennosides 8.6 mg Tablet
8.6 mg PO HS
Discharge Date and Time
Print Language: WOLOF
[2024-04-13 12:00] VITALS: BP 158/70
== END 2024-04-13 14:55 | disposition home health service (06) ==
LOC: 3 WEST ACU 20:56
PROVIDERS: Physician Assistant; ADMITTING PHYSICIAN Hospitalist; ATTENDING PHYSICIAN Internal Medicine; CONSULT PHYSICIAN Surgery; EMERGENCY PHYSICIAN Emergency Medicine; FAMILY PHYSICIAN Family Medicine
DX: K56.51 Intestinal adhesions [bands], with partial obstruction (principal); K59.00 Constipation, unspecified; R10.9 Unspecified abdominal pain; J44.9 Chronic obstructive pulmonary disease, unspecified; I10 Essential (primary) hypertension; E78.5 Hyperlipidemia, unspecified; K21.9 Gastro-esophageal reflux disease without esophagitis; I48.0 Paroxysmal atrial fibrillation; E78.00 Pure hypercholesterolemia, unspecified; G89.29 Other chronic pain; M54.9 Dorsalgia, unspecified; I95.1 Orthostatic hypotension; I71.43 Infrarenal abdominal aortic aneurysm, without rupture; I25.10 Atherosclerotic heart disease of native coronary artery without angina pectoris; I27.20 Pulmonary hypertension, unspecified; D50.9 Iron deficiency anemia, unspecified; N40.0 Benign prostatic hyperplasia without lower urinary tract symptoms; K52.9 Noninfective gastroenteritis and colitis, unspecified; K80.20 Calculus of gallbladder without cholecystitis without obstruction; J96.11 Chronic respiratory failure with hypoxia; E87.1 Hypo-osmolality and hyponatremia; D64.9 Anemia, unspecified; Z90.49 Acquired absence of other specified parts of digestive tract; Z85.828 Personal history of other malignant neoplasm of skin; Z87.19 Personal history of other diseases of the digestive system; Z79.01 Long term (current) use of anticoagulants; Z87.891 Personal history of nicotine dependence; Z99.81 Dependence on supplemental oxygen; Z87.01 Personal history of pneumonia (recurrent); Z85.46 Personal history of malignant neoplasm of prostate
CPT/HCPCS: 74177; 80048; 80053; 83690; 83735; 85025; 85027; 85652; 94640; 96365; 96375; 97110; 97162; 97166; 99285; G0378; Q9967

== ENCOUNTER 2024-04-22 18:06 | Emergency (ER) | payer OTHER, SELFPAY ==
[2024-04-22 18:18] VITALS: BP 98/67
[2024-04-22 20:04] LABS: Urine Albumin 1+ (Neg - Trace); Urine Bilirubin Negative (Negative); Urine Character Clear (Clear); Urine Color Yellow; Urine Glucose Negative (Negative); Urine Ketone Trace (Negative); Urine Leukocyte Trace (Negative); Urine Nitrite Negative (Negative); Urine Occult Blood 3+ (Negative); Urine Specific Gravity 1.015 (<1.030); Urine Urobilinogen 1+ (Neg - 1+)
[2024-04-22 20:36] LABS: Urine Bacteria Few (Negative); Urine Calcium Oxalate Crystals Present; Urine Granular Cast 0-2 /LPF (0); Urine Red Blood Cell 30-40 /HPF (0-2)
--- NOTE | 2024-04-22 21:21 | ED.GENMED ---
History of Present Illness
General
Chief Complaint: Urinary Symptoms
Source: patient
Exam Limitations: none
Time Seen by Provider: 04/22/24 18:55
Nursing documentation reviewed up to this point in time: agreed with
History of Present Illness
History of Present Illness:
Patient to ED with complaint of urinary retention. States he is prescribed Finasteride and Tamsulosin by urology. [facility] He ran out of his meds on sunday. No issues until Sunday. States he had to straight cath self 2
times. Today he tried to cath self but did not get any urine return. Given new prescription by his PCP and took meds today. Still unable to pass urine. Came to eD for straight cath. He declines sharma catheter. No other complaints. No abdominal
or back pain. No n/v.
Past History
Past History
ED Past Medical History: Arrthythmia (Atrial fibrillation), Cancer (Skin), COPD (Wears Home Oxygen at 3 liters), GERD, HTN, Hypercholesterolemia and Other (AAA that they are watching, diverticulitis, chronic back pain, Bowel obstruction,
Bronchiolitis obliterans Organizing Pneumonia, Urinary retention, Macular degeneration); Negative NIDDM
ED Past Surgical History: Bowel resection (Colon resection)
Social History
Tobacco: Former smoker
Alcohol: None
Personal:
Living: with family
Employment: Retired
Review of Systems
Review of Systems
Allergies reviewed?: Yes
All Other Systems: ROS reviewed and negative except as documented in HPI and ROS
Constitutional: Reports no symptoms
EENT: Reports no symptoms
Respiratory: Reports no symptoms
Cardiac: Reports no symptoms
ABD/GI: Reports no symptoms
: Reports dysuria
Musculoskeletal: Reports no symptoms
Skin: Reports no symptoms
Neurological: Reports no symptoms
Psychiatric: Reports no symptoms
Phy Exam
General Physical Exam
General Presentation: well appearing and no apparent distress
General age: appears stated age
General Skin: warm and dry
General Habitus: normal
General Mental: alert
General Hydration: appears well hydrated
Cardiovascular Exam
Cardiovascular Exam: regular rate/rhythm and no edema
Gastrointestinal Exam
Gastrointestinal Exam: normal bowel sounds, non tender, soft, no organomegaly and non distended
Genitourinary Exam Male
Exam Male: circumcised, no discharge and no evidence of trauma
Musculoskeletal Exam
Musculoskeletal Exam: full ROM and neuro vasc intact
Skin Exam
Skin Exam: normal color, warm/dry and no rash
Psychiatric Exam
Psychiatric Exam: normal mood/affect
Course
Orders/Labs/Results
Orders:
Orders
04/22/24 19:32
Bladder Scan- Treatment ONCE
Straight cath- Treatment ONCE
04/22/24 19:54
Urinalysis Reflex To Culture Urgent
Date Specimen was Collected: 04/22/24
Time Specimen was Collected: 19:34
Urine Microscopic Reflex Cult Urgent
Abnormal Lab Results
04/22/24
19:54
Urine Ketones Trace A
(Negative)
Ur Occult Blood Reflex 3+ A
(Negative)
Leukocyte Esterase Rfl Trace A
(Negative)
Urine RBC 30-40 A /HPF
(0-2)
Urine Bacteria (Reflex) Few A
(Negative)
Urine Albumin (Reflex) 1+ A
(Neg - Trace)
Vital Signs
Initial and Last Documented VS:
Initial Vital Signs
Temp Pulse
98.2 F 78
04/22/24 18:15 04/22/24 18:15
Last Documented Vital Signs
Temp Pulse BP Pulse Ox
98.2 F 75 98/67 96
04/22/24 18:15 04/22/24 18:18 04/22/24 18:18 04/22/24 18:18
*Pulse Oximetry
Patient hypoxic: no
*Critical Care Note
Total Time (30-74mins, 75-104mins- exclusive of procedures): Not Applicable
Update Note
Update Note:
Straight cath by RN. Small amt of urine obtained. States he has not been drinking today because he didnt want bladder to become too full. UA sent, no evidence of infection. Patient is refusing sharma. States he will return to ED if not urine
output tonight, otherwise will follow up in AM with urology.
ED Attending Note
-
Portions of this chart may have been created with voice recognition software.� Occasional wrong word or��sound alike� substitutions may have occurred due to the inherent limitations of voice recognition software.
Discharge Plan
Departure
Patient Disposition: Home (Routine Discharge)
Date of Disposition: 04/22/24
Time of Disposition: 21:07
Patient with high blood pressure during this ER visit?: No
Condition: Good
Covid-19: Not Applicable
Discharge Problem:
Urinary retention
Instructions: Urinary retention - Discharge instructions, Urinary retention
Prescriptions:
No Action
tamsulosin 0.4 MG capsule
0.4 mg PO HS
finasteride 5 MG tablet
5 mg PO HS
Patient Comments:
03/12/24: Patient not sure if he takes this medication.
PreserVision AREDS-2 1 EACH capsule
1 ea PO BID
albuterol sulfate 2.5 mg /3 mL (0.083 %) Solution For Nebulization
2.5 mg INHALATION R Q6HPRN PRN (Reason: sob)
Trelegy Ellipta 200-62.5-25 mcg Blister With Device
1 inh INHALATION R DAILY
rosuvastatin 40 mg tablet
40 mg PO QPM
ezetimibe 10 mg Tablet
10 mg PO QPM
ferrous sulfate [FeroSul] 325 mg (65 mg iron) Tablet
325 mg PO DAILY 30 Days Qty: 30 0RF
erythromycin 5 mg/gram (0.5 %) ointment
1 applic RIGHT EYE TIDPRN PRN (Reason: burning in eye)
Refresh Classic (PF) 1.4-0.6 % dropperette
1 drp BOTH EYES QIDPRN PRN (Reason: dry eyes)
Eliquis 2.5 mg Tablet
2.5 mg PO BID 30 Days Qty: 60 0RF
amiodarone 200 mg tablet
200 mg PO DAILY
sennosides [Senna Laxative] 8.6 mg Tablet
17.2 mg PO BID Qty: 60 0RF
polyethylene glycol 3350 [HealthyLax] 17 gram Powder In Packet
17 g PO DAILYPRN PRN (Reason: Constipation) Qty: 30 0RF
Referrals:
Neal Harmon MD [Family Provider] -
Wilfredo Fraser MD [Active] - Tomorrow
Activity Restrictions/Additional Instructions:
Return to the emergency department immediatly if unable to urinate in the next 8-10 hrs
Interventions
Interventions:
*Risk Screen - Suicide Last Done: 04/22/24 18:15
*General Assessment Last Done: 04/22/24 18:15
*Neglect/Abuse Screening Last Done: 04/22/24 18:15
ED-Male Genitourinary Assessment Last Done: 04/22/24 18:07
Discharge Date and Time
Print Language: GABONESE
== END 2024-04-22 21:30 | disposition home or self-care (01) ==
LOC: EMR 18:06
PROVIDERS: Nurse Practitioner; EMERGENCY PHYSICIAN Emergency Medicine; FAMILY PHYSICIAN Family Medicine
DX: R33.9 Retention of urine, unspecified (principal); I48.91 Unspecified atrial fibrillation; J44.9 Chronic obstructive pulmonary disease, unspecified; K21.9 Gastro-esophageal reflux disease without esophagitis; I10 Essential (primary) hypertension; E78.00 Pure hypercholesterolemia, unspecified; I71.40 Abdominal aortic aneurysm, without rupture, unspecified; H35.30 Unspecified macular degeneration; Z85.828 Personal history of other malignant neoplasm of skin; Z87.891 Personal history of nicotine dependence
CPT/HCPCS: 99282; 81003; 81015

== ENCOUNTER 2024-05-01 09:36 | Inpatient (IN) | payer OTHER, SELFPAY ==
[2024-05-01] VITALS (25 sets, daily range): BP systolic 57–184; BP diastolic 38–88; BMI 16.7
[2024-05-01 03:02] LABS: Glucose - Point of Care 112 mg/dl (70-99)
--- NOTE | 2024-05-01 03:03 | ED.GENMED ---
History of Present Illness
<Rufus Lim MD - Last Filed: 05/01/24 04:58>
General
Chief Complaint: Abdominal Symptoms
Source: patient
Exam Limitations: none
Time Seen by Provider: 05/01/24 03:00
Nursing documentation reviewed up to this point in time: agreed with
History of Present Illness
History of Present Illness:
Patient presents to ED secondary to persistent lower abdominal pain along with inability to have bowel movements over the past 24 hours. Patient has had taken [id number] medications without improvement in symptoms. Denies fever. Denies
vomiting. Denies trauma. Denies recent change in medications or diet. Of note, patient has had multiple episodes of bowel obstruction this year. Per spouse, his symptoms are similar to previous episodes of bowel obstruction.
Past History
<Rufus Lim MD - Last Filed: 05/01/24 04:58>
Past History
ED Past Medical History: Arrthythmia (Atrial fibrillation), Cancer (Skin), COPD (Wears Home Oxygen at 3 liters), GERD, HTN, Hypercholesterolemia and Other (AAA that they are watching, diverticulitis, chronic back pain, Bowel obstruction,
Bronchiolitis obliterans Organizing Pneumonia, Urinary retention, Macular degeneration); Negative NIDDM
ED Past Surgical History: Bowel resection (Colon resection)
Social History
Tobacco: Former smoker
Alcohol: None
Personal:
Living: with family
Employment: Retired
Review of Systems
<Rufus Lim MD - Last Filed: 05/01/24 04:58>
Review of Systems
Allergies reviewed?: Yes
All Other Systems: ROS reviewed and negative except as documented in HPI and ROS
Constitutional: Reports no symptoms
EENT: Reports no symptoms
Respiratory: Reports no symptoms
Cardiac: Reports no symptoms
ABD/GI: Reports abdominal pain; Denies nausea, vomiting or diarrhea
Musculoskeletal: Reports no symptoms
Skin: Reports no symptoms
Neurological: Reports no symptoms
Phy Exam
<Rufus Lim MD - Last Filed: 05/01/24 04:58>
Physical Exam
Physical Exam:
Physical Exam
General: mild painful distress, acutely ill. afebrile. thin appearing
Head: nc/at. eomi
Neck: supple. no meningeal signs.
Heart: s1/s2 regular rate and rhythm, no murmur. equal radial pulses.
Lungs: no acute respiratory distress. diminished breath sounds bilaterally
Abdomen: normal bowel sounds. mild diffuse lower abdominal tenderness to palpation.
Neuro: alert and oriented. no focal neurological deficits
Skin: no rash
Psychiatric: well kept. interactive and cooperative
Extremities: no edema. no calf tenderness.
Course
<Rufus Lim MD - Last Filed: 05/01/24 04:58>
Orders/Labs/Results
Orders:
Orders
05/01/24 03:00
CR Obstruct Series W/pa Chest Urgent
Comment:
Reason For Exam: abdominal pain
05/01/24 03:02
0.9% Sodium Chloride 1000 ml [Nss] 1,000 ml IV BOLUS
05/01/24 03:08
Complete Blood Count/No Diff Urgent
Comprehensive Metabolic Panel Urgent
Magnesium Urgent
05/01/24 03:30
Fentanyl Citrate/Pf [Sublimaze] 25 mcg IV NOW STA
05/01/24 04:06
Iohexol [Omnipaque] See Protocol PO NOW STA
05/01/24 04:07
CT Abd/pel W Iv And Oral Contr Urgent
Comment:
Reason For Exam: abdominal pain
05/01/24 06:39
Morphine Sulfate 4 mg IV NOW STA
05/01/24 08:50
Admit/Transfer Patient As Directed
Co-Sign Provider:
Level of Care: Inpatient admission
Assign to:: Medical/Surgical
Physician / Group: Hospitalist
Diagnosis: Small bowel obstruction
Reason for Hospitalization: Small bowel obstruction
Expected length of stay greater than two midnights?: Yes
ELOS- Estimated Length of Stay in days: 3
I certify the patient meets the requirements for IP care: Yes
05/01/24 08:52
PRN Pain Medication Management As Directed
May give lesser potent ordered pain med per pt: Yes
preference::
Protocol:: Medication orders for pain may be administered in a
manner that supports deferring to patient preference
when the pt is:
- Requesting an ordered lesser potent pain medication.
Least to most potent pain medications are defined
as: acetaminophen < NSAID < tramadol < opioids
(morphine, oxycodone, hydromorphone).
- Requesting a lesser dose of the same medication IF
ORDERED.
- Requesting a less intrusive route of administration
if both routes are prescribed by the provider (PO <
IV).
05/01/24 09:06
Code Status As Directed
Resuscitation Status: Limited DNR
Limited DNR: -No intubation
05/01/24 09:15
0.9% Sodium Chloride 1000 ml [Nss] 1,000 ml IV 100 mls/hr
05/01/24 12:17
0.9% Sodium Chloride 1000 ml [Nss] 1,000 ml IV 60 mls/hr
Acetaminophen [Tylenol] 650 mg PO QIDPRN PRN
Artificial Tears (Pf) [Refresh Eye Drops (Pf)] See Dose Instructions BOTH EYES QIDPRN PRN
Erythromycin (Ilotycin) [Erythromycin 0.5% Ophthalmic Ointment] See Dose Instructions RIGHT EYE TIDPRN PRN
Ipratropium/Albuterol Sulfate [Duoneb] 3 ml INH R Q4HPRN PRN
05/01/24 12:17
Activity As Directed
Activity Level: As Tolerated
I&O [Intake/ Output] As Directed
Frequency: q12h
05/01/24 18:00
Ezetimibe [Zetia] 10 mg PO QPM
Rosuvastatin Calcium [Crestor] 40 mg PO QPM
05/01/24 22:00
Tamsulosin [Flomax] 0.4 mg PO HS
05/02/24 08:00
Amiodarone [Pacerone] 100 mg PO DAILY
Abnormal Lab Results
05/01/24 05/01/24
03:00 03:08
WBC 12.0 H 10^3/uL
(4.8-10.8)
RBC 4.02 L 10^6/uL
(4.70-6.10)
Hgb 11.3 L g/dL
(13.0-18.0)
Hct 33.5 L %
(39.0-52.0)
Sodium 133 L mmol/L
(135-145)
Chloride 96 L mmol/L
(98-107)
Glucose 112 H mg/dl
(70-99)
Total Protein 5.9 L g/dl
(6.3-8.2)
Albumin 3.4 L g/dl
(3.5-5.0)
POC Glucose 112 H mg/dl
(70-99)
05/01/24 03:08
05/01/24 03:08
Vital Signs
Initial and Last Documented VS:
Initial Vital Signs
Temp Pulse Resp BP Pulse Ox
98 F 77 16 82/50 94
05/01/24 02:05 05/01/24 02:05 05/01/24 02:05 05/01/24 02:05 05/01/24 02:05
Last Documented Vital Signs
Temp Pulse Resp BP Pulse Ox
97.7 F 74 17 139/82 91
05/01/24 13:48 05/01/24 13:48 05/01/24 13:48 05/01/24 13:48 05/01/24 13:48
<Marie Lianna, DO - Last Filed: 05/01/24 13:50>
Orders/Labs/Results
Orders:
Orders
05/01/24 03:00
CR Obstruct Series W/pa Chest Urgent
Comment:
Reason For Exam: abdominal pain
05/01/24 03:02
0.9% Sodium Chloride 1000 ml [Nss] 1,000 ml IV BOLUS
05/01/24 03:08
Complete Blood Count/No Diff Urgent
Comprehensive Metabolic Panel Urgent
Magnesium Urgent
05/01/24 03:30
Fentanyl Citrate/Pf [Sublimaze] 25 mcg IV NOW STA
05/01/24 04:06
Iohexol [Omnipaque] See Protocol PO NOW STA
05/01/24 04:07
CT Abd/pel W Iv And Oral Contr Urgent
Comment:
Reason For Exam: abdominal pain
05/01/24 06:39
Morphine Sulfate 4 mg IV NOW STA
05/01/24 08:50
Admit/Transfer Patient As Directed
Co-Sign Provider:
Level of Care: Inpatient admission
Assign to:: Medical/Surgical
Physician / Group: Hospitalist
Diagnosis: Small bowel obstruction
Reason for Hospitalization: Small bowel obstruction
Expected length of stay greater than two midnights?: Yes
ELOS- Estimated Length of Stay in days: 3
I certify the patient meets the requirements for IP care: Yes
05/01/24 08:52
PRN Pain Medication Management As Directed
May give lesser potent ordered pain med per pt: Yes
preference::
Protocol:: Medication orders for pain may be administered in a
manner that supports deferring to patient preference
when the pt is:
- Requesting an ordered lesser potent pain medication.
Least to most potent pain medications are defined
as: acetaminophen < NSAID < tramadol < opioids
(morphine, oxycodone, hydromorphone).
- Requesting a lesser dose of the same medication IF
ORDERED.
- Requesting a less intrusive route of administration
if both routes are prescribed by the provider (PO <
IV).
05/01/24 09:06
Code Status As Directed
Resuscitation Status: Limited DNR
Limited DNR: -No intubation
05/01/24 09:15
0.9% Sodium Chloride 1000 ml [Nss] 1,000 ml IV 100 mls/hr
05/01/24 12:17
0.9% Sodium Chloride 1000 ml [Nss] 1,000 ml IV 60 mls/hr
Acetaminophen [Tylenol] 650 mg PO QIDPRN PRN
Artificial Tears (Pf) [Refresh Eye Drops (Pf)] See Dose Instructions BOTH EYES QIDPRN PRN
Erythromycin (Ilotycin) [Erythromycin 0.5% Ophthalmic Ointment] See Dose Instructions RIGHT EYE TIDPRN PRN
Ipratropium/Albuterol Sulfate [Duoneb] 3 ml INH R Q4HPRN PRN
05/01/24 12:17
Activity As Directed
Activity Level: As Tolerated
I&O [Intake/ Output] As Directed
Frequency: q12h
05/01/24 18:00
Ezetimibe [Zetia] 10 mg PO QPM
Rosuvastatin Calcium [Crestor] 40 mg PO QPM
05/01/24 22:00
Tamsulosin [Flomax] 0.4 mg PO HS
05/02/24 08:00
Amiodarone [Pacerone] 100 mg PO DAILY
Abnormal Lab Results
05/01/24 05/01/24
03:00 03:08
WBC 12.0 H 10^3/uL
(4.8-10.8)
RBC 4.02 L 10^6/uL
(4.70-6.10)
Hgb 11.3 L g/dL
(13.0-18.0)
Hct 33.5 L %
(39.0-52.0)
Sodium 133 L mmol/L
(135-145)
Chloride 96 L mmol/L
(98-107)
Glucose 112 H mg/dl
(70-99)
Total Protein 5.9 L g/dl
(6.3-8.2)
Albumin 3.4 L g/dl
(3.5-5.0)
POC Glucose 112 H mg/dl
(70-99)
05/01/24 03:08
05/01/24 03:08
Vital Signs
Initial and Last Documented VS:
Initial Vital Signs
Temp Pulse Resp BP Pulse Ox
98 F 77 16 82/50 94
05/01/24 02:05 05/01/24 02:05 05/01/24 02:05 05/01/24 02:05 05/01/24 02:05
Last Documented Vital Signs
Temp Pulse Resp BP Pulse Ox
97.7 F 74 17 139/82 91
05/01/24 13:48 05/01/24 13:48 05/01/24 13:48 05/01/24 13:48 05/01/24 13:48
<Rufus Lim MD - Last Filed: 05/01/24 04:58>
MDM/Problems Addressed
MDM/Problems Addressed:
Pt reports improvement in symptoms after treatment. Obstruction series suggestive of potential recurrent bowel obstruction. CT abdomen/pelvis pending.
<Marie Dsouza DO - Last Filed: 05/01/24 13:50>
*Critical Care Note
Total Time (30-74mins, 75-104mins- exclusive of procedures): Not Applicable
<Marie Dsouza DO - Last Filed: 05/01/24 13:50>
Update Note
Update Note:
Attending Signout Note
06:10 -assuming care of patient, 84-year-old male with prior history of obstructions in the past, presenting for abdominal pain and constipation. Patient did pass some flatus this morning. Received fentanyl for pain. Labs are grossly
unremarkable, vital stable. Pending CT imaging of the abdomen. Did have a flatplate, concerning for air-fluid levels.
07:30 -CT consistent with recurrent small bowel obstruction. Plan for admission. Will make surgery aware.
ED Attending Note
<Rufus Lim MD - Last Filed: 05/01/24 04:58>
-
Portions of this chart may have been created with voice recognition software.� Occasional wrong word or��sound alike� substitutions may have occurred due to the inherent limitations of voice recognition software.
Discharge Plan
Departure
Patient Disposition: Admit
Date of Disposition: 05/01/24
Time of Disposition: 07:38
Presentation/result/management discussed w/ accepting MD/DO: Hospitalist
Discharge Problem:
Small bowel obstruction
Interventions
Interventions:
*Risk Screen - Suicide Last Done: 05/01/24 02:05
*General Assessment Last Done: 05/01/24 03:40
*Neglect/Abuse Screening Last Done: 05/01/24 03:40
ED- Fall Risk Assessment Last Done: 05/01/24 13:44
*ED COVID-19 Vaccine History Last Done: 05/01/24 13:44
*Nursing Disposition Last Done: 05/01/24 13:44
[facility] Assessment Last Done: 05/01/24 03:40
Discharge Date and Time
Discharge Date/Time: 05/01/24 13:44
[2024-05-01 03:20] LABS: Hematocrit 33.5 % (39.0-52.0); Hemoglobin 11.3 g/dL (13.0-18.0); Mean Corp Hgb Conc. 33.7 g/dL (33.0-37.0); Mean Corpuscular Hgb 28.1 pg (27.0-31.0); Mean Corpuscular Volume 83.3 fL (80.0-94.0); Mean Platelet Volume 9.1 fL (7.4-10.4); Platelet Count 258 10^3/uL (130-400); Red Blood Cell Count 4.02 10^6/uL (4.70-6.10); Red Cell Dist. Width 13.3 % (11.5-14.5)
[2024-05-01 03:32] LABS: ALT (SGPT) 21 U/L (0-50); AST (SGOT) 24 U/L (17-59); Albumin 3.4 g/dl (3.5-5.0); Alkaline Phosphatase 57 U/L (38-126); Blood Urea Nitrogen 15 mg/dl (9-20); Calcium 9.1 mg/dl (8.4-10.2); Carbon Dioxide 29 mmol/L (22-30); Chloride 96 mmol/L (98-107); Glucose 112 mg/dl (70-99); Magnesium 1.9 mg/dl (1.6-2.3); Potassium 4.4 mmol/L (3.5-5.1); Sodium 133 mmol/L (135-145); Total Bilirubin 0.6 mg/dl (0.2-1.3); Total Protein 5.9 g/dl (6.3-8.2); eGFR > 60.00
[2024-05-01] MEDS: SUBLIMAZE 25 MCG IV (03:43)
[2024-05-01] MEDS: NSS 1000 IV ×4 (03:43→22:21)
[2024-05-01] MEDS: OMNIPAQUE 50 ML PO (04:13)
[2024-05-01] MEDS: MORPHINE SULFATE 4 MG IV (07:02)
--- NOTE | 2024-05-01 08:53 | CON.GS ---
Addendum entered and electronically signed by Daniel Cantu MD 05/01/24 11:09:
Patient seen and examined with rn surgical pcu. Agree with documented consultation note consistent with my concurrent examination and evaluation.
HPI: 84-year-old male well-known to our surgical service secondary to likely underlying dysmotility and chronic adhesions. Past abdominal surgical history more recently includes multiple exploratory laparotomies with lysis of adhesions over the
past 2 years. Last procedure 01/2024. He was also briefly hospitalized a couple weeks ago for a partial small bowel obstruction.
States that he returned to his usual baseline state of health after recent discharge with return of regular GI function and tolerance of solid food. He had beef stew with some cooked carrots and potatoes and began feeling abdominal discomfort. His
appetite was able to remain stable to the point that he continued to eat but pain returned yesterday prompting emergency department evaluation. No significant nausea or vomiting. Abdominal bloating and distention but not as severe as prior
episodes. He has passed a bit of flatus, last bowel movement Milady.
AFVSS
NAD, AAOx3, elderly male
ABD: Softly distended and a bit protuberant in the left abdomen. Some tympany on percussion throughout. Mild tenderness on palpation but without rebound rigidity or guarding. Small, soft, easily reducible right inguinal hernia without tenderness.
Laboratory testing notable for white blood cell count of 2, hemoglobin 11.3 which is close to his baseline. Mild hyponatremia and hypochloremia.
CT abdomen/pelvis imaging personally reviewed as well as radiologist report. There is mild small bowel contrast distention predominantly in the mid small bowel. No significant gastric distention. Suggestion of mild area of transition point in the
anterior abdomen to the right of the midline with more distally decompressed small bowel but difficult to exactly pinpoint site of obstruction. No clear radiographic signs suggestive of internal hernia, small bowel volvulus, no pneumatosis, no free
air, no significant free fluid.
Assessment and plan: 84-year-old male presenting with recurrent small bowel obstruction in the setting of likely underlying chronic dysmotility and significant adhesive disease requiring multiple laparotomies and lysis of adhesions in the past.
Hemodynamically stable. No peritoneal signs. CT imaging without signs of bowel threat or compromise.
Recommend a course of medical management with routine supportive care
Given lack of nausea, mild distention on abdominal examination and fact that there is not severe gastric or proximal small bowel distention will attempt to manage without NG tube monitoring for progressive obstructive symptoms which if were to
develop would prompt placement of an NG tube.
Will follow
Original Note:
Consultation
-
Date/Time Consultation Requested: 05/01/2024
Date/Time Consultation Performed: 05/01/2024
Performing Provider: Dr. Ted Cervantes, Dr. Daniel Cantu
Reason for Consultation: SBO
Medical History
-
Chief Complaint: Abdominal Pain, SBO
History of Present Illness:
Cornelio Snyder is a 84 year old male with a past medical history or COPD (on home O2 4L), Afib (on Eliquis), HTN, HLD, history of perforated diverticulitis, Ex Lap w/ MURIEL (11/2022, 01/2023) & most recently ex lap, MURIEL, small bowel resection (01/2024).
He was in usual state of health Sunday morning when he ate beef stew with carrots and potatoes. He began to feel some abdominal pain, w/o nausea/vomiting. He continued to eat and drink, reducing amount due to discomfort/pain. He was able to move
his bowels and pass gas on Sunday. Sunday night the pain became so bad that he was unable to sleep at which point he came to the ED. At no point during this episode did he experience vomiting/nausea. His last bowel movement on Sunday was
normal. He has not experienced any fevers or chills.
On arrival to the ED his pressures were soft, and he soon became hypotensive 57/38. He received IV morphine and fentanyl TD. He is status post 1L NS.
Presently, he is complaining of mild pain in the abdomen. He is not nauseous and has not vomited. He claims he has passed gas since arriving to the ED, but has not moved his bowels. He is not experiencing any fevers or chills at this time.
Past Medical History
Past Medical History: Arrhythmias (Afib), COPD, Diverticulitis (Hx of Perforated Diverticulitis), GERD, HTN, Hypercholesterolemia and Other (BPH/Urinary Retention)
Past Surgical History: Bowel Resection and Other (Perforated Diverticulitis, Multiple Ex Lap w/ MURIEL, Bowel Resection (01/2024))
Social History
Tobacco: Non-Smoker
Alcohol: None
Drug: None
Personal:
Living: With Family
Employment: Retired
Family History
Family History: Reviewed & Not Pertinent
Allergies / Home Medications
Allergy/AdvReac Type Severity Reaction Status Date / Time
No Known Allergies Allergy Verified 05/01/24 02:07
�Medication �Instructions �Recorded �Confirmed �Type
finasteride 5 mg tablet 5 mg PO HS prostate 03/15/16 05/01/24 History
tamsulosin 0.4 mg capsule 0.4 mg PO HS Urinary issue 03/15/16 05/01/24 History
albuterol sulfate 2.5 mg/3 mL 2.5 mg inhalation R Q6HPRN PRN sob 10/17/22 05/01/24 History
(0.083 %) solution for nebulization
fluticasone fur. 200 mcg-umeclid 1 inh inhalation R DAILYPRN PRN sob 10/17/22 05/01/24 History
62.5 mcg-vilant 25 mcg
inhalat.powder (Trelegy Ellipta)
rosuvastatin 40 mg tablet 40 mg PO QPM High cholesterol 10/17/22 05/01/24 History
ezetimibe 10 mg tablet 10 mg PO QPM High Cholesterol 01/25/24 05/01/24 History
erythromycin 5 mg/gram (0.5 %) eye 1 applic RIGHT EYE TIDPRN PRN 03/12/24 05/01/24 History
ointment burning in eye
polyvinyl alcohol-povidone (PF) 1 drp BOTH EYES QIDPRN PRN dry eyes 03/12/24 05/01/24 History
1.4 %-0.6 % eye drops in a
dropperette (Refresh Classic (PF))
apixaban 2.5 mg tablet (Eliquis) 2.5 mg PO BID 30 days #60 tabs 03/14/24 05/01/24 Rx
amiodarone 200 mg tablet 100 mg PO DAILY Arrhythmia 04/11/24 05/01/24 History
polyethylene glycol 3350 17 gram 17 g PO DAILYPRN PRN Constipation 04/13/24 05/01/24 Rx
oral powder packet (HealthyLax) #30 ea
sennosides 8.6 mg tablet (Senna 17.2 mg (2 x 8.6 mg) PO BID #60 04/13/24 05/01/24 Rx
Laxative) tabs
acetaminophen 325 mg tablet 325 mg PO QIDPRN PRN mild pain 05/01/24 05/01/24 History
(Tylenol)
Review of Systems
-
History Source: Patient
All other systems: Negative unless noted
Constitutional: No Symptoms
EENT: No Symptoms
Respiratory: No Symptoms
Cardiac: No Symptoms
Abdomen/GI: Abdominal Pain
: Difficulty Voiding
Musculoskeletal: No Symptoms
Skin: No Symptoms
Neurological: No Symptoms
Endocrine: No Symptoms
Hematologic/Lymphatic: No Symptoms
A 10 point review of systems was completed, and was negative except as per HPI.
Physical Exam
Vital Signs
Temp Pulse Resp BP Pulse Ox
98 F 59 18 103/66 97
05/01/24 02:05 05/01/24 07:45 05/01/24 07:45 05/01/24 07:30 05/01/24 07:45
Lab Results
05/01/24 03:08
05/01/24 03:08
WBC 12.0 10^3/uL (4.8-10.8) H 05/01/24 03:08
Hgb 11.3 g/dL (13.0-18.0) L 05/01/24 03:08
Hct 33.5 % (39.0-52.0) L 05/01/24 03:08
Plt Count 258 10^3/uL (130-400) 05/01/24 03:08
Physical Exam
General: Well Developed, Well Nourished, No Apparent Distress and Comfortable
HEENT: Normocephalic, Anicteric and Moist Mucous Membranes (Dry mucous membranes)
Respiratory: Clear
Cardiac: S1/S2, Regular Rhythm and Other (Bradycardic)
Breast: N/A
GI: Soft, Non Distended, Normal Bowel Sounds (Hyperactive), Tender (Tender in the Lower abdomen. Rebound tenderness. No guarding.) and Other (Tympanitic to percussion L hemiabdomen)
Rectal: Deferred by Provider
Musculoskeletal: No Clubbing, No Cyanosis and No Edema
Neuro: Awake, Alert and Oriented
Psych: Calm
Assessment / Plan
-
84 year old male with a past medical history or COPD (on home O2 4L), Afib (on Eliquis), HTN, HLD, history of perforated diverticulitis, Ex Lap w/ MURIEL (11/2022, 01/2023) & most recently ex lap, MURIEL, small bowel resection (01/2024) who came to the ED w/
symptoms of severe abdominal pain x2 days
#SBO
- CT abd demonstrated twist in the bowel and luminal narrowing along the distal margin of this distended loop located deep to the site of a midline laparotomy w/ collapsed distal bowel.
- Keep NPO for now. May progress to CLD tomorrow if symptoms improve
- Will obtain Abd Xr tomorrow to evaluate contrast movement
- C/w NS IVF, pain control, anti-emetics if needed.
- Can consider NGT placement if nausea/vomiting develops.
- No immediate plans for surgery at this time.
- Will continue to follow
--- NOTE | 2024-05-01 12:42 | HPS.HSE ---
Family Physician
-
Family Physician: Neal Harmon
Chief Complaint
-
Abdominal pain
History of Present Illness
84-year-old male with history of COPD on 4L home O2, A-fib, recurrent bowel obstructions, AAA, GERD, diverticulitis, who presented to the ED with worsening abdominal pain. Symptoms started on Sunday morning with mild abdominal pain which gradually
worsened until he came in. He had normal appetite with no nausea and vomiting and was able to tolerate p.o. intake while symptoms persisted. 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
had a small/moderate BM in the ED today. Of note he has had 7 prior bowel obstructions, with multiple surgical interventions.
He denies fever, nausea, vomiting, trauma, changes in meds/dietary habits, bloody/dark stool, chest pain/palpitations. He notes that he has presented similarly on other occasions of bowel obstruction.
Medical History
Past Medical History
Past Medical History: Reports Arrhythmia (A-fib), Cancer (Skin), COPD, GERD, HTN, Hypercholesterolemia and Other (Recurrent bowel obstruction, AAA, diverticulitis, bronchiolitis obliterans (organizing pneumonia), chronic urinary retention, macular
degeneration)
Past Surgical History: Reports Bowel Resection (Multiple)
Social History
Tobacco: Former Smoker
Alcohol: None
Personal:
Living: With Family
Family History
Family History: Not pertinent
Allergies / Home Medications
Allergies reflects when Allergies were last updated in [facility].
Home Medications with original date entered in [facility]
Allergy/Medication List:
Allergies
Allergy/AdvReac Type Severity Reaction Status Date / Time
No Known Allergies Allergy Verified 05/01/24 02:07
Home Medications
finasteride 5 mg tablet 5 mg PO HS prostate 03/15/16
tamsulosin 0.4 mg capsule 0.4 mg PO HS Urinary issue 03/15/16
albuterol sulfate 2.5 mg/3 mL (0.083 %) solution for nebulization 2.5 mg inhalation R Q6HPRN PRN sob 10/17/22
fluticasone fur. 200 mcg-umeclid 62.5 mcg-vilant 25 mcg inhalat.powder (Trelegy Ellipta) 1 inh inhalation R DAILYPRN PRN sob 10/17/22
rosuvastatin 40 mg tablet 40 mg PO QPM High cholesterol 10/17/22
ezetimibe 10 mg tablet 10 mg PO QPM High Cholesterol 01/25/24
erythromycin 5 mg/gram (0.5 %) eye ointment 1 applic RIGHT EYE TIDPRN PRN burning in eye 03/12/24
polyvinyl alcohol-povidone (PF) 1.4 %-0.6 % eye drops in a dropperette (Refresh Classic (PF)) 1 drp BOTH EYES QIDPRN PRN dry eyes 03/12/24
apixaban 2.5 mg tablet (Eliquis) 2.5 mg PO BID 30 days #60 tabs 03/14/24
amiodarone 200 mg tablet 100 mg PO DAILY Arrhythmia 04/11/24
polyethylene glycol 3350 17 gram oral powder packet (HealthyLax) 17 g PO DAILYPRN PRN Constipation #30 ea 04/13/24
sennosides 8.6 mg tablet (Senna Laxative) 17.2 mg (2 x 8.6 mg) PO BID #60 tabs 04/13/24
acetaminophen 325 mg tablet (Tylenol) 325 mg PO QIDPRN PRN mild pain 05/01/24
Review of Systems
-
History Source: Patient
Constitutional: Denies Fever or Chills
Respiratory: Denies Trouble Breathing
Cardiac: Denies Chest Pain or Palpitations
Abdomen/GI: Reports Abdominal Pain; Denies Nausea, Vomiting, Diarrhea, Constipated, Bloody Stools, Black Stools or Anorexia
: Denies Dysuria or Difficulty Voiding
Physical Exam
Vital Signs
Vital Signs
Temp Pulse Resp BP Pulse Ox
98 F 62 18 141/78 98
05/01/24 02:05 05/01/24 11:00 05/01/24 10:45 05/01/24 10:30 05/01/24 10:45
Physical Exam
General: Well Nourished, No Apparent Distress and Comfortable
HEENT: Anicteric, Oxygen (3L NC) and Other (Dry mucous membranes)
Respiratory: Clear and Non Labored Respirations; No Wheezes, Rales, Rhonchi or Crackles
Cardiac: S1/S2 and Regular Rhythm; No Murmur, Rub, Gallop, Peripheral Edema, Calf Tenderness or Janay's Sign
GI: Non Distended, Normal Bowel Sounds, Tender (Bilateral lower quadrant) and Other (Positive rebound, no guarding. Tympanic on percussion. Mild fullness in LUQ)
Musculoskeletal: No Cyanosis and No Edema
Skin: Warm and Dry
Neuro: Awake and Alert
Psych: Calm
Laboratory Results
-
05/01/24 03:08
05/01/24 03:08
Laboratory Results
Total Bilirubin 0.6 mg/dl (0.2-1.3) 05/01/24 03:08
AST 24 U/L (17-59) 05/01/24 03:08
ALT 21 U/L (0-50) 05/01/24 03:08
Alkaline Phosphatase 57 U/L (38-126) 05/01/24 03:08
Impression/Plan
-
IMPRESSION: 84-year-old male with history of recurrent bowel obstruction who presents to the ED with abdominal pain and constipation.
PLAN:
Abdominal pain:
Known hx of recurrent bowel obstruction
CT abd/pel: Moderate distention of contrast-filled jejunal small bowel loops in the left side of the abdomen with suggestion of a 'transition point' between proximal distended contrast-filled loops and more distal collapsed ileal small bowel loops
in the anterior lower abdomen deep to a laparotomy suggesting a RECURRENT SMALL BOWEL OBSTRUCTION.
- SBO vs ileus
- Had small BM in ED, continues to pass flatus. No nausea/vomiting
- Appreciate surgery recs
- Bowel rest. Patient remains NPO with ice chips for 24 hours. No NG tube in meantime
- IVF, Supportive care. Monitor symptoms
Leukocytosis:
Mildly elevated leukocytes. Afebrile. Hemodynamically stable.
- Likely reactive.
- Will follow CBC and monitor for fever or signs of infection
Hyponatremia:
Chronic, asymptomatic
- Monitor
COPD:
Denies SOB. at baseline O2 NC. No wheezing on PE
- Continue Telegy Ellipta
- DuoNebs as needed for wheezing
p-Afib:
Rate and rhythm controlled at this time.
- Continue Amioderone and Eliquis
Abdominal aortic aneurysm:
4.8 cm in AP dimension
-Followed by vascular surgery outpatient
BPH, Chronic urinary retention:
Well-controlled. Denies urinary symptoms.
-Continue finasteride and tamsulosin
Hypercholesterolemia:
- Continue Rosuvastatin and Ezetimibe
History of diverticulitis
History of skin Cancer
Diet: NPO with ice chips
DVT ppx: Eliquis
Code status: DNR
[2024-05-01] MEDS: CRESTOR 40 MG PO (17:02)
[2024-05-01] MEDS: ZETIA 10 MG PO (17:02)
--- NOTE | 2024-05-01 19:15 | PTCARENOTE ---
Pt received on change of shift. Pt AAOX3, VSS, and receptive to room, bed rails, and call trujillo. Pt bed in lowest position and call trujillo within reach. Pt informed on importance of call trujillo usage, pt relayed understanding and cooperation. Will
continue with current plan of care.
[2024-05-01] MEDS: SYMBICORT 160/4.5 MCG INHALER 2 PUFF INH (20:08)
[2024-05-01] MEDS: FLOMAX 0.4 MG PO (22:21)
[2024-05-01] MEDS: ELIQUIS 2.5 MG PO (22:21)
[2024-05-01] MEDS: PROSCAR 5 MG PO (22:21)
[2024-05-02 07:14] VITALS: BP 135/76
[2024-05-02] MEDS: PACERONE 100 MG PO (08:00)
[2024-05-02] MEDS: ELIQUIS 2.5 MG PO ×2 (08:00→21:44)
[2024-05-02] MEDS: SYMBICORT 160/4.5 MCG INHALER 2 PUFF INH ×2 (08:10→19:55)
[2024-05-02] MEDS: SPIRIVA RESPIMAT 2.5 MCG 2 PUFF INH (08:10)
[2024-05-02] MEDS: NSS 1000 IV (08:34)
[2024-05-02 08:43] LABS: Hematocrit 32.9 % (39.0-52.0); Mean Corp Hgb Conc. 33.4 g/dL (33.0-37.0); Mean Corpuscular Hgb 29.4 pg (27.0-31.0); Mean Platelet Volume 9.4 fL (7.4-10.4); Platelet Count 179 10^3/uL (130-400); Red Blood Cell Count 3.74 10^6/uL (4.70-6.10); Red Cell Dist. Width 13.4 % (11.5-14.5)
[2024-05-02 09:45] LABS: Blood Urea Nitrogen 12 mg/dl (9-20); Calcium 8.3 mg/dl (8.4-10.2); Carbon Dioxide 26 mmol/L (22-30); Chloride 99 mmol/L (98-107); Estimated Creatinine Clearance 60 ml/min; Glucose 72 mg/dl (70-99); Potassium 4.3 mmol/L (3.5-5.1); Sodium 136 mmol/L (135-145); eGFR > 60.00
[2024-05-02 12:10] VITALS: BMI 16.7
--- NOTE | 2024-05-02 13:14 | W.PN.HOSP.TC ---
Addendum entered and electronically signed by Johnnie Dominguez MD 05/02/24 14:17:
Moving bowels has had multiple bowel movements since being noted. Passing gas and then is slightly more distended however without evidence of hardness or guarding/tenderness. Will check nominal x-ray if no evidence of obstruction then will start
clear liquid diet and advance diet as tolerated. With plans to eventually discharge home in the next 24 hours
Original Note:
Today's Communication/Plan
-
Clear liquid diet. Will advance as tolerated
Assessment / Plan
Assessment / Plan
IMPRESSION: 84-year-old male with history of recurrent bowel obstruction who presents to the ED with abdominal pain and constipation.
PLAN:
Abdominal pain:
Known hx of recurrent bowel obstruction
CT abd/pel: Moderate distention of contrast-filled jejunal small bowel loops in the left side of the abdomen with suggestion of a 'transition point' between proximal distended contrast-filled loops and more distal collapsed ileal small bowel loops
in the anterior lower abdomen deep to a laparotomy suggesting a RECURRENT SMALL BOWEL OBSTRUCTION.
- SBO vs ileus
- Continues to have BMs and to pass flatus. No nausea/vomiting. Abdominal pain significantly improved
- Appreciate surgery recs.
- Will advance to clear liquid diet and advance as tolerated
- IVF, Supportive care. Monitor symptoms
Leukocytosis:
Mildly elevated leukocytes. Afebrile. Hemodynamically stable.
- Likely reactive. Resolved
- Will follow CBC and monitor for fever or signs of infection
Hyponatremia:
Mild, Chronic, asymptomatic. Normalized today
- Monitor
COPD:
Denies SOB. at baseline O2 NC. No wheezing on PE
- Continue Telegy Ellipta
- DuoNebs as needed for wheezing
p-Afib:
Rate and rhythm controlled at this time.
- Continue Amioderone and Eliquis
Abdominal aortic aneurysm:
4.8 cm in AP dimension
-Followed by vascular surgery outpatient
BPH, Chronic urinary retention:
Well-controlled. Denies urinary symptoms.
-Continue finasteride and tamsulosin
Hypercholesterolemia:
- Continue Rosuvastatin and Ezetimibe
History of diverticulitis
History of skin Cancer
Diet: clear liquids
DVT ppx: Eliquis
Code status: DNR
Anticipated Discharge: Within 24 hours
Subjective/Interval History
-
Date of Service: May 02, 2024
Pt complains of abd 'tightness'. Abd pain significantly improved. Had two bowel movements yesterday. Continues to pass flatus. Pt requests food.
No acute overnight events
Objective Data
-
Labs:
Laboratory Results
05/02/24
07:54
WBC 9.0
Hgb 11.0 L
Hct 32.9 L
Plt Count 179 D
Sodium 136
Potassium 4.3
Chloride 99
Carbon Dioxide 26
BUN 12
Creatinine 0.7
Glucose 72
Calcium 8.3 L
Vital Signs:
Vital Signs
Temp Pulse Resp BP Pulse Ox
97.7 F 69 16 135/76 97
05/02/24 07:14 05/02/24 08:12 05/02/24 08:12 05/02/24 07:14 05/02/24 08:12
I&O
05/01/24 05/02/24 05/03/24
06:59 06:59 06:59
Intake Total 1200 / 1200
Output Total 690 / 690
Balance 510 / 510
Review of Systems
-
History Source: Patient
Constitutional: Reports Other (normal appetite); Denies Fever
Respiratory: Denies Trouble Breathing
Cardiac: Denies Chest Pain or Palpitations
Abdomen/GI: Reports Abdominal Pain (mild) and Other (tightness); Denies Nausea, Vomiting or Constipated
Genitourinary: Denies Dysuria, Frequency, Difficulty Voiding or Bleeding
Physical Exam
-
General: No Apparent Distress and Comfortable
HEENT: Normocephalic, Atraumatic and Moist Mucous Membranes
Respiratory: Clear to Auscultation and Non Labored Respirations; Negative Wheezes, Rales, Rhonchi or Crackles
Cardiac: Regular Rhythm and S1/S2; Negative Murmur
GI: Soft, Nontender, Normal Bowel Sounds and Distended (mildly)
Musculoskeletal: No Clubbing, No Cyanosis and No Edema
Skin: Warm and Dry
Neuro: Awake and Alert
Psych: Calm
--- NOTE | 2024-05-02 14:43 | W.PN.GS2 ---
Today's Communication / Plan
-
clears
Assessment / Plan
-
84-year-old male presenting with recurrent small bowel obstruction in the setting of likely underlying chronic dysmotility and significant adhesive disease requiring multiple laparotomies and lysis of adhesions in the past.
AFVSS
Follow up XR with contrast into the colon but still with small bowel distention which is improved
Passing flatus and some stools
No further nausea/pain but still with some tympany
--Ok for clear liquid diet with supplements
--Will follow for continued improvement
--Increase activity/oob
--No plans for surgical intervention at this time as he is improving with medical management, but will continue to follow
Subjective Data
-
Date of Service: May 02, 2024
Patient seen and examined at bedside. Denies n/v. Passing some flatus. Had a larger BM yesterday and a small one today. Denies pain.
Objective Data
-
Intake and Output
05/01/24 05/02/24 05/03/24
06:59 06:59 06:59
Intake Total 1200 / 1200
Output Total 690 / 690
Balance 510 / 510
Intake:
Oral fluids 0 / 0
IV fluids (Total) 1200 / 1200
IV piggybacks 0 / 0
Output:
Urine, Voided 690 / 690
Vital Signs
Temp Pulse Resp BP Pulse Ox
97.7 F 69 16 135/76 97
05/02/24 07:14 05/02/24 08:12 05/02/24 08:12 05/02/24 07:14 05/02/24 08:12
Lab Results
05/02/24 07:54
05/02/24 07:54
Calcium 8.3 mg/dl (8.4-10.2) L 05/02/24 07:54
Magnesium 1.9 mg/dl (1.6-2.3) 05/01/24 03:08
Total Bilirubin 0.6 mg/dl (0.2-1.3) 05/01/24 03:08
AST 24 U/L (17-59) 05/01/24 03:08
ALT 21 U/L (0-50) 05/01/24 03:08
Alkaline Phosphatase 57 U/L (38-126) 05/01/24 03:08
Total Protein 5.9 g/dl (6.3-8.2) L 05/01/24 03:08
Albumin 3.4 g/dl (3.5-5.0) L 05/01/24 03:08
Physical Exam
-
NAD
ABD soft, tympany present L>R, no obvious distention
--- NOTE | 2024-05-02 15:25 | PN.CDI ---
CDI
- -
CDI:
Physician Documentation Request
Admit Date: 05/01/24 09:36
Dear Doctor Shabnam,
Clinical Indicators:
Patient admitted with recurrent bowel obstruction.
Height: 6 ft
Weight: 123 lbs 1 oz
BMI: 16.7
05/02 note/assessment: 'Underweight (<18.5)'
If possible, please provide an associated diagnosis related to the abnormal BMI(BMI < or = to 19), such as:
Underweight
Cachectic
BMI is not significant
Other, please specify
Use of terms such as suspected, likely, concern for, or probable (associated with a specific diagnosis that is being evaluated, monitored, or treated as if it exists) are acceptable and can be coded in the inpatient setting, when documented at the
time of discharge.
Thank you,
Alisia Butt RN BSN
CDI Specialist
available via tiger text
Please use your independent medical judgment in providing your response.
--- NOTE | 2024-05-02 15:30 | PN.CDI ---
CDI
- -
CDI:
Physician Documentation Request
Admit Date: 05/01/24 09:36
Dear Doctor Shabnam,
Clinical Indicators:
Patient admitted with recurrent bowel obstruction.
05/01 H & P, '84-year-old male with history of COPD on 4L home O2'
02 requirements:
05/01/24
02:05 05/01/24
15:13 05/02/24
07:14
Nasal Cannula flow liters per minute 4 2 1
Please clarify which of the following accurately represents the patient's respiratory status:
Chronic hypoxic respiratory failure (continuous home 02 use)
Chronic hypoxic respiratory insufficiency (intermittent home 02 use)
Other, please specify
Additional information for Respiratory Failure:
Recognized criteria for Respiratory Failure (Source: [facility] Hospitalist May 2013)
ABGs: (1 or more) Symptoms Please indicate type if known
1. p)2 <60 or RA SPO2 <91% on RA 1. Tachypnea, SOB, dyspnea Hypoxic
2. pCO2 50 and pH <7.35 2. Use of accessory muscles Hypercapnic
3. pO2 decrease of pCO2 increase by 3. Pallor or cyanosis Hypoxic and Hypercapnic
10 mmHg from baseline if known 4. Anxiety or restlessness Unable to determine
5. Unable to speak in full sentences
Supplemental O2 of > 40% (5LPM) Intubation is not required
Use of terms such as suspected, likely, concern for, or probable (associated with a specific diagnosis that is being evaluated, monitored, or treated as if it exists) are acceptable and can be coded in the inpatient setting, when documented at the
time of discharge.
Thank you,
Alisia Butt RN BSN
CDI Specialist
available via tiger text
Please use your independent medical judgment in providing your response.
[2024-05-02 15:57] VITALS: BP 125/85
[2024-05-02] MEDS: ERYTHROMYCIN 0.5% OPHTHALMIC OINTMENT 1 APPLIC RIGHT EYE (16:44)
--- NOTE | 2024-05-02 16:44 | CM ---
Met with patient at bedside; initial assessment completed
Pharmacy verified: [facility] @ [address]
Lives with his in a [place] w/basement; 1 step to enter; 10-12 steps down to laundry area in basement; railings present on stairs; home has 2 bathrooms; he uses bath w/ stall shower, shower eric
PLOF: reports he ambulates independently but has a RW readily available if needed; independent with person care; not driving at this time
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
Current with [facility] for home health VN and PT
will transport home
Plan: Discharge to be determined; monitor for DC needs/services; if he goes home he wants to resume home health with [facility]; referral sent via [facility]
[2024-05-02] MEDS: ZETIA 10 MG PO (17:32)
[2024-05-02] MEDS: CRESTOR 40 MG PO (17:32)
[2024-05-02] MEDS: PROSCAR 5 MG PO (21:44)
[2024-05-02] MEDS: FLOMAX 0.4 MG PO (21:44)
[2024-05-02 23:52] VITALS: BP 148/73
[2024-05-03] MEDS: SPIRIVA RESPIMAT 2.5 MCG 2 PUFF INH (07:28)
[2024-05-03] MEDS: SYMBICORT 160/4.5 MCG INHALER 2 PUFF INH ×2 (07:28→20:22)
[2024-05-03 07:39] VITALS: BP 162/78
[2024-05-03 08:39] VITALS: BP 162/78
[2024-05-03] MEDS: PACERONE 100 MG PO (09:54)
[2024-05-03] MEDS: ELIQUIS 2.5 MG PO ×2 (09:54→20:43)
[2024-05-03] MEDS: ERYTHROMYCIN 0.5% OPHTHALMIC OINTMENT 1 APPLIC RIGHT EYE (09:55)
[2024-05-03 11:03] VITALS: BP 102/49; BP 149/81; BP 93/70; PULSE 75; PULSE 91; O2SAT 94
--- NOTE | 2024-05-03 11:30 | W.PN.HOSP.TC ---
Addendum entered and electronically signed by Johnnie Dominguez MD 05/03/24 14:35:
wants to go home today
advance diet as tolerated
if able to toleragte without obstructive symptoms can go home.
if discharged will need return precautions
Original Note:
Today's Communication/Plan
-
Advance diet to low res
Assessment / Plan
Assessment / Plan
IMPRESSION: 84-year-old male with history of recurrent bowel obstruction who presents to the ED with abdominal pain and constipation.
PLAN:
Abdominal pain:
Known hx of recurrent bowel obstruction
CT abd/pel: Moderate distention of contrast-filled jejunal small bowel loops in the left side of the abdomen with suggestion of a 'transition point' between proximal distended contrast-filled loops and more distal collapsed ileal small bowel loops
in the anterior lower abdomen deep to a laparotomy.
XR: No evidence of intestinal obstruction.
- SBO vs chronic dysmotility vs gaseous distension
- Continues to have BMs and to pass flatus. No nausea/vomiting. Abdominal pain significantly improved
- Appreciate surgery recs.
- Advanced to low residue diet, discharge if tolerated
- Will give simethicone. Encourage OOB/mobility. Monitor symptoms
Leukocytosis:
Mildly elevated leukocytes. Afebrile. Hemodynamically stable.
- Likely reactive. Resolved
Hyponatremia:
Mild, Chronic, asymptomatic. Resolved
- Monitor
COPD without current exacerbation:
Chronic hypoxic respiratory failure with continuous home 02 use, baseline 2L NC
Denies SOB. No wheezing on PE
- Continue Telegy Ellipta
- DuoNebs as needed for wheezing
p-Afib:
Rate and rhythm controlled at this time.
- Continue Amioderone and Eliquis
Abdominal aortic aneurysm:
4.8 cm in AP dimension
-Followed by vascular surgery outpatient
Orthostatic hypotension:
Known history. Pt ambulates with walker at home.
Currently monitored given AAA history.
- Positive orthostatics. PT eval with recs for ambulating with walker.
BPH, Chronic urinary retention:
Well-controlled. Denies urinary symptoms.
-Continue finasteride and tamsulosin
Underweight:
- BMI 16.7
- Protein calorie malnutrition. Likely related to recurrent bowel obstructions
- good appetite otherwise
Hypercholesterolemia:
- Continue Rosuvastatin and Ezetimibe
History of diverticulitis
History of skin Cancer
Diet: clear liquids
DVT ppx: Eliquis
Code status: DNR
Anticipated Discharge: Today
Subjective/Interval History
-
Date of Service: May 03, 2024
No acute overnight events. Tolerating full liquid diet.
Objective Data
-
Vital Signs:
Vital Signs
Temp Pulse Resp BP Pulse Ox
98.3 F 69 18 162/78 92
05/03/24 07:39 05/03/24 07:39 05/03/24 07:39 05/03/24 07:39 05/03/24 07:39
I&O
05/02/24 05/03/24 05/04/24
06:59 06:59 06:59
Intake Total 1200 / 1200 800 / 800
Output Total 690 / 690 1200 / 1200
Balance 510 / 510 -400 / -400
Review of Systems
-
History Source: Patient
Constitutional: Reports Other (normal appetite); Denies Fever
Respiratory: Denies Trouble Breathing
[2024-05-03] MEDS: MYLICON 80 MG PO ×2 (12:12→19:01)
--- NOTE | 2024-05-03 13:37 | W.PN.GS2 ---
Today's Communication / Plan
-
`
Assessment / Plan
-
Assessment: 84-year-old male presenting with recurrent small bowel obstruction in the setting of likely underlying chronic dysmotility and significant adhesive disease requiring multiple laparotomies and lysis of adhesions in the past.
AFVSS
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
Plan:
-- Low residue diet initiated by medical service -agree with cautious advancement
-- Would follow overnight and make there is no rebound obstructive symptoms with dietary advancement
-- MiraLAX in a.m. tomorrow
Subjective Data
-
Date of Service: May 03, 2024
Patient seen and examined. Sitting up comfortably at bedside in his chair.
Feeling some gas cramps/fullness but this is more like his baseline than the symptoms which brought him in
No nausea, no vomiting
Passing flatus, last bowel movement yesterday
Objective Data
-
Intake and Output
05/02/24 05/03/24 05/04/24
06:59 06:59 06:59
Intake Total 1200 / 1200 800 / 800
Output Total 690 / 690 1200 / 1200
Balance 510 / 510 -400 / -400
Intake:
Oral fluids 0 / 0 800 / 800
IV fluids (Total) 1200 / 1200
IV piggybacks 0 / 0
Output:
Urine, Voided 690 / 690 1200 / 1200
Other:
Number of approximated LARGE 2
amounts of urine
Vital Signs
Temp Pulse Resp BP Pulse Ox
98.3 F 69 18 162/78 92
05/03/24 07:39 05/03/24 07:39 05/03/24 07:39 05/03/24 07:39 05/03/24 07:39
Lab Results
05/02/24 07:54
05/02/24 07:54
Calcium 8.3 mg/dl (8.4-10.2) L 05/02/24 07:54
Magnesium 1.9 mg/dl (1.6-2.3) 05/01/24 03:08
Total Bilirubin 0.6 mg/dl (0.2-1.3) 05/01/24 03:08
AST 24 U/L (17-59) 05/01/24 03:08
ALT 21 U/L (0-50) 05/01/24 03:08
Alkaline Phosphatase 57 U/L (38-126) 05/01/24 03:08
Total Protein 5.9 g/dl (6.3-8.2) L 05/01/24 03:08
Albumin 3.4 g/dl (3.5-5.0) L 05/01/24 03:08
Physical Exam
-
NAD AAOx3
[2024-05-03 15:31] VITALS: BP 127/82
[2024-05-03] MEDS: CRESTOR 40 MG PO (19:01)
[2024-05-03] MEDS: ZETIA 10 MG PO (19:02)
[2024-05-03] MEDS: PROSCAR 5 MG PO (20:43)
[2024-05-03] MEDS: FLOMAX 0.4 MG PO (20:43)
[2024-05-03 23:00] VITALS: BP 105/71
[2024-05-04 07:03] VITALS: BP 149/79
[2024-05-04] MEDS: SYMBICORT 160/4.5 MCG INHALER 2 PUFF INH (07:53)
[2024-05-04] MEDS: SPIRIVA RESPIMAT 2.5 MCG 2 PUFF INH (07:53)
[2024-05-04] MEDS: ELIQUIS 2.5 MG PO (08:00)
[2024-05-04] MEDS: ERYTHROMYCIN 0.5% OPHTHALMIC OINTMENT 1 APPLIC RIGHT EYE (08:00)
[2024-05-04] MEDS: MIRALAX 17 GRAMS PO (08:00)
[2024-05-04] MEDS: PACERONE 100 MG PO (08:00)
[2024-05-04 10:03] VITALS: BP 149/79
--- NOTE | 2024-05-04 11:00 | CM ---
Chart reviewed and plan is to home with spouse and [facility].
[facility]
[phone]
--- NOTE | 2024-05-04 12:33 | W.PN.GS2 ---
Today's Communication / Plan
-
`
Assessment / Plan
-
Assessment: 84-year-old male presenting with recurrent small bowel obstruction in the setting of likely underlying chronic dysmotility and significant adhesive disease requiring multiple laparotomies and lysis of adhesions in the past.
AFVSS
Continued improvement and resolution of presenting symptoms
Plan:
-- Low residue diet -generally recommend smaller portion sizes as well
-- Okay for discharge from surgical perspective
--Would consider maintaining MiraLAX for a bowel regiment and simethicone on an as-needed basis
Surgical follow-up as needed basis as well.
Subjective Data
-
Date of Service: May 04, 2024
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
Feeling much better. Large passage of flatus and bowel movements.
Tolerating dietary advancement
Denies gas cramps or abdominal pains
No nausea and previous distention improved
Objective Data
-
Intake and Output
05/03/24 05/04/24 05/05/24
06:59 06:59 06:59
Intake Total 800 / 800 480 / 480
Output Total 1200 / 1200 715 / 715
Balance -400 / -400 -235 / -235
Intake:
Oral fluids 800 / 800 480 / 480
Output:
Urine, Voided 1200 / 1200 715 / 715
Other:
Number of approximated LARGE 2
amounts of urine
Vital Signs
Temp Pulse Resp BP Pulse Ox
98 F 68 17 144/76 95
05/04/24 07:03 05/04/24 08:00 05/04/24 08:00 05/04/24 08:00 05/04/24 08:00
Lab Results
05/02/24 07:54
05/02/24 07:54
Calcium 8.3 mg/dl (8.4-10.2) L 05/02/24 07:54
Magnesium 1.9 mg/dl (1.6-2.3) 05/01/24 03:08
Total Bilirubin 0.6 mg/dl (0.2-1.3) 05/01/24 03:08
AST 24 U/L (17-59) 05/01/24 03:08
ALT 21 U/L (0-50) 05/01/24 03:08
Alkaline Phosphatase 57 U/L (38-126) 05/01/24 03:08
Total Protein 5.9 g/dl (6.3-8.2) L 05/01/24 03:08
Albumin 3.4 g/dl (3.5-5.0) L 05/01/24 03:08
Physical Exam
-
NAD AAOx3
ABD: Soft, no longer distended, tympany improved, nontender
--- NOTE | 2024-05-04 12:43 | W.PN.HOSP.TC ---
Today's Communication/Plan
-
DC planning, continue low residue diet
Assessment / Plan
Assessment / Plan
IMPRESSION: 84-year-old male with history of recurrent bowel obstruction who presents to the ED with abdominal pain and constipation.
PLAN:
Abdominal pain:
Known hx of recurrent bowel obstruction
CT abd/pel: Moderate distention of contrast-filled jejunal small bowel loops in the left side of the abdomen with suggestion of a 'transition point' between proximal distended contrast-filled loops and more distal collapsed ileal small bowel loops
in the anterior lower abdomen deep to a laparotomy.
XR: No evidence of intestinal obstruction.
- Recurrent SBO vs chronic dysmotility vs gaseous distension
- Continues to have BMs and to pass flatus. No nausea/vomiting. Abdominal pain significantly improved
- Appreciate surgery recs.
- Tolerating low residue diet, ok to discharge
- Continue simethicone. Encourage OOB/mobility. Monitor symptoms
Leukocytosis:
Mildly elevated leukocytes. Afebrile. Hemodynamically stable.
- Likely reactive. Resolved
Hyponatremia:
Mild, Chronic, asymptomatic. Resolved
- Monitor
Wounds:
All present on admission: Wound care
- sacral wound, dry and intact, not pressure related
- Left forehead, dry and intact, not-pressure related
- left wrist, not pressure related
COPD without current exacerbation:
Chronic hypoxic respiratory failure with continuous home 02 use, baseline 2L NC
Denies SOB. No wheezing on PE
- Continue Telegy Ellipta
- DuoNebs as needed for wheezing
p-Afib:
Rate and rhythm controlled at this time.
- Continue Amioderone and Eliquis
Abdominal aortic aneurysm:
4.8 cm in AP dimension
-Followed by vascular surgery outpatient
Orthostatic hypotension:
Known history. Pt ambulates with walker at home.
Currently monitored given AAA history.
- Positive orthostatics. PT eval with recs for continued ambulating with walker.
BPH, Chronic urinary retention:
Well-controlled. Denies urinary symptoms.
-Continue finasteride and tamsulosin
Underweight:
- BMI 16.7
- Protein calorie malnutrition. Likely related to recurrent bowel obstructions
- good appetite otherwise
Hypercholesterolemia:
- Continue Rosuvastatin and Ezetimibe
History of diverticulitis
History of skin Cancer
Diet: clear liquids
DVT ppx: Eliquis
Code status: DNR
Anticipated Discharge: Today
Subjective/Interval History
-
Date of Service: May 04, 2024
Tolerating low residue diet. Had a solid to loose bowel movement overnight with copious flatus and subsequent relief. Residual mild abdominal discomfort. No N/V
Objective Data
-
Vital Signs:
Vital Signs
Temp Pulse Resp BP Pulse Ox
98 F 68 17 144/76 95
05/04/24 07:03 05/04/24 08:00 05/04/24 08:00 05/04/24 08:00 05/04/24 08:00
I&O
05/03/24 05/04/24 05/05/24
06:59 06:59 06:59
Intake Total 800 / 800 480 / 480
Output Total 1200 / 1200 715 / 715
Balance -400 / -400 -235 / -235
Review of Systems
-
History Source: Patient
Constitutional: Reports Other (good appetite)
Respiratory: Denies Trouble Breathing
Cardiac: Denies Chest Pain or Palpitations
Abdomen/GI: Reports Abdominal Pain (mild) and Bloated; Denies Nausea, Vomiting, Diarrhea or Constipated
Genitourinary: Denies Dysuria or Difficulty Voiding
Physical Exam
-
General: No Apparent Distress, Comfortable and Appears Chronically Ill
HEENT: Atraumatic, Moist Mucous Membranes, Anicteric and Oxygen
Respiratory: Crackles (faint bibasilar crackles) and Non Labored Respirations; Negative Wheezes, Rales or Rhonchi
Cardiac: Regular Rhythm and S1/S2; Negative Murmur, Rub or Calf Tenderness
GI: Soft and Nontender (mild tenderness to deep palpation in R abdomen)
Musculoskeletal: No Cyanosis, No Edema and Clubbing
Skin: Warm and Dry
Neuro: Awake and Alert
Psych: Calm
--- NOTE | 2024-05-04 17:35 | W.DCSUMMARY ---
Discharge Summary
Discharge Data
Date of Admission: 05/01/24
Date of Discharge: 05/04/24
-
Pending Results: No
Hospital Course
Discharging Physician : Vinh Dominguez MD; Demetrice Haque MD.
Disposition : Home
Primary care physician : Neal Harmon MD
Principal Discharge diagnosis : Small bowel obstruction, bloating
Chronic Discharge diagnosis : Recurrent small bowel obstruction, paroxysmal A-fib, skin cancer, COPD, GERD, hypertension, hypercholesterolemia, abdominal aortic aneurysm, diverticulitis, bronchiolitis obliterans, urinary retention, macular
degeneration, orthostatic hypotension.
Hospital Course :
84-year-old male with above past medical history who presented to the ED on 05/01 with worsening abdominal pain over the preceding 2 days. He had normal appetite with no fever, nausea or vomiting, and was able to tolerate p.o. intake, have normal
bowel movements and pass flatus while symptoms persisted. On arrival to the ED he was afebrile and hemodynamically stable, mildly hyponatremic at 133, mildly anemic at 11.3, with mild leukocytosis 12.0.
xray chest/abdomen showed dilated loops of small bowel projecting over the upper abdomen, likely small bowel obstruction.
Given no nausea/vomiting, and continued passage of bowel movements and flatus, there was no NG tube placement. Conservative approach with cautious dietary advancement and monitoring was employed and patient tolerated clear liquids, full liquids, and
low residue diet excellently. Leukocytosis, hyponatremia, and acute abdominal pain resolved. Bloating was relieved with simethicone.
Other chronic medical conditions remained stable and were managed with home medications as able.
Patient remained stable throughout stay with improved symptoms. He is stable for discharge to home with instructions to:
- Take simethicone for bloating as needed
- Continue low residue diet at home
- Continue to follow up with vascular surgeon for abdominal aortic aneurism
- Continue to ambulate with walker given significant orthostatic hypotension
- Return to ED if symptoms exacerbate or signs of infection manifest
- Follow up shortly with PCP
- follow up with general surgery as necessary
Important imaging findings :
xray chest/abd 05/01:
Dilated loops of small bowel projecting over the upper abdomen, likely small bowel obstruction. Cholelithiasis.
CT abd/pel 05/01:
1. Moderate distention of contrast-filled jejunal small bowel loops in the left side of the abdomen with suggestion of a 'transition point' between proximal distended contrast-filled loops and more distal collapsed ileal small bowel loops in the
anterior lower abdomen deep to a laparotomy suggesting a RECURRENT SMALL BOWEL OBSTRUCTION. A small bowel adynamic ileus is an alternative diagnostic possibility.
2. 2.3 cm irregularly shaped foreign body in the anterior midabdomen deep to the laparotomy just distal to the transition point between distended and collapsed small bowel loops. This is most likely the staple line located at a small bowel
anastomosis located just distal to the site of the suspected small bowel obstruction.
3. Mild amount of mesenteric edema in the right lower quadrant of the abdomen without evidence for loculated fluid collection or abscess.
4. Small right inguinal hernia containing a loop of bowel.
5. Infrarenal AAA (4.7 cm diameter), severe calcific atherosclerotic plaque in the abdominal aorta, iliac, and femoral arteries, and severe stenoses in the right common iliac and bilateral superficial femoral arteries.
6. Cholelithiasis.
7. Small to moderate-sized pericardial effusion which has increased in size since 04/11/2024.
8. SEVERE BILATERAL EMPHYSEMA with a moderate size chronic airspace consolidation in the posterior basilar right lower lobe which appears unchanged (most likely chronic scarring and less likely pneumonia or lung cancer).
9. 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
xray abd 05/02:
No evidence of intestinal obstruction.
Discharge Plan
-
Patient Disposition: Home (Routine Discharge)
Discharge Diagnosis/Procedures: Small bowel obstruction, dysmotility
Condition: Fair
Diet: Low Fiber and Supplements
Activity: With Walker
Driving Restrictions: As prior to admission
Bathing Restrictions: None
Instructions: Orthostatic hypotension, Small bowel obstruction, Low Fiber Diet
Referrals:
Neal Harmon MD [Family Provider] - in one week
Bryson Byrnes MD [Active] - None (as needed)
Additional Discharge Medication Instructions: Continue to use your walker at home for safety while you ambulate.
Please follow up with your vascular surgeon for your abdominal aortic aneurism.
Please follow up with general surgery for bowel obstruction
Return to the ED if you develop severe/worsening abdominal pain, with fever, nausea or vomiting
Prescriptions:
New
simethicone 80 mg Tablet,Chewable
80 mg PO QIDPRN PRN (Reason: bloating) Qty: 30 0RF
Continued
tamsulosin 0.4 MG capsule
0.4 mg PO HS
finasteride 5 MG tablet
5 mg PO HS
Patient Comments:
no pharmacy fills
albuterol sulfate 2.5 mg /3 mL (0.083 %) Solution For Nebulization
2.5 mg INHALATION R Q6HPRN PRN (Reason: sob)
Trelegy Ellipta 200-62.5-25 mcg Blister With Device
1 inh INHALATION R DAILYPRN PRN (Reason: sob)
rosuvastatin 40 mg tablet
40 mg PO QPM
ezetimibe 10 mg Tablet
10 mg PO QPM
erythromycin 5 mg/gram (0.5 %) ointment
1 applic RIGHT EYE TIDPRN PRN (Reason: burning in eye)
Refresh Classic (PF) 1.4-0.6 % dropperette
1 drp BOTH EYES QIDPRN PRN (Reason: dry eyes)
Eliquis 2.5 mg Tablet
2.5 mg PO BID 30 Days Qty: 60 0RF
amiodarone 200 mg tablet
100 mg PO DAILY
sennosides [Senna Laxative] 8.6 mg Tablet
17.2 mg PO BID Qty: 60 0RF
polyethylene glycol 3350 [HealthyLax] 17 gram Powder In Packet
17 g PO DAILYPRN PRN (Reason: Constipation) Qty: 30 0RF
acetaminophen [Tylenol] 325 mg Tablet
325 mg PO QIDPRN PRN (Reason: mild pain)
Discharge Orders:
Discharge Patient (As Directed); Ordered 05/04/24
Ordered By: Demetrice Haque
Discharge Date and Time
Discharge Date/Time: 05/04/24 15:01
Print Language: OCCITAN
== END 2024-05-04 15:01 | disposition home health service (06) | DRG 389 ==
LOC: 4 WEST ACU 09:36
PROVIDERS: Emergency Medicine; Student in an Organized Health Care Education/Training Program; ADMITTING PHYSICIAN Hospitalist; ATTENDING PHYSICIAN Hospitalist; CONSULT PHYSICIAN Surgery; EMERGENCY PHYSICIAN Student in an Organized Health Care Education/Training Program; FAMILY PHYSICIAN Family Medicine
DX: K56.51 Intestinal adhesions [bands], with partial obstruction (principal); E46 Unspecified protein-calorie malnutrition; E87.1 Hypo-osmolality and hyponatremia; J96.11 Chronic respiratory failure with hypoxia; Z68.1 Body mass index [BMI] 19.9 or less, adult; I31.39 Other pericardial effusion (noninflammatory); E78.00 Pure hypercholesterolemia, unspecified; G89.29 Other chronic pain; H35.30 Unspecified macular degeneration; I10 Essential (primary) hypertension; J43.9 Emphysema, unspecified; K21.9 Gastro-esophageal reflux disease without esophagitis; D72.829 Elevated white blood cell count, unspecified; R33.8 Other retention of urine; I48.0 Paroxysmal atrial fibrillation; J84.89 Other specified interstitial pulmonary diseases; M54.9 Dorsalgia, unspecified; I95.1 Orthostatic hypotension; D64.9 Anemia, unspecified; K80.20 Calculus of gallbladder without cholecystitis without obstruction; I71.43 Infrarenal abdominal aortic aneurysm, without rupture; K40.90 Unilateral inguinal hernia, without obstruction or gangrene, not specified as recurrent; E87.8 Other disorders of electrolyte and fluid balance, not elsewhere classified; Z66 Do not resuscitate; Z85.828 Personal history of other malignant neoplasm of skin; Z87.891 Personal history of nicotine dependence; Z99.81 Dependence on supplemental oxygen; Z87.19 Personal history of other diseases of the digestive system; Z90.49 Acquired absence of other specified parts of digestive tract; Z79.01 Long term (current) use of anticoagulants; Z79.51 Long term (current) use of inhaled steroids
CPT/HCPCS: 74019; 74022; 74177; 80048; 80053; 82962; 83735; 85027; 94640; 96361; 96374; 96375; 97162; 99285; Q9967

== ENCOUNTER 2024-06-19 13:37 | Inpatient (IN) | payer OTHER, SELFPAY ==
[2024-06-19] VITALS (10 sets, daily range): BP systolic 126–178; BP diastolic 74–96; BMI 21.0
--- NOTE | 2024-06-19 09:37 | ED.GENMED ---
History of Present Illness
General
Chief Complaint: Fainting/Passed Out
Source: patient
Exam Limitations: none
Time Seen by Provider: 06/19/24 09:36
Nursing documentation reviewed up to this point in time: agreed with
History of Present Illness
History of Present Illness:
84-year-old male presents emergency department complaining of passing out while in [employer], and passing out in transit with EMS. He takes midodrine for his blood pressure.
Past History
Past History
ED Past Medical History: Arrthythmia (Atrial fibrillation), Cancer (Skin), COPD (Wears Home Oxygen at 3 liters), GERD, HTN, Hypercholesterolemia and Other (AAA that they are watching, diverticulitis, chronic back pain, Bowel obstruction,
Bronchiolitis obliterans Organizing Pneumonia, Urinary retention, Macular degeneration); Negative NIDDM
ED Past Surgical History: Bowel resection (Colon resection)
Social History
Tobacco: Former smoker
Alcohol: None
Personal:
Living: with family
Employment: Retired
Review of Systems
Review of Systems
Allergies reviewed?: Yes
All Other Systems: Not applicable
Constitutional: Reports no symptoms
EENT: Reports no symptoms
Respiratory: Reports no symptoms
Cardiac: Reports syncope
ABD/GI: Reports no symptoms
: Reports no symptoms
Musculoskeletal: Reports no symptoms
Skin: Reports no symptoms
Neurological: Reports no symptoms
Endocrine: Reports no symptoms
Hematologic/Lymphatic: Reports no symptoms
Psychiatric: Reports no symptoms
Phy Exam
Physical Exam
Physical Exam:
Physical Exam
General: no apparent distress, not acutely ill
Neck: supple. no meningeal signs. normal posterior pharynx
Heart: s1/s2 regular rate and rhythm, no murmur. equal radial
pulses.
HEENT: Pupils equal round reactive to light, EOMI
Lungs: no acute respiratory distress. clear bilaterally
Abdomen: normal bowel sounds. not tender. no CVAT
Neuro: alert and oriented. no focal neurological deficits cranial nerves II through XII intact
Skin: no rash
Psychiatric: well kept. interactive and cooperative
Extremities: no edema. no calf tenderness. negative homans. good distal pulses
Course
Orders/Labs/Results
Orders:
Orders
06/19/24 09:48
EKG [Electrocardiogram (*1)] Urgent
Reason for Study: Syncope
EKG- Treatment ONCE
06/19/24 09:51
IV Insert/Care/Rem.- Treatment PRN
06/19/24 09:52
Cardiac Monitoring- Treatment ONCE
06/19/24 09:53
Electrocardiogram (*1) Urgent (Cancelled)
EKG- Treatment ONCE
06/19/24 10:04
Complete Blood Count/With Diff Urgent
Comprehensive Metabolic Panel Urgent
Magnesium Urgent
Troponin I Urgent
06/19/24 13:13
Admit/Transfer Patient As Directed
Co-Sign Provider:
Level of Care: Inpatient admission
Assign to:: Telemetry
Physician / Group: Dr. Bonds
Diagnosis: Afib with RVR
Reason for Telemetry: Arrhythmia
Date to Stop Telemetry: 06/22/24
Time to Stop Telemetry: 11:00
Reason for Hospitalization: Syncope, Afib with RVR
Expected length of stay greater than two midnights?: No
ELOS- Estimated Length of Stay in days: 1
I certify the patient meets the requirements for IP care: No
PRN Pain Medication Management As Directed
May give lesser potent ordered pain med per pt: Yes
preference::
Protocol:: Medication orders for pain may be administered in a
manner that supports deferring to patient preference
when the pt is:
- Requesting an ordered lesser potent pain medication.
Least to most potent pain medications are defined
as: acetaminophen < NSAID < tramadol < opioids
(morphine, oxycodone, hydromorphone).
- Requesting a lesser dose of the same medication IF
ORDERED.
- Requesting a less intrusive route of administration
if both routes are prescribed by the provider (PO <
IV).
06/22/24 11:00
DC Protocol for Telemetry ONCE
Abnormal Lab Results
06/19/24
10:04
RBC 3.79 L 10^6/uL
(4.70-6.10)
Hgb 11.0 L g/dL
(13.0-18.0)
Hct 33.9 L %
(39.0-52.0)
MCHC 32.4 L g/dL
(33.0-37.0)
Sodium 134 L mmol/L
(135-145)
Chloride 97 L mmol/L
(98-107)
Glucose 159 H mg/dl
(70-99)
Total Protein 5.8 L g/dl
(6.3-8.2)
06/19/24 10:04
06/19/24 10:04
Vital Signs
Initial and Last Documented VS:
Initial Vital Signs
Pulse BP
66 152/78
06/19/24 09:29 06/19/24 09:29
Last Documented Vital Signs
Temp Pulse Resp BP Pulse Ox
98.2 F 63 16 172/74 99
06/19/24 09:37 06/19/24 12:45 06/19/24 12:45 06/19/24 12:59 06/19/24 12:59
MDM/Problems Addressed
Differential Diagnosis Includes:
Dysrhythmia, hypovolemia
MDM/Problems Addressed:
84-year-old male with multiple syncope episodes. Unclear etiology. Possibly related to rapid atrial fibrillation. Patient in sinus rhythm at this time. Admit to hospitalist
Chronic conditions affecting care: HTN and Arrhythmia
Acute Exacerbation and/or Progression of Chronic Illness: Arrhythmia
*Pulse Oximetry
Patient hypoxic: no
*EKG
Interpreted by ED Provider?: Yes
EKG Intrepretation Date: 06/19/24
EKG Intrepretation Time: 09:53
Interpretation: abnormal
Comparison EKG: changes noted
Heart Rate: 67
Rate: normal
Rhythm: sinus
Serena: normal axis
Interval: normal interval
QRS Pattern: normal QRS
Ischemia: no ischemia
*Sewing Machine Maintenance Mechanic Interpretation
Rate: normal
Interpretation: normal
Heart Rate: 65
Rhythm: sinus
*Critical Care Note
Total Time (30-74mins, 75-104mins- exclusive of procedures): Not Applicable
Data Reviewed
Review of Other/Old Records Reveals: Progress Notes (Recent small bowel obstruction that resolved)
Source: records
Patient Management
Social determinants of health affecting care: Living situation
Discussion with other providers: Hospitalist
Escalation/DeEscalation of care consider admission/obs:
Admit indicated
ED Attending Note
-
Portions of this chart may have been created with voice recognition software.� Occasional wrong word or��sound alike� substitutions may have occurred due to the inherent limitations of voice recognition software.
Discharge Plan
Departure
Patient Disposition: Admit
Date of Disposition: 06/19/24
Time of Disposition: 12:09
Admit to: Telemetry
Presentation/result/management discussed w/ accepting MD/DO: Hospitalist
Patient with high blood pressure during this ER visit?: Yes
Condition: Good
Discharge Problem:
Syncope
Prescriptions:
No Action
tamsulosin 0.4 MG capsule
0.4 mg PO HS
finasteride 5 MG tablet
5 mg PO HS
Patient Comments:
no pharmacy fills
Trelegy Ellipta 200-62.5-25 mcg Blister With Device
1 inh INHALATION R DAILYPRN PRN (Reason: sob)
rosuvastatin 40 mg tablet
40 mg PO QPM
ezetimibe 10 mg Tablet
10 mg PO QPM
erythromycin 5 mg/gram (0.5 %) ointment
1 applic RIGHT EYE BIDPRN PRN (Reason: burning in eye)
Refresh Classic (PF) 1.4-0.6 % dropperette
1 drp BOTH EYES QIDPRN PRN (Reason: dry eyes)
Eliquis 2.5 mg Tablet
2.5 mg PO BID 30 Days Qty: 60 0RF
amiodarone 200 mg tablet
100 mg PO DAILY
simethicone 80 mg Tablet,Chewable
80 mg PO QIDPRN PRN (Reason: bloating) Qty: 30 0RF
midodrine 2.5 mg Tablet
2.5 mg PO BID
sennosides [Senna Laxative] 8.6 mg tablet
17.2 mg PO BIDPRN PRN (Reason: constipation)
Interventions
Interventions:
*Risk Screen - Suicide Last Done: 06/19/24 09:37
*General Assessment Last Done: 06/19/24 09:37
*Neglect/Abuse Screening Last Done: 06/19/24 09:37
ED- Fall Risk Assessment Last Done: 06/19/24 09:43
*ED COVID-19 Vaccine History Last Done: 06/19/24 09:43
ED- Cardiac Assessment Last Done: 06/19/24 09:43
ED- Neurological Assessment Last Done: 06/19/24 09:43
ED- Cardiac Assessment Last Done: 06/19/24 09:43
ED- Neurological Assessment Last Done: 06/19/24 09:43
Discharge Date and Time
Print Language: [place]
[2024-06-19 10:27] LABS: % Basophils 0.4 % (0-2); % Eosinophils 1.3 % (0-6); % Immature Granulocytes 0.2 % (0-0.5); % Lymphocytes 27.4 % (20.5-51.1); % Monocytes 7.2 % (1.7-9.3); % Neutrophils 63.5 % (42.2-75.2); Absolute Eosinophils 0.1 10^3/uL (0-0.7); Absolute Lymphocytes 2.3 10^3/uL (1.2-3.4); Absolute Monocytes 0.6 10^3/uL (0.1-0.6); Absolute Neutrophils 5.3 10^3/uL (1.4-6.5); Hematocrit 33.9 % (39.0-52.0); Mean Corp Hgb Conc. 32.4 g/dL (33.0-37.0); Mean Corpuscular Volume 89.4 fL (80.0-94.0); Mean Platelet Volume 9.5 fL (7.4-10.4); Nucleated Red Blood Cells % 0 % (-); Platelet Count 170 10^3/uL (130-400); Red Blood Cell Count 3.79 10^6/uL (4.70-6.10); Red Cell Dist. Width 13.8 % (11.5-14.5); White Blood Cell Count 8.4 10^3/uL (4.8-10.8)
[2024-06-19 10:30] LABS: ALT (SGPT) 25 U/L (0-50); AST (SGOT) 27 U/L (17-59); Albumin 3.5 g/dl (3.5-5.0); Alkaline Phosphatase 56 U/L (38-126); Blood Urea Nitrogen 14 mg/dl (9-20); Calcium 8.7 mg/dl (8.4-10.2); Carbon Dioxide 30 mmol/L (22-30); Chloride 97 mmol/L (98-107); Estimated Creatinine Clearance 44 ml/min; Glucose 159 mg/dl (70-99); Magnesium 1.9 mg/dl (1.6-2.3); Potassium 4.2 mmol/L (3.5-5.1); Sodium 134 mmol/L (135-145); Total Bilirubin 0.4 mg/dl (0.2-1.3); Total Protein 5.8 g/dl (6.3-8.2); eGFR > 60.00
[2024-06-19 10:40] LABS: Troponin I 0.022 ng/ml
--- NOTE | 2024-06-19 12:54 | HPS.HSE ---
Addendum entered and electronically signed by Rufus Bonds MD 06/19/24 22:48:
ACP
Patient consented to discuss, was alone, time spent explanation of advance directives, changes in health status, patient�s health care wishes if the patient becomes unable to make health decisions, goals of care, code status, and prognosis, time
spent solely on ACP. patient is a DNR- 16 minutes
Addendum entered and electronically signed by Rufus Bonds MD 06/19/24 22:44:
H and P converted to ED Consult
Attending Addendum-
I performed a history and physical exam of the patient and discussed his management with the resident. I reviewed the resident's note and agree with the documented findings and plan of care CC/HPI- came to ED due to syncopal event this am at [facility].
has had episodes or syncope related to orthostasis. 'I didnt drink that much water this morning.I feel fine!' Denies dizziness CP palps Was in rapid a fib in ed and started on amio gtt which resolved. Full 12 point ROS reviewed and negative except
as documented Exam- vitals reviewed in EMR GEN-NAD heart RRR 3/ SM @! RUSB lungs clear adb soft LE no edema
Plan:
# Orthostatic Hypotension with related syncope
- no stigmata of cardiac shit
- EGSYS - 1
- d/w cards DC home
- increase fluids
- cont midodrine rise slowly from seated position
- would favor DC of flomax by PCP
# Rapid A fib
- resolved in ED with amiodarone gtt
- cont PO amiodarone
- not related to syncope
- f/u cards as OP
# COPD with chronic hypoxemic Resp failure
- cont home 02
# BPH
- cont finasteride/ would favor DC flomax
# HLD
- cont crestor
Thank you for allowing us to participate in the patients care- stable for DC home with close follow up with PCP and cards.
Time spent coordinating care, review of plan of care with resident, personally reviewed previous records in EMR, med rec, labs, radiology, d/w nursing, cards ED �- 90 mins
Original Note:
Family Physician
-
Family Physician: Neal Harmon
Chief Complaint
-
Syncope
History of Present Illness
84-year-old male with past medical history significant for A-fib, COPD home O2 dependent at 2 to 3 L baseline, abdominal aortic aneurysm infrarenal, hypertension, orthostatic hypotension on midodrine presents to the hospital for evaluation of
syncope. Patient states that his dizziness and syncopal episode started in February, for which he was admitted to the hospital and evaluated thoroughly, was found to have orthostatic hypotension, his Coreg and lisinopril were held, and he was given
midodrine and discharged home on amiodarone. He continued to have syncopal episodes, and had a recurrent hospital admission for A-fib in , during which his amiodarone dose was increased to 200 twice daily and patient was sent home.
Following that syncopal episode patient had been stable, had only episodes of dizziness without syncope, however had a recent hospital admission for bowel obstruction and perforation secondary to his diverticulitis, and had a sigmoid resection. He
states that his amiodarone dose was then adjusted to 100 mg twice daily and he had been doing fine since 05/01/2024April without any syncopal episodes.
Today morning he had his breakfast, and decided to go to [facility] for [facility], his drove him to the charge, they both were walking, patient had a sudden sensation of gastric reflux, and felt a sensation that he is going to pass out. He immediately
let his know who held him and moved him to supportive wall so he slid down on the wall and passed out. His witnessed syncope, he did not fall or hit his head, however there is reported loss of consciousness. Patient denies having any
headaches dizziness, blurring of vision, nausea, emesis, bowel or bladder incontinence, tongue biting, shaking, focal weakness, chest pain, palpitations, exertion out of his baseline before during or after syncope. He states that he monitors his
blood pressure regularly and is compliant with his midodrine, Eliquis, amiodarone. He mentions that his most recent blood pressure in the a.m. today before him leaving to the charge is much better at 105/73, his baseline blood pressures at home
since diagnosis of orthostatic hypotension have been in 70s/ 50-60s.
Medical History
Past Medical History
Past Medical History: Reports Other (Atrial fibrillation, COPD, home O2 dependent, GERD, hypertension, infrarenal abdominal aortic aneurysm, hyperlipidemia, bowel obstruction, bronchiolitis obliterans organizing pneumonia, urinary retention, macular
degeneration.)
Past Surgical History: Reports Other (Sigmoid resection.)
Social History
Tobacco: Former Smoker
Alcohol: Occasional
Drug: None
Personal:
Living: With Family
Employment: Retired
Family History
Family History: Other (Family history of early heart disease in mother, age early 50s.)
Allergies / Home Medications
Allergies reflects when Allergies were last updated in [facility].
Home Medications with original date entered in [facility]
Allergy/Medication List:
Allergies
Allergy/AdvReac Type Severity Reaction Status Date / Time
No Known Allergies Allergy Verified 06/19/24 09:36
Home Medications
finasteride 5 mg tablet 5 mg PO HS prostate 03/15/16
tamsulosin 0.4 mg capsule 0.4 mg PO HS Urinary issue 03/15/16
fluticasone fur. 200 mcg-umeclid 62.5 mcg-vilant 25 mcg inhalat.powder (Trelegy Ellipta) 1 inh inhalation R DAILYPRN PRN sob 10/17/22
rosuvastatin 40 mg tablet 40 mg PO QPM High cholesterol 10/17/22
ezetimibe 10 mg tablet 10 mg PO QPM High Cholesterol 01/25/24
erythromycin 5 mg/gram (0.5 %) eye ointment 1 applic RIGHT EYE BIDPRN PRN burning in eye 03/12/24
polyvinyl alcohol-povidone (PF) 1.4 %-0.6 % eye drops in a dropperette (Refresh Classic (PF)) 1 drp BOTH EYES QIDPRN PRN dry eyes 03/12/24
apixaban 2.5 mg tablet (Eliquis) 2.5 mg PO BID 30 days #60 tabs 03/14/24
amiodarone 200 mg tablet 100 mg PO DAILY Arrhythmia 04/11/24
simethicone 80 mg chewable tablet 80 mg PO QIDPRN PRN bloating #30 tabs 05/04/24
ferrous sulfate 325 mg (65 mg iron) tablet 325 mg PO Q48H 06/19/24
midodrine 2.5 mg tablet 2.5 mg PO BID 06/19/24
sennosides 8.6 mg tablet (Senna Laxative) 17.2 mg PO BIDPRN PRN constipation 06/19/24
Review of Systems
-
History Source: Patient
Constitutional: Denies Fever, Fatigue, Night Sweats or Chills
Respiratory: Denies Cough, Hemoptysis or Trouble Breathing (Not deviant from his baseline.)
Cardiac: Reports Syncope; Denies Chest Pain, Diaphoresis or Palpitations
Abdomen/GI: Denies Abdominal Pain, Nausea, Vomiting, Diarrhea, Constipated or Bloody Stools
: Reports Difficulty Voiding; Denies Dysuria, Frequency, Flank Pain or Urgency
Musculoskeletal: Denies No Symptoms
Skin: Denies No Symptoms
Neurological: Denies No Symptoms
Endocrine: Denies No Symptoms
Hematologic/Lymphatic: Denies No Symptoms
Psych: Denies No Symptoms
Physical Exam
Vital Signs
Vital Signs
Temp Pulse Resp BP Pulse Ox
98.2 F 65 19 152/75 97
06/19/24 09:37 06/19/24 11:45 06/19/24 11:45 06/19/24 11:00 06/19/24 11:45
Physical Exam
General: No Apparent Distress, Comfortable and Other (on 2l nasal cannula flow)
HEENT: Moist mucous membranes and Atraumatic
Respiratory: Clear and Decreased Breath Sounds (in bases of b/l lungs); No Wheezes, Rales or Rhonchi
Cardiac: S1/S2, Irregular Rhythm and Murmur; No Rub or Gallop
GI: Soft, Non Tender, Non Distended and Normal Bowel Sounds
Genito-urinary: Deferred by me
Musculoskeletal: No Clubbing and No Cyanosis
Skin: Warm
Neuro: AO x 3
Psych: Calm
Laboratory Results
-
06/19/24 10:04
06/19/24 10:04
Laboratory Results
Total Bilirubin 0.4 mg/dl (0.2-1.3) 06/19/24 10:04
AST 27 U/L (17-59) 06/19/24 10:04
ALT 25 U/L (0-50) 06/19/24 10:04
Alkaline Phosphatase 56 U/L (38-126) 06/19/24 10:04
Troponin I 0.022 ng/ml 06/19/24 10:04
Data Reviewed
-
Medical Tests (Nuc Med, Echo, EKG etc): Image Personally Visualized and interpreted, Report Reviewed by me and Discussed with Physician
Lab Data: Labs Reviewed by me and Discussed with Physician
Old Records: Reviewed
Impression/Plan
-
IMPRESSION: 84-year-old male with PMHx significant for A-fib, home O2 dependent COPD, infrarenal AAA widest diameter AP-4.7, hypertension, orthostatic hypotension on midodrine presents to hospital for evaluation of syncope, found to be in active
A-fib. Rate controlled.
PLAN:
Assessment and plan-
A-fib with RVR-
Start amiodarone drip.
Cardiology consulted, on board.
Admit to telemetry,
[id number] score-3, On eliquis dose-2.5 mg twice daily, patient did not miss taking any of his Eliquis dosings.
Most recent echocardiogram-03/13/2024- normal biventricular size and systolic function without regional wall motion
abnormality. Estimated LVEF 55-60%.
Mild aortic stenosis. Trace aortic regurgitation.
Trivial pericardial effusion.
Obtain a chest x-ray, and orthostatic vitals.
COPD-
no current exacerbation.
Finished a course of azithromycin recently for his exacerbation greater than 2 months ago.
Will continue to monitor for symptoms.
Chronic hypoxemic respiratory failure with baseline oxygen requirement at 3 L per
HTN -
his lisinopril and Coreg blood on hold. Since March 15.
Hypotension-
Held midodrine, blood pressures trending high today.
Orthostatic vitals ordered, pending.
Abdominal aortic aneurysm-
infrarenal, 4.5 cm, on abdominal CT on 1024-4.7 cm in largest diameter, AP.
Peripheral pulses 2+ bilaterally equal.
In follow-up with vascular surgery.
BPH-
Continue finasteride and tamsulosin
Hyperlipidemia-
Continue rosuvastatin and ezetimibe.
Erythema of the eye-
Unknown etiology,
Patient is on erythromycin ointment and Refresh Tears eyedrops.
Continue home medication regimen for erythema of the left eye.
DVT prophylaxis-Eliquis
CODE STATUS-DNR
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
diverticulitis s/p resection
skin cancer type unknown to the patient.
--- NOTE | 2024-06-19 14:47 | CON.CAR ---
Consultation
Consultation Request
Date/Time Consultation Requested: 06/19/2024
Date/Time Consultation Performed: 06/19/2024
Requesting Provider: Dr. Vines
Performing Provider: Dr. Jean (primary cardiology Dr. Garcia).
Reason for Consultation: Atrial fibrillation
Medical History
-
Chief Complaint: palpitations
History of Present Illness:
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
SBO, and COPD on O2 , and SBO s/p ex lap/MURIEL/SBR 02/01/24 presents for syncopal episode and recurrent atrial fibrillation. He went to [facility] this morning he had some abdominal upset and felt like he was starting to have prodromal symptoms. He was
walking into restoration and could not lower himself to the ground quick enough Finally got there and did. Had 2 syncopal episodes. Woke up and is feeling fine now. He is in normal sinus rhythm. He states he took his midodrine as prescribed but was
not able to get in the amount of fluid and breakfast he normally would. He has not been sensing any more atrial fibrillation than normal. He feels well now.
Past Medical History
Past Medical History: Arrhythmias, CAD, COPD, HTN and Other (as above)
Social History
Tobacco: Former Smoker
Family History
Family History: Reviewed & Not Pertinent
Allergies / Home Medications
Allergy/AdvReac Type Severity Reaction Status Date / Time
No Known Allergies Allergy Verified 06/19/24 09:36
�Medication �Instructions �Recorded �Confirmed �Type
finasteride 5 mg tablet 5 mg PO HS prostate 03/15/16 06/19/24 History
tamsulosin 0.4 mg capsule 0.4 mg PO HS Urinary issue 03/15/16 06/19/24 History
fluticasone fur. 200 mcg-umeclid 1 inh inhalation R DAILYPRN PRN sob 10/17/22 06/19/24 History
62.5 mcg-vilant 25 mcg
inhalat.powder (Trelegy Ellipta)
rosuvastatin 40 mg tablet 40 mg PO QPM High cholesterol 10/17/22 06/19/24 History
ezetimibe 10 mg tablet 10 mg PO QPM High Cholesterol 01/25/24 06/19/24 History
erythromycin 5 mg/gram (0.5 %) eye 1 applic RIGHT EYE BIDPRN PRN 03/12/24 06/19/24 History
ointment burning in eye
polyvinyl alcohol-povidone (PF) 1 drp BOTH EYES QIDPRN PRN dry eyes 03/12/24 06/19/24 History
1.4 %-0.6 % eye drops in a
dropperette (Refresh Classic (PF))
apixaban 2.5 mg tablet (Eliquis) 2.5 mg PO BID 30 days #60 tabs 03/14/24 06/19/24 Rx
amiodarone 200 mg tablet 100 mg PO DAILY Arrhythmia 04/11/24 06/19/24 History
simethicone 80 mg chewable tablet 80 mg PO QIDPRN PRN bloating #30 05/04/24 06/19/24 Rx
tabs
ferrous sulfate 325 mg (65 mg 325 mg PO Q48H 06/19/24 06/19/24 History
iron) tablet
midodrine 2.5 mg tablet 2.5 mg PO BID 06/19/24 06/19/24 History
sennosides 8.6 mg tablet (Senna 17.2 mg PO BIDPRN PRN constipation 06/19/24 06/19/24 History
Laxative)
Physical Exam
Vital Signs
Temp Pulse Resp BP Pulse Ox
98.2 F 64 16 178/92 99
06/19/24 09:37 06/19/24 14:15 06/19/24 14:15 06/19/24 14:00 06/19/24 14:15
Lab Results
06/19/24 10:04
06/19/24 10:04
Troponin I 0.022 ng/ml 06/19/24 10:04
Impression / Plan
-
84 yo male with known orthostasis managed with midodrine, permissive hypertension and PAF presents after syncopal episode. Patient had his typical prodrome. No new symptoms to complain of.
Paroxysmal atrial fibrillation and paroxysmal atrial tachycardia (likely also flutter (likely typical), paroxysmal: In normal sinus rhythm, we are trying to limit his amiodarone dose given his COPD. No indication for an amiodarone drip now.
Continue current medication of Eliquis and amiodarone 100 mg daily. If recurrent episodes of atrial fibrillation then can have his amiodarone increased.
-
Orthostatic hypotension: chronic, now with recurrent syncope
-Encouraged lifestyle modifications of increased fluid intake.
-He needs to wear his compression socks,
-Encouraged consistent and adequate PO intake
-He is already aware that he must recognize prodromal symptoms and respond to them like he did today.
BPH on tamsulosin and finesteride
-may be worsening the OH
Hypertension: We are allowing for permissive hypertension as he has orthostatic hypotension most of the time.
-Took his a.m. midodrine.
Mild : chronic
I spoke to the consulting physician. No new symptoms this is a chronic problem. Okay with discharge from a cardiovascular perspective.
Old Data:
TTE 03/13/24: CONCLUSIONS
Normal biventricular size and systolic function without regional wall motion
abnormality. Estimated LVEF 55-60%.
Mild aortic stenosis. Trace aortic regurgitation.
Trivial pericardial effusion.
Compared to 02/05/23: no significant change.
Data Reviewed
-
EKG: Tracing Personally Visualized and interpreted (EKG tracing 06/19/2024 shows sinus rhythm with PVCs.) and Other
--- NOTE | 2024-06-19 16:20 | W.DCSUMMARY ---
Addendum entered and electronically signed by Rufus Bonds MD 06/19/24 22:46:
Read reviewed and agree. patient was never admitted this is a ED consult.
Olu Bonds MD
Original Note:
Documented by User: Briana Vines MD, Resident 06/19/24 16:22
Discharge Summary
Discharge Data
Date of Admission: 06/19/24
Date of Discharge: 06/19/24
-
Pending Results: No
Hospital Course
Was initially admitted to the hospital because he was found to be in atrial fibrillation rhythm after being evaluated for a syncopal episode. Upon admission to the hospital, cardiology was consulted for patient's atrial fibrillation with RVR.
Patient converted into sinus rhythm when cardiology saw him. Hence a collective decision is made to discharge the patient home given no indication of any active treatment or medication change that needs to be done for the patient in the hospital.
Patient is advised to follow-up with his cardiology next 2 weeks, and his primary care in 1 week.
Discharge Plan
-
Patient Disposition: Home (Routine Discharge)
Discharge Diagnosis/Procedures: Syncope
Condition: Fair
Diet: No restrictions
Activity: No restrictions
Driving Restrictions: As prior to admission
Bathing Restrictions: None
Referrals:
Neal Harmon MD [Family Provider] -
Prescriptions:
Continued
tamsulosin 0.4 MG capsule
0.4 mg PO HS
finasteride 5 MG tablet
5 mg PO HS
Patient Comments:
no pharmacy fills
Trelegy Ellipta 200-62.5-25 mcg Blister With Device
1 inh INHALATION R DAILYPRN PRN (Reason: sob)
rosuvastatin 40 mg tablet
40 mg PO QPM
ezetimibe 10 mg Tablet
10 mg PO QPM
erythromycin 5 mg/gram (0.5 %) ointment
1 applic RIGHT EYE BIDPRN PRN (Reason: burning in eye)
Refresh Classic (PF) 1.4-0.6 % dropperette
1 drp BOTH EYES QIDPRN PRN (Reason: dry eyes)
Eliquis 2.5 mg Tablet
2.5 mg PO BID 30 Days Qty: 60 0RF
amiodarone 200 mg tablet
100 mg PO DAILY
simethicone 80 mg Tablet,Chewable
80 mg PO QIDPRN PRN (Reason: bloating) Qty: 30 0RF
midodrine 2.5 mg Tablet
2.5 mg PO BID
sennosides [Senna Laxative] 8.6 mg tablet
17.2 mg PO BIDPRN PRN (Reason: constipation)
ferrous sulfate 325 mg (65 mg iron) Tablet
325 mg PO Q48H
Discharge Orders:
Discharge Patient (As Directed); Ordered 06/19/24
Ordered By: Briana Vines
Discharge Date and Time
Discharge Date/Time: 06/19/24 16:40
Print Language: MALAGASY

Documented by User: Rufus Bonds MD 06/19/24 22:31
Discharge Summary
Discharge Data
Date of Admission: 06/19/24
Date of Discharge: 06/19/24
Discharge Plan
-
Patient Disposition: Home (Routine Discharge)
Discharge Diagnosis/Procedures: Syncope
Condition: Fair
Diet: No restrictions
Activity: No restrictions
Driving Restrictions: As prior to admission
Bathing Restrictions: None
Referrals:
Neal Harmon MD [Family Provider] -
Prescriptions:
Continued
tamsulosin 0.4 MG capsule
0.4 mg PO HS
finasteride 5 MG tablet
5 mg PO HS
Patient Comments:
no pharmacy fills
Trelegy Ellipta 200-62.5-25 mcg Blister With Device
1 inh INHALATION R DAILYPRN PRN (Reason: sob)
rosuvastatin 40 mg tablet
40 mg PO QPM
ezetimibe 10 mg Tablet
10 mg PO QPM
erythromycin 5 mg/gram (0.5 %) ointment
1 applic RIGHT EYE BIDPRN PRN (Reason: burning in eye)
Refresh Classic (PF) 1.4-0.6 % dropperette
1 drp BOTH EYES QIDPRN PRN (Reason: dry eyes)
Eliquis 2.5 mg Tablet
2.5 mg PO BID 30 Days Qty: 60 0RF
amiodarone 200 mg tablet
100 mg PO DAILY
simethicone 80 mg Tablet,Chewable
80 mg PO QIDPRN PRN (Reason: bloating) Qty: 30 0RF
midodrine 2.5 mg Tablet
2.5 mg PO BID
sennosides [Senna Laxative] 8.6 mg tablet
17.2 mg PO BIDPRN PRN (Reason: constipation)
ferrous sulfate 325 mg (65 mg iron) Tablet
325 mg PO Q48H
Discharge Orders:
Discharge Patient (As Directed); Ordered 06/19/24
Ordered By: Briana Vines
Discharge Date and Time
Discharge Date/Time: 06/19/24 16:40
Print Language: MALAGASY
--- NOTE | 2024-06-19 16:51 | PTCARENOTE ---
Received patient at 1510 from ED. Placed on tele #[id number] NSR, denies dizziness/lightheadedness. Oriented to room and use of call trujillo. Discharge order placed and patient discharged at 1640. came in with portable oxygen, wheeled to exit. drove
patient home.
== END 2024-06-19 16:40 | disposition home or self-care (01) | DRG 312 ==
LOC: 3 WEST ACU 13:37
PROVIDERS: ADMITTING PHYSICIAN Family Medicine; EMERGENCY PHYSICIAN Emergency Medicine; FAMILY PHYSICIAN Family Medicine; OTHER PHYSICIAN Internal Medicine Cardiovascular Disease
DX: I95.1 Orthostatic hypotension (principal); J96.11 Chronic respiratory failure with hypoxia; I47.19 Other supraventricular tachycardia; E78.00 Pure hypercholesterolemia, unspecified; G89.29 Other chronic pain; H35.30 Unspecified macular degeneration; I10 Essential (primary) hypertension; I71.43 Infrarenal abdominal aortic aneurysm, without rupture; J44.9 Chronic obstructive pulmonary disease, unspecified; K21.9 Gastro-esophageal reflux disease without esophagitis; N40.1 Benign prostatic hyperplasia with lower urinary tract symptoms; I71.40 Abdominal aortic aneurysm, without rupture, unspecified; R33.8 Other retention of urine; I48.0 Paroxysmal atrial fibrillation; I25.10 Atherosclerotic heart disease of native coronary artery without angina pectoris; E11.9 Type 2 diabetes mellitus without complications; I49.3 Ventricular premature depolarization; J84.89 Other specified interstitial pulmonary diseases; M54.9 Dorsalgia, unspecified; Z66 Do not resuscitate; Z85.828 Personal history of other malignant neoplasm of skin; Z99.81 Dependence on supplemental oxygen; Z87.891 Personal history of nicotine dependence; Z90.49 Acquired absence of other specified parts of digestive tract; Z87.19 Personal history of other diseases of the digestive system
CPT/HCPCS: 80053; 83735; 84484; 85025; 93005; 99285

== ENCOUNTER → 2024-09-26 13:22 | Outpatient (REF) | payer OTHER, SELFPAY | LOC: HWRAD 13:22 | PROVIDERS: ATTENDING PHYSICIAN Family Medicine | DX: R07.81 Pleurodynia (principal) | CPT/HCPCS: 71101 ==

== ENCOUNTER 2024-11-06 15:57 | Emergency (ER) | payer OTHER, SELFPAY ==
[2024-11-06 16:07] VITALS: BP 91/51
[2024-11-06 16:24] LABS: % Basophils 0.4 % (0-2); % Eosinophils 0.4 % (0-6); % Immature Granulocytes 0.3 % (0-0.5); % Lymphocytes 11.8 % (20.5-51.1); % Monocytes 5.1 % (1.7-9.3); Absolute Lymphocytes 1.1 10^3/uL (1.2-3.4); Absolute Monocytes 0.5 10^3/uL (0.1-0.6); Absolute Neutrophils 7.7 10^3/uL (1.4-6.5); Hematocrit 32.7 % (39.0-52.0); Hemoglobin 10.7 g/dL (13.0-18.0); Mean Corp Hgb Conc. 32.7 g/dL (33.0-37.0); Mean Corpuscular Hgb 28.9 pg (27.0-31.0); Mean Corpuscular Volume 88.4 fL (80.0-94.0); Mean Platelet Volume 9.6 fL (7.4-10.4); Nucleated Red Blood Cells % 0 % (-); Platelet Count 204 10^3/uL (130-400); Red Cell Dist. Width 13.2 % (11.5-14.5); White Blood Cell Count 9.4 10^3/uL (4.8-10.8)
[2024-11-06 16:39] LABS: INR 1.17; PT 15.4 Sec (11.4-14.6)
[2024-11-06 16:44] LABS: ALT (SGPT) 17 U/L (0-50); AST (SGOT) 21 U/L (17-59); Albumin 3.6 g/dl (3.5-5.0); Alkaline Phosphatase 80 U/L (38-126); Blood Urea Nitrogen 18 mg/dl (9-20); Calcium 8.8 mg/dl (8.4-10.2); Carbon Dioxide 28 mmol/L (22-30); Chloride 96 mmol/L (98-107); Glucose 191 mg/dl (70-99); Potassium 4.6 mmol/L (3.5-5.1); Sodium 131 mmol/L (135-145); Total Bilirubin 0.4 mg/dl (0.2-1.3); eGFR > 60.00
[2024-11-06 16:54] LABS: Troponin I 0.097 ng/ml
[2024-11-06 17:40] VITALS: BP 123/85
[2024-11-06 18:15] VITALS: BMI 16.7
--- NOTE | 2024-11-06 18:41 | ED.GENMED ---
History of Present Illness
General
Chief Complaint: Cardiac Symptoms
Source: patient and spouse
Exam Limitations: none
Time Seen by Provider: 11/06/24 18:14
Nursing documentation reviewed up to this point in time: agreed with
History of Present Illness
History of Present Illness:
Patient very pleasant 84-year-old male with PAF COPD oxygen dependent on Eliquis, amiodarone 100 mg daily, went into A-fib this morning, took an extra dose of amiodarone, still feels like he is in the rhythm, chronically short of breath no chest
pain, no nausea vomiting or fever, has been admitted previously tells me never cardioverted he tells me
Past History
Past History
ED Past Medical History: Arrthythmia (Atrial fibrillation), Cancer (Skin), COPD (Wears Home Oxygen at 3 liters), GERD, HTN, Hypercholesterolemia and Other (AAA that they are watching, diverticulitis, chronic back pain, Bowel obstruction,
Bronchiolitis obliterans Organizing Pneumonia, Urinary retention, Macular degeneration); Negative NIDDM
ED Past Surgical History: Bowel resection (Colon resection)
Social History
Tobacco: Former smoker
Alcohol: None
Personal:
Living: with family
Employment: Retired
Review of Systems
Review of Systems
Constitutional: Denies fever or fatigue
Respiratory: Reports trouble breathing
Cardiac: Reports palpitations; Denies chest pain or diaphoresis
Phy Exam
Physical Exam
Physical Exam:
Physical Exam
General: no apparent distress, not acutely ill
Neck: No jaundice
Heart: Tachycardic
Lungs: no acute respiratory distress. clear bilaterally
Abdomen: Nontender
Neuro: alert and oriented. no focal neurological deficits
Skin: no rash
Psychiatric: well kept. interactive and cooperative
Extremities: no edema. no calf tenderness.
Course
Orders/Labs/Results
Orders:
Orders
11/06/24 15:58
Electrocardiogram (*1) Urgent
Reason for Study: Chest Pain
EKG- Treatment ONCE
11/06/24 16:16
Complete Blood Count/With Diff Urgent
Comprehensive Metabolic Panel Urgent
Prothrombin Time Urgent
Troponin I Urgent
11/06/24 18:25
CR Chest Portable - 1 View Urgent
Comment:
Reason For Exam: hr 130
Reason Study Needs to be Portable: Patient Unstable
11/06/24 18:31
Amiodarone [Cordarone] 150 mg Dextrose 5%/Water 100 ml [D5w] 100 ml IV NOW
11/06/24 18:45
Amiodarone [Cordarone] 900 mg DEXTROSE 5% PVC-free BAG [D5W PVC-free BAG] 500 ml IV PER PROTOCOL
Initial Dose in mg/min:: 1
Duration of initial dose (hours):: 6
Subsequent dose in mg/min:: 0.5
Duration of subsequent dose (hours):: 18
Maximum dose in mg/min:: 1
Hold and notify provider if:: Heart rate < 60 BPM or SBP < 90 mmHg or MAP < 60 mmHg
11/06/24 19:46
Electrocardiogram (*1) Urgent
Reason for Study: Tachycardia
EKG- Treatment ONCE
Abnormal Lab Results
11/06/24
16:16
RBC 3.70 L 10^6/uL
(4.70-6.10)
Hgb 10.7 L g/dL
(13.0-18.0)
Hct 32.7 L %
(39.0-52.0)
MCHC 32.7 L g/dL
(33.0-37.0)
Absolute Neuts (auto) 7.7 H 10^3/uL
(1.4-6.5)
Absolute Lymphs (auto) 1.1 L 10^3/uL
(1.2-3.4)
Neutrophils % 82.0 H %
(42.2-75.2)
Lymphocytes % 11.8 L %
(20.5-51.1)
PT 15.4 H Sec
(11.4-14.6)
Sodium 131 L mmol/L
(135-145)
Chloride 96 L mmol/L
(98-107)
Glucose 191 H mg/dl
(70-99)
Troponin I 0.097 H* ng/ml
Total Protein 6.0 L g/dl
(6.3-8.2)
11/06/24 16:16
11/06/24 16:16
Vital Signs
Initial and Last Documented VS:
Initial Vital Signs
Temp Pulse Resp BP Pulse Ox
98.5 F 140 18 91/51 96
11/06/24 16:07 11/06/24 16:07 11/06/24 16:07 11/06/24 16:07 11/06/24 16:07
Last Documented Vital Signs
Temp Pulse Resp BP Pulse Ox
98.5 F 125 27 113/86 100
11/06/24 16:07 11/06/24 20:45 11/06/24 20:45 11/06/24 19:43 11/06/24 20:45
MDM/Problems Addressed
Differential Diagnosis Includes:
Arrhythmia, demand ischemia troponin elevation occult infection electrolyte abnormality COPD exacerbation
MDM/Problems Addressed:
Palpitations fast
Chronic conditions affecting care: Arrhythmia and COPD
Acute Exacerbation and/or Progression of Chronic Illness: Arrhythmia and COPD
*Radiology
Radiology exam reviewed: preliminary read by ED provider
*Pulse Oximetry
Patient hypoxic: yes
*EKG
Comparison EKG: no comparison EKG present
Heart Rate: 148
Rate: tachycardiac
Rhythm: a-fib
Ischemia: non-specific ST changes
*Tape Transferrer Interpretation
Rate: tachycardiac
Interpretation: abnormal
Heart Rate: 148
Rhythm: a-fib
*Critical Care Note
Total Time (30-74mins, 75-104mins- exclusive of procedures): 30
Update Note
Update Note:
9:30 PM update patient looks like he converted to sinus feeling much better suspect his troponins were rate related, will discharge home to follow-up with his log getter ER if worsening symptoms no changes to meds at this time
ED Attending Note
-
Portions of this chart may have been created with voice recognition software.� Occasional wrong word or��sound alike� substitutions may have occurred due to the inherent limitations of voice recognition software.
Discharge Plan
Departure
Patient Disposition: Home (Routine Discharge)
Date of Disposition: 11/06/24
Time of Disposition: 21:32
Patient with high blood pressure during this ER visit?: No
Condition: Good
Discharge Problem:
Atrial fibrillation status post cardioversion
Instructions: Atrial fibrillation and atrial flutter - ED discharge instructions, Chest Pain CBC Follow Up
Prescriptions:
No Action
tamsulosin 0.4 MG capsule
0.4 mg PO HS
finasteride 5 MG tablet
5 mg PO HS
Patient Comments:
no pharmacy fills
Trelegy Ellipta 200-62.5-25 mcg Blister With Device
1 inh INHALATION R DAILYPRN PRN (Reason: sob)
rosuvastatin 40 mg tablet
40 mg PO QPM
ezetimibe 10 mg Tablet
10 mg PO QPM
erythromycin 5 mg/gram (0.5 %) ointment
1 applic RIGHT EYE BIDPRN PRN (Reason: burning in eye)
Refresh Classic (PF) 1.4-0.6 % dropperette
1 drp BOTH EYES QIDPRN PRN (Reason: dry eyes)
Eliquis 2.5 mg Tablet
2.5 mg PO BID 30 Days Qty: 60 0RF
amiodarone 200 mg tablet
100 mg PO DAILY
simethicone 80 mg Tablet,Chewable
80 mg PO QIDPRN PRN (Reason: bloating) Qty: 30 0RF
midodrine 2.5 mg Tablet
2.5 mg PO BID
sennosides [Senna Laxative] 8.6 mg tablet
17.2 mg PO BIDPRN PRN (Reason: constipation)
ferrous sulfate 325 mg (65 mg iron) Tablet
325 mg PO Q48H
Referrals:
Neal Harmon MD [Family Provider] -
Obey Garcia MD [Active] - Next open appointment
Activity Restrictions/Additional Instructions:
Continue medications as prescribed follow-up with Dr. Garcia
Return to the ER if recurrent symptoms or any other concerns
Interventions
Interventions:
*Risk Screen - Suicide Last Done: 11/06/24 18:16
*General Assessment Last Done: 11/06/24 18:16
*Neglect/Abuse Screening Last Done: 11/06/24 18:16
*ED- Fall Risk Assessment Last Done: 11/06/24 18:16
*ED COVID-19 Vaccine History Last Done: 11/06/24 18:16
ED- Pulmonary Assessment Last Done: 11/06/24 18:16
ED- Cardiac Assessment Last Done: 11/06/24 18:16
Discharge Date and Time
Print Language: SINHALA
[2024-11-06] MEDS: CORDARONE 103 MG IV (19:15)
[2024-11-06] MEDS: CORDARONE 518 MG IV (19:32)
[2024-11-06 19:40] VITALS: BP 118/99
[2024-11-06 19:43] VITALS: BP 113/86
== END 2024-11-06 22:42 | disposition home or self-care (01) ==
LOC: EMR 15:57
PROVIDERS: Student in an Organized Health Care Education/Training Program; EMERGENCY PHYSICIAN Emergency Medicine; FAMILY PHYSICIAN Family Medicine
DX: I48.91 Unspecified atrial fibrillation (principal); E78.00 Pure hypercholesterolemia, unspecified; I10 Essential (primary) hypertension; J44.9 Chronic obstructive pulmonary disease, unspecified; Z79.01 Long term (current) use of anticoagulants; Z99.81 Dependence on supplemental oxygen; Z85.828 Personal history of other malignant neoplasm of skin; Z87.891 Personal history of nicotine dependence; G89.29 Other chronic pain; Z79.899 Other long term (current) drug therapy
CPT/HCPCS: 96365; 99291; 71045; 80053; 84484; 85025; 85610; 93005

== ENCOUNTER → 2024-12-04 08:59 | Outpatient (REF) | payer OTHER, SELFPAY | LOC: RAD 08:59 | PROVIDERS: ATTENDING PHYSICIAN Surgery Vascular Surgery; FAMILY PHYSICIAN Family Medicine | DX: I71.40 Abdominal aortic aneurysm, without rupture, unspecified (principal) | CPT/HCPCS: 76770 ==

== ENCOUNTER 2025-01-03 13:03 | Emergency (ER) | payer OTHER, SELFPAY ==
[2025-01-03 13:03] VITALS: BMI 17.1
[2025-01-03 13:10] VITALS: BP 96/69
--- NOTE | 2025-01-03 14:09 | ED.GENMED ---
History of Present Illness
General
Chief Complaint: Cardiac Symptoms
Time Seen by Provider: 01/03/25 14:05
History of Present Illness
History of Present Illness:
84-year-old male with history of paroxysmal A-fib, COPD, chronic oxygen use, hypertension, hyperlipidemia, and abdominal aortic aneurysm presents to the emergency department for evaluation of A-fib beginning this morning. He took a second dose of
his normal amiodarone which she feels did not convert him to A-fib however on my assessment the patient is in a normal rhythm. He reports mild 'heart ache' but always seems to accompany his A-fib but at the current time he feels overall well.
States that since he initially took the amiodarone his rate seems to be 'yoyoing'. Denies any shortness of breath or leg swelling at this time. He has been compliant with his anticoagulants
Past History
Past History
ED Past Medical History: Arrthythmia (Atrial fibrillation), Cancer (Skin), COPD (Wears Home Oxygen at 3 liters), GERD, HTN, Hypercholesterolemia and Other (AAA that they are watching, diverticulitis, chronic back pain, Bowel obstruction,
Bronchiolitis obliterans Organizing Pneumonia, Urinary retention, Macular degeneration); Negative NIDDM
ED Past Surgical History: Bowel resection (Colon resection)
Social History
Tobacco: Former smoker
Alcohol: None
Personal:
Living: with family
Employment: Retired
Review of Systems
Review of Systems
Allergies reviewed?: Yes
All Other Systems: ROS reviewed and negative except as documented in HPI and ROS
Phy Exam
Physical Exam
Physical Exam:
GEN: Chronically ill-appearing/underweight, no apparent distress
HEENT: Oral mucosa moist, no scleral icterus
Cardiac: Regular rate and rhythm, no murmur, no lower extremity edema
Lung: No respiratory distress, no tachypnea, lungs clear to auscultation bilaterally
MSK: No gross deformity or injuries
Skin: Good color, no pallor or jaundice, no rashes
Neuro: AO x3, moves all extremities freely
Psych: Calm, cooperative
Course
Orders/Labs/Results
Orders:
Orders
01/03/25 13:03
Electrocardiogram (*1) Urgent
Reason for Study: Atrial Fibrillation
EKG- Treatment ONCE
01/03/25 14:17
Complete Blood Count/No Diff Urgent
Comprehensive Metabolic Panel Urgent
Magnesium Urgent
Abnormal Lab Results
01/03/25
14:17
RBC 3.66 L 10^6/uL
(4.70-6.10)
Hgb 10.3 L g/dL
(13.0-18.0)
Hct 30.9 L %
(39.0-52.0)
Sodium 134 L mmol/L
(135-145)
Glucose 103 H mg/dl
(70-99)
Total Protein 5.8 L g/dl
(6.3-8.2)
Albumin 3.4 L g/dl
(3.5-5.0)
01/03/25 14:17
01/03/25 14:17
Vital Signs
Initial and Last Documented VS:
Initial Vital Signs
Temp Pulse Resp BP Pulse Ox
97.9 F 137 20 96/69 95
01/03/25 13:10 01/03/25 13:10 01/03/25 13:10 01/03/25 13:10 01/03/25 13:10
Last Documented Vital Signs
Temp Pulse Resp BP Pulse Ox
97.9 F 68 16 115/74 100
01/03/25 13:10 01/03/25 15:28 01/03/25 15:28 01/03/25 15:28 01/03/25 15:28
MDM/Problems Addressed
MDM/Problems Addressed:
Patient arrived in rapid A-fib however converted to normal sinus while in the ED. This is likely due to his self administration of increased dose of amiodarone today. I discussed the case with cardiology on-call who advised that this is a
reasonable action plan at home however should not exceed 200 mg daily. Patient will be discharged in stable condition
Comment
Comment:
Initial EKG independently interpreted by me shows a narrow complex tachycardia at a rate of 138 most likely 2-1 atrial flutter
Telemetry monitoring however shows a normal sinus rhythm at a rate of 64
*Pulse Oximetry
Patient hypoxic: no
Comment: 97% on baseline 2 L oxygen
*Critical Care Note
Total Time (30-74mins, 75-104mins- exclusive of procedures): Not Applicable
ED Attending Note
-
Portions of this chart may have been created with voice recognition software.� Occasional wrong word or��sound alike� substitutions may have occurred due to the inherent limitations of voice recognition software.
Discharge Plan
Departure
Patient Disposition: Home (Routine Discharge)
Date of Disposition: 01/03/25
Time of Disposition: 15:32
Patient with high blood pressure during this ER visit?: No
Discharge Problem:
Paroxysmal A-fib
Instructions: Atrial fibrillation - Discharge instructions
Prescriptions:
No Action
tamsulosin 0.4 MG capsule
0.4 mg PO HS
finasteride 5 MG tablet
5 mg PO HS
Patient Comments:
no pharmacy fills
Trelegy Ellipta 200-62.5-25 mcg Blister With Device
1 inh INHALATION R DAILYPRN PRN (Reason: sob)
rosuvastatin 40 mg tablet
40 mg PO QPM
ezetimibe 10 mg Tablet
10 mg PO QPM
erythromycin 5 mg/gram (0.5 %) ointment
1 applic RIGHT EYE BIDPRN PRN (Reason: burning in eye)
Refresh Classic (PF) 1.4-0.6 % dropperette
1 drp BOTH EYES QIDPRN PRN (Reason: dry eyes)
Eliquis 2.5 mg Tablet
2.5 mg PO BID 30 Days Qty: 60 0RF
amiodarone 200 mg tablet
100 mg PO DAILY
simethicone 80 mg Tablet,Chewable
80 mg PO QIDPRN PRN (Reason: bloating) Qty: 30 0RF
midodrine 2.5 mg Tablet
2.5 mg PO BID
sennosides [Senna Laxative] 8.6 mg tablet
17.2 mg PO BIDPRN PRN (Reason: constipation)
ferrous sulfate 325 mg (65 mg iron) Tablet
325 mg PO Q48H
Referrals:
Neal Harmon MD [Family Provider, Family Practice]
Activity Restrictions/Additional Instructions:
Per our discussion with your manager cosmetic, if you develop rapid atrial fibrillation again you may take an additional 100 mg of amiodarone. Do not exceed 200 mg of amiodarone per 24-hour period. If the symptoms do not resolve return to the
emergency department for reevaluation
Interventions
Interventions:
*Risk Screen - Suicide Last Done: 01/03/25 13:10
*General Assessment Last Done: 01/03/25 13:10
*Neglect/Abuse Screening Last Done: 01/03/25 13:10
*ED- Fall Risk Assessment Last Done: 01/03/25 14:03
*Nursing Disposition Last Done: 01/03/25 15:31
ED- Pulmonary Assessment Last Done: 01/03/25 14:03
ED- Cardiac Assessment Last Done: 01/03/25 14:03
Discharge Date and Time
Discharge Date/Time: 01/03/25 15:34
Print Language: MALTESE
[2025-01-03 14:54] LABS: ALT (SGPT) 20 U/L (0-50); AST (SGOT) 23 U/L (17-59); Albumin 3.4 g/dl (3.5-5.0); Alkaline Phosphatase 61 U/L (38-126); Blood Urea Nitrogen 14 mg/dl (9-20); Calcium 8.7 mg/dl (8.4-10.2); Carbon Dioxide 30 mmol/L (22-30); Chloride 102 mmol/L (98-107); Estimated Creatinine Clearance 53 ml/min; Glucose 103 mg/dl (70-99); Magnesium 2.1 mg/dl (1.6-2.3); Potassium 4.7 mmol/L (3.5-5.1); Sodium 134 mmol/L (135-145); Total Bilirubin 0.4 mg/dl (0.2-1.3); Total Protein 5.8 g/dl (6.3-8.2); eGFR > 60.00
[2025-01-03 14:56] LABS: Hematocrit 30.9 % (39.0-52.0); Hemoglobin 10.3 g/dL (13.0-18.0); Mean Corp Hgb Conc. 33.3 g/dL (33.0-37.0); Mean Corpuscular Hgb 28.1 pg (27.0-31.0); Mean Corpuscular Volume 84.4 fL (80.0-94.0); Mean Platelet Volume 9.3 fL (7.4-10.4); Platelet Count 208 10^3/uL (130-400); Red Blood Cell Count 3.66 10^6/uL (4.70-6.10); Red Cell Dist. Width 13.3 % (11.5-14.5); White Blood Cell Count 9.1 10^3/uL (4.8-10.8)
[2025-01-03 15:28] VITALS: BP 115/74
== END 2025-01-03 15:34 | disposition home or self-care (01) ==
LOC: EMR 13:03
PROVIDERS: Physician Assistant; EMERGENCY PHYSICIAN Emergency Medicine; FAMILY PHYSICIAN Family Medicine
DX: I48.0 Paroxysmal atrial fibrillation (principal); J44.9 Chronic obstructive pulmonary disease, unspecified; I10 Essential (primary) hypertension; E78.00 Pure hypercholesterolemia, unspecified; Z99.81 Dependence on supplemental oxygen; Z87.891 Personal history of nicotine dependence; Z86.79 Personal history of other diseases of the circulatory system; Z79.899 Other long term (current) drug therapy
CPT/HCPCS: 99284; 80053; 83735; 85027; 93005

== ENCOUNTER 2025-04-16 20:10 | Inpatient (IN) | payer OTHER, SELFPAY ==
[2025-04-16 13:44] VITALS: BP 126/84
--- NOTE | 2025-04-16 14:38 | ED.GENMED ---
History of Present Illness
<Paty Naranjo PA-C - Last Filed: 04/17/25 02:33>
General
Chief Complaint: Abdominal Pain
Source: patient
Exam Limitations: none
Time Seen by Provider: 04/16/25 14:21
Nursing documentation reviewed up to this point in time: agreed with
History of Present Illness
History of Present Illness:
Patient is an 84-year-old male with history atrial fibrillation on Eliquis, hypertension, hyperlipidemia, COPD on 3 L O2 at baseline who presents to the emergency department with 2 days of generalized abdominal discomfort. Patient reports a dull
generalized aching throughout his abdomen over the past 2 days. It has been relatively constant and has woken patient up from sleep both nights. He denies any associated fever, chills, nausea or vomiting. He had a normal bowel movement this
morning and has been passing gas. No dysuria or hematuria. He has not had any chest pain or shortness of breath.
Patient was seen by his primary care provider who recommended emergency department evaluation as patient does have a history of small bowel obstructions.
Past History
<Paty Naranjo PA-C - Last Filed: 04/17/25 02:33>
Past History
ED Past Medical History: Arrthythmia (Atrial fibrillation), Cancer (Skin), COPD (Wears Home Oxygen at 3 liters), GERD, HTN, Hypercholesterolemia and Other (AAA that they are watching, diverticulitis, chronic back pain, Bowel obstruction,
Bronchiolitis obliterans Organizing Pneumonia, Urinary retention, Macular degeneration); Negative NIDDM
ED Past Surgical History: Bowel resection (Colon resection)
Social History
Tobacco: Former smoker
Alcohol: None
Personal:
Living: with family
Employment: Retired
Review of Systems
<Paty Naranjo PA-C - Last Filed: 04/17/25 02:33>
Review of Systems
Allergies reviewed?: Yes
All Other Systems: ROS reviewed and negative except as documented in HPI and ROS
Phy Exam
<Paty Naranjo PA-C - Last Filed: 04/17/25 02:33>
Physical Exam
Physical Exam:
Vitals: Patient's vital signs are stable on 2 L O2 via nasal cannula. Afebrile
General: Patient is frail appearing, no acute distress. Nontoxic appearing
Skin: Warm and dry, no rashes or lesions
Head: Normocephalic, atraumatic
Eyes: Sclera nonicteric.
Throat: Protecting airway
Neck: Normal ROM, no cervical spine tenderness, no meningismus
Cardiac: Regular rate and rhythm, no murmurs.
Pulm: Diminished breath sounds bilaterally with scattered expiratory wheeze.
Abdomen: Abdomen soft. Diffuse tenderness with voluntary guarding.
Extremities: No evidence of cyanosis or edema. 2+ palpable DP pulses bilaterally
Neuro: AAOx3. Grossly intact.
Psychiatric: Normal affect.
Course
<Paty Naranjo PA-C - Last Filed: 04/17/25 02:33>
Orders/Labs/Results
Orders:
Orders
04/16/25 14:34
0.9% Sodium Chloride 500 ml [Nss] 500 ml IV BOLUS
Iohexol [Omnipaque] See Protocol PO NOW STA
04/16/25 14:35
CT Abd/pel W Iv And Oral Contr Urgent
Comment: hx SBO
Reason For Exam: Diffuse abdominal pain
Morphine Sulfate 2 mg IV NOW STA
04/16/25 14:45
Complete Blood Count/With Diff Urgent
Comprehensive Metabolic Panel Urgent
Lactic Acid Q4H
Comment: CANCEL 2nd LACTIC ACID IF 1st LACTIC ACID IS LESS THAN 2
Lipase Urgent
04/16/25 Dinner
NPO
Allow oral meds: Yes
Allow clear liquids: Sips of Clears
NPO with Ice Chips: Yes
04/16/25 16:47
Urinalysis Reflex To Culture Urgent
Date Specimen was Collected: 04/16/25
Time Specimen was Collected: 16:26
Urine Microscopic Reflex Cult Urgent
Urine Culture Urgent
BINH Source: U
Specimen Description:
Date Specimen was Collected: 04/16/25
Time Specimen was Collected: 16:26
04/16/25 19:30
Admit/Transfer Patient As Directed
Co-Sign Provider:
Level of Care: Inpatient admission
Assign to:: Medical/Surgical
Physician / Group: [place]
Diagnosis: SBO
Reason for Hospitalization: SBO
Expected length of stay greater than two midnights?: Yes
ELOS- Estimated Length of Stay in days: 2
I certify the patient meets the requirements for IP care: Yes
PRN Pain Medication Management As Directed
May give lesser potent ordered pain med per pt: Yes
preference::
Protocol:: Medication orders for pain may be administered in a
manner that supports deferring to patient preference
when the pt is:
- Requesting an ordered lesser potent pain medication.
Least to most potent pain medications are defined
as: acetaminophen < NSAID < tramadol < opioids
(morphine, oxycodone, hydromorphone).
- Requesting a lesser dose of the same medication IF
ORDERED.
- Requesting a less intrusive route of administration
if both routes are prescribed by the provider (PO <
IV).
04/16/25 19:31
Code Status As Directed
Resuscitation Status: Do not resuscitate
Reached after discussion with pt or family/Healthcare POA: Yes
DNR Bracelet Application ONCE
04/16/25 22:19
Acetaminophen [Tylenol/Feverall] 650 mg RECTAL Q4HPRN PRN
Acetaminophen [Tylenol] 650 mg PO Q4HPRN PRN
Apixaban [Eliquis] 2.5 mg PO BID
Dextrose 5%/0.9%Sodchl 1000 ml [D5/0.9% Sodium Chloride] 1,000 ml IV 75 mls/hr
Erythromycin (Ilotycin) [Erythromycin 0.5% Ophthalmic Ointment] See Dose Instructions RIGHT EYE BIDPRN PRN burning in eye
Finasteride [Proscar] 5 mg PO HS
Midodrine [ProAmatine] 5 mg PO BID AT 0800,1700
Morphine Sulfate 2 mg IV Q4HPRN PRN
Ondansetron Injectable [Zofran] 4 mg IV Q6HPRN PRN
Tamsulosin [Flomax] 0.4 mg PO HS
04/16/25 22:19
SURGICAL CONSULT Routine
Consulting Provider: Earnest Cantu
Was physician already notified: Yes
VTE Contraindication Routine
VTE Mechanical Device Contraindication: Medical Contraindication
Pharmocologic Contraindication: Medical Contraindication
Activity As Directed
Activity Level: With Assistance
Vital Signs As Directed
Frequency: Per unit guidelines
O2 Therapy [RESP] Routine
Nasal Cannula Liter Flow: 2 LPM
Titrate/Wean O2 to maintain O2 sat greater than (%): 93
Pulse Ox/spot Check [RESP] Routine
Quantity: 1
04/16/25 22:28
Carboxymethylcellulose [Refresh Celluvisc Gel] 1 drops BOTH EYES Q6HPRN PRN
04/17/25 06:00
Basic Metabolic Panel IN AM
Complete Blood Count/No Diff IN AM
04/17/25 08:00
Amiodarone [Pacerone] 100 mg PO DAILY
Abnormal Lab Results
04/16/25 04/16/25
14:45 16:47
RBC 3.79 L 10^6/uL
(4.70-6.10)
Hgb 10.5 L g/dL
(13.0-18.0)
Hct 32.8 L %
(39.0-52.0)
MCHC 32.0 L g/dL
(33.0-37.0)
Absolute Lymphs (auto) 1.1 L 10^3/uL
(1.2-3.4)
Neutrophils % 76.7 H %
(42.2-75.2)
Lymphocytes % 15.2 L %
(20.5-51.1)
Sodium 129 L mmol/L
(135-145)
Ur Occult Blood Reflex 2+ A
(Negative)
Leukocyte Esterase Rfl 1+ A
(Negative)
Urine WBC (Reflex) 30-40 A /HPF
(0-5)
Urine Bacteria (Reflex) Moderate A
(Negative)
04/16/25 14:45
04/16/25 14:45
Vital Signs
Initial and Last Documented VS:
Initial Vital Signs
Temp Pulse Resp BP Pulse Ox
98.2 F 79 16 126/84 94
04/16/25 13:44 04/16/25 13:44 04/16/25 13:44 04/16/25 13:44 04/16/25 13:44
Last Documented Vital Signs
Temp Pulse Resp BP Pulse Ox
97.8 F 70 18 164/91 98
04/16/25 22:35 04/16/25 22:35 04/16/25 22:35 04/16/25 23:40 04/17/25 00:48
<Jeannette Alexis, DO - Last Filed: 04/16/25 15:40>
Orders/Labs/Results
Orders:
Orders
04/16/25 14:34
0.9% Sodium Chloride 500 ml [Nss] 500 ml IV BOLUS
Iohexol [Omnipaque] See Protocol PO NOW STA
04/16/25 14:35
CT Abd/pel W Iv And Oral Contr Urgent
Comment: hx SBO
Reason For Exam: Diffuse abdominal pain
Morphine Sulfate 2 mg IV NOW STA
04/16/25 14:45
Complete Blood Count/With Diff Urgent
Comprehensive Metabolic Panel Urgent
Lactic Acid Q4H
Comment: CANCEL 2nd LACTIC ACID IF 1st LACTIC ACID IS LESS THAN 2
Lipase Urgent
04/16/25 Dinner
NPO
Allow oral meds: Yes
Allow clear liquids: Sips of Clears
NPO with Ice Chips: Yes
04/16/25 16:47
Urinalysis Reflex To Culture Urgent
Date Specimen was Collected: 04/16/25
Time Specimen was Collected: 16:26
Urine Microscopic Reflex Cult Urgent
Urine Culture Urgent
BINH Source: U
Specimen Description:
Date Specimen was Collected: 04/16/25
Time Specimen was Collected: 16:26
04/16/25 19:30
Admit/Transfer Patient As Directed
Co-Sign Provider:
Level of Care: Inpatient admission
Assign to:: Medical/Surgical
Physician / Group: [place]
Diagnosis: SBO
Reason for Hospitalization: SBO
Expected length of stay greater than two midnights?: Yes
ELOS- Estimated Length of Stay in days: 2
I certify the patient meets the requirements for IP care: Yes
PRN Pain Medication Management As Directed
May give lesser potent ordered pain med per pt: Yes
preference::
Protocol:: Medication orders for pain may be administered in a
manner that supports deferring to patient preference
when the pt is:
- Requesting an ordered lesser potent pain medication.
Least to most potent pain medications are defined
as: acetaminophen < NSAID < tramadol < opioids
(morphine, oxycodone, hydromorphone).
- Requesting a lesser dose of the same medication IF
ORDERED.
- Requesting a less intrusive route of administration
if both routes are prescribed by the provider (PO <
IV).
04/16/25 19:31
Code Status As Directed
Resuscitation Status: Do not resuscitate
Reached after discussion with pt or family/Healthcare POA: Yes
DNR Bracelet Application ONCE
04/16/25 22:19
Acetaminophen [Tylenol/Feverall] 650 mg RECTAL Q4HPRN PRN
Acetaminophen [Tylenol] 650 mg PO Q4HPRN PRN
Apixaban [Eliquis] 2.5 mg PO BID
Dextrose 5%/0.9%Sodchl 1000 ml [D5/0.9% Sodium Chloride] 1,000 ml IV 75 mls/hr
Erythromycin (Ilotycin) [Erythromycin 0.5% Ophthalmic Ointment] See Dose Instructions RIGHT EYE BIDPRN PRN burning in eye
Finasteride [Proscar] 5 mg PO HS
Midodrine [ProAmatine] 5 mg PO BID AT 0800,1700
Morphine Sulfate 2 mg IV Q4HPRN PRN
Ondansetron Injectable [Zofran] 4 mg IV Q6HPRN PRN
Tamsulosin [Flomax] 0.4 mg PO HS
04/16/25 22:19
SURGICAL CONSULT Routine
Consulting Provider: Earnest Cantu
Was physician already notified: Yes
VTE Contraindication Routine
VTE Mechanical Device Contraindication: Medical Contraindication
Pharmocologic Contraindication: Medical Contraindication
Activity As Directed
Activity Level: With Assistance
Vital Signs As Directed
Frequency: Per unit guidelines
O2 Therapy [RESP] Routine
Nasal Cannula Liter Flow: 2 LPM
Titrate/Wean O2 to maintain O2 sat greater than (%): 93
Pulse Ox/spot Check [RESP] Routine
Quantity: 1
04/16/25 22:28
Carboxymethylcellulose [Refresh Celluvisc Gel] 1 drops BOTH EYES Q6HPRN PRN
04/17/25 06:00
Basic Metabolic Panel IN AM
Complete Blood Count/No Diff IN AM
04/17/25 08:00
Amiodarone [Pacerone] 100 mg PO DAILY
Abnormal Lab Results
04/16/25 04/16/25
14:45 16:47
RBC 3.79 L 10^6/uL
(4.70-6.10)
Hgb 10.5 L g/dL
(13.0-18.0)
Hct 32.8 L %
(39.0-52.0)
MCHC 32.0 L g/dL
(33.0-37.0)
Absolute Lymphs (auto) 1.1 L 10^3/uL
(1.2-3.4)
Neutrophils % 76.7 H %
(42.2-75.2)
Lymphocytes % 15.2 L %
(20.5-51.1)
Sodium 129 L mmol/L
(135-145)
Ur Occult Blood Reflex 2+ A
(Negative)
Leukocyte Esterase Rfl 1+ A
(Negative)
Urine WBC (Reflex) 30-40 A /HPF
(0-5)
Urine Bacteria (Reflex) Moderate A
(Negative)
04/16/25 14:45
04/16/25 14:45
Vital Signs
Initial and Last Documented VS:
Initial Vital Signs
Temp Pulse Resp BP Pulse Ox
98.2 F 79 16 126/84 94
04/16/25 13:44 04/16/25 13:44 04/16/25 13:44 04/16/25 13:44 04/16/25 13:44
Last Documented Vital Signs
Temp Pulse Resp BP Pulse Ox
97.8 F 70 18 164/91 98
04/16/25 22:35 04/16/25 22:35 04/16/25 22:35 04/16/25 23:40 04/17/25 00:48
<Paty Naranjo PA-C - Last Filed: 04/17/25 02:33>
MDM/Problems Addressed
Differential Diagnosis Includes:
Not limited to: Viral gastroenteritis, bowel obstruction, pancreatitis, pyelonephritis, diverticulitis, constipation, etc.
MDM/Problems Addressed:
84 year-old male with history as documented presenting with two days of diffuse abdominal pain. No associated fever, vomiting. He is passing flatus and had a normal bowel movement this morning. No urinary symptoms. Vitals and physical exam as above.
Given history � concern for bowel obstruction however somewhat reassuring that patient is not vomiting and appears well. Other etiologies include biliary colic, acute intra-abdominal infection, viral gastroenteritis. Less likely mesenteric ischemia
as patient is anticoagulated on Eliquis.
Plan: labs, urinalysis. CT scan abdomen/pelvis with PO and IV contrast. Will give IV fluids, treat pain and reassess.
Update: labs relatively unremarkable. No leukocytosis. He does have a mild hyponatremia with na of 120. Lactic acid is normal. Urinalysis somewhat equivocal for infection. He has no symptoms of UTI. WIill hold abx pending culture. CT scan pending.
Update: CT scan reveals multiple dilated loops of small bowel with mesenteric swirling concerning for possible internal hernia with incomplete closed loop bowel obstruction. Fortunately � patient is not vomiting and lactic acid is normal. I did
discuss with general surgeon file conversion operator � plan to admit to hospitalist, NPO with surgery evaluation tomorrow for further management. Given he is not vomiting � will hold NG tube at this time. Patient accepted to hospitalist service in stable condition.
Other incidental findings noted on CT include opacity in RLL of lung and AAA, which is increasing in size � discussed with patient and family.
Chronic conditions affecting care:
COPD on 3 L baseline O2, atrial fibrillation on Eliquis
Acute Exacerbation and/or Progression of Chronic Illness:
N/A
<Paty Naranjo PA-C - Last Filed: 04/17/25 02:33>
*Pulse Oximetry
SaO2: 94
Nasal Cannula flow liters per minute: 2
Patient hypoxic: no
*Store Operations Specialist Interpretation
Rate: Store Operations Specialist- N/A
*Critical Care Note
Total Time (30-74mins, 75-104mins- exclusive of procedures): Not Applicable
<Paty Naranjo PA-C - Last Filed: 04/17/25 02:33>
Patient Management
Discussion with other providers: Hospitalist and Assignment Clerk (Case discussed with general surgery)
ED Attending Note
<Paty Naranjo PA-C - Last Filed: 04/17/25 02:33>
-
Portions of this chart may have been created with voice recognition software.� Occasional wrong word or��sound alike� substitutions may have occurred due to the inherent limitations of voice recognition software.
<Jeannette Alexis DO - Last Filed: 04/16/25 15:40>
ED Attending Note
Patient seen and examined by attending physician: Yes
I performed the substantive portion of visit, reviewed & personally made and approve the management plan that is documented in note by myself or CAYLA.: Yes
I performed a history and physical exam of patient and discussed management with resident, I reviewed resident's note and agree with documented findings and plan of care.: Yes
ED Attending Note:
84-year-old male referred to the ER for further evaluation of abdominal pain with known prior history of small bowel obstructions. Patient is pleasant, not complaining of any discomfort at the current time. Vital signs reviewed, patient is awake,
alert, wearing oxygen and glasses, conjunctiva pink, mucous membranes moist, GCS is 15, moving all extremities symmetrically without focal deficit, using urinal at time of my evaluation. I reviewed patient presentation and workup ordered with
physician speech pathologist assistant. Awaiting CT scan for disposition.
Discharge Plan
Departure
Patient Disposition: Admit
Date of Disposition: 04/16/25
Time of Disposition: 18:55
Presentation/result/management discussed w/ accepting MD/DO: Hospitalist
Discharge Problem:
SBO (small bowel obstruction)
Interventions
Interventions:
*Risk Screen - Suicide Last Done: 04/16/25 22:32
*Neglect/Abuse Screening Last Done: 04/16/25 13:44
*ED- Fall Risk Assessment Last Done: 04/16/25 14:15
*ED COVID-19 Vaccine History Last Done: 04/16/25 14:15
*Nursing Disposition Last Done: 04/16/25 22:11
CS-Mszvhw-Afzpkwflrd Assessment Last Done: 04/16/25 15:12
Discharge Date and Time
Discharge Date/Time: 04/16/25 22:11
[2025-04-16 14:54] LABS: Hematocrit 32.8 % (39.0-52.0); Hemoglobin 10.5 g/dL (13.0-18.0); Mean Corp Hgb Conc. 32.0 g/dL (33.0-37.0); Mean Corpuscular Volume 86.5 fL (80.0-94.0); Nucleated Red Blood Cells % 0 % (-); Platelet Count 197 10^3/uL (130-400); Red Cell Dist. Width 13.5 % (11.5-14.5)
[2025-04-16] MEDS: OMNIPAQUE 50 ML PO (15:06)
[2025-04-16] MEDS: MORPHINE SULFATE 2 MG IV (15:06)
[2025-04-16] MEDS: NSS 500 IV (15:07)
[2025-04-16 15:18] LABS: ALT (SGPT) 17 U/L (0-50); AST (SGOT) 20 U/L (17-59); Albumin 3.7 g/dl (3.5-5.0); Alkaline Phosphatase 66 U/L (38-126); Blood Urea Nitrogen 17 mg/dl (9-20); Calcium 8.6 mg/dl (8.4-10.2); Carbon Dioxide 27 mmol/L (22-30); Chloride 98 mmol/L (98-107); Estimated Creatinine Clearance 54 ml/min; Glucose 96 mg/dl (70-99); Lipase 54 U/L (23-300); Potassium 4.5 mmol/L (3.5-5.1); Sodium 129 mmol/L (135-145); Total Protein 6.4 g/dl (6.3-8.2); eGFR > 60.00
[2025-04-16 16:00] VITALS: BP 194/89
[2025-04-16 17:00] VITALS: BP 187/107
[2025-04-16 17:11] LABS: Urine Character Clear (Clear)
[2025-04-16 18:08] LABS: Urine Red Blood Cell 0-2 /HPF (0-2); Urine White Cell 30-40 /HPF (0-5)
--- NOTE | 2025-04-16 19:05 | HPS.HSE ---
Family Physician
-
Family Physician: Neal Harmon
Chief Complaint
-
Abdominal pain
History of Present Illness
This is a 84-year-old male with past medical history significant for paroxysmal atrial fibrillation on anticoagulation, COPD on 2-3 L home O2, AAA, history of known pulmonary nodule, prior SBO, history of sigmoid resection, BPH who presents to the
Emergency Department with 2 days of diffuse abdominal pain.
He reports a dull generalized ache throughout his abdomen for the last 2 days with associated nausea. Denies any vomiting. He has no fevers or chills. He reports having a normal bowel movement this morning. He reports that he has still been
passing gas. He denies any chest pain. He denies any flank pain. He denies any urinary symptoms.
Seen by PMD this afternoon and was referred to the emergency department given his prior history of small bowel obstruction.
In the Emergency Department he was afebrile, blood pressure was 187/107 with a pulse of 79 and was satting 100% on his 3 L.
CBC was unchanged from prior with hemoglobin of 10.5 white count of 7.5 and platelet of 187. Sodium was 129 otherwise electrolytes BUN and creatinine were normal. Lactic acid was normal. LFT was normal.
CT scan of the abdomen pelvis showing: Limited evaluation of intestinal tract as a result of marked paucity of intra-abdominal/pelvic fat with some mall bowel contrast seen predominantly throughout, borderline dilated loops of small bowel extending
to an area of 'whirling mesentery' containing a narrowed loop of distal small bowel (contrast seen in small bowel distal to this level), suggesting the possibility of an internal hernia and possible incomplete closed-loop small bowel obstruction. No
small bowel pneumatosis. Suggest correlation with serum lactate level.
Centrilobular emphysema seen within the lung bases bilaterally. Markedly irregular opacity in the right lower lobe measuring at least 5 cm which although may be inflammatory/infectious, MALIGNANCY CANNOT BE EXCLUDED.
Medical History
Past Medical History
Past Medical History: Reports Other (Atrial fibrillation, COPD, home O2 dependent, GERD, hypertension, infrarenal abdominal aortic aneurysm, hyperlipidemia, bowel obstruction, bronchiolitis obliterans organizing pneumonia, urinary retention, macular
degeneration.)
Past Surgical History: Reports Other (Sigmoid resection.)
Social History
Tobacco: Former Smoker
Alcohol: Occasional
Drug: None
Personal:
Living: With Family
Employment: Retired
Family History
Family History: Other (Family history of early heart disease in mother, age early 50s.)
Allergies / Home Medications
Allergies reflects when Allergies were last updated in [facility].
Home Medications with original date entered in [facility]
Allergy/Medication List:
Allergies
Allergy/AdvReac Type Severity Reaction Status Date / Time
No Known Allergies Allergy Verified 06/19/24 09:36
Home Medications
finasteride 5 mg tablet 5 mg PO HS prostate 03/15/16
tamsulosin 0.4 mg capsule 0.4 mg PO HS Urinary issue 03/15/16
fluticasone fur. 200 mcg-umeclid 62.5 mcg-vilant 25 mcg inhalat.powder (Trelegy Ellipta) 1 inh inhalation R DAILYPRN PRN sob 10/17/22
rosuvastatin 40 mg tablet 40 mg PO QPM High cholesterol 10/17/22
ezetimibe 10 mg tablet 10 mg PO QPM High Cholesterol 01/25/24
erythromycin 5 mg/gram (0.5 %) eye ointment 1 applic RIGHT EYE BIDPRN PRN burning in eye 03/12/24
polyvinyl alcohol-povidone (PF) 1.4 %-0.6 % eye drops in a dropperette (Refresh Classic (PF)) 1 drp BOTH EYES QIDPRN PRN dry eyes 03/12/24
apixaban 2.5 mg tablet (Eliquis) 2.5 mg PO BID 30 days #60 tabs 03/14/24
amiodarone 200 mg tablet 100 mg PO DAILY Arrhythmia 04/11/24
simethicone 80 mg chewable tablet 80 mg PO QIDPRN PRN bloating #30 tabs 05/04/24
ferrous sulfate 325 mg (65 mg iron) tablet 325 mg PO Q48H 06/19/24
midodrine 2.5 mg tablet 2.5 mg PO BID 06/19/24
sennosides 8.6 mg tablet (Senna Laxative) 17.2 mg PO BIDPRN PRN constipation 06/19/24
Review of Systems
-
Constitutional: Reports No Symptoms
EENT: Reports No Symptoms
Respiratory: Reports No Symptoms
Cardiac: Reports No Symptoms
Abdomen/GI: Reports Abdominal Pain
: Reports No Symptoms
Musculoskeletal: Reports No Symptoms
Skin: Reports No Symptoms
Neurological: Reports No Symptoms
Endocrine: Reports No Symptoms
Hematologic/Lymphatic: Reports No Symptoms
Psych: Reports No Symptoms
Physical Exam
Vital Signs
Vital Signs
Temp Pulse Resp BP Pulse Ox
98.2 F 79 16 187/107 100
04/16/25 15:49 04/16/25 13:44 04/16/25 13:44 04/16/25 17:00 04/16/25 17:01
Physical Exam
General: No Apparent Distress, Comfortable and Other
HEENT: Moist mucous membranes, Atraumatic and Oxygen (2 L)
Respiratory: Clear and Decreased Breath Sounds (in bases of b/l lungs); No Wheezes, Rales or Rhonchi
Cardiac: S1/S2, Irregular Rhythm and Murmur; No Rub or Gallop
GI: Soft, Non Tender, Non Distended and Normal Bowel Sounds
Genito-urinary: Deferred by me
Musculoskeletal: No Clubbing and No Cyanosis
Skin: Warm
Neuro: AO x 3
Psych: Calm
Laboratory Results
-
04/16/25 14:45
04/16/25 14:45
Laboratory Results
Lactic Acid Cancelled 04/16/25 18:45
Total Bilirubin 0.6 mg/dl (0.2-1.3) 04/16/25 14:45
AST 20 U/L (17-59) 04/16/25 14:45
ALT 17 U/L (0-50) 04/16/25 14:45
Alkaline Phosphatase 66 U/L (38-126) 04/16/25 14:45
Lipase 54 U/L (23-300) 04/16/25 14:45
Data Reviewed
-
CT Scan: Report Reviewed by me
Lab Data: Labs Reviewed by me
Old Records: Reviewed
Impression/Plan
-
IMPRESSION:
84-year-old with multiple medical comorbidities including atrial fibrillation, orthostatic hypotension, COPD on home O2, hyponatremia presenting to the Emergency Department with recurrent episode of small bowel obstruction. According to patient has
had 2 days of symptoms but he has a bowel movement this morning and still passed gas in the last few hours. CT scan consistent with small bowel obstruction on the basis of possible internal hernia with incomplete closed-loop SBO. His labs are
fine. He has not been vomiting. His pain is well-controlled at this time.
PLAN:
Small bowel obstruction -recurrent SBO likely in the base of internal hernia versus adhesions (in the past has had adhesions with a distal lysis and cutdown of small segment of the small bowel)
-Admit to [facility]
-N.p.o.
-Given patient's vital signs, examination and incomplete SBO on CT scan will hold off NG tube for now, if vomiting will start NG tube decompression
-Serial examinations
-Antiemetics and IV fluids
-Surgery aware and consulted, will see patient in a.m.
Atrial fibrillation
-Continue oral amiodarone
-Continue Eliquis for now
COPD -stable on 2 L home O2
-Continue his home oxygen
-Continue inhalers
Lung lesion -incidental finding of a right lower lobe lesion of 5 cm with malignancy not been ruled out
-Follow-up with patient's asset management lead
AAA
-Has follow-up ultrasound with vascular
Hyponatremia -patient's hyponatremia to 129 slightly worse from baseline
-Normal saline IV fluids for now
DVT - on eliquis
CODE STATUS�DNR/DNI
[2025-04-16 21:00] VITALS: BP 216/173
[2025-04-16 22:32] VITALS: BMI 15.8
[2025-04-16 22:35] VITALS: BP 164/91
[2025-04-16 23:10] VITALS: BMI 15.8
[2025-04-16] MEDS: D5/0.9% SODIUM CHLORIDE 1000 IV (23:25)
[2025-04-16] MEDS: ERYTHROMYCIN 0.5% OPHTHALMIC OINTMENT 1 APPLIC RIGHT EYE (23:26)
[2025-04-16] MEDS: PROSCAR 5 MG PO (23:33)
[2025-04-16] MEDS: FLOMAX 0.4 MG PO (23:33)
[2025-04-16] MEDS: ELIQUIS 2.5 MG PO (23:39)
[2025-04-17] MEDS: TYLENOL 650 MG PO (06:05)
[2025-04-17 07:00] VITALS: BP 172/77
[2025-04-17] MEDS: SPIRIVA RESPIMAT 2.5 MCG 2 PUFF INH (07:56)
[2025-04-17] MEDS: SYMBICORT 160/4.5 MCG INHALER 2 PUFF INH ×2 (07:56→19:38)
[2025-04-17 08:51] LABS: Hematocrit 30.9 % (39.0-52.0); Hemoglobin 10.1 g/dL (13.0-18.0); Mean Corp Hgb Conc. 32.7 g/dL (33.0-37.0); Mean Corpuscular Volume 87.0 fL (80.0-94.0); Platelet Count 187 10^3/uL (130-400); Red Cell Dist. Width 13.4 % (11.5-14.5)
[2025-04-17] MEDS: PACERONE 100 MG PO (09:20)
[2025-04-17 09:21] LABS: Blood Urea Nitrogen 12 mg/dl (9-20); Calcium 8.3 mg/dl (8.4-10.2); Carbon Dioxide 31 mmol/L (22-30); Chloride 101 mmol/L (98-107); Estimated Creatinine Clearance 49 ml/min; Glucose 99 mg/dl (70-99); Potassium 4.6 mmol/L (3.5-5.1); Sodium 134 mmol/L (135-145); eGFR > 60.00
[2025-04-17 11:20] VITALS: BMI 17.1
--- NOTE | 2025-04-17 11:33 | CON.GS ---
Addendum entered and electronically signed by Oswaldo Rodriguez MD 04/17/25 13:07:
I saw and examined the patient.
The UNDER BASTER's note was reviewed and I agree with the note.
Comment: Improved since admission, pain resolved, passing lots of flatus, belly soft, nt, CR abd this am with contrast in colon and no dilated sb loops. Trial cld
Original Note:
Consultation
-
Date/Time Consultation Performed: 04/17/25 1030
Medical History
-
Chief Complaint: abdominal pain
History of Present Illness:
Mr. Snyder is an 84 yo male well known to our service with a history of afib on Eliquis (LD 04/16), COPD on home o2, Margo procedure and subsequent reversal in the , Laparotomies with lysis of adhesion x 3 (12/13/22, 02/06/23, 02/01/24) for small
bowel obstructions due to adhesions with admission x2 last fall for SBO managed nonoperatively who presents this admission with lower abdominal pain for the past 2-3 days with constipation and straining (passing 'priscilla') with associated nausea but
no vomiting. He was straight cathed for urinary retention overnight but able to void this am. He has been able to pass a good amount of flatus since presentation with resolution of nausea and improvement in pain. He denies fevers or chills. On exam,
there is mild abdominal distention with very minimal generalized tenderness.
Past Medical History
Past Medical History: Arrhythmias (afib on Eliquis), COPD (home O2), GERD, HTN and Other (pulmonary htn, bph, iron def anemia, infrarenal AAA)
Past Surgical History: Bowel Resection ( Margo procedure and subsequent reversal in the , Laparotomies with lysis of adhesion x 3 (12/13/22, 02/06/23, 02/01/24))
Social History
Tobacco: Former Smoker
Alcohol: None
Personal:
Living: With Family
Family History
Family History: Reviewed & Not Pertinent
Allergies / Home Medications
Allergy/AdvReac Type Severity Reaction Status Date / Time
No Known Allergies Allergy Verified 04/16/25 13:47
�Medication �Instructions �Recorded �Confirmed �Type
finasteride 5 mg tablet 5 mg PO HS prostate 03/15/16 04/16/25 History
tamsulosin 0.4 mg capsule 0.4 mg PO HS Urinary issue 03/15/16 04/16/25 History
fluticasone fur. 200 mcg-umeclid 1 inh inhalation R DAILYPRN PRN sob 10/17/22 04/16/25 History
62.5 mcg-vilant 25 mcg
inhalat.powder (Trelegy Ellipta)
rosuvastatin 40 mg tablet 40 mg PO QPM High cholesterol 10/17/22 04/16/25 History
ezetimibe 10 mg tablet 10 mg PO QPM High Cholesterol 01/25/24 04/16/25 History
erythromycin 5 mg/gram (0.5 %) eye 1 applic RIGHT EYE BIDPRN PRN 03/12/24 04/16/25 History
ointment burning in eye
apixaban 2.5 mg tablet (Eliquis) 2.5 mg PO BID 30 days #60 tabs 03/14/24 04/16/25 Rx
amiodarone 200 mg tablet 100 mg PO DAILY Arrhythmia 04/11/24 04/16/25 History
acetaminophen 325 mg tablet 650 mg PO Q6HPRN PRN MILD PAIN 04/16/25 04/16/25 History
(Tylenol)
carboxymethylcellulose sodium 0.5 1 drp BOTH EYES Q6HPRN PRN DRYNESS 04/16/25 04/16/25 History
% eye drops in a dropperette
(Refresh Plus)
docusate sodium 100 mg capsule 100 mg PO BID Gastrointestinal 04/16/25 04/16/25 History
(Colace) Issue
midodrine 5 mg tablet 5 mg PO BID Blood Pressure 04/16/25 04/16/25 History
omega3 550 zv-fcb-zxp-D3 250 1 cap PO DAILY Supplement 04/16/25 04/16/25 History
unit-lutein 2.5 mg-zeaxant 0.5 mg
capsule (Eye [place] Advantage)
vitamins A,C,F-xflp-lbqpoo 2,148 1 tab PO BID Supplement 04/16/25 04/16/25 History
mcg-113 mg-45 mg-17.4 mg tablet
(PreserVision AREDS)
Review of Systems
-
History Source: Patient
All other systems: Negative unless noted
A 10 point review of systems was completed, and was negative except as per HPI.
Physical Exam
Vital Signs
Temp Pulse Resp BP Pulse Ox
97.6 F 70 16 172/77 97
04/17/25 07:00 04/17/25 08:02 04/17/25 08:02 04/17/25 07:00 04/17/25 08:02
04/16/25 04/17/25 04/18/25
06:59 06:59 06:59
Actual Weight 52.673 kg
Body Mass Index (BMI) 15.8
Lab Results
04/17/25 06:55
04/17/25 06:55
WBC 5.9 10^3/uL (4.8-10.8) 04/17/25 06:55
Hgb 10.1 g/dL (13.0-18.0) L 04/17/25 06:55
Hct 30.9 % (39.0-52.0) L 04/17/25 06:55
Plt Count 187 10^3/uL (130-400) 04/17/25 06:55
Abs Immat Gran (auto) 0.0 10^3/uL (0-0.05) 04/16/25 14:45
Neutrophils % 76.7 % (42.2-75.2) H 04/16/25 14:45
Physical Exam
General: Other (underweight)
HEENT: Moist Mucous Membranes
GI: Soft, Tender (very mild/generalized) and Distended (very mild)
Skin: Warm and Dry
Neuro: Awake, Alert and AO x 3
Psych: Calm
Data Reviewed
-
CT Scan: Image Personally Visualized and interpreted, Report Reviewed by me, Discussed with Physician and Discussed with Patient
Labs: Labs Reviewed by me, Discussed with Physician and Discussed with Patient
Old Records: Reviewed
Assessment / Plan
-
84 yo male well known to our service with a history of afib on Eliquis (LD 04/16), COPD on home o2, Margo procedure and subsequent reversal in the , Laparotomies with lysis of adhesion x 3 (12/13/22, 02/06/23, 02/01/24) for small bowel
obstructions due to adhesions with admission x2 last fall for SBO managed nonoperatively who presents this admission with lower abdominal pain for the past 2-3 days with constipation and straining (passing 'priscilla') with associated nausea but no
vomiting. Pain nearly resolved, passing flatus, no further nausea.
CT imaging compatible with partial SBO likely secondary to adhesions. Possible internal hernia noted on Ct read, but contrast able to pass through the area and now with symptomatic improvement. No evidence of bowel threat or compromise. Follow up
KUB with contrast throughout the colon this am. AFVSS. No leukocytosis. Hyponatremia present on admission but improved.
Plan:
Trial of clears
Analgesics/antiemetics if needed
IVF as per primary team
Hold PO Eliquis
Medical management as per primary team
[2025-04-17 11:43] VITALS: BP 112/60; BP 127/87; PULSE 65; O2SAT 100
--- NOTE | 2025-04-17 12:09 | W.PN.HOSP.TC ---
Today's Communication/Plan
-
see outlined plan below
Assessment / Plan
Assessment / Plan
Assessment:
SBO
- CT with pSBO related to adhesions with possible internal hernia
- f/u AXR with contrast progression into colon
- clears
- IVF
- anti-emetics
- GS following
Parox Atrial fibrillation
- continue oral amiodarone
- holding Eliquis for now
COPD
Centrilobular emphysema seen within the lung bases bilaterally. Markedly irregular opacity in the right lower lobe measuring at least 5 cm
- stable on 2 L home O2
- continue his home oxygen
- continue inhalers
- Pulmonary consulted
- start Unasyn x 10 days for possible pneumonia, at discharge switch to Augmentin
AAA
- Has follow-up ultrasound with vascular
acute Hyponatremia
- improved with IVF
- trend daily labs
History of orthostasis
- Midodrine with parameters
HLD - continue meds
hx of BPH - continue meds
DVT ppx: SCDs
Code: DNR/DNI
Anticipated Discharge: > 48 hours
Subjective/Interval History
-
Date of Service: April 17, 2025
pain improving
nausea resolved
+ Flatus
started on clear liquid trial today per GS
Objective Data
-
Labs:
Laboratory Results
04/17/25
06:55
WBC 5.9
Hgb 10.1 L
Hct 30.9 L
Plt Count 187
Sodium 134 L
Potassium 4.6
Chloride 101
Carbon Dioxide 31 H
BUN 12
Creatinine 0.8
Glucose 99
Calcium 8.3 L
Vital Signs:
Vital Signs
Temp Pulse Resp BP Pulse Ox
97.6 F 70 16 172/77 97
04/17/25 07:00 04/17/25 08:02 04/17/25 08:02 04/17/25 07:00 04/17/25 08:02
I&O
04/16/25 04/17/25 04/18/25
06:59 06:59 06:59
Intake Total 1220 / 1220
Output Total 1300 / 1300
Balance -80 / -80
Physical Exam
-
General: No Apparent Distress
HEENT: Normocephalic and Atraumatic
Respiratory: Decreased Breath Sounds; Negative Wheezes or Rales
Cardiac: Regular Rhythm and S1/S2
GI: Tender and Distended (mildly)
Neuro: AO x 3
Psych: Calm
Data Reviewed
-
Total Time Spent with Patient (in minutes): 44
Labs: Labs Reviewed by me
--- NOTE | 2025-04-17 12:33 | PN.CDI ---
CDI
- -
CDI:
Physician Documentation Request
Admit Date: 04/16/25 20:10
Dear Doctor Chip,
Please review the following and provide your response in the progress notes.
Clinical Indicators:
Height: 6 ft
Weight: 116 lbs
BMI: 15.8
Other Clinical Notes: RD notes 'Underweight (<18.5)'
Please provide an associated diagnosis related to the abnormal BMI:
BMI < or = to 19
Underweight
Weight Loss
Cachectic
Anorexia
- BMI is not significant
- Other
Use of terms such as suspected, likely, concern for, or probable (associated with a specific diagnosis that is being evaluated, monitored, or treated as if it exists) are acceptable and can be coded in the inpatient setting, when documented at the
time of discharge.
Thank you,
Rae Saleh RN, BSN
CDI Specialist
tiger text
Please use your independent medical judgment in providing your response.
--- NOTE | 2025-04-17 12:40 | PN.CDI ---
CDI
- -
CDI:
Physician Documentation Request
Admit Date: 04/16/25 20:10
Dear Doctor Chip,
Patient admitted with small bowel obstuction
History of COPD. H&P states 'stable on 2 L home o2'
Please clarify which of the following accurately represents the patient's respiratory status:
Chronic respiratory failure - please specify type - (continuous oxygen use)
Hypoxia (intermittent oxygen use)
Other
Please indicate type if known
Hypoxic
Hypercapnic
Hypoxic and Hypercapnic
Other
Use of terms such as suspected, likely, concern for, or probable (associated with a specific diagnosis that is being evaluated, monitored, or treated as if it exists) are acceptable and can be coded in the inpatient setting, when documented at the
time of discharge.
Thank you,
Rae Saleh RN, BSN
CDI Specialist
tiger text
Please use your independent medical judgment in providing your response.
[2025-04-17] MEDS: UNASYN IV ×2 (13:21→19:16)
[2025-04-17 15:38] VITALS: BP 150/80
--- NOTE | 2025-04-17 16:21 | CM ---
Patient seen bedside, initial assessment completed. Patient is a 84-year-old male with past medical history significant for paroxysmal atrial fibrillation on anticoagulation, COPD on 2-3 L home O2, AAA, history of known pulmonary nodule, prior SBO,
history of sigmoid resection, BPH who presents to the Emergency Department with 2 days of diffuse abdominal pain.
Patient resides w/ spouse and son in a single story [facility], 1 step to enter from the outside. Patient is independent w/ ambulation, no device required. Patient owns a RW but does not use. Patient uses home O2, typically at 4L but patient will
lower depending on what patient is doing. For example, when patient is sitting down or at muslim will lower down to 2L. Denies SNF/HC hx. Patient drives but short distances.
Address, points of contact and insurance verified
PCP: Neal Harmon
Pharmacy: [facility]
Therapy assessed today, likely no PT needs at d/c
CM consulted for advanced directive, patient agreeable and copy provided
Plan: Home, no needs
[2025-04-17 17:10] LABS: Urine Character Clear (Clear)
[2025-04-17 17:30] LABS: Urine Squamous Cell 0-2 /LPF (Few)
[2025-04-17] MEDS: D5/0.9% SODIUM CHLORIDE 1000 IV (17:31)
[2025-04-17 17:33] LABS: Urine Red Blood Cell 50-60 /HPF (0-2); Urine White Cell 30-40 /HPF (0-5)
[2025-04-17] MEDS: CRESTOR 40 MG PO (18:43)
[2025-04-17] MEDS: ZETIA 10 MG PO (18:43)
[2025-04-17] MEDS: FLOMAX 0.4 MG PO (21:26)
[2025-04-17] MEDS: PROSCAR 5 MG PO (21:26)
[2025-04-17] MEDS: SENOKOT-S 1 TABLET PO ×2 (21:58→22:32)
[2025-04-17] MEDS: ERYTHROMYCIN 0.5% OPHTHALMIC OINTMENT 1 APPLIC RIGHT EYE (22:00)
[2025-04-17 23:40] VITALS: BP 169/84
[2025-04-18] MEDS: UNASYN IV ×3 (00:33→12:17)
[2025-04-18] MEDS: D5/0.9% SODIUM CHLORIDE 1000 IV (06:22)
[2025-04-18 07:13] VITALS: BP 172/81
[2025-04-18] MEDS: SYMBICORT 160/4.5 MCG INHALER 2 PUFF INH (08:06)
[2025-04-18] MEDS: SPIRIVA RESPIMAT 2.5 MCG 2 PUFF INH (08:06)
[2025-04-18 08:51] LABS: Hematocrit 30.7 % (39.0-52.0); Hemoglobin 10.0 g/dL (13.0-18.0); Mean Corp Hgb Conc. 32.6 g/dL (33.0-37.0); Mean Corpuscular Volume 87.5 fL (80.0-94.0); Platelet Count 179 10^3/uL (130-400); Red Cell Dist. Width 13.4 % (11.5-14.5)
[2025-04-18] MEDS: MIRALAX 17 GRAMS PO (08:51)
[2025-04-18] MEDS: PACERONE 100 MG PO (08:53)
[2025-04-18] MEDS: COLACE 200 MG PO (08:56)
--- NOTE | 2025-04-18 09:08 | W.PN.HOSP.TC ---
Today's Communication/Plan
-
dc to home if tolerates LRD
Assessment / Plan
Assessment / Plan
Assessment:
SBO
- CT with pSBO related to adhesions with possible internal hernia
- f/u AXR with contrast progression into colon
- diet: LRD - if tolerates will dc home
- bowel regimen at discharge
- GS following
Parox Atrial fibrillation
- continue oral amiodarone
- continue Eliquis
COPD
Centrilobular emphysema seen within the lung bases bilaterally. Markedly irregular opacity in the right lower lobe measuring at least 5 cm
- stable on 2 L home O2; chronic hypoxic respiratory failure
- continue his home oxygen
- continue inhalers
- Pulmonary consulted; OP F/u for repeat imaging in 4-6 weeks.
- continue Unasyn x 10 days for possible pneumonia, at discharge switch to Augmentin
AAA
- Has follow-up ultrasound with vascular
acute Hyponatremia
- normalized with IVF
- trend daily labs
History of orthostasis
- Midodrine with parameters
HLD - continue meds
hx of BPH - continue meds
Underweight status
DVT ppx: SCDs
Code: DNR/DNI
More than 30 minutes spent in discharge including
Final examination of the patient
Summarizing hospital stay
Instructions for continuing care to all relevant caregivers
Preparation of discharge records, prescriptions, and referral forms
Total time spent (in minutes): 41
Anticipated Discharge: Today
Subjective/Interval History
-
Date of Service: April 18, 2025
resting comfortably, reports mucous is draining better
tolerated full liquids; now on LRD diet
Objective Data
-
Labs:
Laboratory Results
04/18/25
06:54
WBC 6.8
Hgb 10.0 L
Hct 30.7 L
Plt Count 179
Sodium Pending
Potassium Pending
Chloride Pending
Carbon Dioxide Pending
BUN Pending
Creatinine Pending
Glucose Pending
Calcium Pending
Vital Signs:
Vital Signs
Temp Pulse Resp BP Pulse Ox
97.6 F 77 16 172/81 100
04/18/25 07:13 04/18/25 08:12 04/18/25 08:12 04/18/25 07:13 04/18/25 08:12
I&O
04/17/25 04/18/25 04/19/25
06:59 06:59 06:59
Intake Total 1220 / 1220 1905 / 1905
Output Total 1300 / 1300 725 / 725
Balance -80 / -80 1180 / 1180
Physical Exam
-
General: No Apparent Distress
HEENT: Normocephalic and Atraumatic
Respiratory: Negative Wheezes
Cardiac: Regular Rhythm and S1/S2
GI: Soft
Musculoskeletal: No Edema
Neuro: AO x 3
Psych: Calm
Data Reviewed
-
Total Time Spent with Patient (in minutes): 42
Labs: Labs Reviewed by me
[2025-04-18 09:54] LABS: Blood Urea Nitrogen 9 mg/dl (9-20); Calcium 8.3 mg/dl (8.4-10.2); Carbon Dioxide 31 mmol/L (22-30); Chloride 98 mmol/L (98-107); Estimated Creatinine Clearance 56 ml/min; Glucose 88 mg/dl (70-99); Potassium 3.8 mmol/L (3.5-5.1); Sodium 135 mmol/L (135-145); eGFR > 60.00
--- NOTE | 2025-04-18 11:10 | W.DS.TRANS ---
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
-
Discharge Instructions:
Sleep Apnea Risk Low
Discharge Diagnosis/Procedures partial SBO - conservatively managed. Also RLL 5
cm mass - infection vs tumor - treating with
antibiotics with pulmonary follow up
Diet Low Residue
Activity As tolerated
Instructions:
Stand-Alone Forms:
Changes to Home Medications: No
Discharge Medications:
DC Medications w/original date entered in [place]
finasteride 5 mg tablet 5 mg PO HS prostate 03/15/16
tamsulosin 0.4 mg capsule 0.4 mg PO HS Urinary issue 03/15/16
fluticasone fur. 200 mcg-umeclid 62.5 mcg-vilant 25 mcg inhalat.powder (Trelegy Ellipta) 1 inh inhalation R DAILYPRN PRN sob 10/17/22
rosuvastatin 40 mg tablet 40 mg PO QPM High cholesterol 10/17/22
ezetimibe 10 mg tablet 10 mg PO QPM High Cholesterol 01/25/24
erythromycin 5 mg/gram (0.5 %) eye ointment 1 applic RIGHT EYE BIDPRN PRN burning in eye 03/12/24
apixaban 2.5 mg tablet (Eliquis) 2.5 mg PO BID 30 days #60 tabs 03/14/24
amiodarone 200 mg tablet 100 mg PO DAILY Arrhythmia 04/11/24
acetaminophen 325 mg tablet (Tylenol) 650 mg PO Q6HPRN PRN MILD PAIN 04/16/25
carboxymethylcellulose sodium 0.5 % eye drops in a dropperette (Refresh Plus) 1 drp BOTH EYES Q6HPRN PRN DRYNESS 04/16/25
docusate sodium 100 mg capsule (Colace) 100 mg PO BID Gastrointestinal Issue 04/16/25
midodrine 5 mg tablet 5 mg PO BID Blood Pressure 04/16/25
omega3 550 md-url-hkl-D3 250 unit-lutein 2.5 mg-zeaxant 0.5 mg capsule (Eye [place] Advantage) 1 cap PO DAILY Supplement 04/16/25
vitamins A,C,P-wehe-rkezxv 2,148 mcg-113 mg-45 mg-17.4 mg tablet (PreserVision AREDS) 1 tab PO BID Supplement 04/16/25
amoxicillin 875 mg-potassium clavulanate 125 mg tablet 1 tab PO BID #18 tabs 04/18/25
polyethylene glycol 3350 17 gram oral powder packet 17 g PO DAILY #30 ea 04/18/25
Home Medication Changes
Pending Results: No
Total time spent discharging patient (in min): 42
--- NOTE | 2025-04-18 11:34 | CM ---
Addendum entered by Michelle Ann 04/18/25 11:50:
IMM benefit explained; form signed @ 1135
Original Note:
Met with patient at bedside to discuss discharge plan; offered outpatient therapy; but [patient prefers home PT; agency options identified; preference is [facility]; family will transport home
Plan: Discharge to home today with home PT; referral sent to [facility]
--- NOTE | 2025-04-18 13:49 | W.PN.GS2 ---
Today's Communication / Plan
-
dispo planning
Assessment / Plan
-
Assessment: 84-year-old male presenting with recurrent small bowel obstruction in the setting of likely underlying chronic dysmotility and significant adhesive disease requiring multiple laparotomies and lysis of adhesions in the past.
AFVSS
Continued improvement and resolution of presenting symptoms
Plan:
-- Low residue diet -generally recommend smaller portion sizes as well
-- Okay for discharge from surgical perspective
--Would consider maintaining MiraLAX for a bowel regimen
Surgical follow-up as needed basis as well.
Subjective Data
-
Date of Service: April 18, 2025
Pt seen and examined at bedside with Dr. Rodriguez. Denies n/v. Tolerating dietary advancements. Passed a small hard Bm last night. Continues to pass a good amount of flatus.
Objective Data
-
Intake and Output
04/17/25 04/18/25 04/19/25
06:59 06:59 06:59
Intake Total 1220 / 1220 1905 / 1905
Output Total 1300 / 1300 725 / 725
Balance -80 / -80 1180 / 1180
Intake:
Oral fluids 120 / 120 840 / 840
IV fluids (Total) 825 / 825
IV piggybacks 240 / 240
Davis intermittent irrigation 1100 / 1100
Output:
Urine, Voided 200 / 200 725 / 725
Straight cath output 1100 / 1100
Other:
Number of approximated MODERATE 3
amounts of urine
Vital Signs
Temp Pulse Resp BP Pulse Ox
97.6 F 77 16 172/81 100
04/18/25 07:13 04/18/25 08:12 04/18/25 08:12 04/18/25 07:13 04/18/25 08:12
Lab Results
04/18/25 06:54
04/18/25 06:54
Calcium 8.3 mg/dl (8.4-10.2) L 04/18/25 06:54
Total Bilirubin 0.6 mg/dl (0.2-1.3) 04/16/25 14:45
AST 20 U/L (17-59) 04/16/25 14:45
ALT 17 U/L (0-50) 04/16/25 14:45
Alkaline Phosphatase 66 U/L (38-126) 04/16/25 14:45
Total Protein 6.4 g/dl (6.3-8.2) 04/16/25 14:45
Albumin 3.7 g/dl (3.5-5.0) 04/16/25 14:45
Physical Exam
-
NAD AAOx3
ABD: Soft, no longer distended, tympany improved, nontender
[2025-04-18 14:00] VITALS: BP 129/84
--- NOTE | 2025-04-18 16:55 | W.PN.PUL3 ---
Today's Communication / Plan
-
Right lower lobe opacity appears to be pneumonia
There was there was a 3.5 cm lesion there on CT abd/pelvis from April 2024, and believe that this current process was likely similar to previous with mucous plugging/atelectasis
Outpatient follow up with repeat imaging in >4-6 weeks
Signing off; call back with any questions or concerns
Assessment
-
84-year-old man with past medical history noted, admitted with small bowel obstruction. On CAT scan of the abdomen and pelvis discovered to have a right lower lobe abnormality, possible right lower lobe mass. Patient history of COPD and last time
seen by Dr. Almonte was June 2023. He lost to follow-up.
We were consulted for evaluation of abnormal CT chest on 04/17/2025.
-
Abnormal CT chest: Right lower lobe lung mass-found on CT abdomen pelvis lung cuts measures around 5 cm.
COPD-chronic hypoxemic respiratory failure on 2 T-[id number]-qqx in acute exacerbation
-
Conditions present prior admission.
Former smoker
History of atrial fibrillation on chronic anticoagulation-on low-dose chronic amiodarone therapy.
Hypertension
GERD
Chronic hypoxemic respiratory failure and COPD
Followed by Dr. Almonte-last time seen 06/2023
FEV1 1.44 L - 51% DLCO 33%
On Trelegy
Previous history of lung nodules: Mostly resolved on CAT scan from 06/28/2023.
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
Previous history of lung nodules
Macular degeneration
Urinary retention
Hyperlipidemia
Previous bowel obstruction
Infrarenal abdominal aortic aneurysm
Assessment and plan:
CT abdomen pelvis lung cuts reviewed: Incidental centrilobular emphysema including bases. Irregular parenchymal opacity in the right lower lobe about 5 cm. Small to moderate size pericardial effusion again seen.
In reviewing previous CT abdomen pelvis for several years patient had had a right lower lobe abnormality-possibly postinflammatory/bronchiectatic-this abnormality has been evolving since 2022.
Current abnormality may be infectious/mucous plugging definitely appears larger compared to latest imaging available from April 2024-cannot rule out malignancy.
-
Patient does report increased phlegm production for the last several weeks, has been using nebulizer as needed, he is able to clear secretions. Does not feel sick. Not having more shortness of breath.
Not bronchospastic on exam.
Suspect abnormality may be more mucous plugging/infection based on symptoms.
-
At this point patient acutely ill with small bowel obstruction-I would recommend a course of antibiotics for 7 days to treat possibility of infection.
May start with ceftriaxone and transition to Augmentin once able to tolerate orals and complete 7 to 10 days.
He will need a short-term imaging follow-up in the next 6 to [address] of the chest to evaluate improvement/resolution.
If there is suspicion of a mass then PET scan and/or tissue biopsy will be necessary.
-
COPD moderate to severe: Chronic hypoxemic respiratory failure. 2 L of oxygen at baseline.
Continue inhalers as you are
No indication for systemic corticosteroids
Incentive spirometry
Acapella device if able.
As needed nebulizers
-
Small bowel obstruction: Management per surgery and primary team.
Continue analgesia-monitor respiratory status closely.
-
Patient will need short-term follow-up in [facility] office in the next 3 to 4 weeks.
-
Patient is being prepared for discharge home. No additional recommendations at this time. Pulmonary service will now sign off. Thank you for allowing us to be involved in the care of this patient. Please reconsult if there are any additional
questions/concerns, or if patient's respiratory status deteriorates.
Total time spent today was 38 minutes for this encounter. Time includes reviewing laboratory test/imaging results, reviewing pertinent medical records, obtaining and reviewing medical history, performing an appropriate exam, ordering medications,
tests and procedures. Time also includes documentation of this encounter, coordinating patient care and communicating with other healthcare professionals. Total time does not include separately billed tests performed on this date of service.
Subjective Data
-
Date of Service:
Date of Service: April 18, 2025
Chief Complaint: Pulmonary Follow Up
Subjective:
Patient seen and evaluated today at bedside (late note entry). No acute events reported from overnight. Being discharged today which is okay per surgery.
Review of Systems
General: Other (Negative unless mentioned above)
Objective Data
Data Reviewed
Vital Signs / I&O / Oxygen:
Vital Signs
Temp Pulse Resp BP Pulse Ox
97.6 F 77 16 172/81 100
04/18/25 07:13 04/18/25 08:12 04/18/25 08:12 04/18/25 07:13 04/18/25 08:12
Intake and Output
04/17/25 04/18/25 04/19/25
06:59 06:59 06:59
Intake Total 1220 / 1220 1905 / 1905
Output Total 1300 / 1300 725 / 725
Balance -80 / -80 1180 / 1180
SaO2 100
Nasal Cannula flow liters per 2
minute
Physical Exam
General: Respiratory Distress (n), Comfortable and Chills (n)
HEENT: Normocephalic and Anicteric
Cardiovascular: S1-S2 and Peripheral Edema (n)
Respiratory: Wheeze (n), Crackles (n), Rhonchi (n) and Non-Labored Respirations
GI: Soft, Non Distended, Non Tender and Normal Bowel Sounds
Neurology: Awake, Alert and Tremors (n)
Skin: Warm, Dry and Jaundice (n)
Labs/Micro/Reports
Lab Data
04/18/25 06:54
Microbiology
04/16/25 23:59 Nose MRSA Screen - Final
No Methicillin Resistant Staphylococcus aureus isolated.
04/16/25 16:47 Urine Urine Culture - Preliminary
Coagulase neg. staphylococcus
== END 2025-04-18 15:19 | disposition home health service (06) | DRG 389 ==
LOC: 4 WEST ACU 20:10
PROVIDERS: Physician Assistant; ADMITTING PHYSICIAN Internal Medicine; ATTENDING PHYSICIAN Internal Medicine; EMERGENCY PHYSICIAN Emergency Medicine; FAMILY PHYSICIAN Family Medicine; OTHER PHYSICIAN Surgery
DX: K56.51 Intestinal adhesions [bands], with partial obstruction (principal); E87.1 Hypo-osmolality and hyponatremia; J96.11 Chronic respiratory failure with hypoxia; Z68.1 Body mass index [BMI] 19.9 or less, adult; I48.0 Paroxysmal atrial fibrillation; I10 Essential (primary) hypertension; E78.00 Pure hypercholesterolemia, unspecified; J43.2 Centrilobular emphysema; G89.29 Other chronic pain; K21.9 Gastro-esophageal reflux disease without esophagitis; N40.1 Benign prostatic hyperplasia with lower urinary tract symptoms; J98.4 Other disorders of lung; R33.8 Other retention of urine; J84.89 Other specified interstitial pulmonary diseases; D50.9 Iron deficiency anemia, unspecified; I95.1 Orthostatic hypotension; I27.20 Pulmonary hypertension, unspecified; M54.9 Dorsalgia, unspecified; R63.6 Underweight; I71.43 Infrarenal abdominal aortic aneurysm, without rupture; Z66 Do not resuscitate; Z87.19 Personal history of other diseases of the digestive system; Z87.01 Personal history of pneumonia (recurrent); Z85.828 Personal history of other malignant neoplasm of skin; Z87.891 Personal history of nicotine dependence; Z90.49 Acquired absence of other specified parts of digestive tract; Z99.81 Dependence on supplemental oxygen; Z79.01 Long term (current) use of anticoagulants; Z82.49 Family history of ischemic heart disease and other diseases of the circulatory system
CPT/HCPCS: 51701; 74018; 74177; 80048; 80053; 81003; 81015; 83605; 83690; 85025; 85027; 87070; 87086; 87147; 87186; 94640; 96361; 96374; 97162; 97166; 99285; Q9967

== ENCOUNTER 2025-05-28 00:41 | Inpatient (IN) | payer OTHER, SELFPAY ==
[2025-05-27 21:00] VITALS: BP 196/88
[2025-05-27 21:56] LABS: Hematocrit 32.8 % (39.0-52.0); Hemoglobin 10.7 g/dL (13.0-18.0); Mean Corp Hgb Conc. 32.6 g/dL (33.0-37.0); Mean Corpuscular Volume 84.8 fL (80.0-94.0); Nucleated Red Blood Cells % 0 % (-); Platelet Count 191 10^3/uL (130-400); Red Cell Dist. Width 13.9 % (11.5-14.5)
[2025-05-27 22:17] LABS: ALT (SGPT) 17 U/L (0-50); AST (SGOT) 22 U/L (17-59); Albumin 3.9 g/dl (3.5-5.0); Alkaline Phosphatase 65 U/L (38-126); Blood Urea Nitrogen 22 mg/dl (9-20); Calcium 9.1 mg/dl (8.4-10.2); Carbon Dioxide 31 mmol/L (22-30); Chloride 93 mmol/L (98-107); Glucose 129 mg/dl (70-99); Lipase 46 U/L (23-300); Potassium 5.1 mmol/L (3.5-5.1); Sodium 126 mmol/L (135-145); Total Protein 6.6 g/dl (6.3-8.2); eGFR > 60.00
--- NOTE | 2025-05-27 22:56 | ED.GENMED ---
History of Present Illness
General
Chief Complaint: Abdominal Pain
Source: patient
Exam Limitations: none
Time Seen by Provider: 05/27/25 22:46
History of Present Illness
History of Present Illness:
85-year-old male presents with abdominal pain onset today. He feels distended similar to what he has felt in the past was prior small bowel obstructions. He was here in March had a small bowel obstruction which was managed conservatively. He
did have a bowel movement today. No fevers. No other complaints at this time
Past History
Past History
ED Past Medical History: Arrthythmia (Atrial fibrillation), Cancer (Skin), COPD (Wears Home Oxygen at 3 liters), GERD, HTN, Hypercholesterolemia and Other (AAA that they are watching, diverticulitis, chronic back pain, Bowel obstruction,
Bronchiolitis obliterans Organizing Pneumonia, Urinary retention, Macular degeneration); Negative NIDDM
ED Past Surgical History: Bowel resection (Colon resection)
Social History
Tobacco: Former smoker
Alcohol: None
Personal:
Living: with family
Employment: Retired
Phy Exam
Physical Exam
Physical Exam:
General: Well-appearing male no acute respiratory distress
HEENT: Normal cephalic atraumatic
Heart: Regular rate and rhythm
Lungs: Clear no wheeze
Abdomen is mildly distended and diffusely tender
Extremities: No cyanosis
Course
Orders/Labs/Results
Orders:
Orders
05/27/25 21:49
Complete Blood Count/With Diff Urgent
Comprehensive Metabolic Panel Urgent
Lipase Urgent
05/27/25 22:53
CT Abd/pelvis W Iv Cont Urgent
Comment:
Reason For Exam: abdominal pain, history of sbo
0.9% Sodium Chloride 500 ml [Nss] 500 ml IV BOLUS
HYDROmorphone [Dilaudid] 0.5 mg IV NOW STA
Ondansetron Injectable [Zofran] 4 mg IV NOW STA
05/27/25 23:35
HYDROmorphone [Dilaudid] 1 mg IV NOW STA
Abnormal Lab Results
05/27/25
21:49
WBC 12.5 H 10^3/uL
(4.8-10.8)
RBC 3.87 L 10^6/uL
(4.70-6.10)
Hgb 10.7 L g/dL
(13.0-18.0)
Hct 32.8 L %
(39.0-52.0)
MCHC 32.6 L g/dL
(33.0-37.0)
Absolute Neuts (auto) 10.8 H 10^3/uL
(1.4-6.5)
Absolute Lymphs (auto) 0.8 L 10^3/uL
(1.2-3.4)
Absolute Monos (auto) 0.8 H 10^3/uL
(0.1-0.6)
Neutrophils % 86.5 H %
(42.2-75.2)
Lymphocytes % 6.2 L %
(20.5-51.1)
Sodium 126 L mmol/L
(135-145)
Chloride 93 L mmol/L
(98-107)
Carbon Dioxide 31 H mmol/L
(22-30)
BUN 22 H mg/dl
(9-20)
Glucose 129 H mg/dl
(70-99)
05/27/25 21:49
05/27/25 21:49
Vital Signs
Initial and Last Documented VS:
Initial Vital Signs
Temp Pulse Resp BP Pulse Ox
97.4 F 69 18 196/88 95
05/27/25 21:00 05/27/25 21:00 05/27/25 21:00 05/27/25 21:00 05/27/25 21:00
Last Documented Vital Signs
Temp Pulse Resp BP Pulse Ox
97.4 F 67 18 178/79 95
05/27/25 21:00 05/27/25 23:01 05/27/25 23:01 05/27/25 23:01 05/27/25 23:01
MDM/Problems Addressed
Differential Diagnosis Includes:
Abdominal pain. Consider constipation versus recurrent small bowel obstruction versus colitis versus pancreatitis.
Will check labs and CT scan of the abdomen.
*Pulse Oximetry
SaO2: 95
Oxygen Mode of Delivery: Room air
Patient hypoxic: no
*Critical Care Note
Total Time (30-74mins, 75-104mins- exclusive of procedures): Not Applicable
Update Note
Update Note:
CT consistent with recurrent small bowel obstruction with transition point in left pelvis. This was a vision report over the phone. Pain medicine ordered for the patient. Will admit to hospital
ED Attending Note
-
Portions of this chart may have been created with voice recognition software.� Occasional wrong word or��sound alike� substitutions may have occurred due to the inherent limitations of voice recognition software.
Discharge Plan
Departure
Patient Disposition: Admit
Date of Disposition: 05/27/25
Time of Disposition: 23:41
Presentation/result/management discussed w/ accepting MD/DO: Hospitalist
Discharge Problem:
SBO (small bowel obstruction)
Prescriptions:
No Action
tamsulosin 0.4 MG capsule
0.4 mg PO HS
finasteride 5 MG tablet
5 mg PO HS
Trelegy Ellipta 200-62.5-25 mcg Blister With Device
1 inh INHALATION R DAILYPRN PRN (Reason: sob)
rosuvastatin 40 mg tablet
40 mg PO QPM
ezetimibe 10 mg Tablet
10 mg PO QPM
erythromycin 5 mg/gram (0.5 %) ointment
1 applic RIGHT EYE BIDPRN PRN (Reason: burning in eye)
Eliquis 2.5 mg Tablet
2.5 mg PO BID 30 Days Qty: 60 0RF
amiodarone 200 mg tablet
100 mg PO DAILY
acetaminophen [Tylenol] 325 mg Tablet
650 mg PO Q6HPRN PRN (Reason: MILD PAIN)
midodrine 5 mg Tablet
5 mg PO BID
docusate sodium [Colace] 100 mg Capsule
100 mg PO BID
carboxymethylcellulose sodium [Refresh Plus] 0.5 % Dropperette
1 drp BOTH EYES Q6HPRN PRN (Reason: DRYNESS)
PreserVision AREDS 2,148 mcg-113 mg-45 mg-17.4mg Tablet
1 tab PO BID
Eye [place] Advantage 550-250-2.5-0.5 of-wppp-en-mg Capsule
1 cap PO DAILY
polyethylene glycol 3350 17 gram Powder In Packet
17 g PO DAILY Qty: 30 0RF
amoxicillin-pot clavulanate 875-125 mg tablet
1 tab PO BID Qty: 18 0RF
Referrals:
Neal Harmon MD [Family Provider, Family Practice]
Interventions
Interventions:
*Risk Screen - Suicide Last Done: 05/27/25 21:49
*General Assessment Last Done: 05/27/25 21:00
*Neglect/Abuse Screening Last Done: 05/27/25 21:49
*ED COVID-19 Vaccine History Last Done: 05/27/25 21:49
*ED Influenza Vaccine History Last Done: 05/27/25 21:49
JO-Qednps-Absgsxhdhl Assessment Last Done: 05/27/25 22:00
Discharge Date and Time
Print Language: CZECH
[2025-05-27] MEDS: NSS 500 IV (22:58)
[2025-05-27] MEDS: ZOFRAN 4 MG IV (22:59)
[2025-05-27] MEDS: DILAUDID 0.5 MG IV (23:00)
[2025-05-27 23:01] VITALS: BP 178/79
--- NOTE | 2025-05-28 00:10 | HPS.HSE ---
Family Physician
-
Family Physician: Neal Harmon
Chief Complaint
-
Abd Pain / distention
History of Present Illness
Patient is an 85y M with PMH significant for A-Fib, COPD and multiple prior SBOs who presents to ED complaining of abdominal pain and distention that started this afternoon. Patient reports pain across lower abdomen and increased distention. No
N/V. He has had multiple similar episodes in the past - previously requiring ex lap / MURIEL. He was most recently admitted 03/2025 and his symptoms improved with conservative measures at that time.
Medical History
Past Medical History
Past Medical History: Reports Other
Additional Past Medical History:
Paroxysmal A-Fib
Hypertension
AAA
COPD
Orthostatic Hypotension
BPH
Diverticular Disease
Past Surgical History: Reports Other
Additional Past Surgical History:
Hemicolectomy (perforated diverticulitis)
Ex Lap / MURIEL (last was January 2024)
Cataracts
Mohs Surgery
Social History
Tobacco: Former Smoker (Quit smoking many years ago.)
Alcohol: None
Drug: None
Family History
Family History: Not pertinent
Allergies / Home Medications
Allergies reflects when Allergies were last updated in [employer].
Home Medications with original date entered in [employer] [facility] [employer]
Allergy/Medication List:
Allergies
Allergy/AdvReac Type Severity Reaction Status Date / Time
No Known Allergies Allergy Verified 05/27/25 21:00
Home Medications
finasteride 5 mg tablet 5 mg PO HS prostate 03/15/16
tamsulosin 0.4 mg capsule 0.4 mg PO HS Urinary issue 03/15/16
fluticasone fur. 200 mcg-umeclid 62.5 mcg-vilant 25 mcg inhalat.powder (Trelegy Ellipta) 1 inh inhalation R DAILYPRN PRN sob 10/17/22
rosuvastatin 40 mg tablet 40 mg PO QPM High cholesterol 10/17/22
ezetimibe 10 mg tablet 10 mg PO QPM High Cholesterol 01/25/24
erythromycin 5 mg/gram (0.5 %) eye ointment 1 applic RIGHT EYE BIDPRN PRN burning in eye 03/12/24
apixaban 2.5 mg tablet (Eliquis) 2.5 mg PO BID 30 days #60 tabs 03/14/24
amiodarone 200 mg tablet 100 mg PO DAILY Arrhythmia 04/11/24
acetaminophen 325 mg tablet (Tylenol) 650 mg PO Q6HPRN PRN MILD PAIN 04/16/25
carboxymethylcellulose sodium 0.5 % eye drops in a dropperette (Refresh Plus) 1 drp BOTH EYES Q6HPRN PRN DRYNESS 04/16/25
docusate sodium 100 mg capsule (Colace) 100 mg PO BID Gastrointestinal Issue 04/16/25
midodrine 5 mg tablet 5 mg PO BID Blood Pressure 04/16/25
omega3 550 cg-nxs-ghg-D3 250 unit-lutein 2.5 mg-zeaxant 0.5 mg capsule (Eye [place] Advantage) 1 cap PO DAILY Supplement 04/16/25
vitamins A,C,Y-qzqw-kabmcq 2,148 mcg-113 mg-45 mg-17.4 mg tablet (PreserVision AREDS) 1 tab PO BID Supplement 04/16/25
polyethylene glycol 3350 17 gram oral powder packet 17 g PO DAILY #30 ea 04/18/25
Review of Systems
-
History Source: Patient
A 12 point ROS was completed and negative except as noted: Yes
Constitutional: Denies Fever or Chills
Respiratory: Denies Cough or Trouble Breathing
Cardiac: Denies Chest Pain or Palpitations
Abdomen/GI: Reports Abdominal Pain; Denies Nausea, Vomiting or Diarrhea
: Denies Dysuria or Frequency
Musculoskeletal: Denies Joint Pain or Edema
Neurological: Denies Dizzy or Headache
Physical Exam
Vital Signs
Vital Signs
Temp Pulse Resp BP Pulse Ox
97.4 F 67 18 178/79 95
05/27/25 21:00 05/27/25 23:01 05/27/25 23:01 05/27/25 23:01 05/27/25 23:01
Physical Exam
General: Other (85y M in no acute distress.)
HEENT: Moist mucous membranes and Other (Neck supple.)
Respiratory: Clear; No Wheezes, Rales or Rhonchi
Cardiac: S1/S2 and Regular Rhythm; No Murmur
GI: Other (Abdomen is moderately distended. Pos tender and firm across lower abdomen. Bowel sounds are diminished.)
Musculoskeletal: No Clubbing, No Cyanosis and No Edema
Neuro: AO x 3
Laboratory Results
-
05/27/25 21:49
05/27/25 21:49
Laboratory Results
Total Bilirubin 0.7 mg/dl (0.2-1.3) 05/27/25 21:49
AST 22 U/L (17-59) 05/27/25 21:49
ALT 17 U/L (0-50) 05/27/25 21:49
Alkaline Phosphatase 65 U/L (38-126) 05/27/25 21:49
Lipase 46 U/L (23-300) 05/27/25 21:49
Impression/Plan
-
A/P: Patient is an 85y M with PMH significant for A-Fib, COPD and prior SBO who presents to ED complaining of abdominal pain and distention since this afternoon.
SBO
- Admit for further evaluation and treatment.
- CT scan shows SBO with transition in L pelvis - similar to prior studies.
- NPO, IVF support. Pain control and antiemetics.
- NG decompression if increased pain or patient develops N/V.
- Surgery evaluation for additional recommendations.
Hyponatremia (Acute on Chronic)
- Na = 126 compared to baseline in the low-mid 130s.
- IVFs as noted above.
- Follow for improvement.
Paroxysmal Atrial Fibrillation
- Stable. Resume usual PO med regimen when able.
ASCVD
- Stable / asymptomatic.
COPD without Acute Exacerbation
- Stable. Nebs PRN.
Orthostatic Hypotension
- Resume midodrine when tolerating POs.
- PT eval.
BPH
- Stable.
- Bladder scan protocol.
DVT Prophylaxis: SCDs
Code Status: DNR
[2025-05-28] MEDS: DILAUDID 1 MG IV (00:15)
[2025-05-28] MEDS: NSS 1000 IV ×3 (01:12→22:58)
--- NOTE | 2025-05-28 02:00 | PTCARENOTE ---
Patient arrived to [facility] from ED. Patient ambulated from stretcher to bed. Patient AAOx3. Patient stating he feels lightheaded. Vitals obtained. Blood pressure 76/43. Upon recheck manually, blood pressure 72/50. RENNY Rucker notified and
arrived to floor to assess patient. 1000 liter bolus given, see MAR. After bolus was complete, blood pressure 163/88. RENNY Rucker notified. Plan of care ongoing.
[2025-05-28 02:24] VITALS: BP 76/43; BMI 16.1
[2025-05-28 02:43] VITALS: BMI 16.1
--- NOTE | 2025-05-28 02:47 | W.PN.UPDATE ---
Update Note
Progress Note Update
~ 2 am On arrival to the floor, patient hypotensive 76/43, HR 63. Patient Ox3, denies any symptoms of lightheadedness, dizziness, fogginess. Ordered NSS 1L bolus, will continue to trend BP.
BP slightly improved 86/49 (MAP) on recheck, HR 60, bolus infusing. Patient resting in bed. Patient did receive multiple doses of Dilaudid in the ED prior to arriving on floor.
Patient's BP improved after bolus received, BP 163/88.
[2025-05-28 03:29] VITALS: BP 163/88
[2025-05-28] MEDS: DILAUDID 0.5 MG IV ×3 (05:15→18:29)
[2025-05-28 06:32] LABS: Hematocrit 31.6 % (39.0-52.0); Hemoglobin 10.2 g/dL (13.0-18.0); Mean Corp Hgb Conc. 32.3 g/dL (33.0-37.0); Mean Corpuscular Volume 87.5 fL (80.0-94.0); Platelet Count 188 10^3/uL (130-400); Red Cell Dist. Width 13.8 % (11.5-14.5)
[2025-05-28 06:52] LABS: Blood Urea Nitrogen 21 mg/dl (9-20); Calcium 8.4 mg/dl (8.4-10.2); Carbon Dioxide 31 mmol/L (22-30); Chloride 98 mmol/L (98-107); Estimated Creatinine Clearance 44 ml/min; Glucose 124 mg/dl (70-99); Potassium 5.0 mmol/L (3.5-5.1); Sodium 131 mmol/L (135-145); eGFR > 60.00
[2025-05-28 07:00] VITALS: BP 124/69
--- NOTE | 2025-05-28 10:21 | VNURNOTE ---
Chart reviewed. Patient is current with [facility]. Will continue to follow hospital course and DC plans.
--- NOTE | 2025-05-28 11:49 | CON.GS ---
Consultation
-
Date/Time Consultation Performed: 05/28/2025 10 AM
Performing Provider: Pepe
Reason for Consultation: SBO
Medical History
-
Chief Complaint: Abdominal pain, nausea
History of Present Illness:
Mr. Snyder is an 84 yo male well known to our service with a history of afib on Eliquis (LD 04/16), COPD on home o2, Margo procedure and subsequent reversal in the , Laparotomies with lysis of adhesion x 3 (12/13/22, 02/06/23, 02/01/24) for small
bowel obstructions due to adhesions with admission x2 last fall 2023 for SBO managed nonoperatively and about a month ago from 04/16/2025 through 04/18/2025 that responded to medical management.
This a.m. patient states that he has felt well since his discharge in March without any recurring GI symptoms. Yesterday evening after having spam and fried potatoes for dinner he developed the acute onset of colicky abdominal pain similar to
his previous episodes of small bowel obstruction. Secondary to the severity of pain he came in for emergency department evaluation. He has had nausea but no vomiting. His pain has improved a bit since admission but is still present. Continues
without vomiting. Denies nausea at this moment.
He states he has passed occasional flatus since the onset of his symptoms. His last bowel movement was yesterday.
Past Medical History
Past Medical History: Arrhythmias (afib on Eliquis), COPD (home O2), GERD, HTN and Other (pulmonary htn, bph, iron def anemia, infrarenal AAA)
Past Surgical History: Bowel Resection ( Margo procedure and subsequent reversal in the , Laparotomies with lysis of adhesion x 3 (12/13/22, 02/06/23, 02/01/24))
Social History
Tobacco: Former Smoker
Alcohol: None
Personal:
Living: With Family
Family History
Family History: Reviewed & Not Pertinent
Allergies / Home Medications
Allergy/AdvReac Type Severity Reaction Status Date / Time
No Known Allergies Allergy Verified 05/27/25 21:00
�Medication �Instructions �Recorded �Confirmed �Type
finasteride 5 mg tablet 5 mg PO HS prostate 03/15/16 05/28/25 History
tamsulosin 0.4 mg capsule 0.4 mg PO HS Urinary issue 03/15/16 05/28/25 History
fluticasone fur. 200 mcg-umeclid 1 inh inhalation R DAILYPRN PRN sob 10/17/22 05/28/25 History
62.5 mcg-vilant 25 mcg
inhalat.powder (Trelegy Ellipta)
rosuvastatin 40 mg tablet 40 mg PO QPM High cholesterol 10/17/22 05/28/25 History
ezetimibe 10 mg tablet 10 mg PO QPM High Cholesterol 01/25/24 05/28/25 History
erythromycin 5 mg/gram (0.5 %) eye 1 applic RIGHT EYE BIDPRN PRN 03/12/24 05/28/25 History
ointment burning in eye
apixaban 2.5 mg tablet (Eliquis) 2.5 mg PO BID 30 days #60 tabs 03/14/24 05/28/25 Rx
amiodarone 200 mg tablet 100 mg PO DAILY Arrhythmia 04/11/24 05/28/25 History
acetaminophen 325 mg tablet 650 mg PO Q6HPRN PRN MILD PAIN 04/16/25 05/28/25 History
(Tylenol)
carboxymethylcellulose sodium 0.5 1 drp BOTH EYES Q6HPRN PRN DRYNESS 04/16/25 05/28/25 History
% eye drops in a dropperette
(Refresh Plus)
docusate sodium 100 mg capsule 100 mg PO BID Gastrointestinal 04/16/25 05/28/25 History
(Colace) Issue
midodrine 5 mg tablet 5 mg PO BID Blood Pressure 04/16/25 05/28/25 History
omega3 550 bs-usm-xjz-D3 250 1 cap PO DAILY Supplement 04/16/25 05/28/25 History
unit-lutein 2.5 mg-zeaxant 0.5 mg
capsule (Eye [place] Advantage)
vitamins A,C,E-qqiq-nheuap 2,148 1 tab PO BID Supplement 04/16/25 05/28/25 History
mcg-113 mg-45 mg-17.4 mg tablet
(PreserVision AREDS)
polyethylene glycol 3350 17 gram 17 g PO DAILY #30 ea 04/18/25 05/28/25 Rx
oral powder packet
Review of Systems
-
History Source: Patient
All other systems: Negative unless noted
A 10 point review of systems was completed, and was negative except as per HPI.
Physical Exam
Vital Signs
Temp Pulse Resp BP Pulse Ox
97.6 F 78 16 124/69 94
05/28/25 07:00 05/28/25 07:00 05/28/25 07:00 05/28/25 07:00 05/28/25 07:00
05/27/25 05/28/25 05/29/25
06:59 06:59 06:59
Actual Weight 53.666 kg
Body Mass Index (BMI) 16.1
Lab Results
05/28/25 06:09
05/28/25 06:09
WBC 15.5 10^3/uL (4.8-10.8) H 05/28/25 06:09
Hgb 10.2 g/dL (13.0-18.0) L 05/28/25 06:09
Hct 31.6 % (39.0-52.0) L 05/28/25 06:09
Plt Count 188 10^3/uL (130-400) 05/28/25 06:09
Abs Immat Gran (auto) 0.0 10^3/uL (0-0.05) 05/27/25 21:49
Neutrophils % 86.5 % (42.2-75.2) H 05/27/25 21:49
Physical Exam
General: Well Developed, Well Nourished, No Apparent Distress and Comfortable (Elderly male resting in hospital bed. Participatory for history taking.)
HEENT: Normocephalic, Anicteric and Moist Mucous Membranes
Respiratory: Non Labored Respirations
GI: Soft, Tender (Mild generalized tenderness. Not localizing. No rebound, no rigidity, no guarding.) and Distended
Skin: Warm
Neuro: AO x 3
Psych: Calm
Data Reviewed
-
CT Scan: Image Personally Visualized and interpreted (Mildly dilated stomach, fluid-filled. Central small bowel distention with transition point in the right lower abdomen. No obvious second transition point. No free fluid. No pneumatosis. No
free air. No bowel wall thickening.)
Labs: Labs Reviewed by me (Leukocytosis 15, hemoglobin stable at 10.2 consistent with his chronic anemia. Hyponatremia improving. LFTs and lipase within normal limits.)
Assessment / Plan
-
Assessment: 85-year-old male presenting with recurrent small bowel obstruction likely secondary to adhesions given his extensive past abdominal surgical history.
Clinically stable, no signs of immediate bowel threat or compromise (ischemia/perforation)
Recommended attempted nonoperative management with supportive care which patient is in agreement with.
Plan:
N.p.o.
IV fluids; as needed analgesics/antiemetics
If recurrent nausea, worsening distention low threshold for placement of an NG tube (patient has not vomited yet and states that his nausea is only mild, no significant gastric distention on CT imaging so holding at this time on NG)
Consideration of subsequent contrast imaging study pending clinical course over the next 12 to 24 hours
--- NOTE | 2025-05-28 12:03 | W.PN.HOSP.TC ---
Today's Communication/Plan
-
See plan
Assessment / Plan
Assessment / Plan
Impression
Presents with acute onset of nausea, vomiting and diffuse abdominal pain. Reports last bowel movement day prior to admission.
Recurrent SBO
Leukocytosis
Hypovolemic hyponatremia
Right lower lobe (nodule versus resolving pneumonia
Conditions prior to admission
Recent hospitalization with SBO managed conservatively
Chronic hypoxic respiratory failure secondary to COPD on 2 L of nasal cannula with exertion
Paroxysmal atrial fibrillation baseline anticoagulation with Eliquis.
PAD/abdominal aortic aneurysm.
Chronic orthostasis on midodrine.
Dyslipidemia.
BPH
Malnutrition with BMI of 16
CT abdomen pelvis IV contrast only:
IMPRESSION:
1. High-grade distal small bowel obstruction with transition point in the right lower anterior abdomen, possibly secondary to adhesions or internal hernia.
2. Slight interval decrease in size of mass-like right lower lobe consolidation, favored to reflect resolving pneumonia. Underlying component of neoplasm difficult to exclude. Recommend continued imaging follow-up to resolution.
3. Cholelithiasis.
4. Fusiform infrarenal abdominal aortic aneurysm measures up to 4.7 cm, similar to prior.
Plan:
Recurrent small bowel obstruction likely secondary to adhesions. Patient with prior history of abdominal surgeries.
CT scan as above.
Improved nausea, persistent abdominal pain, although no evidence of acute bowel compromise.
Currently no indication for NG tube placement given resolved nausea. Monitor closely
Discussed with surgery.
Continue conservative management with bowel rest, IV fluids. Minimize narcotics
Depends on clinical situation, consider follow-up with oral contrast study.
Right lower lobe process nodule versus pneumonia
Reasonable aspiration risk given recurrent episodes of SBO with emesis dating back to recent March 2025.
Follow-up chest x-ray and CT scan with no improving right lower lobe infiltrate.
Afebrile with no new respiratory complaints.
Noted elevated white count.
Check procalcitonin.
Monitor closely off antibiotics.
Outpatient follow-up with pulmonology for imaging and further directions
COPD without exacerbation
Chronic hypoxic respiratory failure. Continue oxygen supplementation.
Continue trilogy Ellipta
Hypovolemic hyponatremia.
Sodium improving with IV fluid bolus.
Continue isotonic solution.
Follow BMP
Avoid hypotension
BPH
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
Monitor for retention
Anticipated Discharge: 24 - 48 hours
Subjective/Interval History
-
Date of Service: May 28, 2025
Objective Data
-
Labs:
Laboratory Results
05/28/25
06:09
WBC 15.5 H
Hgb 10.2 L
Hct 31.6 L
Plt Count 188
Sodium 131 L
Potassium 5.0
Chloride 98
Carbon Dioxide 31 H
BUN 21 H
Creatinine 0.9
Glucose 124 H
Calcium 8.4
Vital Signs:
Vital Signs
Temp Pulse Resp BP Pulse Ox
97.6 F 78 16 124/69 94
05/28/25 07:00 05/28/25 07:00 05/28/25 07:00 05/28/25 07:00 05/28/25 07:00
I&O
05/27/25 05/28/25 05/29/25
06:59 06:59 06:59
Output Total 650 / 650
Balance -650 / -650
Physical Exam
-
General: Well Developed and No Apparent Distress
HEENT: Normocephalic, Atraumatic and Moist Mucous Membranes
Respiratory: Clear to Auscultation
Cardiac: Regular Rhythm and S1/S2; Negative Murmur, Rub or Gallop
GI: Other (Mild distention with hypoactive bowel sounds. Mild diffuse tenderness)
Rectal: Deferred by Provider
Musculoskeletal: No Clubbing, No Cyanosis and No Edema
Skin: Negative Rash
Neuro: Nonfocal/Grossly Intact
[2025-05-28 15:00] VITALS: BP 154/78
[2025-05-28 16:15] VITALS: BMI 16.1
[2025-05-28] MEDS: ZOFRAN 4 MG IV (18:29)
[2025-05-28 23:31] VITALS: BP 117/64
[2025-05-29] MEDS: DILAUDID 0.5 MG IV ×3 (01:28→18:51)
[2025-05-29 05:51] LABS: Hematocrit 32.6 % (39.0-52.0); Hemoglobin 10.2 g/dL (13.0-18.0); Mean Corp Hgb Conc. 31.3 g/dL (33.0-37.0); Mean Corpuscular Volume 89.1 fL (80.0-94.0); Nucleated Red Blood Cells % 0 % (-); Platelet Count 178 10^3/uL (130-400); Red Cell Dist. Width 14.2 % (11.5-14.5)
[2025-05-29 06:44] LABS: Blood Urea Nitrogen 25 mg/dl (9-20); Calcium 8.3 mg/dl (8.4-10.2); Carbon Dioxide 28 mmol/L (22-30); Chloride 100 mmol/L (98-107); Estimated Creatinine Clearance 40 ml/min; Glucose 84 mg/dl (70-99); Potassium 4.6 mmol/L (3.5-5.1); Sodium 130 mmol/L (135-145); eGFR > 60.00
[2025-05-29 07:00] VITALS: BP 124/63
--- NOTE | 2025-05-29 08:18 | W.PN.GS2 ---
Addendum entered and electronically signed by Asad Whitehead MD 05/29/25 08:34:
Exam should read unlabored breathing on nasal cannula.
Patient also noted to have chronic hyponatremia.
Original Note:
Today's Communication / Plan
-
Patient has returned of bowel function, will advance diet cautiously.
Sips of clears
Assessment / Plan
-
This is an 85-year-old male with a history of recurrent small bowel obstructions with extensive past abdominal surgical history who presents with a recurrent small bowel obstruction.
Clinically seems he has improved with diarrhea overnight and his abdomen appears now only mildly distended.
Imaging: Can hold off on small bowel follow-through for now.
Labs: BMP, CBC, mag, Phos
Diet: Okay to start sips of clears
Analgesia: Per primary
DVT PPx
Activity: Ad Lakshmi, out of bed and ambulate as able.
Patient agreeable to plan of care above.
General surgery will continue to follow.
Time Spent
Total Time Spent with Patient (in minutes): 20
Subjective Data
-
Date of Service: May 29, 2025
Interval Events:
No acute events overnight. Slept well. Pain Controlled. Denies Nausea/Vomiting, significant amount of diarrhea overnight.
Objective Data
-
Intake and Output
05/28/25 05/29/25 05/30/25
06:59 06:59 06:59
Intake Total 0 / 0
Output Total 650 / 650
Balance -650 / -650 0 / 0
Intake:
Oral fluids 0 / 0
Output:
Straight cath output 650 / 650
Other:
Number of approximated MODERATE 2
amounts of urine
Vital Signs
Temp Pulse Resp BP Pulse Ox
99.0 F 80 17 124/63 97
05/29/25 07:00 05/29/25 07:00 05/29/25 07:00 05/29/25 07:00 05/29/25 07:00
Lab Results
05/29/25 05:35
05/29/25 05:35
Calcium 8.3 mg/dl (8.4-10.2) L 05/29/25 05:35
Total Bilirubin 0.7 mg/dl (0.2-1.3) 05/27/25 21:49
AST 22 U/L (17-59) 05/27/25 21:49
ALT 17 U/L (0-50) 05/27/25 21:49
Alkaline Phosphatase 65 U/L (38-126) 05/27/25 21:49
Total Protein 6.6 g/dl (6.3-8.2) 05/27/25 21:49
Albumin 3.9 g/dl (3.5-5.0) 05/27/25 21:49
Physical Exam
-
GENERAL/NEURO: Awake, Alert, no distress
CHEST: Unlabored breathing on RA
ABDOMEN: Soft, mildly tender, mildly distended
Patient has a sharma catheter: No
Patient has a central line: No
[2025-05-29 13:16] LABS: Procalcitonin 0.10 ng/ml (0.0-0.25)
--- NOTE | 2025-05-29 13:43 | PN.CDI ---
CDI
- -
CDI:
Physician Documentation Request
Admit Date: 05/28/25 00:41
Dear Doctor Ventura,
Patient admitted with recurrent small bowel obstruction.
05/29 Gen Surg PN,' ....recurrent small bowel obstruction....Patient has returned of bowel function, will advance diet cautiously. ...Sips of clears.'
Please provide in your note the likely extent of the documented recurrent small bowel obstruction:
Partial small bowel obstruction
Complete small bowel obstruction
Other
Use of terms such as suspected, likely, concern for, or probable (associated with a specific diagnosis that is being evaluated, monitored, or treated as if it exists) are acceptable and can be coded in the inpatient setting, when documented at the
time of discharge.
Thank you,
Manuela ZAMORA,RN,CCDS
CDI Specialist
Available via [place] text
Please use your independent medical judgment in providing your response.
--- NOTE | 2025-05-29 14:04 | PN.CDI ---
CDI
- -
CDI:
Physician Documentation Request
Admit Date: 05/28/25 00:41
Dear Doctor Steffen,
Patient admitted with recurrent small bowel obstruction.
05/28 PN, 'Malnutrition with BMI of 16.'
05/28 Nutrition assessment note, 'CBW: 118 lbs 5oz BMI 16.0 underweight range (05/28). Pt's weight previous admission listed as 116 lbs (04/16) reflective of stable weight over past 6 weeks.
Please review the following and provide your response in the progress notes.
Clinical Indicators:
Height: 6'
Weight: 118 lb 5 oz
BMI: 16.0
Other Clinical Notes:
Please provide in your note the diagnosis associated with abnormal BMI and your assessment:
Malnutrition- please specify severity and clinical indicators to support diagnosis
Underweight only
Other
Use of terms such as suspected, likely, concern for, or probable (associated with a specific diagnosis that is being evaluated, monitored, or treated as if it exists) are acceptable and can be coded in the inpatient setting, when documented at the
time of discharge.
Thank you,
Manuela ZAMORA,RN,CCDS
CDI Specialist
Available via tiger text
Please use your independent medical judgment in providing your response.
[2025-05-29 15:00] VITALS: BP 123/63
--- NOTE | 2025-05-29 16:22 | W.PN.HOSP.TC ---
Today's Communication/Plan
-
Sips of clears
Resume amiodarone
Hold Eliquis
Bladder scan with PVR 600 straight cath per protocol
resume Flomax and Proscar
Assessment / Plan
Assessment / Plan
Impression
Presents with acute onset of nausea, vomiting and diffuse abdominal pain. Reports last bowel movement day prior to admission.
Recurrent SBO
Leukocytosis
Hypovolemic hyponatremia
Right lower lobe (nodule versus resolving pneumonia
Conditions prior to admission
Recent hospitalization with SBO managed conservatively
Chronic hypoxic respiratory failure secondary to COPD on 2 L of nasal cannula with exertion
Paroxysmal atrial fibrillation baseline anticoagulation with Eliquis.
PAD/abdominal aortic aneurysm.
Chronic orthostasis on midodrine.
Dyslipidemia.
BPH
Malnutrition with BMI of 16
CT abdomen pelvis IV contrast only:
IMPRESSION:
1. High-grade distal small bowel obstruction with transition point in the right lower anterior abdomen, possibly secondary to adhesions or internal hernia.
2. Slight interval decrease in size of mass-like right lower lobe consolidation, favored to reflect resolving pneumonia. Underlying component of neoplasm difficult to exclude. Recommend continued imaging follow-up to resolution.
3. Cholelithiasis.
4. Fusiform infrarenal abdominal aortic aneurysm measures up to 4.7 cm, similar to prior.
Plan:
Recurrent small bowel obstruction likely secondary to adhesions. Patient with prior history of abdominal surgeries.
CT scan as above.
Improved nausea, persistent abdominal pain, although no evidence of acute bowel compromise.
Currently no indication for NG tube placement given resolved nausea. Monitor closely
Slowly improving with several loose stools overnight.
Surgery is following
Start clear liquid diet/sips of clears and monitor
Right lower lobe process nodule versus pneumonia
Reasonable aspiration risk given recurrent episodes of SBO with emesis dating back to recent March 2025.
Follow-up chest x-ray and CT scan with no improving right lower lobe infiltrate.
Afebrile with no new respiratory complaints.
Noted elevated white count.
Undetectable procalcitonin
Monitor closely off antibiotics.
Outpatient follow-up with pulmonology for imaging and further directions
Atrial fibrillation.
Continue amiodarone per
Hold Eliquis until improved GI function
COPD without exacerbation
Chronic hypoxic respiratory failure. Continue oxygen supplementation.
Continue trilogy Ellipta
Hypovolemic hyponatremia.
Sodium improving with IV fluid bolus.
Continue isotonic solution.
Follow BMP
Avoid hypotension
BPH
Bladder scan with PVR of 600
Continue monitoring, straight cath as per protocol
Resume Flomax and Proscar
Anticipated Discharge: 24 - 48 hours
Subjective/Interval History
-
Date of Service: May 29, 2025
Objective Data
-
Labs:
Laboratory Results
05/29/25
05:35
WBC 6.2
Hgb 10.2 L
Hct 32.6 L
Plt Count 178
Sodium 130 L
Potassium 4.6
Chloride 100
Carbon Dioxide 28
BUN 25 H
Creatinine 1.0
Glucose 84
Calcium 8.3 L
Vital Signs:
Vital Signs
Temp Pulse Resp BP Pulse Ox
97.9 F 78 17 123/63 99
05/29/25 15:00 05/29/25 15:00 05/29/25 15:00 05/29/25 15:00 05/29/25 15:00
I&O
05/28/25 05/29/25 05/30/25
06:59 06:59 06:59
Intake Total 0 / 0
Output Total 650 / 650 650 / 650
Balance -650 / -650 0 / 0 -650 / -650
Physical Exam
-
General: Well Developed and No Apparent Distress
HEENT: Normocephalic, Atraumatic and Moist Mucous Membranes
Respiratory: Clear to Auscultation
Cardiac: Regular Rhythm and S1/S2; Negative Murmur, Rub or Gallop
GI: Other (Mild distention with hypoactive bowel sounds. Mild diffuse tenderness)
Rectal: Deferred by Provider
Musculoskeletal: No Clubbing, No Cyanosis and No Edema
Skin: Negative Rash
Neuro: Nonfocal/Grossly Intact
[2025-05-29] MEDS: PACERONE 100 MG PO (18:48)
[2025-05-29] MEDS: PROSCAR 5 MG PO (21:32)
[2025-05-29] MEDS: FLOMAX 0.4 MG PO (21:32)
[2025-05-29] MEDS: TYLENOL 650 MG PO (21:52)
[2025-05-29 23:11] VITALS: BP 110/60
[2025-05-30] MEDS: NSS 1000 IV (01:05)
[2025-05-30 07:52] LABS: Hematocrit 27.1 % (39.0-52.0); Hemoglobin 8.7 g/dL (13.0-18.0); Mean Corp Hgb Conc. 32.1 g/dL (33.0-37.0); Mean Corpuscular Volume 90.3 fL (80.0-94.0); Red Cell Dist. Width 14.0 % (11.5-14.5)
[2025-05-30 08:01] VITALS: BP 132/63
[2025-05-30] MEDS: PACERONE 100 MG PO (08:18)
[2025-05-30 08:23] LABS: Blood Urea Nitrogen 23 mg/dl (9-20); Calcium 7.9 mg/dl (8.4-10.2); Carbon Dioxide 28 mmol/L (22-30); Chloride 104 mmol/L (98-107); Estimated Creatinine Clearance 44 ml/min; Glucose 63 mg/dl (70-99); Magnesium 2.0 mg/dl (1.6-2.3); Potassium 4.9 mmol/L (3.5-5.1); Sodium 134 mmol/L (135-145); eGFR > 60.00
[2025-05-30 10:34] LABS: Platelet Count 133 10^3/uL (130-400)
--- NOTE | 2025-05-30 10:58 | W.PN.GS2 ---
Addendum entered and electronically signed by Daniel Cantu MD 05/30/25 14:47:
Patient seen and examined in follow-up with surgical PA. Agree with documented progress note.
Patient states he feels much better. Presenting abdominal pain resolved. Multiple large loose bowel movements reported. Passing flatus.
Appetite returning and states he is hungry. Requesting resumption of diet.
AFVSS
NAD AAO x 3
ABD: Soft, nondistended, nontender
A/P: 85-year-old male with clinically resolving multiply recurrent pSBO
Clear liquids with advancing to fulls later this evening.
Okay to resume Eliquis as surgery not anticipated.
Original Note:
Today's Communication / Plan
-
full liquids
Assessment / Plan
-
This is an 85-year-old male with a history of recurrent small bowel obstructions with extensive past abdominal surgical history who presents with a recurrent small bowel obstruction.
Clinically seems he has improved, now having bowel movements and hungry
Imaging: Can hold off on small bowel follow-through for now.
Labs: BMP, CBC, mag, Phos
Diet: Advance to clears. Told patient to go slow.
Analgesia: Per primary
DVT PPx
Activity: Ad Lakshmi, out of bed and ambulate as able.
Patient agreeable to plan of care above.
General surgery will continue to follow.
Subjective Data
-
Date of Service: May 30, 2025
Patient states he is very hungry. He denies pain. Denies nausea or vomiting. Having bowel movements.
Objective Data
-
Intake and Output
05/29/25 05/30/25 05/31/25
06:59 06:59 06:59
Intake Total 0 / 0 960 / 960
Output Total 1100 / 1100
Balance 0 / 0 -140 / -140
Intake:
Oral fluids 0 / 0 0 / 0
IV fluids (Total) 960 / 960
Output:
Urine, Voided 450 / 450
Straight cath output 650 / 650
Other:
Number of approximated MODERATE 2 1
amounts of urine
Vital Signs
Temp Pulse Resp BP Pulse Ox
97.8 F 71 18 132/63 96
05/30/25 08:01 05/30/25 08:01 05/30/25 08:01 05/30/25 08:01 05/30/25 08:01
Lab Results
05/30/25 06:29
05/30/25 06:29
Calcium 7.9 mg/dl (8.4-10.2) L 05/30/25 06:29
Phosphorus 3.3 mg/dl (2.5-4.5) 05/30/25 06:29
Magnesium 2.0 mg/dl (1.6-2.3) 05/30/25 06:29
Total Bilirubin 0.7 mg/dl (0.2-1.3) 05/27/25 21:49
AST 22 U/L (17-59) 05/27/25 21:49
ALT 17 U/L (0-50) 05/27/25 21:49
Alkaline Phosphatase 65 U/L (38-126) 05/27/25 21:49
Total Protein 6.6 g/dl (6.3-8.2) 05/27/25 21:49
Albumin 3.9 g/dl (3.5-5.0) 05/27/25 21:49
Physical Exam
-
GENERAL/NEURO: Awake, Alert, no distress
ABDOMEN: Soft, mildly tender, mildly distended
Patient has a sharma catheter: No
Patient has a central line: No
[2025-05-30 11:27] LABS: Ferritin 90.0 ng/ml (17.9-464.0)
[2025-05-30 11:42] LABS: Vitamin B12 264 pg/ml (239-931)
[2025-05-30 11:55] LABS: Iron < 20 ug/dl (49-181)
[2025-05-30 11:59] LABS: Total Iron Binding Capacity 172 ug/dl (261-462)
[2025-05-30] MEDS: FERRLECIT 110 MG IV (13:49)
[2025-05-30] MEDS: VITAMIN B-12 1000 MCG PO (13:49)
--- NOTE | 2025-05-30 14:07 | W.PN.HOSP.TC ---
Today's Communication/Plan
-
Full Liquids
IV iron
Restart ELiquis when OK with Surgeon
Assessment / Plan
Assessment / Plan
85-year-old with nausea vomiting and abdominal pain
CT abdomen and annbyo-cusr-rasol small bowel obstruction with transition point in the right lower anterior abdomen possibly secondary to adhesions or internal hernia. Slight interval decrease in the size of masslike right lower lobe consolidation
favored to reflect resolving pneumonia. Underlying neoplasm could not be excluded. Cholelithiasis. Fusiform infrarenal AAA 4.7 cm similar to prior.
CVS: S1-S2 normal
Chest: CTA B/L
Abdomen: Soft, NT , Bowel sounds appreciated.
Extremities: No edema
# Recurrent small bowel obstruction
Recent hospitalization for small bowel obstruction managed conservatively
History of laparotomy and lysis of adhesions X 3 in the past
Patient had bowel movements and started on full liquids
# Anemia-drop in hemoglobin noted. No active bleeding. Possibly secondary to hemodilution. XUAN- Add IV iron and B12
# Mild hyponatremia-improving
# Chronic hypoxic respiratory failure secondary to COPD on 2 L nasal cannula oxygen-continue trilogy Ellipta, as needed nebs
# Paroxysmal atrial fibrillation on anticoagulation with Eliquis as outpatient, amiodarone. Restart Eliquis when okay with surgeon
# Right lower lobe nodule versus resolving pneumonia
# Enlarged prostate-continue Flomax, finasteride
# Hyperlipidemia-continue statin
# Underweight-BMI of 16
# Chronic orthostatic hypotension on midodrine as outpatient
# Cholelithiasis
# Fusiform infrarenal AAA 4.7 cm
# Diverticulosis
# Ex-smoker
# DVT prophylaxis-Add Lovenox while Eliquis is Held.
# Full code
Discussed with surgery
Part of this note was created using voice recognition system. Occasional wrong word or��sound alike� substitutions may have inadvertently occurred due to the inherent limitations of voice recognition software. If noted kindly bring it to my
attention for correction.
Anticipated Discharge: Within 24 hours
Subjective/Interval History
-
Date of Service: May 30, 2025
Objective Data
-
Labs:
Laboratory Results
05/30/25
06:29
WBC 4.3 L
Hgb 8.7 L
Hct 27.1 L
Plt Count 133 D
Sodium 134 L
Potassium 4.9
Chloride 104
Carbon Dioxide 28
BUN 23 H
Creatinine 0.9
Glucose 63 L
Calcium 7.9 L
Vital Signs:
Vital Signs
Temp Pulse Resp BP Pulse Ox
97.8 F 71 18 132/63 96
05/30/25 08:01 05/30/25 08:01 05/30/25 08:01 05/30/25 08:01 05/30/25 08:01
I&O
05/29/25 05/30/25 05/31/25
06:59 06:59 06:59
Intake Total 0 / 0 960 / 960
Output Total 1100 / 1100
Balance 0 / 0 -140 / -140
[2025-05-30 14:28] LABS: Hematocrit 29.1 % (39.0-52.0); Hemoglobin 9.4 g/dL (13.0-18.0)
[2025-05-30] MEDS: SPIRIVA RESPIMAT 2.5 MCG 2 PUFF INH (15:22)
[2025-05-30] MEDS: SYMBICORT 160/4.5 MCG INHALER 2 PUFF INH (15:22)
[2025-05-30 15:47] VITALS: BP 128/74
[2025-05-30] MEDS: NSS IV (16:39)
[2025-05-30] MEDS: ZETIA 10 MG PO (17:20)
[2025-05-30] MEDS: CRESTOR 40 MG PO (17:20)
[2025-05-30] MEDS: TYLENOL 650 MG PO ×2 (17:28→23:29)
[2025-05-30] MEDS: PROSCAR 5 MG PO (21:25)
[2025-05-30] MEDS: FLOMAX 0.4 MG PO (21:25)
[2025-05-30] MEDS: ELIQUIS 2.5 MG PO (21:25)
[2025-05-30 23:00] VITALS: BP 146/75
[2025-05-30] MEDS: TUMS CHEWABLE TABLET 200 MG PO (23:29)
[2025-05-31] MEDS: SYMBICORT 160/4.5 MCG INHALER 2 PUFF INH (07:28)
[2025-05-31] MEDS: SPIRIVA RESPIMAT 2.5 MCG 2 PUFF INH (07:28)
[2025-05-31 07:34] VITALS: BP 145/68
[2025-05-31] MEDS: VITAMIN B-12 1000 MCG PO (08:31)
[2025-05-31] MEDS: MIRALAX 17 GRAMS PO (08:33)
[2025-05-31] MEDS: ELIQUIS 2.5 MG PO (08:33)
[2025-05-31] MEDS: PACERONE 100 MG PO (08:33)
[2025-05-31] MEDS: ERYTHROMYCIN 0.5% OPHTHALMIC OINTMENT 1 APPLIC RIGHT EYE (08:38)
--- NOTE | 2025-05-31 10:16 | W.PN.GS2 ---
Addendum entered and electronically signed by Daniel Cantu MD 05/31/25 11:33:
Patient seen and examined with surgical PA. Agree with the progress note.
Tolerating full liquids and feels ready to consume solid foods.
Passing flatus regularly, bowel movements yesterday.
Denies significant distention or bloating. Denies abdominal pain.
AFVSS
NAD AAO x 3
ABD: Soft, nondistended, no tenderness on palpation.
Assessment/plan: Resolving recurrent PSBO
Low residue diet -dietary counseling provided
Okay for discharge if tolerates p.o. challenge
Recommended outpatient surgical follow-up with subsequent small bowel follow-through as an outpatient given recent bouts of recurrent PSBO
Original Note:
Today's Communication / Plan
-
advance to low residue
okay for d/c from our perspective if tolerates
Assessment / Plan
-
This is an 85-year-old male with a history of recurrent small bowel obstructions with extensive past abdominal surgical history who presents with a recurrent small bowel obstruction.
Clinically seems he has improved, now having bowel movements and hungry
Imaging: Can hold off on small bowel follow-through for now.
Labs: BMP, CBC, mag, Phos
Diet: Advance to low residue
Analgesia: Per primary
DVT PPx
Activity: Ad Lakshmi, out of bed and ambulate as able.
Dispo: Okay from our standpoint if tolerating a diet. Follow up with Dr. Cantu in the office. Discussed with patient.
Subjective Data
-
Date of Service: May 31, 2025
Patient states he feels well. Denies nausea or vomiting. He has bowel function. Denies abdominal pain or cramping.
Objective Data
-
Intake and Output
05/30/25 05/31/25 06/01/25
06:59 06:59 06:59
Intake Total 960 / 960 1650 / 1650 120 / 120
Output Total 1100 / 1100 350 / 350 350 / 350
Balance -140 / -140 1300 / 1300 -230 / -230
Intake:
Oral fluids 0 / 0 1650 / 1650
IV fluids (Total) 960 / 960 120 / 120
Output:
Urine, Voided 450 / 450 350 / 350 350 / 350
Straight cath output 650 / 650
Other:
Number of approximated MODERATE 1 1
amounts of urine
Vital Signs
Temp Pulse Resp BP Pulse Ox
97.6 F 73 18 145/68 93
05/31/25 07:34 05/31/25 07:34 05/31/25 07:34 05/31/25 07:34 05/31/25 07:34
Lab Results
05/31/25 08:50
Calcium 7.9 mg/dl (8.4-10.2) L 05/30/25 06:29
Phosphorus 3.3 mg/dl (2.5-4.5) 05/30/25 06:29
Magnesium 2.0 mg/dl (1.6-2.3) 05/30/25 06:29
Total Bilirubin 0.7 mg/dl (0.2-1.3) 05/27/25 21:49
AST 22 U/L (17-59) 05/27/25 21:49
ALT 17 U/L (0-50) 05/27/25 21:49
Alkaline Phosphatase 65 U/L (38-126) 05/27/25 21:49
Total Protein 6.6 g/dl (6.3-8.2) 05/27/25 21:49
Albumin 3.9 g/dl (3.5-5.0) 05/27/25 21:49
Physical Exam
-
GENERAL/NEURO: Awake, Alert, no distress
ABDOMEN: Soft, mildly tender, non distended
Patient has a sharma catheter: No
Patient has a central line: No
[2025-05-31 10:31] LABS: Blood Urea Nitrogen 15 mg/dl (9-20); Calcium 8.1 mg/dl (8.4-10.2); Carbon Dioxide 29 mmol/L (22-30); Chloride 100 mmol/L (98-107); Estimated Creatinine Clearance 56 ml/min; Glucose 78 mg/dl (70-99); Potassium 4.0 mmol/L (3.5-5.1); Sodium 130 mmol/L (135-145); eGFR > 60.00
--- NOTE | 2025-05-31 12:09 | W.PN.HOSP.TC ---
Addendum entered and electronically signed by Eitan Islas MD 05/31/25 14:45:
one dose of lasix prior to DC
More than 30 minutes spent in discharge including
Final examination of the patient
Summarizing hospital stay
Instructions for continuing care to all relevant caregivers
Preparation of discharge records, prescriptions, and referral forms
Original Note:
Today's Communication/Plan
-
Check serum osmolality to decide if patient needs additional treatment
Check labs as outpatient for sodium prescription given
Possible discharge today
Assessment / Plan
Assessment / Plan
85-year-old with nausea vomiting and abdominal pain
CT abdomen and uljmku-pjdj-vzthk small bowel obstruction with transition point in the right lower anterior abdomen possibly secondary to adhesions or internal hernia. Slight interval decrease in the size of masslike right lower lobe consolidation
favored to reflect resolving pneumonia. Underlying neoplasm could not be excluded. Cholelithiasis. Fusiform infrarenal AAA 4.7 cm similar to prior.
CVS: S1-S2 normal
Chest: CTA B/L
Abdomen: Soft, NT , Bowel sounds appreciated.
Extremities: No edema
# Recurrent small bowel obstruction
Recent hospitalization for small bowel obstruction managed conservatively
History of laparotomy and lysis of adhesions X 3 in the past
Patient had bowel movements
Tolerating diet
# Anemia-drop in hemoglobin noted. No active bleeding. Possibly secondary to hemodilution. XUAN- IV iron and B12
# Mild hyponatremia-Due to IVF- check serum osm.
# Chronic hypoxic respiratory failure secondary to COPD on 2 L nasal cannula oxygen-continue trilogy Ellipta, as needed nebs
# Paroxysmal atrial fibrillation on anticoagulation with Eliquis as outpatient, amiodarone. Restarted Eliquis
# Right lower lobe nodule versus resolving pneumonia-OP Follow up
# Enlarged prostate-continue Flomax, finasteride
# Hyperlipidemia-continue statin
# Underweight-BMI of 16
# Chronic orthostatic hypotension on midodrine as outpatient
# Cholelithiasis
# Fusiform infrarenal AAA 4.7 cm
# Diverticulosis
# Ex-smoker
# DVT prophylaxis- Eliquis
# Full code
Discussed with surgery
D/W RN
He lives with and son
Anxious to go home, but says he knows this can happen again.
Script given for Sodium
Part of this note was created using voice recognition system. Occasional wrong word or��sound alike� substitutions may have inadvertently occurred due to the inherent limitations of voice recognition software. If noted kindly bring it to my
attention for correction.
Anticipated Discharge: Today
Subjective/Interval History
-
Date of Service: May 31, 2025
Objective Data
-
Labs:
Laboratory Results
05/31/25 05/31/25
06:40 08:50
Hgb Cancelled
Hct Cancelled
Sodium 130 L
Potassium 4.0
Chloride 100
Carbon Dioxide 29
BUN 15
Creatinine 0.7
Glucose 78
Calcium 8.1 L
Vital Signs:
Vital Signs
Temp Pulse Resp BP Pulse Ox
97.6 F 73 18 145/68 93
05/31/25 07:34 05/31/25 07:34 05/31/25 07:34 05/31/25 07:34 05/31/25 07:34
I&O
05/30/25 05/31/25 06/01/25
06:59 06:59 06:59
Intake Total 960 / 960 1650 / 1650 120 / 120
Output Total 1100 / 1100 350 / 350 350 / 350
Balance -140 / -140 1300 / 1300 -230 / -230
--- NOTE | 2025-05-31 12:26 | W.DS.TRANS ---
Addendum entered and electronically signed by Eitan Islas MD 05/31/25 14:52:
Dictation- [id number]
Original Note:
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
-
Discharge Instructions:
Sleep Apnea Risk Intermediate
Discharge Diagnosis/Procedures Recurrent small bowel obstruction
Anemia
Mild hyponatremia
Chronic hypoxic respiratory failure on 2 L of
oxygen
COPD
Atrial fibrillation
Enlarged prostate
High cholesterol
Underweight
Chronic orthostatic hypotension
Aortic aneurysm 4.7 cm
Gallstones
Diverticulosis
Diet Low Fiber
Activity As tolerated
Driving Restrictions As prior to admission
Instructions: Low-fiber diet
Stand-Alone Forms:
Changes to Home Medications: Yes
Discharge Medications:
DC Medications w/original date entered in [employer]
finasteride 5 mg tablet 5 mg PO HS prostate 03/15/16
tamsulosin 0.4 mg capsule 0.4 mg PO HS Urinary issue 03/15/16
fluticasone fur. 200 mcg-umeclid 62.5 mcg-vilant 25 mcg inhalat.powder (Trelegy Ellipta) 1 inh inhalation R DAILYPRN PRN sob 10/17/22
rosuvastatin 40 mg tablet 40 mg PO QPM High cholesterol 10/17/22
ezetimibe 10 mg tablet 10 mg PO QPM High Cholesterol 01/25/24
erythromycin 5 mg/gram (0.5 %) eye ointment 1 applic RIGHT EYE BIDPRN PRN burning in eye 03/12/24
amiodarone 200 mg tablet 100 mg PO DAILY Arrhythmia 04/11/24
acetaminophen 325 mg tablet (Tylenol) 650 mg PO Q6HPRN PRN mild pain 04/16/25
carboxymethylcellulose sodium 0.5 % eye drops in a dropperette (Refresh Plus) 1 drp BOTH EYES Q6HPRN PRN dry eyes 04/16/25
docusate sodium 100 mg capsule (Colace) 100 mg PO BID Constipation 04/16/25
midodrine 5 mg tablet 5 mg PO BID Blood Pressure 04/16/25
omega3 550 de-nlb-vzi-D3 250 unit-lutein 2.5 mg-zeaxant 0.5 mg capsule (Eye [place] Advantage) 1 cap PO DAILY Supplement 04/16/25
vitamins A,C,U-lptp-csndgq 2,148 mcg-113 mg-45 mg-17.4 mg tablet (PreserVision AREDS) 1 tab PO BID Supplement 04/16/25
apixaban 2.5 mg tablet (Eliquis) 2.5 mg PO BID Blood clot prevention/tx 30 days #60 tabs 05/31/25
cyanocobalamin (vitamin B-12) 500 mcg tablet 1,000 mcg (2 x 500 mcg) PO DAILY low B 12 #0 tabs 05/31/25
polyethylene glycol 3350 17 gram oral powder packet 17 g PO DAILY Constipation #30 ea 05/31/25
Home Medication Changes
B12 new
Pending Results: No
[2025-05-31 12:53] VITALS: BP 122/68; BP 158/78; PULSE 68; O2SAT 97
[2025-05-31] MEDS: FERRLECIT 110 MG IV (13:28)
--- NOTE | 2025-05-31 13:50 | CM ---
Addendum entered by Juana Moore 05/31/25 15:01:
confirmed with Tiffanie padronison KAMRAN that patient is current with [facility] - will resume care
Original Note:
Patient seen at bedside
IA completed
IMM explained & signed. In chart
Lives with /son in ranch home, [address]
PLOF: Independent
DME: Walker, home oxygen 4L through [employer]
Has had [facility] in past, denies rehab
PT rec Home health, options reviewed would like [facility]
CM consult completed for [facility], notified Tiffanie parra
PLAN: Home with [facility]
son to transport
[2025-05-31 15:04] VITALS: BP 174/92
[2025-05-31] MEDS: LASIX 20 MG PO (15:06)
[2025-05-31 16:44] VITALS: BP 122/81
== END 2025-05-31 16:55 | disposition home health service (06) | DRG 389 ==
LOC: 3 WEST ACU 00:41
PROVIDERS: Internal Medicine; Student in an Organized Health Care Education/Training Program; Surgery; ADMITTING PHYSICIAN Hospitalist; ATTENDING PHYSICIAN Hospitalist; CONSULT PHYSICIAN Surgery; EMERGENCY PHYSICIAN Emergency Medicine; FAMILY PHYSICIAN Family Medicine
DX: K56.51 Intestinal adhesions [bands], with partial obstruction (principal); E87.1 Hypo-osmolality and hyponatremia; J96.11 Chronic respiratory failure with hypoxia; Z68.1 Body mass index [BMI] 19.9 or less, adult; J44.9 Chronic obstructive pulmonary disease, unspecified; I48.0 Paroxysmal atrial fibrillation; I95.1 Orthostatic hypotension; R63.6 Underweight; I10 Essential (primary) hypertension; D64.9 Anemia, unspecified; I71.43 Infrarenal abdominal aortic aneurysm, without rupture; K57.30 Diverticulosis of large intestine without perforation or abscess without bleeding; K80.20 Calculus of gallbladder without cholecystitis without obstruction; N40.0 Benign prostatic hyperplasia without lower urinary tract symptoms; E78.00 Pure hypercholesterolemia, unspecified; I25.10 Atherosclerotic heart disease of native coronary artery without angina pectoris; Z66 Do not resuscitate; D72.829 Elevated white blood cell count, unspecified; E78.5 Hyperlipidemia, unspecified; E86.1 Hypovolemia; Z79.01 Long term (current) use of anticoagulants; Z79.899 Other long term (current) drug therapy; Z87.891 Personal history of nicotine dependence
CPT/HCPCS: 74177; 80048; 80053; 82607; 82728; 83540; 83550; 83690; 83735; 83930; 84100; 84145; 85014; 85018; 85025; 85027; 94640; 96361; 96374; 97162; 99285; J2916; Q9967

== ENCOUNTER → 2025-06-29 14:04 | Outpatient (REF) | payer OTHER, SELFPAY | LOC: HWRAD 14:04 | PROVIDERS: ATTENDING PHYSICIAN Nurse Practitioner Family; FAMILY PHYSICIAN Family Medicine | DX: R91.1 Solitary pulmonary nodule (principal) | CPT/HCPCS: 71250 ==

== ENCOUNTER → 2025-07-09 11:45 | Outpatient (REF) | payer OTHER, SELFPAY | LOC: PET 11:45 | PROVIDERS: ATTENDING PHYSICIAN Nurse Practitioner Family | DX: R91.1 Solitary pulmonary nodule (principal) | CPT/HCPCS: 78815; A9552 ==